=== PATIENT | male | born 1945 | race Caucasian/White ===

== ENCOUNTER → 2016-12-11 | Outpatient (CLI) | payer OTHER ==
[2016-12-11 13:29] LABS: BLOOD UREA NITROGEN 31 mg/dl (7-18); BUN/CREATININE RATIO 21.9 (10-20); CALCIUM 9.9 mg/dl (8.5-10.1); CARBON DIOXIDE 23 mmol/L (21-32); CHLORIDE 107 mmol/L (98-107); CHOLESTEROL 129 mg/dl (0-200); GLUCOSE 103 mg/dl (70-99); POTASSIUM 4.3 mmol/L (3.5-5.1); SODIUM 138 mmol/L (136-145)
[2016-12-11 13:36] LABS: ALB/GLOB RATIO 1.4 (0.9-2); ALKALINE PHOSPHATASE 57 U/L (45-117); ALT/SGPT 33 U/L (12-78); AST/SGOT 24 U/L (15-37); CHOLESTEROL/HDL RATIO 2.5; HDL CHOLESTEROL 52 mg/dl; LDL CHOLESTEROL CALCULATED 56 mg/dl; TRIGLYCERIDES 103 mg/dl (0-150); VERY LOW DENSITY LIPOPROT CALC 21 mg/dl
== END | disposition home or self-care (01) ==
LOC: C.LABPVFM 10:20
PROVIDERS: ATTEND Family Medicine
DX: E78.5 Hyperlipidemia, unspecified (principal); R03.0 Elevated blood-pressure reading, without diagnosis of hypertension; R73.01 Impaired fasting glucose; E66.9 Obesity, unspecified

== ENCOUNTER → 2017-06-03 | Outpatient (CLI) | payer OTHER ==
[2017-06-03 13:09] LABS: BASO % 0.1 %; BASO ABS # 0.02 K/uL (0-0.2); COMPLETE YES; EOS % 0.5 %; HEMATOCRIT 50.5 % (42-52); IG% 0.4 %; LYMPH % 19.7 %; LYMPH ABS # 2.71 K/uL (1.2-3.4); MEAN CELL VOLUME 89.5 fL (80-100); MEAN CORPUSCULAR HEMOGLOBIN 30.7 pg (25-34); MEAN CORPUSCULAR HGB CONC 34.3 g/dl (32-36); MEAN PLATELET VOLUME 11.5 fL (7.4-10.4); NEUT % 71.3 %; PLATELET COUNT 180 K/uL (130-400); RED BLOOD COUNT 5.64 M/uL (4.7-6.1); WHITE BLOOD COUNT 13.76 K/uL (4.8-10.8)
[2017-06-03 13:20] LABS: ESTIMATED AVERAGE GLUCOSE 131 mg/dl; HA1C FLAG Normal (Normal)
[2017-06-03 13:36] LABS: ALT/SGPT 52 U/L (12-78); BLOOD UREA NITROGEN 29 mg/dl (7-18); BUN/CREATININE RATIO 23.1 (10-20); CALCIUM 9.8 mg/dl (8.5-10.1); CARBON DIOXIDE 29 mmol/L (21-32); CHLORIDE 101 mmol/L (98-107); CHOLESTEROL 140 mg/dl (0-200); CREATININE 1.26 mg/dl (0.60-1.40); GLUCOSE 112 mg/dl (70-99); POTASSIUM 4.3 mmol/L (3.5-5.1); SODIUM 134 mmol/L (136-145)
[2017-06-03 13:39] LABS: ALB/GLOB RATIO 1.3 (0.9-2); ALKALINE PHOSPHATASE 46 U/L (45-117); AST/SGOT 28 U/L (15-37); CHOLESTEROL/HDL RATIO 2.3; HDL CHOLESTEROL 61 mg/dl; LDL CHOLESTEROL CALCULATED 53 mg/dl; TRIGLYCERIDES 128 mg/dl (0-150); VERY LOW DENSITY LIPOPROT CALC 26 mg/dl
== END | disposition home or self-care (01) ==
LOC: C.LABPVFM 10:42
PROVIDERS: ATTEND Family Medicine
DX: Z11.59 Encounter for screening for other viral diseases (principal); E78.5 Hyperlipidemia, unspecified; R73.01 Impaired fasting glucose; R25.2 Cramp and spasm; R17 Unspecified jaundice

== ENCOUNTER 2018-01-07 06:05 | Inpatient (IN) | payer OTHER ==
[2017-12-28 10:01] VITALS: BMI 34.0
--- NOTE | 2017-12-29 14:06 | PAT Medication Instructions ---
Service Date Dec 29, 2017. Current Home Medication List Aspirin (Aspirin Ec), 81 MG PO QAM Atorvastatin (Lipitor), 40 MG PO QAM Cholecalciferol (Vitamin D3), 1 TAB PO QAM Ibuprofen (Advil), 200 MG PO UD PRN for PRN Multiple Vitamin (Multi Vitamin), 1 TAB PO QAM [Calcium, Magnesium], Unknown Dose PO QAM Medication Instructions For Your Scheduled Surgery - Hold the following medications the morning of surgery: Cholecalciferol (Vitamin D3), 1 TAB PO QAM Ibuprofen (Advil), 200 MG PO UD PRN for PRN Multiple Vitamin (Multi Vitamin), 1 TAB PO QAM [Calcium, Magnesium], Unknown Dose PO QAM - Take the following medications the morning of surgery with a sip of water: Aspirin (Aspirin Ec), 81 MG PO QAM (OK to continue per surgeon) Atorvastatin (Lipitor), 40 MG PO QAM If you have any questions please call us at [phone] or [phone] or [phone]
--- NOTE | 2017-12-29 15:22 | DIAGNOSTIC IMAGING REPORT ---
CHEST 2 VIEWS ROUTINE HISTORY: 72 years-old Male PAT preoperative exam. No acute chest complaints COMPARISON: None available. TECHNIQUE: PA and lateral views of the chest FINDINGS: The cardiac silhouette is mildly enlarged. Calcification of the aorta. No pneumothorax, pleural effusion or overt pulmonary edema. Eventration of the right hemidiaphragm. Lungs are mildly hyperinflated. Subsegmental bibasilar opacities suggest atelectasis/scarring. Degenerative changes of the shoulders and spine. IMPRESSION: Cardiomegaly without acute process. The above report was generated using voice recognition software. It may contain grammatical, syntax or spelling errors. Electronically signed by: Artis Morris M.D. 12/29/2017 3:20 PM Dictated Date/Time: 12/29/2017 3:19 PM
[2017-12-29 15:27] LABS: BASO % 0.9 %; BASO ABS # 0.07 K/uL (0-0.2); EOS % 3.3 %; EOS ABS # 0.26 K/uL (0-0.5); HEMATOCRIT 43.3 % (42-52); HEMOGLOBIN 14.8 g/dL (14.0-18.0); IG# 0.01 K/uL (0.00-0.02); LYMPH % 38.2 %; LYMPH ABS # 2.97 K/uL (1.2-3.4); MEAN CELL VOLUME 88.2 fL (80-100); MEAN CORPUSCULAR HEMOGLOBIN 30.1 pg (25-34); MEAN CORPUSCULAR HGB CONC 34.2 g/dl (32-36); MONO % 8.7 %; MONO ABS # 0.68 K/uL (0.11-0.59); NEUT % 48.8 %; NEUT ABS # 3.79 K/uL (1.4-6.5); PLATELET COUNT 173 K/uL (130-400); RED CELL DISTRIBUTION WIDTH CV 13.5 % (11.5-14.5); RED CELL DISTRIBUTION WIDTH SD 43.9 fL (36.4-46.3); WHITE BLOOD COUNT 7.78 K/uL (4.8-10.8)
[2017-12-29 15:39] LABS: CREATININE 1.15 mg/dl (0.60-1.40); INR 1.1 (0.9-1.1); POTASSIUM 3.6 mmol/L (3.5-5.1)
[2018-01-07] VITALS (34 sets, daily range): BP systolic 121–213; BP diastolic 52–124; PULSE 52–74; TEMP 36.6–37.2; O2SAT 91–100; Ht 177.8 cm; Wt 108.1 kg
[~2018-01-07] VITALS: Ht 177.8 cm; Wt 108.1 kg
[~2018-01-07 06:05] MED LIST: ASPI81TA28 PO; ATOR-24 PO; CALCIUM, MAGNESIUM PO; CEFAZOLIN 2000MG IV PUSH 15 ML IV SCH; CHOL1000 PO; IBUP-1050 PO; LACTATED RINGER'S 1000ML 1,000 ML IV SCH; MULT-1027 PO
--- NOTE | 2018-01-07 06:09 | History and Physical ---
History & Physical Date of Service Jan 07, 2018. History & Physical Chief Complaint: AAA found on routine screening. History of Present Illness I the pleasure of seeing Renato womack today for evaluation of abdominal aortic aneurysm. As you know he is a 72-year-old gentleman who on a screeningultrasound showed a 7.4 cm abdominal aortic aneurysm. He had no history of this in the past. He has no family history of aneurysmal disease. He is in good health. He did claim that did not 2015 he was seen by arabic translator for an abnormal EKG. He was told that he may have had a small inferior HI which was not symptomatic. He has no complaints of claudication and he has no complaints of cerebrovascular insufficiency. Review of Systems 10 systems reviewed there are no positive findings other than occasional back and hip pain and right knee pain. Physical Exam Physical exam he was awake oriented 3 is mildly obese is in no apparent distress. His blood pressure is 144/86 in the left 140/86 in the right. His lungs are clear his heart a regular rate and rhythm exam is benign I cannot appreciate a pulsatile mass to the body habitus. His radius carotids and vertebrals are +2 bilaterally. Femorals and pedal pulses are all +2 bilaterally. Neurologic exam is grossly intact. Assessment/Plan Plan and recommendations this point being that he has a large size abdominal aortic aneurysm repair is recommended. We will obtain a CT angiogram to see if he is a candidate for an endovascular repair. If endovascular repair is feasible this will be scheduled for the next 2 weeks. We will keep you informed as the results of the CT scan. Thank you very much for letting us to dissipate in the care of this patient. Sincerely, ANJELICA Jimenez MD Problem List/Past Medical History Ongoing Family history of malignant melanoma Family history of skin cancer Skin cyst Tobacco user Historical No qualifying data Procedure/Surgical History Repair of umbilical hernia (2014) , Excision (12/06/2013), Excision (12/06/2013), None. Medications Inpatient No active inpatient medications Home aspirin 81 mg oral delayed release tablet, 81 mg= 1 tab, PO, Daily atorvastatin 40 mg oral tablet, 40 mg= 1 tab, PO, Daily Calcium, Magnesium and Zinc oral tablet, 1 tab, PO, Daily multivitamin, 1 tab, PO, Daily Tylenol, See Instructions Allergies No Known Medication Allergies Social History Tobacco Former smoker, Cigarettes, Stopped age 69 Years. Family History Breast cancer: MGM and Maternal Aunt. Diabetes 02-OCT-2015 18:38:14<$>: Mother. Glioblastoma: Mother.
[2018-01-07] MEDS ORDERED: ALBUMIN HUMAN 5% 12.5 GM/250 ML VIAL IV ONE (06:53)
[2018-01-07] MEDS ORDERED: NITROGLYCERIN/D5W 100MCG/ML 20ML SYR ONE (06:54)
[2018-01-07] MEDS ORDERED: GELATIN SPONGE SZ 100 ONE (06:59)
[2018-01-07] MEDS ORDERED: CEFAZOLIN SOD 1 GM VIAL ONE (07:00)
[2018-01-07] MEDS ORDERED: HEPARIN SOD (PORCINE) 1000 UNIT/ML 10 ML VIAL ONE ×3 (07:00→09:54)
[2018-01-07] MEDS ORDERED: THROMBIN 5000 UNITS KIT ONE (07:00)
--- NOTE | 2018-01-07 07:17 | History & Physical Bridge Note ---
H&P Re-Evaluation Bridge Note: I have examined the patient, reviewed the History & Physical and in the interval since the performance of the History & Physical I have noted the following changes of clinical significance: No changes noted Patient here for endorepair of his AAA. I have discussed the risks options and benefits of the procedure with the patient. The patient understands the risks options and benefits and agrees to the procedure.
[2018-01-07] MEDS ORDERED: LIDOCAINE HCL 2% JELLY 30 ML TUBE ONE (07:32)
[2018-01-07] MEDS ORDERED: BUPIVACAINE/EPINEPHRINE 0.5% MPF 1:200,000 30 ML VIAL ONE (07:32)
[2018-01-07] MEDS ORDERED: FENTANYL CITRATE INJ 50 MCG/1 ML 2 ML VIAL ONE ×2 (07:37→11:42)
[2018-01-07] MEDS ORDERED: MIDAZOLAM HCL 1 MG/ML 2ML VIAL ONE (07:37)
[2018-01-07] MEDS ORDERED: KETAMINE HCL INJ 50 MG/ML 10 ML VIAL ONE (08:29)
[2018-01-07] MEDS ORDERED: LIDOCAINE HCL 2% 2 ML VIAL (20MG/ML) ONE (09:04)
[2018-01-07] MEDS ORDERED: PROPOFOL IV EMULSION 10 MG/ML 20 ML VIAL ONE ×2 (09:04→09:42)
[2018-01-07] MEDS ORDERED: ONDANSETRON INJ 2 MG/ML 2 ML VIAL ONE (09:04)
[2018-01-07] MEDS ORDERED: SUCCINYLCHOLINE CHLORIDE 20 MG/ML 10 ML VIAL IV ONE (09:54)
[2018-01-07] MEDS ORDERED: ROCURONIUM BROMIDE 10 MG/ML 5 ML VIAL ONE (10:08)
[2018-01-07] MEDS ORDERED: GLYCOPYRROLATE INJ 0.2 MG/ML VIAL ONE (10:52)
[2018-01-07] MEDS ORDERED: NEOSTIGMINE METHYLSULFATE 5 MG/5 ML SYR ONE (10:52)
--- NOTE | 2018-01-07 10:58 | [facility] Post Operative Brief Note ---
Immediate Operative Summary Operative Date Jan 07, 2018. 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 Surgeon Dr. Jimenez Laborer Sawmill Surgeon(s) Leonie Noble MD Estimated Blood Loss 30 Findings Consistent with Post-Op Diagnosis Specimens None Anesthesia Type General Complication(s) none Disposition Accompanied Pt To Recover: no Disposition: Recovery Room / PACU
[2018-01-07] MEDS ORDERED: CEFAZOLIN IV 2,000 MG in DEXTROSE 5% 50ML 50 ML IV SCH (11:00)
[2018-01-07] MEDS ORDERED: ONDANSETRON INJ 2 MG/ML 2 ML VIAL IV PRN ×2 (11:00→11:45)
[2018-01-07] MEDS ORDERED: IODIXANOL (VISIPAQUE) 270 MG/ML 150ML IV ONE (11:03)
[2018-01-07] MEDS ORDERED: BUPIVACAINE/EPINEPHRINE 0.5% MPF 1:200,000 30 ML VIAL INJ ONE (11:03)
[2018-01-07] MEDS ORDERED: LIDOCAINE HCL 2% JELLY 30 ML TUBE EXT ONE (11:07)
[2018-01-07] MEDS ORDERED: ARISTA ABSORBABLE HEMOSTAT 3GM TOP ONE (11:08)
[2018-01-07] MEDS ORDERED: LABETALOL HCL IV 5 MG/ML 20ML ONE (11:17)
[2018-01-07] MEDS ORDERED: FLUMAZENIL 0.1 MG/1 ML 10 ML VIAL IV PRN (11:45)
[2018-01-07] MEDS ORDERED: EpHEDrine SULFATE INJ 50 MG/ML AMP IV PRN (11:45)
[2018-01-07] MEDS ORDERED: NALOXONE HCL 0.4 MG/1 ML VIAL/CARP IV PRN (11:45)
[2018-01-07] MEDS ORDERED: PROMETHAZINE HCL INJ 12.5 MG in SODIUM CHLORIDE 0.9% 50ML 50 ML IV PRN (11:45)
[2018-01-07] MEDS ORDERED: FENTANYL CITRATE INJ 50 MCG/1 ML 2 ML VIAL IV PRN (11:45)
[2018-01-07] MEDS ORDERED: ATROPINE SULFATE 0.1 MG/ML 5ML SYR IV PRN (11:45)
--- NOTE | 2018-01-07 12:01 | Anesthesiology Progress Note ---
Anesthesia Post Op Note Date & Time Jan 07, 2018 at 12:01 Vital Signs Pain Intensity: 4 Vital Signs Past 12 Hours Date Time Temp Pulse Resp B/P (MAP) Pulse Ox O2 Delivery O2 Flow Rate FiO2 01/07/18 11:40 50 16 118/72 98 Oxymask 2 01/07/18 11:31 52 16 114/59 98 Oxymask 10 01/07/18 11:21 36.0 57 19 139/81 98 Oxymask 10 01/07/18 06:20 36.9 58 18 147/90 97 Room Air Notes Mental Status: alert / awake / arousable, participated in evaluation Pt Amnestic to Procedure: Yes Nausea / Vomiting: adequately controlled Pain: adequately controlled Airway Patency, RR, SpO2: stable & adequate BP & HR: stable & adequate Hydration State: stable & adequate Anesthetic Complications: no major complications apparent
[2018-01-07 12:15] LABS: HEMATOCRIT 41.2 % (42-52); HEMOGLOBIN 14.2 g/dL (14.0-18.0)
[2018-01-07] MEDS: MoRPHine SULFATE 4 MG/ML 1 ML CARP\\VIAL IV PRN ×2 (14:22→22:02)
[2018-01-07] MEDS: PANTOprazole INJ 40 MG in SYRINGE 0 ML IV SCH (14:23)
[2018-01-07] MEDS: D5W AND 1/2NSS 1,000 ML IV SCH ×2 (14:24→22:01)
--- NOTE | 2018-01-07 15:47 | Critical Care Consultation ---
Critical Care Consultation Date of Consultation: Jan 07, 2018. Attending Physician: Cristi Jimenez M.D. Reason for Consultation: Observation following vascular surgery: Endovascular Repair of Left Iliac Artery Aneurysm, Percutaneous Endovascular Aneurysm Repair, Right Iliac Extension, Bilateral Cannulation of the Aorta, Mechanical Closure of Bilateral Femoral Arteries History of Present Illness 72 yo male with a PMH of HLD, 25 pack year former smoker presents to the ICU for monitoring following a successful vascular surgical procedure. Past Medical/Surgical History HLD, asymptomatic bradycardia, Obesity, AAA Family History Atrial fibrillation, glioblastoma, melanoma Social History Smoking Status: Former Smoker Allergies Coded Allergies: No Known Allergies (Unverified , 01/07/18) Home Medications Scheduled Aspirin (Aspirin Ec), 81 MG PO QAM Atorvastatin (Lipitor), 40 MG PO QAM Cholecalciferol (Vitamin D3), 1 TAB PO QAM Multiple Vitamin (Multi Vitamin), 1 TAB PO QAM [Calcium, Magnesium], Unknown Dose PO QAM Scheduled PRN Ibuprofen (Advil), 200 MG PO UD PRN for PRN Current Inpatient Medications Current Inpatient Medications Medications (Trade) Dose Ordered Sig/Mp Route Start Time Stop Time Status Last Admin Dose Admin Cefazolin Sodium 15 ml @ 3.75 mls/ min PREOP IV 01/07/18 06:00 01/07/18 18:00 01/07/18 08:00 3.75 MLS/MIN Lactated Ringer's 1,000 ml @ 80 mls/hr [id number] IV 01/07/18 06:00 01/07/18 18:29 Morphine Sulfate (MoRPHine SULFATE INJ) If PO analgesic is orde... Q2H PRN IV 01/07/18 11:00 01/21/18 10:59 01/07/18 14:22 2 MG Oxycodone/ Acetaminophen (Percocet 5-325mg Tab) `1-2 TABS FOR MODER... Q4H PRN PO 01/07/18 11:00 01/21/18 10:59 Ondansetron HCl (Zofran Inj) 4 mg Q6H PRN IV 01/07/18 11:00 02/06/18 10:59 Pantoprazole Sodium 40 mg/ Syringe 10 ml @ 5 mls/min DAILY@11 IV 01/07/18 13:00 01/10/18 11:01 01/07/18 14:23 5 MLS/MIN Dextrose/Sodium Chloride 1,000 ml @ 125 mls/hr Q8H IV 01/07/18 13:00 02/06/18 12:59 01/07/18 14:24 125 MLS/HR Aspirin (Ecotrin Tab) 81 mg QAM PO 01/08/18 09:00 02/07/18 08:59 Atorvastatin Calcium (Lipitor Tab) 40 mg QAM PO 01/08/18 09:00 02/07/18 08:59 Cholecalciferol (Vitamin D Tab) 1,000 inter.unit QAM PO 01/08/18 09:00 02/07/18 08:59 Multivitamins (Multivitamin Tab) 1 tab QAM PO 01/08/18 09:00 02/07/18 08:59 Fentanyl Citrate (Fentanyl Inj) 25 mcg Q5M PRN IV 01/07/18 11:45 01/07/18 18:00 Naloxone HCl (Narcan Inj) 0.2 mg Q2M PRN IV 01/07/18 11:45 01/07/18 18:00 Flumazenil (Romazicon Inj) 0.2 mg Q2M PRN IV 01/07/18 11:45 01/07/18 18:00 Ondansetron HCl (Zofran Inj) 4 mg ONE PRN IV 01/07/18 11:45 01/07/18 18:00 Promethazine HCl 12.5 mg/Sodium Chloride 50.5 ml @ 202 mls/hr ONE PRN IV 01/07/18 11:45 01/07/18 18:00 Ephedrine Sulfate (EpHEDrine SULFATE INJ) 5 mg Q5M PRN IV 01/07/18 11:45 01/07/18 18:00 Atropine Sulfate (Atropine Sulfate 0.1mg/ml Inj) 0.5 mg Q1M PRN IV 01/07/18 11:45 01/07/18 18:00 Cefazolin Sodium 2000 mg/Syringe 15 ml @ 3.75 mls/ min Q8H IV 01/07/18 16:00 01/08/18 15:59 Review of Systems Constitutional: No fever, No chills, No sweats Eyes: No worsening of vision, No eye pain, No redness ENT: No hearing loss, No tinnitus, No trouble swallowing Respiratory: No cough, No sputum, No wheezing, No shortness of breath Cardiovascular: No chest pain, No orthopnea, No edema, No palpitations Abdomen: No pain, No nausea, No vomiting, No diarrhea Musculoskeletal: No joint pain, No muscle pain, No swelling, No calf pain Genitourinary - Male: No hematuria, No dysuria Endocrine: No fatigue, No excessive thirst, No excessive urination Integumentary: No rash, No itch, No color change Physical Exam Date Time Temp Pulse Resp B/P (MAP) Pulse Ox O2 Delivery O2 Flow Rate FiO2 01/07/18 14:30 53 18 148/74 (98) 100 Nasal Cannula 2.0 01/07/18 13:30 53 18 139/68 (91) 99 Nasal Cannula 2.0 01/07/18 13:02 52 16 142/71 (94) 100 Nasal Cannula 2.0 01/07/18 13:00 Nasal Cannula 2.0 01/07/18 12:37 36.9 54 16 122/71 (88) 92 Nasal Cannula 2.0 01/07/18 12:18 36.4 01/07/18 12:00 47 14 111/60 95 Oxymask 2 01/07/18 11:50 45 11 107/53 96 Oxymask 2 01/07/18 11:40 50 16 118/72 98 Oxymask 2 01/07/18 11:31 52 16 114/59 98 Oxymask 10 01/07/18 11:21 36.0 57 19 139/81 98 Oxymask 10 01/07/18 06:20 36.9 58 18 147/90 97 Room Air General Appearance: well-appearing, WD/WN, no apparent distress Head: normocephalic, atraumatic Eyes: PERRLA, no discharge, EOMI Neck: normal range of motion, no tenderness, trachea midline, no stridor, supple Respiratory: breath sounds normal, clear to auscultation, clear to percussion, no respiratory distress, no tenderness Cardiovasular: regular rate/rhythm, normal S1S2, no M/G/R, no murmur Abdomen: non tender, normal bowel sounds, no rebound, no masses, no guarding Upper Extremities: no edema, no deformity, normal ROM Lower Extremities: no edema, no deformity, normal ROM Neuro: alert, oriented x 3, normal motor exam, normal sensation Psychiatric: normal affect Laboratory Results Last 24 Hours Test 01/07/18 11:31 Hemoglobin 14.2 g/dL Hematocrit 41.2 % Assessment & Plan 72 yo male presents to ICU for monitoring following 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 Neuro - Post operative pain; Morphine Sulfate Q2 for severe pain, Percocet Q4 PRN for moderate pain Cardio - History of iliac aneurysm, repair today, no complications - Additional history includes; HLD, possible inferior infarct, asymptomatic bradycardia - Continue patients home regimen; ASA 81mg, Atorvastatin 40 mg - HR 45-55, BP approximately 140/70 in the post-op period - Triglycerides from 06/03/2017 demonstrated the following: TG 128, TCH 140, HDL 61, LDL 53 - Was recently worked up for EKG findings suspicious for an old [place]--follow up ECHO showed preserved systolic function, EF 60%, with basal wall motion abnormalities consistent with RCA infarct. Patient was seen by cardiology and was cleared for surgery. Respiratory - On 2 L NC, continue to wean - Former smoker, 25 pack years GI - Ulcer ppx; IV pantoprazole - Zofran for nausea - No signs or sx of infection - Linder intact ID - Post surgical abx ppx Cefazolin IV Q8 Renal/lytes - Continue to follow output, no signs or sx of dehydration - Cr 1.15, follow am BMP - K 3.6, will replete Endocrine - Continue home Vit D, multivitamins - Recent A1C, 6.2 (06/03/2017) - No diabetic medications. Will order sliding scale, if patient has elevated glucose DVT ppx - SCD's, ambulate Lines - Peripheral IV, linder Code - Full FEN - NS 125 mls/hr q 8 Resident Physician Supervision Note: Dr. Angel was resident physician during care of patient. I separately evaluated patient and did history and exam. I discussed the case with the resident and generally agree with the findings and plan. Patient required emergent CT scan after hypertensive episode to evaluate for possible leak or rupture, I discussed the radiology findings with radiology, no obvious indication of vascular leak, there is a small retroperitoneal hematoma which is likely postprocedural and could very well explain a lot of the patient' s pain and discomfort. At this point we will continue with serial H&H and close observation for possible expansion. I discussed these findings and treatment plan with Dr. Jimenez. I have personally spent 35 minutes of critical care time in the direct management of this patient. This is a life/limb threatening event. This includes time spent evaluating patient, direct bedside care, chart review, placing orders, interpretation of diagnostic studies, discussion with consultants, patient, and/or family members regarding treatment decisions, as well as other required patient management activities. This time is exclusive of all separately billable procedures, and teaching time and separate from and in addition to any other critical care service time. Documented By: Kushal Silver DO
[2018-01-07] MEDS: CEFAZOLIN IV 2,000 MG in SYRINGE 0 ML IV SCH (16:02)
[2018-01-07] MEDS ORDERED: NURSING VERBAL MED ORDER ONE ×3 (16:30→18:45)
[2018-01-07] MEDS ORDERED: PROMETHAZINE HCL INJ 50 MG in SODIUM CHLORIDE 0.9% 50ML 50 ML IV PRN (16:45)
[2018-01-07] MEDS ORDERED: HydrALAZINE HCL 20 MG/ML VIAL ONE (17:41)
[2018-01-07 18:05] LABS: HEMATOCRIT 42.8 % (42-52); HEMOGLOBIN 15.1 g/dL (14.0-18.0)
--- NOTE | 2018-01-07 18:27 | DIAGNOSTIC IMAGING REPORT ---
ABDOMEN AND PELVIS CT WITHOUT CONTRAST CT DOSE: 1280.31 mGy.cm HISTORY: Acute mid abdominal pain. PEVAR with abd pain. TECHNIQUE: Multiaxial CT images of the abdomen and pelvis were performed without contrast. A dose lowering technique was utilized adhering to the principles of ALARA. COMPARISON STUDY: Spot fluoroscopic images from aortobiiliac aneurysm repair 01/07/2018, CTA 12/24/2017 FINDINGS: Study is motion degraded. Dependent subsegmental groundglass opacities suggest atelectasis. Limited evaluation of the lung bases secondary to respiratory motion. There is no pneumatosis or pneumoperitoneum identified. The imaged inferior cardiac chambers are mildly enlarged with coronary arterial calcifications noted. Contrast is noted within the gallbladder lumen and lateral with vicarious excretion. Liver, spleen, pancreas and adrenal glands demonstrate no change. Striated nephrogram seen bilaterally with mild bilateral perinephric stranding. Hypodense 3.0 cm lesion about the inferior pole right kidney suggests renal cyst. Contrast is noted within the bilateral renal collecting systems. Retained contrast within the urinary bladder lumen with Mcintyre catheter in place. The prostate is enlarged. Fusiform aneurysmal dilation of the infrarenal abdominal aorta redemonstrated measuring up to 7.6 x 8.2 cm, unchanged. Mild retained contrast is noted within the vessel lumen. Mild air is also noted within the lumen of the aorta which is likely postprocedural. Fusiform aneurysmal dilation of the left common iliac artery is unchanged, 5.0 cm. Status post placement of aortobiiliac stent graft with the left iliac stent graft demonstrating 2 limbs extending into the external and internal iliac branches respectively. Retroperitoneal hemorrhage is noted about the left pelvic sidewall tracking along the inferior iliac vessels superiorly urinary bladder measuring up to 7.8 x 1.7 cm on image 413 series 3. Additional trace hemorrhage is seen within the left inguinal tissues. Subcutaneous emphysema about the bilateral inguinal regions is likely postprocedural. Gaseous distention of the stomach. Mild nonspecific stranding about the mid mesentery. No bowel obstruction. Bones appear intact. Multilevel spondylitic spurring and intervertebral disc space narrowing with facet arthropathy. IMPRESSION: 1. Status post repair of the fusiform infrarenal abdominal aortic aneurysm and left common iliac artery aneurysm with placement of an aortobiiliac stent graft. No definite evidence of aneurysm rupture. There is however moderate amount of retroperitoneal hemorrhage about the left lower hemipelvis tracking along the iliac vessels and left inguinal distribution, possibly postprocedural. Close follow-up is needed. 2. Striated nephrogram with retained contrast within the bilateral renal collecting systems. Contrast induced nephropathy is a differential consideration. 3. Additional findings as above. These findings were discussed with Dr. Silver on 01/07/2018 at 6:16 PM Electronically signed by: Artis Morris M.D. 01/07/2018 6:25 PM Dictated Date/Time: 01/07/2018 6:10 PM
[2018-01-07] MEDS: SODIUM NITROPRUSSIDE SOLN INJ 50 MG in DEXTROSE 5% 500ML 500 ML IV PRN (19:02)
[2018-01-08] VITALS (64 sets, daily range): BP systolic 93–266; BP diastolic 49–264; PULSE 53–91; TEMP 36.8–37; O2SAT 90–99
[2018-01-08] MEDS: CEFAZOLIN IV 2,000 MG in SYRINGE 0 ML IV SCH ×2 (00:16→08:23)
[2018-01-08 00:37] LABS: HEMATOCRIT 39.3 % (42-52); HEMOGLOBIN 13.8 g/dL (14.0-18.0)
[2018-01-08 01:05] LABS: INR 1.1 (0.9-1.1); PTT PATIENT 23.5 SECONDS (21.0-31.0)
[2018-01-08] MEDS: MoRPHine SULFATE 4 MG/ML 1 ML CARP\\VIAL IV PRN ×2 (01:28→07:05)
[2018-01-08 05:30] LABS: HEMATOCRIT 39.2 % (42-52); HEMOGLOBIN 13.8 g/dL (14.0-18.0)
[2018-01-08 06:08] LABS: CALCIUM 8.5 mg/dl (8.5-10.1); CREATININE 1.11 mg/dl (0.60-1.40); POTASSIUM 3.6 mmol/L (3.5-5.1)
[2018-01-08] MEDS: D5W AND 1/2NSS 1,000 ML IV SCH ×3 (06:33→21:48)
--- NOTE | 2018-01-08 07:48 | Progress Note ---
Progress Note Date of Service: Jan 08, 2018. Subjective Complaining of back pain. Relieved with pain shots Objective Vital Signs Vital Signs Past 12 Hours Date Time Temp Pulse Resp B/P (MAP) Pulse Ox O2 Delivery O2 Flow Rate FiO2 01/08/18 07:16 62 148/59 (88) 97 01/08/18 07:02 61 164/62 (96) 98 01/08/18 07:01 80 137/57 (83) 98 01/08/18 06:46 63 168/61 (96) 98 01/08/18 06:31 67 160/62 (94) 97 01/08/18 06:16 66 150/60 (90) 97 01/08/18 06:02 70 103/70 (81) 98 01/08/18 06:01 86 133/62 (85) 01/08/18 05:46 66 162/62 (95) 97 01/08/18 05:32 66 152/59 (90) 97 01/08/18 05:17 84 121/56 (77) 96 01/08/18 05:01 70 120/56 (77) 97 01/08/18 04:31 68 20 153/61 (91) 99 Nasal Cannula 2.0 01/08/18 04:16 69 18 151/60 (90) 99 Nasal Cannula 2.0 01/08/18 04:01 37.0 70 16 150/60 (90) 99 Nasal Cannula 2.0 01/08/18 03:46 70 18 157/61 (93) 99 Nasal Cannula 2.0 01/08/18 03:31 75 18 111/53 (72) 99 Nasal Cannula 2.0 01/08/18 03:16 68 20 171/65 (100) 98 Nasal Cannula 2.0 01/08/18 03:01 67 20 163/61 (95) 97 Nasal Cannula 2.0 01/08/18 02:46 68 18 165/62 (96) 97 Nasal Cannula 2.0 01/08/18 02:31 68 14 160/60 (93) 96 Nasal Cannula 2.0 01/08/18 02:16 69 16 162/62 (95) 95 Nasal Cannula 2.0 01/08/18 02:01 68 18 150/56 (87) 95 Nasal Cannula 2.0 01/08/18 01:46 80 18 121/56 (77) 96 Nasal Cannula 2.0 01/08/18 01:32 91 18 182/125 (144) 95 Nasal Cannula 2.0 01/08/18 01:16 58 16 266/264 (265) 96 Nasal Cannula 2.0 01/08/18 01:01 77 18 115/68 (84) 95 Nasal Cannula 2.0 01/08/18 00:46 81 20 139/54 (82) 90 Room Air 01/08/18 00:31 73 18 163/67 (99) 94 Room Air 01/08/18 00:16 77 16 156/56 (89) 94 Room Air 01/08/18 00:01 36.9 62 14 162/55 (90) 93 Room Air 01/07/18 23:16 73 16 160/52 (88) 91 Room Air 01/07/18 23:01 64 20 160/52 (88) 91 Room Air 01/07/18 22:50 69 20 170/57 (94) 93 Room Air 01/07/18 22:46 66 18 168/65 (99) 93 Room Air 01/07/18 22:31 73 16 146/61 (89) 93 Room Air 01/07/18 22:16 63 18 156/55 (88) 92 Room Air 01/07/18 22:01 73 16 146/53 (84) 92 Room Air 01/07/18 21:46 59 20 165/53 (90) 95 Room Air 01/07/18 21:31 69 14 162/56 (91) 95 Room Air 01/07/18 21:16 61 16 163/53 (89) 94 Room Air 01/07/18 21:01 60 20 165/55 (91) 94 Room Air 01/07/18 20:46 64 16 153/54 (87) 93 Room Air 01/07/18 20:31 58 18 121/56 (77) 93 Room Air 01/07/18 20:16 66 18 126/55 (78) 93 Room Air 01/07/18 20:01 37.2 62 20 168/68 (101) 92 Room Air 01/07/18 20:00 Room Air 01/07/18 19:46 74 18 160/65 (96) 96 Room Air Exam Awake alert VSS BP controlled with nipride Abd rotund. Soft. No peritoneal signs good distal flow Groins ok Laboratory and Microbiology Results Past 24 Hours Test 01/07/18 11:31 01/07/18 16:39 01/07/18 17:54 01/08/18 00:20 Range/Units Hemoglobin 14.2 15.1 13.8 14.0-18.0 g/dL Hematocrit 41.2 42.8 39.3 42-52 % Bedside Glucose 126 70-99 mg/dl Prothrombin Time 11.4 9.0-12.0 SECONDS Prothromb Time International Ratio 1.1 0.9-1.1 Activated Partial Thromboplast Time 23.5 21.0-31.0 SECONDS Partial Thromboplastin Ratio 0.9 Fibrinogen 277 184-400 mg/dl Test 01/08/18 05:10 Range/Units Hemoglobin 13.8 14.0-18.0 g/dL Hematocrit 39.2 42-52 % Sodium Level 136 136-145 mmol/L Potassium Level 3.6 3.5-5.1 mmol/L Chloride Level 105 98-107 mmol/L Carbon Dioxide Level 23 21-32 mmol/L Anion Gap 8.0 3-11 mmol/L Blood Urea Nitrogen 20 7-18 mg/dl Creatinine 1.11 0.60-1.40 mg/dl Est Creatinine Clear Calc Drug Dose 73.0 ml/min Estimated GFR () 75.9 Estimated GFR (Non- 65.5 BUN/Creatinine Ratio 17.7 10-20 Random Glucose 138 70-99 mg/dl Calcium Level 8.5 8.5-10.1 mg/dl Imp: Post PEVAR Retroperitoneal hematoma Plan: Patient had back pain last pm. CT scan showed a retroperitoneal hematoma. Hgb has been stable Had an area of extravasation of contrast of left iliac during positioning of the 16 armenian sheath. This area is covered by the endograft. Left limb of graft not very far into the left external iliac artery. May need an extension at a later date. Continue to try to wean off nipride. Clear liquid diet. Repeat h/h in am.
[2018-01-08] MEDS: ATORVASTATIN 20 MG TAB PO SCH (08:23)
[2018-01-08] MEDS: MULTIVITAMIN TAB PO SCH (08:23)
[2018-01-08] MEDS: ASPIRIN 81 MG ECTAB PO SCH (08:23)
[2018-01-08] MEDS: CHOLECALCIFEROL 1000 INTER.UNIT TAB PO SCH (08:23)
--- NOTE | 2018-01-08 08:52 | Critical Care Progress Note ---
Critical Care Progress Note Date of Service Jan 08, 2018. ICU Day ICU Day Number: [address] Silver Subjective Patient describes having significant abdominal pain overnight. He states that his nausea and vomiting has since subsided. Objective Constitutional: No fever, No chills, No sweats Eyes: No worsening of vision, No eye pain, No redness ENT: No hearing loss, No tinnitus, No trouble swallowing Respiratory: No cough, No sputum, No wheezing, No shortness of breath Cardiovascular: No chest pain, No orthopnea, No edema, No palpitations Abdomen: No pain, No nausea, No vomiting, No diarrhea Musculoskeletal: No joint pain, No muscle pain, No swelling, No calf pain Genitourinary - Male: No hematuria, No dysuria Endocrine: No fatigue, No excessive thirst, No excessive urination Integumentary: No rash, No itch, No color change Assessment & Plan 72 yo male presents to ICU for monitoring following 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 Neuro - Post operative pain; Morphine Sulfate Q2 for severe pain, Percocet Q4 PRN for moderate pain Cardio - History of iliac aneurysm, repaired, complication of retroperitoneal hematoma , stable, will continue to follow - Additional history includes; HLD, possible inferior infarct, asymptomatic bradycardia - Continue patients home regimen; ASA 81mg, Atorvastatin 40 mg - HR 45-55, BP approximately 140/70 in the post-op period - Triglycerides from 06/03/2017 demonstrated the following: TG 128, TCH 140, HDL 61, LDL 53 - Was recently worked up for EKG findings suspicious for an old [place]--follow up ECHO showed preserved systolic function, EF 60%, with basal wall motion abnormalities consistent with RCA infarct. Patient was seen by cardiology and was cleared for surgery. Respiratory - On 2 L NC, continue to wean - Former smoker, 25 pack years GI - Patient's abdominal pain is likely 2/2 to peritoneal irritation from minor post operative intraabdominal bleed - Retroperitoneal bleed visualized on CT. H/H has been stable, maintaining pressures - Diet; clear liquids for now - Will continue to monitor patient in the ICU - Patient pain is controlled with pain regimen above - Ulcer ppx; IV pantoprazole - Zofran for nausea - No signs or sx of infection - Linder intact - Adequate output-- approx 100 cc/hr overnight ID - Received post surgical abx ppx Cefazolin IV Renal/lytes - Continue to follow output, no signs or sx of dehydration - Stable Cr, follow am BMP - K 3.6, will replete Endocrine - Continue home Vit D, multivitamins - Recent A1C, 6.2 (06/03/2017) - No diabetic medications. Will order sliding scale, if patient has elevated glucose DVT ppx - SCD's, ambulate Lines - Peripheral IV, linder Code - Full FEN - NS 125 mls/hr q 8 Resident Physician Supervision Note: Dr. Angel was resident physician during care of patient. I separately evaluated patient and did history and exam. I discussed the case with the resident and generally agree with the findings and plan. Continued blood pressure control, taking ambulatory meds, will wean and discontinue IV vasoactive medications Documented By: Kushal Silver DO Data Medications: Current Inpatient Medications Medications (Trade) Dose Ordered Sig/Mp Route Start Time Stop Time Status Last Admin Dose Admin Morphine Sulfate (MoRPHine SULFATE INJ) If PO analgesic is orde... Q2H PRN IV 01/07/18 11:00 01/21/18 10:59 01/08/18 07:05 2 MG Oxycodone/ Acetaminophen (Percocet 5-325mg Tab) `1-2 TABS FOR MODER... Q4H PRN PO 01/07/18 11:00 01/21/18 10:59 Ondansetron HCl (Zofran Inj) 4 mg Q6H PRN IV 01/07/18 11:00 02/06/18 10:59 01/07/18 16:03 4 MG Pantoprazole Sodium 40 mg/ Syringe 10 ml @ 5 mls/min DAILY@11 IV 01/07/18 13:00 01/10/18 11:01 01/07/18 14:23 5 MLS/MIN Dextrose/Sodium Chloride 1,000 ml @ 125 mls/hr Q8H IV 01/07/18 13:00 02/06/18 12:59 01/08/18 06:33 125 MLS/HR Aspirin (Ecotrin Tab) 81 mg QAM PO 01/08/18 09:00 02/07/18 08:59 01/08/18 08:23 81 MG Atorvastatin Calcium (Lipitor Tab) 40 mg QAM PO 01/08/18 09:00 02/07/18 08:59 01/08/18 08:23 40 MG Cholecalciferol (Vitamin D Tab) 1,000 inter.unit QAM PO 01/08/18 09:00 02/07/18 08:59 01/08/18 08:23 1,000 INTER.UNIT Multivitamins (Multivitamin Tab) 1 tab QAM PO 01/08/18 09:00 02/07/18 08:59 01/08/18 08:23 1 TAB Cefazolin Sodium 2000 mg/Syringe 15 ml @ 3.75 mls/ min Q8H IV 01/07/18 16:00 01/08/18 15:59 01/08/18 08:23 3.75 MLS/MIN Promethazine HCl 50 mg/Sodium Chloride 52 ml @ 204 mls/hr Q6H PRN IV 01/07/18 16:45 02/06/18 16:44 01/07/18 16:50 204 MLS/HR Sodium Nitroprusside 50 mg/Dextrose 502 ml @ 0 mls/hr Q0M PRN IV 01/07/18 18:45 02/06/18 18:44 01/07/18 19:02 30 MLS/HR Vital Signs: Date Time Temp Pulse Resp B/P (MAP) Pulse Ox O2 Delivery O2 Flow Rate FiO2 01/08/18 08:30 79 119/61 (80) 95 Room Air 01/08/18 08:15 62 132/76 (94) 95 Room Air 01/08/18 08:00 Room Air 01/08/18 08:00 36.9 68 18 162/60 (94) 96 Room Air 01/08/18 07:45 62 18 130/63 (85) 93 Room Air 01/08/18 07:16 62 148/59 (88) 97 01/08/18 07:02 61 164/62 (96) 98 01/08/18 07:01 80 137/57 (83) 98 01/08/18 06:46 63 168/61 (96) 98 01/08/18 06:31 67 160/62 (94) 97 01/08/18 06:16 66 150/60 (90) 97 01/08/18 06:02 70 103/70 (81) 98 01/08/18 06:01 86 133/62 (85) 01/08/18 05:46 66 162/62 (95) 97 7/21/18 05:32 66 152/59 (90) 97 01/08/18 05:17 84 121/56 (77) 96 01/08/18 05:01 70 120/56 (77) 97 01/08/18 04:31 68 20 153/61 (91) 99 Nasal Cannula 2.0 01/08/18 04:16 69 18 151/60 (90) 99 Nasal Cannula 2.0 01/08/18 04:01 37.0 70 16 150/60 (90) 99 Nasal Cannula 2.0 01/08/18 03:46 70 18 157/61 (93) 99 Nasal Cannula 2.0 01/08/18 03:31 75 18 111/53 (72) 99 Nasal Cannula 2.0 01/08/18 03:16 68 20 171/65 (100) 98 Nasal Cannula 2.0 01/08/18 03:01 67 20 163/61 (95) 97 Nasal Cannula 2.0 01/08/18 02:46 68 18 165/62 (96) 97 Nasal Cannula 2.0 01/08/18 02:31 68 14 160/60 (93) 96 Nasal Cannula 2.0 01/08/18 02:16 69 16 162/62 (95) 95 Nasal Cannula 2.0 01/08/18 02:01 68 18 150/56 (87) 95 Nasal Cannula 2.0 01/08/18 01:46 80 18 121/56 (77) 96 Nasal Cannula 2.0 01/08/18 01:32 91 18 182/125 (144) 95 Nasal Cannula 2.0 01/08/18 01:16 58 16 266/264 (265) 96 Nasal Cannula 2.0 01/08/18 01:01 77 18 115/68 (84) 95 Nasal Cannula 2.0 01/08/18 00:46 81 20 139/54 (82) 90 Room Air 01/08/18 00:31 73 18 163/67 (99) 94 Room Air 01/08/18 00:16 77 16 156/56 (89) 94 Room Air 01/08/18 00:01 36.9 62 14 162/55 (90) 93 Room Air 01/07/18 23:16 73 16 160/52 (88) 91 Room Air 01/07/18 23:01 64 20 160/52 (88) 91 Room Air 7/20/18 22:50 69 20 170/57 (94) 93 Room Air 7/20/18 22:46 66 18 168/65 (99) 93 Room Air 7/20/18 22:31 73 16 146/61 (89) 93 Room Air 7/20/18 22:16 63 18 156/55 (88) 92 Room Air 7/20/18 22:01 73 16 146/53 (84) 92 Room Air 7/20/18 21:46 59 20 165/53 (90) 95 Room Air 7/20/18 21:31 69 14 162/56 (91) 95 Room Air 7/20/18 21:16 61 16 163/53 (89) 94 Room Air 7/20/18 21:01 60 20 165/55 (91) 94 Room Air 7/20/18 20:46 64 16 153/54 (87) 93 Room Air 7/20/18 20:31 58 18 121/56 (77) 93 Room Air 7/20/18 20:16 66 18 126/55 (78) 93 Room Air 7/20/18 20:01 37.2 62 20 168/68 (101) 92 Room Air 7/20/18 20:00 Room Air 7/20/18 19:46 74 18 160/65 (96) 96 Room Air 7/20/18 19:31 73 20 152/62 (92) 92 Room Air 7/20/18 19:17 70 16 139/59 (85) 92 Room Air 7/20/18 19:01 68 18 185/75 (111) 95 Room Air 7/20/18 18:15 69 16 213/88 (129) 96 Room Air 7/20/18 17:30 57 16 199/83 (121) 94 Room Air 7/20/18 17:19 70 16 199/89 (125) 98 Room Air 7/20/18 17:15 71 16 194/89 (124) 94 Room Air 7/20/18 17:01 61 16 176/78 (110) 92 Room Air 7/20/18 17:00 61 16 175/78 (110) 92 Room Air 7/20/18 16:30 36.6 58 16 177/80 (112) 94 Room Air 7/20/18 16:01 57 16 164/80 (108) 96 Room Air 7/20/18 16:00 54 18 165/124 (138) 96 Nasal Cannula 01/07/18 15:30 58 18 159/85 (109) 98 Nasal Cannula 2.0 01/07/18 14:30 53 18 148/74 (98) 100 Nasal Cannula 2.0 01/07/18 13:30 53 18 139/68 (91) 99 Nasal Cannula 2.0 01/07/18 13:02 52 16 142/71 (94) 100 Nasal Cannula 2.0 01/07/18 13:00 Nasal Cannula 2.0 01/07/18 12:37 36.9 54 16 122/71 (88) 92 Nasal Cannula 2.0 01/07/18 12:18 36.4 01/07/18 12:00 47 14 111/60 95 Oxymask 2 01/07/18 11:50 45 11 107/53 96 Oxymask 2 01/07/18 11:40 50 16 118/72 98 Oxymask 2 01/07/18 11:31 52 16 114/59 98 Oxymask 10 01/07/18 11:21 36.0 57 19 139/81 98 Oxymask 10 Laboratory Results: Last 24 Hours Test 01/07/18 11:31 01/07/18 16:39 01/07/18 17:54 01/08/18 00:20 Hemoglobin 14.2 g/dL 15.1 g/dL 13.8 g/dL Hematocrit 41.2 % 42.8 % 39.3 % Bedside Glucose 126 mg/dl Prothrombin Time 11.4 SECONDS Prothromb Time International Ratio 1.1 Activated Partial Thromboplast Time 23.5 SECONDS Partial Thromboplastin Ratio 0.9 Fibrinogen 277 mg/dl Test 01/08/18 05:10 Hemoglobin 13.8 g/dL Hematocrit 39.2 % Sodium Level 136 mmol/L Potassium Level 3.6 mmol/L Chloride Level 105 mmol/L Carbon Dioxide Level 23 mmol/L Anion Gap 8.0 mmol/L Blood Urea Nitrogen 20 mg/dl Creatinine 1.11 mg/dl Est Creatinine Clear Calc Drug Dose 73.0 ml/min Estimated GFR () 75.9 Estimated GFR (Non- 65.5 BUN/Creatinine Ratio 17.7 Random Glucose 138 mg/dl Calcium Level 8.5 mg/dl
[2018-01-08] MEDS: PANTOprazole INJ 40 MG in SYRINGE 0 ML IV SCH (10:16)
[2018-01-08] MEDS: OXYCODONE/ACETAMINOPHEN 5-325 TAB PO PRN ×3 (10:16→21:00)
[2018-01-08] MEDS: SODIUM NITROPRUSSIDE SOLN INJ 50 MG in DEXTROSE 5% 500ML 500 ML IV PRN (10:28)
[2018-01-08] MEDS ORDERED: LISINOPRIL 10 MG TAB PO ONE (17:29)
[2018-01-08] MEDS ORDERED: HydrALAZINE HCL 20 MG/ML VIAL IV. PRN (17:30)
[2018-01-09] VITALS (12 sets, daily range): BP systolic 94–163; BP diastolic 54–69; PULSE 63–85; TEMP 36.6–37.5; O2SAT 91–97
[2018-01-09] MEDS: OXYCODONE/ACETAMINOPHEN 5-325 TAB PO PRN ×3 (03:12→19:07)
[2018-01-09 04:30] LABS: HEMATOCRIT 38.5 % (42-52); HEMOGLOBIN 13.1 g/dL (14.0-18.0)
[2018-01-09 04:49] LABS: CALCIUM 8.7 mg/dl (8.5-10.1); CREATININE 0.91 mg/dl (0.60-1.40); POTASSIUM 3.9 mmol/L (3.5-5.1)
[2018-01-09] MEDS: D5W AND 1/2NSS 1,000 ML IV SCH (05:46)
[2018-01-09] MEDS: CHOLECALCIFEROL 1000 INTER.UNIT TAB PO SCH (08:16)
[2018-01-09] MEDS: MULTIVITAMIN TAB PO SCH (08:16)
[2018-01-09] MEDS: LISINOPRIL 10 MG TAB PO SCH (08:16)
[2018-01-09] MEDS: ASPIRIN 81 MG ECTAB PO SCH (08:16)
[2018-01-09] MEDS: ATORVASTATIN 20 MG TAB PO SCH (08:16)
--- NOTE | 2018-01-09 08:17 | Progress Note ---
Progress Note Date of Service: Jan 09, 2018. Subjective Feels much better today. Tolerated clear liq diet Objective Vital Signs Vital Signs Past 12 Hours Date Time Temp Pulse Resp B/P (MAP) Pulse Ox O2 Delivery O2 Flow Rate FiO2 01/09/18 06:00 67 18 127/54 (78) 95 Nasal Cannula 2.0 01/09/18 05:00 36.6 64 18 122/58 (79) 94 Nasal Cannula 2.0 01/09/18 04:00 63 16 108/65 (79) 94 Nasal Cannula 2.0 01/09/18 03:00 67 16 163/66 (98) 97 Nasal Cannula 2.0 01/09/18 02:00 66 18 147/67 (93) 97 Nasal Cannula 2.0 01/09/18 01:00 65 16 140/68 (92) 96 Nasal Cannula 2.0 01/09/18 00:00 37.0 65 16 122/61 (81) 95 Nasal Cannula 2.0 01/08/18 23:00 82 16 93/51 (65) 96 Nasal Cannula 2.0 01/08/18 22:00 55 18 176/66 (102) 96 Nasal Cannula 2.0 01/08/18 21:00 64 16 149/57 (87) 96 Nasal Cannula 2.0 01/08/18 20:53 80 16 161/86 (111) 96 Nasal Cannula 2.0 Exam Awake and alert VSS Abd benign Good distal flow Laboratory and Microbiology Results Past 24 Hours Test 01/08/18 16:10 01/08/18 20:52 01/09/18 04:03 Range/Units Bedside Glucose 101 113 70-99 mg/dl Hemoglobin 13.1 14.0-18.0 g/dL Hematocrit 38.5 42-52 % Sodium Level 136 136-145 mmol/L Potassium Level 3.9 3.5-5.1 mmol/L Chloride Level 105 98-107 mmol/L Carbon Dioxide Level 24 21-32 mmol/L Anion Gap 7.0 3-11 mmol/L Blood Urea Nitrogen 13 7-18 mg/dl Creatinine 0.91 0.60-1.40 mg/dl Est Creatinine Clear Calc Drug Dose 89.0 ml/min Estimated GFR () 96.6 Estimated GFR (Non- 83.3 BUN/Creatinine Ratio 14.3 10-20 Random Glucose 119 70-99 mg/dl Calcium Level 8.7 8.5-10.1 mg/dl Imp: Post PEVAR Plan: Doing well. Will transfer to floor
[2018-01-09] MEDS ORDERED: NURSING VERBAL MED ORDER ONE ×2 (09:30→11:00)
[2018-01-09] MEDS ORDERED: PANTOprazole SOD 40 MG TAB PO ONE (11:00)
--- NOTE | 2018-01-09 14:37 | Critical Care Progress Note ---
Critical Care Progress Note Date of Service Jan 09, 2018. ICU Day ICU Day Number: [address] Silver Subjective Doing well this am--abdominal pain is well controlled. No nausea, vomiting, fever, chills, chest pain or shortness of breath. Objective General Appearance: well-appearing, WD/WN, no apparent distress Head: normocephalic, atraumatic Eyes: PERRLA, no discharge, EOMI Neck: normal range of motion, no tenderness, trachea midline, no stridor, supple Respiratory: breath sounds normal, clear to auscultation, clear to percussion, no respiratory distress, no tenderness Cardiovasular: regular rate/rhythm, normal S1S2, no M/G/R, no murmur Abdomen: non tender, normal bowel sounds, no rebound, no masses, no guarding Upper Extremities: no edema, no deformity, normal ROM Lower Extremities: no edema, no deformity, normal ROM Neuro: alert, oriented x 3, normal motor exam, normal sensation Psychiatric: normal affect Assessment & Plan 72 yo male presents to ICU for monitoring following 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 Hydralazine onboard for pressures >180. - History of iliac aneurysm, repaired, complication of retroperitoneal hematoma , stable, will continue to follow - Additional history includes; HLD, possible inferior infarct, asymptomatic bradycardia - Continue patients home regimen; ASA 81mg, Atorvastatin 40 mg - HR 45-55, BP approximately 140/70 in the post-op period - Triglycerides from 06/03/2017 demonstrated the following: TG 128, TCH 140, HDL 61, LDL 53 - Was recently worked up for EKG findings suspicious for an old [place]--follow up ECHO showed preserved systolic function, EF 60%, with basal wall motion abnormalities consistent with RCA infarct. Patient was seen by cardiology and was cleared for surgery. Respiratory - On 2 L NC, continue to wean - Former smoker, 25 pack years GI - Patient's abdominal pain is likely 2/2 to peritoneal irritation from minor post operative intraabdominal bleed - Retroperitoneal bleed visualized on CT. H/H has been stable, maintaining pressures - Diet; advance to heart health diet - Will continue to monitor patient in the ICU - Patient pain is controlled with pain regimen above - Ulcer ppx; IV pantoprazole - Zofran for nausea - No signs or sx of infection - Linder intact - Adequate output-- approx 100 cc/hr overnight ID - Received post surgical abx ppx Cefazolin IV Renal/lytes - Continue to follow output, no signs or sx of dehydration - Stable Cr, follow am BMP - Replete electrolytes as needed Endocrine - Continue home Vit D, multivitamins - Recent A1C, 6.2 (06/03/2017) - No diabetic medications. Order sliding scale, if patient has elevated glucose DVT ppx - SCD's, ambulate Lines - Peripheral IV, linder Code - Full FEN - NS 125 mls/hr q 8 Dr. Angel was resident physician during care of patient. I separately evaluated patient for cruz portions of the history and the exam. I was present during the critical portion of medical desicsion making, and I discussed the case with the resident. I generally agree with the findings and plan. Patient improved compared to yesterday, better blood pressure control, discussed briefly with conner Portillo for downgrade out of ICU today. Data Medications: Current Inpatient Medications Medications (Trade) Dose Ordered Sig/Mp Route Start Time Stop Time Status Last Admin Dose Admin Morphine Sulfate (MoRPHine SULFATE INJ) If PO analgesic is orde... Q2H PRN IV 01/07/18 11:00 01/21/18 10:59 01/08/18 07:05 2 MG Oxycodone/ Acetaminophen (Percocet 5-325mg Tab) `1-2 TABS FOR MODER... Q4H PRN PO 01/07/18 11:00 01/21/18 10:59 01/09/18 07:07 2 TAB Ondansetron HCl (Zofran Inj) 4 mg Q6H PRN IV 01/07/18 11:00 02/06/18 10:59 01/07/18 16:03 4 MG Aspirin (Ecotrin Tab) 81 mg QAM PO 01/08/18 09:00 02/07/18 08:59 01/09/18 08:16 81 MG Atorvastatin Calcium (Lipitor Tab) 40 mg QAM PO 01/08/18 09:00 02/07/18 08:59 01/09/18 08:16 40 MG Cholecalciferol (Vitamin D Tab) 1,000 inter.unit QAM PO 01/08/18 09:00 02/07/18 08:59 01/09/18 08:16 1,000 INTER.UNIT Multivitamins (Multivitamin Tab) 1 tab QAM PO 01/08/18 09:00 02/07/18 08:59 01/09/18 08:16 1 TAB Promethazine HCl 50 mg/Sodium Chloride 52 ml @ 204 mls/hr Q6H PRN IV 01/07/18 16:45 02/06/18 16:44 01/07/18 16:50 204 MLS/HR Sodium Nitroprusside 50 mg/Dextrose 502 ml @ 0 mls/hr Q0M PRN IV 01/07/18 18:45 02/06/18 18:44 01/08/18 10:28 13 MLS/HR Hydralazine HCl (HydrALAZINE INJ) 15 mg Q6 PRN IV. 01/08/18 17:30 02/07/18 17:29 Lisinopril (Zestril Tab) 10 mg QAM PO 01/09/18 09:00 02/08/18 08:59 01/09/18 08:16 10 MG Pantoprazole Sodium (Protonix Tab) 40 mg QAM PO 01/10/18 09:00 02/09/18 08:59 Polyethylene (Miralax Powder Packet) 17 gm DAILY PRN PO 01/09/18 13:45 02/08/18 13:44 I & O: 24-Hour Column 01/10/18 08:00 Intake Total 653 ml Output Total 585 ml Balance 68 ml Vital Signs: Date Time Temp Pulse Resp B/P (MAP) Pulse Ox O2 Delivery O2 Flow Rate FiO2 01/09/18 09:45 Room Air 01/09/18 09:45 37.4 67 16 94/55 (68) 94 Room Air 01/09/18 08:00 36.8 67 18 126/65 (85) 94 Room Air 01/09/18 08:00 Room Air 01/09/18 06:00 67 18 127/54 (78) 95 Nasal Cannula 2.0 01/09/18 05:00 36.6 64 18 122/58 (79) 94 Nasal Cannula 2.0 01/09/18 04:00 63 16 108/65 (79) 94 Nasal Cannula 2.0 01/09/18 03:00 67 16 163/66 (98) 97 Nasal Cannula 2.0 01/09/18 02:00 66 18 147/67 (93) 97 Nasal Cannula 2.0 01/09/18 01:00 65 16 140/68 (92) 96 Nasal Cannula 2.0 01/09/18 00:00 37.0 65 16 122/61 (81) 95 Nasal Cannula 2.0 01/08/18 23:00 82 16 93/51 (65) 96 Nasal Cannula 2.0 01/08/18 22:00 55 18 176/66 (102) 96 Nasal Cannula 2.0 01/08/18 21:00 64 16 149/57 (87) 96 Nasal Cannula 2.0 01/08/18 20:53 80 16 161/86 (111) 96 Nasal Cannula 2.0 01/08/18 20:00 36.8 53 16 171/60 (97) 97 Nasal Cannula 2.0 01/08/18 20:00 Nasal Cannula 2.0 01/08/18 18:13 69 16 162/81 (108) 91 Room Air 01/08/18 18:00 64 16 171/65 (100) 94 Room Air 01/08/18 17:45 66 16 149/60 (89) 93 Room Air 01/08/18 17:00 56 16 154/62 (92) 94 Room Air 01/08/18 16:00 37.0 65 16 163/67 (99) 95 Room Air 01/08/18 15:00 61 16 147/78 (101) 94 Room Air Laboratory Results: Last 24 Hours Test 01/08/18 16:10 01/08/18 20:52 01/09/18 04:03 Bedside Glucose 101 mg/dl 113 mg/dl Hemoglobin 13.1 g/dL Hematocrit 38.5 % Sodium Level 136 mmol/L Potassium Level 3.9 mmol/L Chloride Level 105 mmol/L Carbon Dioxide Level 24 mmol/L Anion Gap 7.0 mmol/L Blood Urea Nitrogen 13 mg/dl Creatinine 0.91 mg/dl Est Creatinine Clear Calc Drug Dose 89.0 ml/min Estimated GFR () 96.6 Estimated GFR (Non- 83.3 BUN/Creatinine Ratio 14.3 Random Glucose 119 mg/dl Calcium Level 8.7 mg/dl
[2018-01-09] MEDS: POLYETHYLENE (MIRALAX) 17 GM PACK PO PRN (15:27)
[2018-01-10 05:15] VITALS: BP 131/79; PULSE 80; O2SAT 91
[2018-01-10] MEDS: OXYCODONE/ACETAMINOPHEN 5-325 TAB PO PRN ×2 (05:47→18:09)
--- NOTE | 2018-01-10 07:24 | Clinical Documentation Query ---
Dr. MCNAIR NEIL : CLINICAL DOCUMENTATION QUERY Documentation includes "Endovascular Repair of Left Iliac Artery Aneurysm". Please specify the appropriate branch of the left iliac artery aneurysm that was repaired as this is required to specify the appropriate ICD-10 code. Thank you. In your clinical opinion is this patient being managed for: ( ) Repair Left Common Iliac Artery, Percutaneous Approach ( ) Repair Left Internal Iliac Artery, Percutaneous Approach ( ) Repair Left External Iliac Artery, Percutaneous Approach ( x ) Not Agree ( ) Other explanation of clinical findings (No explanation is considered a No Response) ( ) Unable to determine ( ) Need to Discuss (Phone CDS or qliq) (No discussion is considered a No Response) There was no repair of the iliac artery. It was an endovascular repair of a left common iliac artery aneurysm. Please clarify and document your clinical opinion in the progress notes and discharge summary. Terms such as "probable", "suspected", "likely", "questionable", "possible", or "still to be ruled out" are acceptable. IF IN AGREEMENT, YOU MUST DOCUMENT ABOVE DIAGNOSTIC STATEMENT IN DAILY PROGRESS NOTES AND DISCHARGE SUMMARY. This document is not part of the patient's record. Thank You, Kushal Limon, JAY JAY [phone]
[2018-01-10 07:40] VITALS: BP 159/88; PULSE 59; TEMP 37.5; O2SAT 96
[2018-01-10] MEDS: POLYETHYLENE (MIRALAX) 17 GM PACK PO PRN (07:41)
--- NOTE | 2018-01-10 08:07 | Anesthesiology Progress Note ---
Anesthesia Post Op Note Date & Time Jan 10, 2018 at 08:06 Vital Signs Vital Signs Past 12 Hours Date Time Temp Pulse Resp B/P (MAP) Pulse Ox O2 Delivery O2 Flow Rate FiO2 01/10/18 07:40 37.5 59 16 159/88 (111) 96 2.0 01/10/18 07:20 Nasal Cannula 2.0 01/10/18 05:15 80 131/79 (96) 91 Room Air 01/09/18 23:50 Room Air 01/09/18 22:52 37.2 71 16 127/69 (88) 92 Room Air Notes Mental Status: alert / awake / arousable, participated in evaluation Pt Amnestic to Procedure: Yes Nausea / Vomiting: adequately controlled Pain: adequately controlled Airway Patency, RR, SpO2: stable & adequate BP & HR: stable & adequate Hydration State: stable & adequate Anesthetic Complications: no major complications apparent
[2018-01-10 09:00] VITALS: O2SAT 91
[2018-01-10] MEDS: CHOLECALCIFEROL 1000 INTER.UNIT TAB PO SCH (09:18)
[2018-01-10] MEDS: LISINOPRIL 10 MG TAB PO SCH (09:18)
[2018-01-10] MEDS: ATORVASTATIN 20 MG TAB PO SCH (09:18)
[2018-01-10] MEDS: MULTIVITAMIN TAB PO SCH (09:18)
[2018-01-10] MEDS: PANTOprazole SOD 40 MG TAB PO SCH (09:18)
[2018-01-10] MEDS: ASPIRIN 81 MG ECTAB PO SCH (09:18)
[2018-01-10] MEDS ORDERED: MAGNESIUM HYDROXIDE SUSP 30 ML UDC PO PRN (10:30)
[2018-01-10] MEDS ORDERED: NURSING VERBAL MED ORDER ONE (10:30)
[2018-01-10] MEDS ORDERED: BISACODYL 10 MG SUPP PR ONE (10:30)
[2018-01-10] MEDS ORDERED: SOD PHOSPHATE/SOD BIPHOSPHATE ENEMA 132 ML BTL PR PRN (10:45)
--- NOTE | 2018-01-10 10:47 | Progress Note ---
Progress Note Date of Service: Jan 10, 2018. Subjective 72 yo m POD #3 after PEVAR, seen in f/u today. Pt states fatigue and constipation. Denies problems taking PO or voiding. Admits moderate LLQ pain. No new complaints. Objective Vital Signs Vital Signs Past 12 Hours Date Time Temp Pulse Resp B/P (MAP) Pulse Ox O2 Delivery O2 Flow Rate FiO2 01/10/18 09:00 91 Room Air 01/10/18 07:40 37.5 59 16 159/88 (111) 96 2.0 01/10/18 07:20 Nasal Cannula 2.0 01/10/18 05:15 80 131/79 (96) 91 Room Air 01/09/18 23:50 Room Air 01/09/18 22:52 37.2 71 16 127/69 (88) 92 Room Air Exam CONST: A&O x3, NAD, obese, mildly chronically ill appeairng male CHEST: RRR lungs decreased, but ctab ABD: soft, mildly tender LLQ with mild ecchymosis noted. + bs x 4 quad EXT: BL groin sites with + tenderness, ecchymosis. Dry ASSESSMENT and PLAN: s/p PEVAR AAA, iliac art aneruysm Pt doing well post op. Will try MOM and suppository today, with enema PRN. Possible d/c tomorrow.
[2018-01-10 15:22] VITALS: BP 137/67; PULSE 66; TEMP 36.6; O2SAT 97
[2018-01-10 22:50] VITALS: BP 102/72; PULSE 77; TEMP 37.1; O2SAT 96
[2018-01-11] MEDS: OXYCODONE/ACETAMINOPHEN 5-325 TAB PO PRN (00:42)
[2018-01-11 07:46] VITALS: BP 152/82; PULSE 66; TEMP 36.8; O2SAT 93
[2018-01-11 08:21] VITALS: O2SAT 93
[2018-01-11] MEDS: ATORVASTATIN 20 MG TAB PO SCH (09:05)
[2018-01-11] MEDS: PANTOprazole SOD 40 MG TAB PO SCH (09:06)
[2018-01-11] MEDS: ASPIRIN 81 MG ECTAB PO SCH (09:06)
[2018-01-11] MEDS: CHOLECALCIFEROL 1000 INTER.UNIT TAB PO SCH (09:06)
[2018-01-11] MEDS: MULTIVITAMIN TAB PO SCH (09:06)
[2018-01-11] MEDS: LISINOPRIL 10 MG TAB PO SCH (09:07)
--- NOTE | 2018-01-11 09:17 | Progress Note ---
Progress Note Date of Service: Jan 11, 2018. Subjective Feeling well and anticipating discharge. States ambulated up and down halls 5 times yesterday evening. Has no concerns regarding discharge home Problem List PEVAR for AAA and L internal iliac artery aneurysm, post op constipation Objective Vital Signs Vital Signs Past 12 Hours Date Time Temp Pulse Resp B/P (MAP) Pulse Ox O2 Delivery O2 Flow Rate FiO2 01/11/18 08:21 93 Room Air 01/11/18 07:46 36.8 66 14 152/82 (105) 93 Room Air 01/11/18 00:40 Room Air 01/10/18 22:50 37.1 77 18 102/72 (82) 96 Room Air Exam NAD, well RRR CTAB, 1500mL on ISB Soft, tender to deep palpation LLQ. No rebound or guarding Groin access sites CDI with small ecchymosis. No hematoma or underlying masses. Intake & Output 2 bowel movements. voiding independently 72 yo m s/p PEVAR & NATALIYA for AAA with L iliac artery aneurysm. Remained inpatient for constipation, now resolved. Plan to DC home today and have follow up in office with follow up CT in 2-4 weeks.
[2018-01-11] MEDS ORDERED: OXYC-57 PO (09:18)
[2018-01-11] MEDS ORDERED: DOCU-94 PO (09:18)
--- NOTE | 2018-01-11 09:23 | Discharge Instructions ---
Discharge Instructions Date of Service Jan 11, 2018. Admission Reason for Admission: Abdominal Aortic Aneurysm Discharge Discharge Diagnosis / Problem: post Endovascular Abdominal Aortic Aneurysm Repair Discharge Goals Goal(s): Therapeutic intervention, Prevent Disease Progression Activity Recommendations Activity Limitations: per Instructions/Follow-up section . Instructions / Follow-Up Instructions / Follow-Up SPECIAL CARE INSTRUCTIONS: Medications: * Continue to take your medications as directed. Incision/Puncture Site Care: * You will have an incision or puncture in each of your groins. Liquid glue will be used to seal your incisions/puncture site. This will lift off as the incisions/ puncture sites heal. * If Liquid glue is not used, there will be small dressings covering your incisions. After you get home, you may remove the dressings and shower - allowing the warm soapy water to run over it. * Be sure to dry the sites well and keep them dry. * DO NOT SOAK IN A TUB/POOL/etc. UNTIL ALL SURGICAL SITES ARE HEALED. DO NOT REMOVE THE GLUE UNTIL THE INCISIONS HEAL. Restrictions: * Limit yourself to deputy attorney general activity for the first week. * You may walk and go up and down steps. * Avoid excessive bending or movement at the level of the incisions or punctures. Risks and Possible Complications: * Infection/Drainage/Bleeding - Drainage or bleeding from the incisions/ puncture site should be minimal. If you have excessive bleeding or drainage, call our office ([phone]) right away. * Pain/Numbness - You may experience some mild pain or soreness at your incision sites. You may also have some numbness around the incisions or into the insides of your thighs. Bruising is normal and should resolve within 2 weeks. * Changes in Appetite or Bowel Habits - Mostly related to anesthesia and pain medication, some patients have reported decreased appetite and/or problems with constipation. These symptoms usually improve over a few weeks. Remembering to take an [id number] stool softener, as directed, will help you to avoid constipation. Call our office and seek emergent treatment if you develop: * Fever or chills * Have a temperature greater than 101 degrees F * Any redness or purulent drainage from your incisions or punctures * Severe abdominal, chest or back pain SKIN IRRITATION: * You may experience some redness and/or swelling in the area where radiation was administered. If any skin irritation occurs, please contact your family physician. You will be receiving a call from the Vascular Surgery Nurse after you are discharged. FOLLOW UP VISIT: Follow up with Dr Jimenze or Torie Bernard PA-C, in 2 weeks. Call [phone] for appt. It is important for you to keep your follow up appointments with your medical provider. Keep any scheduled doctor appointments. Current Hospital Diet Patient's current hospital diet: AHA Diet (Heart Healthy) Discharge Diet Recommended Diet: AHA Diet (Heart Healthy) Procedures Procedures Performed: Endovascular Repair of Left Iliac Artery Aneurysm, Percutaneous Endovascular Aneurysm Repair, Right Iliac Extension, Bilateral Cannulation of the Aorta, Mechanical Closure of Bilateral Femoral Arteries. Pending Studies Studies pending at discharge: no Laboratory Results Hemoglobin A1c Test 12/02/17 11:15 Range/Units Estimated Average Glucose 120 mg/dl Hemoglobin A1c 5.8 H 4.5-5.6 % Lipid Panel Test 12/02/17 10:15 Range/Units Triglycerides Level 132 0-150 mg/dl Cholesterol Level 110 0-200 mg/dl HDL Cholesterol 40 mg/dl Cholesterol/HDL Ratio 2.8 LDL Cholesterol, Calculated 44 mg/dl Medical Emergencies . Who to Call and When: Medical Emergencies: If at any time you feel your situation is an emergency, please call 911 immediately. . Non-Emergent Contact Non-Emergency issues call your: Primary Care Provider, Surgeon . "Provider Documentation" section prepared by Torie Bernard. . [place] Drug Monitoring Program Search Results: patient reviewed within database, no issues identified
[2018-01-11] MEDS ORDERED: LSN10 PO (09:25)
[2018-01-11 10:01] VITALS: BP 152/82; PULSE 66; TEMP 36.8; O2SAT 93
--- NOTE | 2018-01-14 12:44 | DISCHARGE SUMMARY ---
ADMISSION DIAGNOSIS: Abdominal aortic aneurysm. DISCHARGE DIAGNOSES: 1. Status post percutaneous endovascular aneurysm repair and left iliac artery aneurysm repair. 2. Abdominal aortic aneurysm. DISCHARGE CONDITION: Stable. CONSULTATION IN THE HOSPITAL: Included critical care during his ICU stay. PROCEDURES IN THE HOSPITAL: Included his percutaneous endovascular aneurysm repair and iliac artery aneurysm repair, which was performed on 01/07/2018 without any significant complications. He had an EBL of approximately 30 mL. HISTORY OF PRESENT ILLNESS: Mr. Mace is a 72-year-old male who underwent a screening ultrasound ordered by his family physician which demonstrated a 7.4 cm abdominal aortic aneurysm. Secondary imaging with CTA confirmed this. Due to the size of the aneurysm, the patient was recommended to undergo endovascular repair and the procedure, risks, benefits, alternatives were discussed with the patient by Dr. Jimenez and the patient expressed understanding and agreement to proceed. HOSPITAL COURSE: The patient was admitted after undergoing his percutaneous endovascular aneurysm repair. This was performed without significant complications. His labs and vital signs remained essentially stable. He did not require a blood transfusion. He did have a small retroperitoneal hematoma due to a small tear in his iliac artery during the procedure; however, his hemoglobin remained stable and he did not require any blood resuscitation. He was observed for a few days and felt to be stable enough for discharge on postop day #4. PHYSICAL EXAMINATION: VITAL SIGNS: On day of discharge, his vital signs were as follows: Blood pressure 152/82 with a heart rate of 66, temperature of 36.8, respiratory rate of 14, and oxygenation of 93% on room air. CONSTITUTIONAL: The patient is an obese, mildly chronically ill appearing elderly male in no acute distress. He ambulated without assistance and is active, alert, and oriented x4. HEAD: Normocephalic and atraumatic. EYES: EOMI. ENMT: Demonstrates no hearing loss, rhinorrhea or pharyngeal erythema. NECK: Supple, nontender with midline trachea without masses or crepitus. LUNGS: Demonstrated no dyspnea. They are decreased somewhat throughout but clear bilaterally. CARDIOVASCULAR: Demonstrated nondisplaced apical impulse with a regular rate and rhythm. His peripheral pulses are full and equal in all extremities unless otherwise noted; specifically they were normal in his carotid, brachial, radial, and femoral pulses. Lower extremity distal pulses are +1. He had brisk capillary refill and no sign of distal ischemia. ABDOMEN: Soft, protuberant due to body habitus. There was some tenderness particularly in the left lower quadrant. He did have some mild ecchymosis noted in his groins and hips area. This is soft. NEUROLOGIC: He has grossly intact cranial nerves and grossly intact sensation and he moves all extremities equally. DIET UPON DISCHARGE: Should be a low-cholesterol AHA diet. MEDICATIONS UPON DISCHARGE: Reconciled on the chart and are as per his discharge instructions. FOLLOWUP: Should be with Dr. Jimenez or his PA Torie Bernard within 2 weeks for evaluation. He was advised to call the office with any other questions.
--- NOTE | 2018-02-09 11:28 | [facility] Operative Report ---
Operative Report Operative Date Feb 09, 2018. 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 Surgeon Dr. Jimenez Infantry Operations Specialist Surgeon(s) Leonie Noble MD Estimated Blood Loss 30 Specimens None Drains None Anesthesia Type General Complication(s) none Disposition no Recovery Room / PACU Indications Patient is a 72yo white male with an enlarging AAA and iliac artery aneurysm. Endovascular repair was recommended. I have discussed the risks options and benefits of the procedure with the patient. The patient understands the risks options and benefits and agrees to the procedure. Description of Procedure The patient was taken to the operating room placed in the supine position. After general anesthesia was accomplished the abdomen and groins were prepped and draped in a sterile manner. Using ultrasound the right common femoral artery was identified. It was patent. It was punctured under ultrasound guidance 035 wire was inserted as well as a 5 Lao sheath. Hand-injection was then performed. This showed the puncture to be in the common femoral artery anteriorly. 2 Perclose devices were then used. The artery was pre- closed with the Perclose device. An 8 Lao sheath was then inserted. Same procedure was done on the left side. The femoral artery was patent. After the Perclose devices were placed an 8 Lao sheath was inserted. Two 035 Glidewire was then inserted and passed into the suprarenal abdominal aorta. A Kumpe catheter was then inserted and these wires were exchanged to 2 Lunderquist wires. On the left side the puncture site was dilated until a 16 Lao sheath was inserted. This was passed up to the external iliac. On the right side this puncture was dilated. A 16 Lao sheath was then inserted. This was advanced up to the common femoral artery on the right side. Glidewire was inserted through the sheath. This was a bear wire with the Lunderquist. The wire was snared from the left side and brought out through the left sheath. Next a 23 x 12 x 10 iliac graft was inserted with a 12 x 7 internal iliac extension. This was done after a 12 Lao sheath was inserted through the 16 Lao sheath and passed into the left distal common iliac artery. The graft was advanced to the distal end of the sheath. Sheath was pulled back the wire was then advanced through the sheath into the left internal iliac artery. The graft was then further advanced so that the limb extending close to the internal iliac artery on the left side. The graft was then deployed. This was done on difficulty. We then inserted a 12 x 7 internal iliac endoprostheses over the wire into the left internal iliac artery. This went without difficulty. We then used a 12 mm balloons to expand the grafts of the external and internal iliac arteries.. The proximal graft was expanded with the aortic balloon. Once this was done the dilators were placed back into the sheath and both she is advanced into the abdominal aorta. We then placed a 28 x 14.5 x 18 cm main body excluder up to the renal arteries. Positioning was confirmed. Once this was done graft was deployed. Another injection was done at this point confirming the location just below the renal arteries. The hooks were then deployed from the graft. The contralateral limb was cannulated. We then used a 14 x 14 extension. This was deployed without difficulty. Then inserted a 27 x 10 bridge to cross from the extension into the iliac branch graft. Once this was completed the ipsilateral limb was deployed. We then extended the right side with a 27 x 12 extension. All overlaps and fixation points were ballooned with aortic balloon. Once this was done completion arteriogram was completed. This showed no evidence of type I endoleak's. There is good flow through the graft. After this was completed both sheaths were pulled and the Perclose devices were tied on both sides. Adequate hemostasis was seen. Sterile dressings were applied to the wounds.The patient left the operation room in satisfactory condition and tolerated the procedure well. All needle and sponge counts were correct at the end of the procedure. I attest to the content of the Intraoperative Record and any orders documented therein. Any exceptions are noted below.
== END 2018-01-11 11:15 | disposition home or self-care (01) | DRG 300 ==
LOC: C.ACU 06:05 → C.MSICU 11:03 → EDBEDREQSVC 12:09 → ENRESERV 12:12 → C.MSW 01-09 09:42
PROVIDERS: ADMIT Surgery Vascular Surgery; ATTEND Surgery Vascular Surgery
DX: I71.4 Abdominal aortic aneurysm, without rupture (principal); I97.638 Postprocedural hematoma of a circulatory system organ or structure following other circulatory system procedure; I97.51 Accidental puncture and laceration of a circulatory system organ or structure during a circulatory system procedure; I72.3 Aneurysm of iliac artery; Y83.8 Other surgical procedures as the cause of abnormal reaction of the patient, or of later complication, without mention of misadventure at the time of the procedure; Y92.234 Operating room of hospital as the place of occurrence of the external cause; K59.09 Other constipation; E78.5 Hyperlipidemia, unspecified; I25.2 Old myocardial infarction; E66.9 Obesity, unspecified; Z68.34 Body mass index [BMI] 34.0-34.9, adult; Z87.891 Personal history of nicotine dependence; Z79.82 Long term (current) use of aspirin; Z79.899 Other long term (current) drug therapy

== ENCOUNTER → 2018-01-20 | Outpatient (CLI) | payer OTHER ==
[~2018-01-20] MED LIST changes: -CEFAZOLIN 2000MG IV PUSH 15 ML IV SCH; +DOCU-94 PO; -LACTATED RINGER'S 1000ML 1,000 ML IV SCH; +LSN10 PO; +OPTIRAY 320 IV PRN; +OXYC-57 PO
--- NOTE | 2018-01-20 10:09 | DIAGNOSTIC IMAGING REPORT ---
ANGIO ABD/PELVIS COMBO CLINICAL HISTORY: 72 years-old Male with S/P AAA REPAIR follow-up study in a patient with history of abdominal aortic aneurysm repair COMPARISON STUDY: CT abdomen and pelvis 01/07/2018, CTA 12/24/2017. TECHNIQUE: Following the IV administration of 119 cc of Optiray 320, CT angiogram of the abdomen and pelvis was performed from the lung bases the proximal femora. Images are reviewed in the axial, sagittal, and coronal planes. 3-D MIPS images are created and assessed. IV contrast was administered without complication. All measurements were obtained according to NASCET criteria. Additional 3-D rendered images were generated from a separate workstation. A dose lowering technique was utilized adhering to the principles of ALARA. CT DOSE: 4436.17 mGy.cm FINDINGS: CTA: Imaged inferior cardiac chambers are enlarged. Coronary arterial calcifications are noted. The opacified imaged pulmonary arterial tree is unremarkable. [place] fusiform aneurysmal dilation of the infrarenal abdominal aorta redemonstrated with prior aortobiiliac stent graft placement. The aneurysm now measures 7.2 x 8.3 cm in AP and transverse dimension, previously measuring approximately 7.6 x 8.2 cm on study dated 01/07/2018. No definite evidence of intramural hematoma or endoleak. Stent graft is patent. Left iliac stent graft is again seen containing 2 limbs extending into the external and internal iliac branches. Dilation of the left common iliac artery measures 4.4 cm. There is a short segment dissection of the left external iliac artery extending for a length of 1.7 cm on image 410 series 5. There is decreased retroperitoneal hemorrhage about the left lower hemipelvis which tracks along the iliac vessels and left inguinal distribution. There is moderate mixed plaquing about the abdominal aorta and branch vessels. The celiac trunk, superior mesenteric and inferior mesenteric arteries appear patent. There are 2 right-sided renal arteries noted. Renal arteries are patent bilaterally. CT ABDOMEN AND PELVIS: Motion degraded exam. Dependent subsegmental groundglass opacities suggest atelectasis. Moderate bibasilar bronchial wall thickening. No pneumatosis or pneumoperitoneum identified. New area of triangular decreased density involves the superior and posterior aspect of the spleen measuring up to 5.9 x 7.7 x 4.4 cm with additional area of irregular decreased density about the anterior spleen measuring up to 4.4 cm in greatest dimension. These findings suggest areas of acute splenic infarction. Spleen is mildly enlarged at 13.57 m. No perisplenic fluid collections. Splenic artery appears patent. There is mild peripancreatic edema about the anterior aspect of the pancreatic tail, image 144 of series 7. Mild thickening of the left adrenal gland. The right adrenal gland and gallbladder appear unremarkable. There are a few subcentimeter lesions about the liver, largest of which measures 9 mm within the right hepatic lobe, image 132 series 7 which are indeterminate. 8 mm lesion noted within the left hepatic lobe on image 104 series 7. Nonobstructing 5 mm calculus of the interpolar left kidney. Hypodense lesions of the bilateral kidneys suggest renal cysts. Mild cortical thinning of the kidneys bilaterally with nonspecific bilateral perinephric edema. No ureteral calculi or obstructive uropathy. Prostate is enlarged. Bladder is mildly decompressed. There are no pathologically enlarged lymph nodes identified. No bowel obstruction or focal bowel wall thickening. Terminal ileum and appendix appear normal. Diastases recti. Soft tissues are otherwise unremarkable. Bones appear to be intact. Degenerative changes about the lumbar spine. IMPRESSION: 1. Status post repair of the fusiform infrarenal abdominal aortic aneurysm and left common iliac artery aneurysm with patent aortobiiliac stent graft. Previously described retroperitoneal hemorrhage about the left hemipelvis tracking along the iliac vessels and left inguinal distribution has decreased in size from comparison. 2. There are two new areas of acute appearing splenic infarction, largest of which measures up to 7.7 cm in greatest dimension. The main splenic artery and vein appear patent. 3. Mild peripancreatic edema adjacent to the pancreatic tail may reflect developing early acute pancreatitis. Correlate with lipase level. 4. Nonobstructing left nephrolithiasis. 5. Additional findings as above. The above report was generated using voice recognition software. It may contain grammatical, syntax or spelling errors. Electronically signed by: Artis Morris M.D. 01/20/2018 10:08 AM Dictated Date/Time: 01/20/2018 9:42 AM
== END | disposition home or self-care (01) ==
LOC: C.CTS 09:12
PROVIDERS: ATTEND Physician Assistant
DX: I71.4 Abdominal aortic aneurysm, without rupture (principal); N20.0 Calculus of kidney

== ENCOUNTER 2022-05-12 10:17 | Inpatient (IN) ==
--- NOTE | 2022-05-06 11:17 | Anesthesiology Consultation ---
Date of Service May 06, 2022 Assessment & Plan (1) Encounter for pre-operative examination: Chart Review Chart Review: Acceptable Risk for Surgery and Patient NOT seen in Pre Admission Testing -COVID screening: Per PAT nursing assessment on 05/06/22. No known COVID-19 positive contacts or current COVID-19 related symptoms. Travel screen negative. Patient vaccinated for Covid. At surgeon discretion if preop Covid testing being done. Last seen by vascular 06/26/21= Seen for annual follow up. Seen for follow up on AAA s/p PEVAR in 2018. Pt doing well. Surveillance u/s showed residual sac measuring 6.4 x 6.3cm (previously measured 6.1cm). Surveillance u/s technically limited due to bowel gas and body habitus- appears to demonstrate increase in size to aneurysm sac. Recommend next surveillance imaging in six months. (Mar 2022 CT showed residual aneurysm sac measures 6.3 x 5.0 cm) History Surgery Operation Date: 05/12/22 12:20 Proposed Procedures p Laparoscopic Hand Assisted Nephrectomy - Left - Perezer Linh Recinos MD Height/Weight Height: 5 ft 10 in Weight: 104.326 kg Allergies Allergy/AdvReac Type Severity Reaction Status Date / Time No Known Allergies Allergy Verified 05/06/22 10:29 Medications Home Medications Medication Instructions Recorded Confirmed Last Taken acetaminophen 325 mg capsule 325 mg PO UD PRN Pain 12/01/21 05/06/22 Unknown (Tylenol) atorvastatin 40 mg tablet 40 mg PO QAM #90 tabs 01/27/22 05/06/22 Unknown lisinopril 10 mg tablet 10 mg PO QAM #90 tabs 01/27/22 05/06/22 Unknown Past Medical History Medical History (Updated 05/06/22 @ 11:32 by Christina Ya PA-C) AAA (abdominal aortic aneurysm) S/p AAA repair 2018. 03/2022 abdomen/pelvis CT shows s/p aortobiliac stent graft repair- stent graft is patent. Residual aneurysm sac measures 6.3 x 5.0 cm CAD (coronary artery disease) Per 12/2021 PCP note- followed with cardio/last cardio work up 6-8 years ago- currently asymptomatic COPD (chronic obstructive pulmonary disease) Degenerative disc disease Emphysema lung History of COVID-19 2019- fever, body aches, BOX, fatigue, lethargy-, no hospitalization, resolved History of duodenal ulcer HTN (hypertension) Hyperlipidemia Hyperparathyroidism Hx; s/p parathyroid surgery. Stable per 12/2021 PCP visit Impaired fasting glucose Hgb A1C 12/2021 = 6.0 Renal Mass Following w/ Dr Phelan at [facility] Stage 3 chronic kidney disease Past Family History Family History Mother Family history of diabetes mellitus Atrial fibrillation Glioblastoma Father Atrial fibrillation Aunt Breast cancer Son Cancer melanoma Other No family history of adverse response to anesthesia Denies family history of Ovarian cancer Prostate cancer Myocardial infarction Colorectal cancer Past Surgical History Surgical History History of abdominal aortic aneurysm (AAA) repair [address] Jimenez History of colonoscopy History of parathyroid surgery 01-08-21 Surgical removal of the right upper and left lower parathyroid glands History of umbilical hernia repair 2013? [place], [place] History of wisdom tooth extraction Social History Smoking Status: Former smoker tobacco type: cigarettes Do You Dip or Chew Tobacco: No Smoking End Date: quit approx 10 yrs ago Hx Alcohol Use: No Hx Substance Use: No substance use type: does not use Lab Results Anesthesia Preop Results Results Anesthesia Widget: WBC 6.96 K/ul (4.8-10.8) 05/05/22 Hgb 16.0 g/dl (14.0-18.0) 05/05/22 Hct 46.3 % (40.1-51.0) 05/05/22 Plt 205 K/uL (130-400) 05/05/22 Na 139 mmol/L (136-145) 05/05/22 K 4.3 mmol/L (3.5-5.1) 05/05/22 Cl 105 mmol/L (98-107) 05/05/22 CO2 29 mmol/L (21-32) 05/05/22 BUN 34 mg/dl (6-23) H 05/05/22 Creat 1.81 mg/dl (0.6-1.4) H 05/05/22 Glucose Level 108 mg/dl (70-99(Fasting)) H 05/05/22 Urine Color Yellow 04/13/22 Urine Appearance Clear (Clear) 04/13/22 Urine pH 6.5 (4.5-7.5) 04/13/22 Urine Specific [place] 1.025 (1.000-1.030) 04/13/22 Urine Protein Negative (Negative) 04/13/22 Urine Glucose (UA) Negative (Negative) 04/13/22 Urine Ketones Negative (Negative) 04/13/22 Urine Blood Negative (Negative) 04/13/22 Urine Nitrite Negative (Negative) 04/13/22 Urine Bilirubin Negative (Negative) 04/13/22 Urine Urobilinogen Negative (Negative) 04/13/22 Urine Leukocyte Esterase Trace (Negative) H 04/13/22 Urine WBC (Auto) 1-5 /hpf (0-5) 04/13/22 Urine RBC (Auto) 0-4 /hpf (0-4) 04/13/22 Urine Hyaline Casts (Auto) 0 /lpf (0-5) 04/13/22 Urine Epithelial Cells (Auto) 0-5 /lpf (0-5) 04/13/22 Urine Bacteria (Auto) Negative (Negative) 04/13/22 Testing Electrocardiogram Date: 05/05/22 Findings: + NSR @ (60bpm ) Normal EKG per cardio. Chest X-Ray Date: 05/05/22 Cardiomegaly and emphysema with no active disease in the chest. Other Testing Chest CT 04/29/22= There is no definite evidence of intrathoracic metastatic disease. Mild cardiomegaly and emphysema. Scattered pulmonary nodules measuring up to 8 mm are pathologically indeterminant. A 3-4 month follow-up chest CT is recommended for reevaluation. There is no airspace consolidation or pleural effusion. Advanced coronary artery calcification.
[~2022-05-12 10:17] MED LIST changes: -ASPI81TA28 PO; -ATOR-24 PO; -CALCIUM, MAGNESIUM PO; -CHOL1000 PO; -DOCU-94 PO; -IBUP-1050 PO; +LR 15ML/HR IV SCH; -LSN10 PO; +MIDAZOLAM HCL 1 MG/ML 2ML VIAL ONE; -MULT-1027 PO; -OPTIRAY 320 IV PRN; -OXYC-57 PO; +fentaNYL citrate 100 MCG/2 ML VIAL ONE
[2022-05-12] MEDS ORDERED: ePHEDrine sulfate 50 MG/ML AMP IV PRN (11:38)
[2022-05-12] MEDS ORDERED: ONDANSETRON INJ 2 MG/ML 2 ML VIAL IV PRN (11:38)
[2022-05-12] MEDS ORDERED: ATROPINE SULFATE 0.1 MG/ML 10ML SYR IV PRN (11:38)
--- NOTE | 2022-05-12 11:59 | History & Physical Bridge Note ---
Date of Service May 12, 2022 History & Physical Bridge Note I have examined the patient, reviewed the History & Physical and in the interval since the performance of the History & Physical I have noted the following changes of clinical significance: no changes noted
[2022-05-12] MEDS ORDERED: BUPIVACAINE 0.5 % 5 MG/1 ML MPF 30ML VIAL ONE (12:20)
[2022-05-12] MEDS ORDERED: fentaNYL citrate 100 MCG/2 ML VIAL ONE (13:20)
[2022-05-12] MEDS ORDERED: LARYING-O-JET KIT (LTA) ONE (13:31)
[2022-05-12] MEDS ORDERED: DEXAMETHASONE SOD INJ 4 MG/ML VIAL ONE (13:31)
[2022-05-12] MEDS ORDERED: NEOSTIGMINE METHYLSULFATE 1 MG/ML 10ML VIAL ONE (13:31)
[2022-05-12] MEDS ORDERED: PHENYLEPHRINE 100MCG/ML 5ML SYR ONE (13:31)
[2022-05-12] MEDS ORDERED: ROCURONIUM BROMIDE 10 MG/ML 5 ML VIAL IV ONE ×3 (13:31→15:09)
[2022-05-12] MEDS ORDERED: PROPOFOL IV EMULSION 10 MG/ML 20 ML VIAL IV ONE (13:31)
[2022-05-12] MEDS ORDERED: LIDOCAINE 2% MPF LOCAL 5 ML VIAL INFIL ONE (13:31)
[2022-05-12] MEDS ORDERED: GLYCOPYRROLATE 0.2 MG/ML VIAL ONE (13:31)
[2022-05-12] MEDS ORDERED: ePHEDrine sulfate 50 MG/ML SYR ONE (13:31)
[2022-05-12] MEDS ORDERED: ONDANSETRON INJ 2 MG/ML 2 ML VIAL ONE (13:31)
[2022-05-12] MEDS ORDERED: LABETALOL HCL IV 5 MG/ML 20ML IV ONE (14:12)
[2022-05-12] MEDS ORDERED: FLOSEAL HEMOSTATIC MATRIX 10ML TOP ONE (15:14)
[2022-05-12] MEDS ORDERED: BUPIVACAINE 0.5 % 5 MG/1 ML MPF 30ML VIAL INFIL ONE (15:16)
[2022-05-12] MEDS: fentaNYL citrate 100 MCG/2 ML VIAL IV PRN ×6 (16:04→16:35)
[2022-05-12] MEDS ORDERED: SUGAMMADEX SODIUM 200 MG/2 ML VIAL IV ONE (16:17)
--- NOTE | 2022-05-12 16:32 | Operative Report ---
PG Post Operative Report Pre & Post Diagnosis Operation Date: 05/12/22 11:50 Pre-Op Diagnosis: Left Renal Mass Post-Op Diagnosis: Left Renal Mass I identified the patient and participated in the time-out.: Yes Procedure Operation Date: 05/12/22 11:50 Actual Procedures p Laparoscopic Hand Assisted Nephrectomy - Left - Chris Recinos MD Surgeon Chris Recinos MD Chart Reader Malka Lamb Estimated Blood Loss 500 Findings Consistent with Post-Op Diagnosis Specimens Left kidney and hilar lymph nodes Description of Procedure Patient was identified in the preoperative holding area appropriate informed consents reviewed and completed and he was transported to the operating suite. Upon arrival he received appropriate preoperative antibiotics in the form of Ancef. He is placed in a [id number] left side up lateral decubitus position with the bed flexed. His mass was palpable prior to incision. A left lower quadrant incision of approximately 8 cm was made and carried through to the external oblique fascia. The external bleak fascia was opened followed by the internal oblique fascia and the transversalis. The peritoneum was pierced sharply and a finger sweep performed. There were no adhesions. I opened the peritoneum for the length of the rest of the incision. Inspection showed the lower pole of the mass with the colon tented above it. I was able to incise the white line of Toldt through this incision and begin mobilizing the colon medially. After maximally mobilizing this through that incision, a GelPort was placed and the abdomen insufflated. I then placed 2- 12 mm transport assistant ports along the midclavicular line, 1 approximately 4 fingerbreadths below the costal margin and the other approximately 8 cm inferior to that. Then begin the laparoscopic portion of the case and begin to continue the mobilization of the colon. I incised some adhesions between the spleen and the kidney which allowed the spleen to move cephalad and expose the anterior and uppermost pole of the kidney. There was some omentum draped over the medial portion of the kidney and I was able to mobilize this as well. Unfortunately, his mass is extremely large and quite immobile. I did return to the lower portion of the kidney to attempt to create a window lateral to the aorta and onto the psoas muscle. He has had a prior AAA repair and his residual aneurysm sac is easily palpable. I was able to dissect laterally to this and create a window onto the psoas muscle and elevate the inferior pole of the kidney. Given the lack of mobility, I proceeded to control the ureter and lower cone of Gerota's with a staple load at that time. I was able to then use my hand to dissect posteriorly to the kidney to try to improve mobilization. I additionally incised lateral to the kidney to try to further improve mobilization. I was able to mobilize all but the upper pole and the medial aspect of the kidney. I then returned to the lower pole. I carefully started to work my way up the lateral border of the aorta. Unfortunately has several very firm nodules in this area consistent with a lymph node seen on preoperative imaging. I placed 1 additional 12 mm port along the ventral midline to assist with retraction because visualization was somewhat limited in this area. We carefully worked our way around these trying to keep these with the specimen is much as possible. I did have to sacrifice the gonadal vein in the midst of this dissection. Ultimately I dissected up towards the hilar structures and identified the vein. The artery was palpated immediately behind it and I created a window inferior and superior to the vessels. A staple load was passed across these and controlled. There were few lymph nodes just inferior to the vascular structures and we attempted to keep these with the specimen as well. I then was forced to use a staple load to control area between the adrenal and the kidney. The adrenal was visualized and was partially taken with the specimen. I used a series of additional staple loads because there was a significant amount of fat around the kidney with numerous veins within. This helped to control the vasculature and allow easier mobilization of the superior pole of the kidney. Ultimately I required harmonic scalpel to complete this dissection and totally free the kidney. After the specimen was entirely freed I could not extract it through my previously made HandPort. This incision had to be extended by few centimeters on either side before allowing the specimen to be removed. Once the specimen was out, was passed off the table for pathology. I replaced the hand port and insufflated the abdomen and inspected for hemostasis. Hemostasis appeared to be quite good, there was some blood in the renal fossa but I suspect most of this was backbleeding from the kidney. Did not appear to be any active bleeding. I did place some Floseal against the vascular structures and guided a GOLDIE drain in through one of the lap ports. I elected to place this because I was not able to perfectly visualize the tail of the pancreas throughout this case and was a very challenging dissection. Guided the colon as well as omentum back over the surgical field and extracted the laparoscopic ports. The 12 mm transport assistant port and its fascia closed with 0 Vicryl [id number]. The HandPort was closed in multiple layers. First reapproximated the peritoneum followed by closure of the internal oblique with a 0 Vicryl and the external oblique with a 0 PDS. Jeanette's fascia was reapproximated with the same 0 Vicryl and then each of the skin incisions was closed with tyler. Half percent Marcaine was utilized infiltrate the incisions as well as the muscular layers. Malka Lamb assisted from incision to closure and all parts in between. I attest to the content of the Intraoperative Record and any orders documented therein. Any exceptions are noted below.
--- NOTE | 2022-05-12 16:46 | Anesthesiology Progress Note ---
Date of Service May 12, 2022 Anesthesia Post Procedure Vital Signs Vital Signs: Temp Pulse Pulse Resp BP BP Pulse Ox 05/12/22 16:30 69 20 135/79 97 05/12/22 16:20 75 12 114/73 98 05/12/22 16:40 97.3 F L 66 13 107/65 115/65 95 05/12/22 16:10 82 12 122/74 95 05/12/22 16:00 97.3 F L 80 16 122/74 114/70 96 05/12/22 10:43 98.2 F 60 20 157/72 H 97 O2 Del Method O2 Flow Rate 05/12/22 16:30 Oxymask 4 05/12/22 16:20 Oxymask 3 05/12/22 16:40 Room Air 05/12/22 16:10 Oxymask 4 05/12/22 16:00 Oxymask 5 05/12/22 10:43 Room Air Pain Intensity Medial Back: Pain Intensity: 1 Medial Abdomen: Pain Intensity: 3 Transfer of Care Handoff Completed per policy Notes Mental Status: alert / awake / arousable and participated in evaluation Patient Amnestic to Procedure: Yes Nausea / Vomiting: adequately controlled Pain: adequately controlled Airway Patency, RR, SpO2: stable & adequate BP & HR: stable & adequate Hydration State: stable & adequate Anesthetic Complications: no major complications apparent and Pt Satisfied with anesthetic care
[2022-05-12 16:55] LABS: Basophils # (auto) 0.11 K/uL (0-0.2); Basophils % (auto) 0.6 %; Eosinophils # (auto) 0.02 K/uL (0-0.50); Eosinophils % (auto) 0.1 %; Hematocrit (blood only) 37.2 % (40.1-51.0); Hemoglobin 12.9 g/dl (14.0-18.0); Immature Granulocytes # (auto) 0.27 K/uL (0.00-0.02); Immature Granulocytes % (auto) 1.5 %; Lymphocytes # (auto) 1.09 K/uL (1.2-3.4); Mean Corpuscular Hgb Conc 34.7 g/dL (32.0-36.0); Mean Corpuscular Volume 89.4 fL (80.0-100.0); Monocytes # (auto) 0.55 K/uL (0.24-0.82); Neutrophils # (auto) 16.05 K/uL (1.4-6.5); Neutrophils % (auto) 88.8 %; Platelet Count 197 K/uL (130-400); RDW Coefficient of Variation 12.7 % (11.5-14.5); RDW Standard Deviation 41.6 fL (36.4-46.3); Red Blood Count 4.16 M/uL (4.63-6.08); White Blood Count 18.09 K/ul (4.8-10.8)
[2022-05-12 17:17] LABS: BUN Creatinine Ratio 11.7 (10-20); Calcium 7.8 mg/dl (8.5-10.1); Creatinine Clr Calc Pharmacy 37.6 ml/min; Est GFR (African American) 35.2 ml/min; Est GFR (Non-African American) 30.3 ml/min; Potassium 3.9 mmol/L (3.5-5.1)
[2022-05-12] MEDS ORDERED: ACETAMINOPHEN 325 MG TAB PO PRN (17:20)
[2022-05-12] MEDS ORDERED: MoRPHine SULFATE 2 MG/ML CARP IV PRN (17:20)
[2022-05-12] MEDS: LACTATED RINGER'S 1,000 ML IV SCH (18:05)
[2022-05-12] MEDS: oxyCODONE HCL IR 5 MG TAB (IMMEDIATE RELEASE) PO PRN (18:05)
[2022-05-12] MEDS: ceFAZolin 2000MG 2,000 MG/15 ML SYR IV SCH (18:46)
[2022-05-12] MEDS: HEPARIN SOD 5,000 UNIT/0.5 ML VIAL SQ SCH (20:06)
[2022-05-12] MEDS: DOCUSATE SODIUM 100 MG CAP PO SCH (20:06)
[2022-05-12] MEDS: MoRPHine SULFATE 2 MG/ML CARP IV PRN (20:08)
[2022-05-12] MEDS: ONDANSETRON INJ 2 MG/ML 2 ML VIAL IV PRN (22:52)
[2022-05-13] MEDS: ceFAZolin 2000MG 2,000 MG/15 ML SYR IV SCH (00:57)
[2022-05-13] MEDS: MoRPHine SULFATE 2 MG/ML CARP IV PRN ×5 (01:22→15:44)
[2022-05-13] MEDS: LACTATED RINGER'S 1,000 ML IV SCH ×3 (03:18→22:25)
[2022-05-13] MEDS: ONDANSETRON INJ 2 MG/ML 2 ML VIAL IV PRN (07:22)
--- NOTE | 2022-05-13 08:18 | Urology Progress Note ---
Date of Service May 13, 2022 Assessment & Plan (1) Renal Mass: Plan: Postop day #1 status post left radical nephrectomy Recovery on pace so far Waiting to evaluate labs this morning Encourage ambulation Try to wean nasal cannula O2 Mcintyre out this morning, GOLDIE later today presuming labs are stable and he feels well Likely discharge home tomorrow Admission and Anticipated Discharge Date Admission Date: May 12, 2022 Subjective Did well overnight Has expected levels of pain from the surgery Relatively modest drain output given his surgery Clear urine Labs pending this morning Still on nasal cannula O2, has ambulated within the room but not in the hallway Physical Exam Physical Exam: Incision still dressed, urine clear, GOLDIE serosanguineous, more sanguinous Results & Data ([facility]) Vital Signs (Past 12 Hours) Vital Signs Temp Pulse Resp BP Pulse Ox O2 Del Method O2 Flow Rate 05/13/22 07:10 36.6 C 74 18 129/73 95 Nasal Cannula 2 05/13/22 03:17 36.5 C 78 18 158/76 H 94 Nasal Cannula 2 05/12/22 21:57 36.6 C 75 18 164/92 H 96 Nasal Cannula PG Care Time/CCT Total # of Minutes Spent Total Time Spent with Patient: Total time spent is greater than 50% in coordination of care (as documented) at patient's floor/unit and/or counseling patient: Coding Level of Care Code None Diagnoses Renal Mass N28.89
[2022-05-13 08:45] LABS: Basophils # (auto) 0.02 K/uL (0-0.2); Basophils % (auto) 0.2 %; Hematocrit (blood only) 34.5 % (40.1-51.0); Hemoglobin 11.7 g/dl (14.0-18.0); Immature Granulocytes # (auto) 0.03 K/uL (0.00-0.02); Immature Granulocytes % (auto) 0.3 %; Lymphocytes # (auto) 1.28 K/uL (1.2-3.4); Lymphocytes % (auto) 12.5 %; Mean Corpuscular Hemoglobin 30.5 pg (25.0-34.0); Mean Corpuscular Hgb Conc 33.9 g/dL (32.0-36.0); Mean Corpuscular Volume 90.1 fL (80.0-100.0); Mean Platelet Volume 10.7 fL (9.4-12.4); Monocytes # (auto) 1.57 K/uL (0.24-0.82); Monocytes % (auto) 15.3 %; Neutrophils # (auto) 7.38 K/uL (1.4-6.5); Neutrophils % (auto) 71.7 %; Platelet Count 173 K/uL (130-400); RDW Coefficient of Variation 12.8 % (11.5-14.5); Red Blood Count 3.83 M/uL (4.63-6.08); White Blood Count 10.28 K/ul (4.8-10.8)
[2022-05-13 09:21] LABS: BUN Creatinine Ratio 13.8 (10-20); Calcium 8.1 mg/dl (8.5-10.1); Creatinine Clr Calc Pharmacy 39.6 ml/min; Est GFR (African American) 37.4 ml/min; Est GFR (Non-African American) 32.2 ml/min; Potassium 4.6 mmol/L (3.5-5.1)
[2022-05-13] MEDS: DOCUSATE SODIUM 100 MG CAP PO SCH ×2 (09:42→20:16)
[2022-05-13] MEDS: ATORVASTATIN 40 MG TAB PO SCH (09:43)
[2022-05-13] MEDS: HEPARIN SOD 5,000 UNIT/0.5 ML VIAL SQ SCH ×2 (09:43→20:17)
[2022-05-13] MEDS: oxyCODONE HCL IR 5 MG TAB (IMMEDIATE RELEASE) PO PRN (20:16)
[2022-05-14] MEDS: oxyCODONE HCL IR 5 MG TAB (IMMEDIATE RELEASE) PO PRN ×5 (01:00→19:27)
[2022-05-14 06:46] LABS: Basophils # (auto) 0.06 K/uL (0-0.2); Basophils % (auto) 0.7 %; Eosinophils % (auto) 1.2 %; Hematocrit (blood only) 28.9 % (40.1-51.0); Hemoglobin 9.9 g/dl (14.0-18.0); Immature Granulocytes # (auto) 0.02 K/uL (0.00-0.02); Immature Granulocytes % (auto) 0.2 %; Lymphocytes # (auto) 1.56 K/uL (1.2-3.4); Lymphocytes % (auto) 18.3 %; Mean Corpuscular Hemoglobin 30.5 pg (25.0-34.0); Mean Corpuscular Hgb Conc 34.3 g/dL (32.0-36.0); Mean Corpuscular Volume 88.9 fL (80.0-100.0); Mean Platelet Volume 10.7 fL (9.4-12.4); Monocytes # (auto) 1.25 K/uL (0.24-0.82); Monocytes % (auto) 14.6 %; Neutrophils # (auto) 5.55 K/uL (1.4-6.5); Platelet Count 142 K/uL (130-400); RDW Coefficient of Variation 13.1 % (11.5-14.5); RDW Standard Deviation 42.6 fL (36.4-46.3); Red Blood Count 3.25 M/uL (4.63-6.08); White Blood Count 8.54 K/ul (4.8-10.8)
[2022-05-14 07:04] LABS: BUN Creatinine Ratio 12.5 (10-20); Calcium 7.8 mg/dl (8.5-10.1); Creatinine Clr Calc Pharmacy 41.9 ml/min; Est GFR (African American) 40.1 ml/min; Est GFR (Non-African American) 34.6 ml/min; Potassium 4.1 mmol/L (3.5-5.1)
--- NOTE | 2022-05-14 07:38 | Urology Progress Note ---
Date of Service May 14, 2022 Assessment & Plan (1) Renal Mass: Plan 76 yo M s/p laparoscopic left radical nephrectomy on 05/12/22 Continue pain regimen Will advance to regular diet Encouraged ambulation We will leave GOLDIE drain until just prior to discharge Will reevaluate in afternoon to see if patient feels well enough to go home or if he wants to stay another night. Medically stable for discharge but patient is concerned about pain control We will decrease IV fluids to 50/h Admission and Anticipated Discharge Date Admission Date: May 12, 2022 Subjective Afebrile with overall stable vitals. Hgb lower than yesterday but likely dilutional. Creatinine slightly improved. Recorded urine output is low but he has had several undocumented voids. Reports pain is a 5 out of 10 today. He is ambulating and tolerating liquids. Passing a small amount of flatus. Patient is unsure if he feels well enough to go home today. Review of Systems Review of Systems: 14 point review of systems negative outside of what is listed above in HPI Physical Exam Physical Exam: General: Alert and oriented, no acute distress HEENT: Normocephalic, mucous membranes moist Cardiovascular: Regular rate Pulmonary: Nonlabored respirations Abdomen: Soft, appropriately tender, mildly distended : GOLDIE drain with minimal serosanguineous output Extremities: Moves all 4 spontaneously Neuro: No gross deficits Skin: Warm, dry, no rashes noted Results & Data ([facility]) Vital Signs (Past 12 Hours) Vital Signs Temp Pulse Resp BP Pulse Ox O2 Del Method O2 Flow Rate 05/13/22 19:55 Room Air 2 05/13/22 22:18 36.4 C L 75 16 144/73 H 97 Nasal Cannula 2 PG Care Time/CCT Total # of Minutes Spent Total Time Spent with Patient: Total time spent is greater than 50% in coordination of care (as documented) at patient's floor/unit and/or counseling patient: Coding Level of Care Code 33126 Subseq Hosp Care Lvl 2 Diagnoses Renal Mass N28.89
[2022-05-14] MEDS: LACTATED RINGER'S 1,000 ML IV SCH (08:06)
[2022-05-14] MEDS: DOCUSATE SODIUM 100 MG CAP PO SCH ×2 (08:11→21:09)
[2022-05-14] MEDS: HEPARIN SOD 5,000 UNIT/0.5 ML VIAL SQ SCH ×2 (08:11→21:09)
[2022-05-14] MEDS: ATORVASTATIN 40 MG TAB PO SCH (08:11)
[2022-05-15] MEDS: oxyCODONE HCL IR 5 MG TAB (IMMEDIATE RELEASE) PO PRN ×3 (00:01→08:27)
[2022-05-15] MEDS: LACTATED RINGER'S 1,000 ML IV SCH (02:33)
[2022-05-15 06:03] LABS: Basophils # (auto) 0.07 K/uL (0-0.2); Eosinophils # (auto) 0.18 K/uL (0-0.50); Eosinophils % (auto) 2.6 %; Hematocrit (blood only) 27.5 % (40.1-51.0); Hemoglobin 9.5 g/dl (14.0-18.0); Immature Granulocytes # (auto) 0.02 K/uL (0.00-0.02); Immature Granulocytes % (auto) 0.3 %; Lymphocytes # (auto) 1.59 K/uL (1.2-3.4); Lymphocytes % (auto) 22.6 %; Mean Corpuscular Hemoglobin 30.6 pg (25.0-34.0); Mean Corpuscular Hgb Conc 34.5 g/dL (32.0-36.0); Mean Corpuscular Volume 88.7 fL (80.0-100.0); Mean Platelet Volume 10.1 fL (9.4-12.4); Monocytes # (auto) 1.06 K/uL (0.24-0.82); Monocytes % (auto) 15.1 %; Neutrophils # (auto) 4.11 K/uL (1.4-6.5); Neutrophils % (auto) 58.4 %; Platelet Count 148 K/uL (130-400); RDW Coefficient of Variation 13.2 % (11.5-14.5); RDW Standard Deviation 42.5 fL (36.4-46.3); White Blood Count 7.03 K/ul (4.8-10.8)
[2022-05-15 06:40] LABS: BUN Creatinine Ratio 10.7 (10-20); Calcium 8.1 mg/dl (8.5-10.1); Creatinine Clr Calc Pharmacy 41.3 ml/min; Est GFR (African American) 39.3 ml/min; Est GFR (Non-African American) 33.9 ml/min; Potassium 4.2 mmol/L (3.5-5.1)
[2022-05-15] MEDS: ATORVASTATIN 40 MG TAB PO SCH (07:35)
[2022-05-15] MEDS: DOCUSATE SODIUM 100 MG CAP PO SCH (07:35)
[2022-05-15] MEDS: HEPARIN SOD 5,000 UNIT/0.5 ML VIAL SQ SCH (07:35)
--- NOTE | 2022-05-15 09:12 | Urology Progress Note ---
Date of Service May 15, 2022 Assessment & Plan (1) Renal Mass: Plan 76 yo M s/p laparoscopic left radical nephrectomy on 05/12/22 Continue pain regimen Continue regular diet Encouraged ambulation GOLDIE drain removed at the bedside this morning Discontinue IV fluids Stable for discharge home today Admission and Anticipated Discharge Date Admission Date: May 12, 2022 Subjective No acute issues overnight. Afebrile with stable vitals. Labs stable today. Urine output recorded is low but he has had several unmeasured voids. Patient still reports pain but otherwise is doing well. Tolerating liquids. Ambulating without issue. Review of Systems Review of Systems: 14 point review of systems negative outside of what is listed above in HPI Physical Exam Physical Exam: General: Alert and oriented, no acute distress HEENT: Normocephalic, mucous membranes moist Cardiovascular: Regular rate Pulmonary: Nonlabored respirations Abdomen: Mildly distended, soft, appropriately tender. Incisions clean dry and intact. GOLDIE drain with minimal serosanguineous output Extremities: Moves all 4 spontaneously Neuro: No gross deficits Skin: Warm, dry, no rashes noted Results & Data ([facility]) Vital Signs (Past 12 Hours) Vital Signs Temp Pulse Resp BP Pulse Ox O2 Del Method O2 Flow Rate 05/15/22 07:12 37 C 73 16 155/76 H 97 Nasal Cannula 2 PG Care Time/CCT Total # of Minutes Spent Total Time Spent with Patient: Total time spent is greater than 50% in coordination of care (as documented) at patient's floor/unit and/or counseling patient: Coding Level of Care Code 44096 Subseq Hosp Care Lvl 2 Diagnoses Renal Mass N28.89
--- NOTE | 2022-05-15 09:34 | Discharge Summary ---
Date of Service May 15, 2022 Admission HPI Per Admitting Provider 1. Large (15 cm) left renal mass with suspected metastatic adenopathy Discussed his imaging findings We discussed renal cancersspecifically discussing RCC as well as the possibility that this could be a TCC or other malignancy I have discussed the need for further metastatic evaluation with imaging of the chest and possibly brain We will begin with a CT of the chest nowI will attempt to perform this Noncon g iven his creatinine I have discussed the proximity of his renal mass to his previously repaired AAA I have discussed the specific surgical risks of attempting to remove a renal mass of this nature and perform a lymphadenectomy around his aorta He has a large man and I discussed some of the risks associated with obesity and surgery I have discussed that I do not anticipate a drastic worsening of his renal function after a left radical nephrectomy as I suspect that his left kidney is currently contributing very little to his overall renal function If his metastatic evaluation fails to show distant metastatic disease, I think it would be reasonable to approach his local disease surgically with the hope that we could resect all visible disease. I have explained that I cannot guarantee successful removal of all of the lymph nodes and I have also discussed the specific risks of the surgery including damage to the aorta as we attempt to dissect between the aorta and the mass. We have discussed the role of renal biopsy. We also discussed that in the event of metastatic disease it is now generally preferred to approach disease of this nature via medical oncology before surgical oncology. I have also discussed that if he has local disease, high risk disease is increasingly approached with adjuvant therapy to prevent further metastatic spread or recurrence. He and his are certainly hopeful that his disease is limited to the kidney and the immediate area around it. They are eager to move forward with a left radical nephrectomy. Although he certainly has significant surgical risks, I do think it is feasible to offer this surgically locally. Admission Exam Per Admitting Provider Constitutional well developed and well nourished Neck neck nontender Respiratory normal respiratory effort; no respiratory distress and does not use accessory muscles Cardiovascular Rate/Rhythm: regular rate Vessels: radial pulses present Extremities: no edema Gastrointestinal (Abdomen) Inspection/Auscultation: abdomen normal to inspection Percussion/Palpation: abdomen soft; abdomen nontender and no guarding Musculoskeletal Head/Neck/Chest: normocephalic and head atraumatic Extremities: extremities normal to inspection Skin no rashes and no lesions Trauma: no evidence of skin trauma Neurologic awake; not obtunded Speech / Cognition: normal speech Motor/Sensory: no tremor Psychiatric Orientation: alert and oriented x 3 Genitourinary no CVA tenderness Lymphatic no lymphadenopathy Principal Diagnosis Left renal mass Discharge Exam General: Alert and oriented, no acute distress HEENT: Normocephalic, mucous membranes moist Cardiovascular: Regular rate Pulmonary: Nonlabored respirations Abdomen: Mildly distended, soft, appropriately tender. Incisions clean dry and intact. GOLDIE drain with minimal serosanguineous output Extremities: Moves all 4 spontaneously Neuro: No gross deficits Skin: Warm, dry, no rashes noted Discharge Data Allergies Allergy/AdvReac Type Severity Reaction Status Date / Time No Known Allergies Allergy Verified 05/12/22 10:37 Procedures Performed Operation Date: 05/12/22 11:50 Actual Procedures p Laparoscopic Hand Assisted Nephrectomy - Left - Chirs Recinos MD Ordered Studies 05/12/22 09:13 US - OR guided needle placemen Urgent Hospital Course (1) Renal Mass: Plan Patient underwent above-noted procedure on 05/12/2022. He was transferred postoperatively to the floor in stable condition. Postoperative labs remained stable. Mcintyre catheter was removed and he voided spontaneously. Pain was well controlled. He tolerated a liquid diet. He ambulated without issue. GOLDIE drain was removed prior to discharge. Deemed stable for discharge on 05/15/2022. Total Time Total Time Spent Total Time Spent (In Minutes): 10 Discharge Plan Discharge Items Patient Disposition: Home - Self-Care Reason For Visit: POSTOP Discharge Diagnosis: Renal Mass Activity: Per Instructions section Lifting: No more than 10 pounds Bathing Comment: Okay to shower, no tub bath or soaking Sexual Activity: Wait until after follow-up appointment Exercise/Sports: Wait until after follow-up appointment Driving/Machine Use: No driving while taking prescription pain medication Non-emergency contact: Surgeon and Urologist Call non-emergency contact if: your pain is not controlled, your pain is worsening, you have a fever, your temperature is above 101, your wound has increased redness, your wound has increased drainage and your wound pain has increased Follow-up/Referrals: Chris Recinos MD [Physician] - 05/25/22 11:00 am Rickey Murray DO [Primary Care Provider] - Diet: Regular Addtl Attending Provider Instructions: Please take all medications as prescribed and keep all follow-ups as scheduled. Please call our office at [phone] with any questions, concerns or need to reschedule appointments for any reason. We are happy to assist you. Percocet (oxycodone-acetaminophen) was sent to your pharmacy to take as needed for acute pain. This contains Tylenol. Do not exceed 3000 mg of Tylenol in 24 hours. Recovering at home: We recommend having someone with you for the first few days after surgery to help care for you. It is okay to shower tomorrow. Please avoid swimming, bathing or using hot tub until incisions are well healed. Avoid driving until you are not requiring pain medication any further. Walk at least a few times a day. Increase your distance, as you feel able. Stairs in your home are okay. Please avoid strenuous or sexual activity until your follow-up. We recommend using stool softener (i.e. Colace) to prevent constipation and straining, especially the first two weeks post operatively. Call [facility] at [phone] if you experience: Chest pain or trouble breathing (call [phone] or go to the hospital). Fever of 101F or higher Symptoms of infection at incision site, including redness or swelling, warmth, or bad-smelling drainage If you have catheter, and you notice: o Bloody urine or drainage that is dark red or has large clots (Please remember a small amount of blood is normal) o No drainage from the catheter for more than 6 hours o The catheter comes out of your bladder Pain that is not controlled with medicines Pending Studies at Discharge: Yes Studies:: pathology Stand-Alone Forms: My [facility] [employer], Smoking Cessation Medications and DC Order Prescriptions: New oxycodone-acetaminophen [Percocet] 5-325 mg tablet 1 tab PO TID PRN (Reason: pain) Qty: 14 0RF Rx Instructions: post operative pain docusate sodium [Colace] 100 mg capsule 100 mg PO BID Qty: 60 0RF Rx Instructions: Take twice daily for 2 weeks, then as needed for constipation. Continued atorvastatin [Lipitor] 40 mg tablet 40 mg PO QAM Stool Softener 50 mg Capsule 50 mg PO DAILY PRN (Reason: Constipation) acetaminophen [Tylenol] 325 mg Capsule 325 mg PO UD PRN (Reason: Pain) Discharge Orders: Discharge Order (Routine); Ordered 05/15/22 Ordered By: Howard Wakefield Admission Data Admit Date/Time: 05/12/22 16:07 Attending Provider: Chris Recinos Admit Provider: Chris Recinos Primary Care Provider: Rickey Murray Coding Level of Care Code D/C DAY MANAGEMENT <30 MINS Diagnoses Renal Mass N28.89
--- NOTE | 2022-05-22 14:41 | Coding Query ---
PATHOLOGY To promote full compliance with coding requirements relating to patient care, physician participation is requested in all cases of rn cvicu uncertainty. 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
== END 2022-05-15 11:56 | disposition home or self-care (01) | DRG 825 ==
LOC: ASU 10:17 → 3E 16:07

== ENCOUNTER 2022-11-30 06:32 | Inpatient (IN) ==
[2022-11-30] MEDS ORDERED: SODIUM CHLORIDE 0.9% 1000ML 1,000 ML IV SCH (06:45)
[2022-11-30] MEDS ORDERED: ACETAMINOPHEN 500 MG TAB PO STA (06:51)
--- NOTE | 2022-11-30 06:53 | Emergency Department Note ---
Impression & Plan Fever Admission ED Provider Note HPI: The patient is a 77-year-old gentleman with history of large B-cell lymphoma, no longer on any active chemotherapy which previously ended in September 2022, presents emergency department with a chief complaint of generalized weakness. Patient states he got up this morning to go to the bathroom and he felt too weak to ambulate, states he lowered himself to the ground and asked his for assistance. She brought him to the emergency department to be assessed. On arrival here to the ED the patient is hemodynamically stable, he is noted to have a fever at 38.0. Patient states he has felt warm at home over the past 1 to 2 days. States he developed a slight cough overnight. Patient denies any diarrhea, denies any dysuria. Patient states he has some mild abdominal pain on arrival which is new, denies any vomiting. Patient does not have any focal deficits on arrival, he is alert and oriented, he is able to give me a coherent history. ROS: - Per HPI *Outpatient medications and allergy history reviewed. *Pertinent external medical records reviewed. PE: General: Alert HEENT: Normocephalic, trachea midline Eyes: Extraocular eye movement is intact, no scleral erythema Pulmonary: Clear to auscultation bilaterally, no wheezing Cardio: Regular rate and rhythm GI: Abdomen is soft to palpation : No suprapubic tenderness MSK: No evidence of trauma or malformation of the extremities, no edema Skin: No evidence of rash Neuro: Alert, no focal deficits Psychiatric: Cooperative cardiac monitor: (As interpreted by myself): - An order was placed for continuous cardiac monitoring - Patient was noted to be in sinus rhythm with a rate of 70 EKG: (As interpreted by myself): Rate: 86 Rhythm: Sinus rhythm Intervals: Within normal limits ST changes: No ST elevation Time: 0658 Interventions provided in ED: -IV fluid bolus, IV Tylenol, IV vancomycin, IV cefepime Differential Diagnosis: Sepsis, bacterial pneumonia, urinary tract infection, viral infection to include influenza A, COVID-19, meningitis, colitis, amongst other potential pathologies. Medical Decision Making: The patient presented to the emergency department with noted fever at 38.0, otherwise hemodynamically stable. Shortly after the patient arrived IV was established lab work obtained, patient was maintained on computer support specialist. Lab work shows mild leukopenia with a white blood cell count of 4.18, hemoglobin slightly reduced to 12.6 but stable in comparison to previous, platelet count slightly reduced at 106, VBG shows normal pH of 7.39, CMP shows mild hyponatremia at 132, creatinine slightly elevated at 1.66 which is just slightly above the patient's baseline. Lactic acid is normal. Bilirubin is normal, no transaminitis, high-sensitivity troponin level is elevated in the 700s, patient denies any chest pain, review of EKG shows normal sinus rhythm without any acute ischemic changes. Procalcitonin is also mildly elevated at 0.79. Given the patient's lab abnormalities and history, I did feel broad-spectrum antibiotics were indicated for treatment of possible early sepsis, patient was treated with IV vancomycin and IV Zosyn. He was not given a full 30 cc/kg of IV fluids secondary to his hemodynamic stability and low concern for active septic shock. Viral panel testing was obtained and is negative. Chest x-ray shows no acute findings. CT imaging of the abdomen pelvis was obtained as the patient later complained of some mid abdominal pain, this does not show any evidence of any acute inflammatory or surgical abnormalities. I discussed all the above findings with the patient and his at the bedside, they are in agreement for admission, case was discussed with the [facility] hospitalist service and the patient was accepted by Dr. Barrios for further management. Consultants: Hospitalist, Dr. Barrios Disposition discussion held by myself with: Patient and at bedside Diagnosis: 1. Fever of unknown origin 2. Elevated high-sensitivity troponin level 3. Chronic kidney disease 4. History of large B-cell lymphoma 5. Leukopenia, acute 6. Elevated procalcitonin level, acute Disposition: Admission Clemente Kim DO Emergency Medicine Past Med/Surg History Medical History AAA (abdominal aortic aneurysm) CAD (coronary artery disease) COPD (chronic obstructive pulmonary disease) Degenerative disc disease Emphysema lung History of COVID-19 History of duodenal ulcer HTN (hypertension) Hyperlipidemia Hyperparathyroidism Impaired fasting glucose Large B-cell lymphoma Renal Mass Stage 3 chronic kidney disease Surgical History History of abdominal aortic aneurysm (AAA) repair History of bone marrow biopsy History of colonoscopy History of left nephrectomy History of parathyroid surgery History of umbilical hernia repair History of wisdom tooth extraction Port-A-Cath in place (06/24/22) Family History Mother Family history of diabetes mellitus Atrial fibrillation Glioblastoma Father Atrial fibrillation Aunt Breast cancer Son Cancer melanoma Other No family history of adverse response to anesthesia Denies family history of Ovarian cancer Prostate cancer Myocardial infarction Colorectal cancer Social History Smoking Status: Former smoker Tobacco Type: Cigarettes Second Hand Exposure: No; Do You Dip or Chew Tobacco: No; Tobacco Cessation Education Requested by Patient: No Hx Alcohol Use: No Hx Substance Use: No Preferred Language: Macanese Communication Ability: Effective Communication Ability Comment: PHONE INTERVIEW DONE WITH NELSY (HIPPA CONTACT) Visual Impairment: No Limitations Hearing Ability: Normal Perishable Freight Inspector Required: No Beliefs That Will Affect Care: None marital status: Current Living Situation: Spouse current occupational status: retired How many Children do You have: 2 Other Information That Helps Us Care for You: No Feels Safe at Home: Yes Safety Concerns: Feels Safe At This Time Diet: regular caffeine: Yes during the past year weight has: decreased > 10 lbs Dental Care, Regularly: No Physical Activity Frequency: Daily Seatbelt Use: always Sunscreen Use: Yes Assistive Devices: Cane and Glasses Allergies Allergies Allergy/AdvReac Type Severity Reaction Status Date / Time No Known Allergies Allergy Verified 10/15/22 09:36 Home Meds Home Medications Medication Instructions Recorded Confirmed atorvastatin 40 mg tablet (Lipitor) 40 mg PO QAM 05/12/22 11/30/22 pantoprazole 20 mg tablet,delayed 20 mg PO BID 07/09/22 11/30/22 release (Protonix) docusate sodium 100 mg tablet 100 mg PO DAILY 07/22/22 08/11/22 (Stool Softener) loratadine 10 mg tablet (Claritin) 10 mg PO QAM 08/11/22 09/01/22 Results & Data (ED) Vital Signs Vital Signs - 24 hr 11/30/22 06:36 11/30/22 06:53 11/30/22 07:25 Temperature 38.0 C H Temperature Source Temporal Artery Scan Pulse Rate 94 H 88 Pulse Rate [Apical] 86 Pulse Rhythm Regular Pulse Strength Normal Respiratory Rate 98 H 18 Respiratory Effort / Characteristics Non-Labored Spontaneous Non-Labored Respiratory Depth Normal Normal Respiratory Pattern Regular Blood Pressure 103/66 Blood Pressure [Right Arm] 113/65 Blood Pressure Mean 78 Blood Pressure Mean [Right Arm] 81 Blood Pressure Position Sitting Pulse Oximetry 97 98 Oxygen Delivery Method Room Air Room Air Sepsis Recent Fever Within 48 Hours No Sepsis New/Unexplained Change in Mental Status No Sepsis Action Taken by Nursing No Action Required 11/30/22 07:25 11/30/22 07:32 11/30/22 09:08 Temperature Temperature Source Pulse Rate Pulse Rate [Apical] 68 78 Pulse Rhythm Pulse Strength Respiratory Rate Respiratory Effort / Characteristics Respiratory Depth Respiratory Pattern Blood Pressure Blood Pressure [Right Arm] 113/65 Blood Pressure Mean Blood Pressure Mean [Right Arm] 81 Blood Pressure Position Pulse Oximetry 98 98 93 Oxygen Delivery Method Room Air Room Air Room Air Sepsis Recent Fever Within 48 Hours Sepsis New/Unexplained Change in Mental Status Sepsis Action Taken by Nursing 11/30/22 09:39 11/30/22 09:56 11/30/22 10:01 Temperature Temperature Source Pulse Rate Pulse Rate [Apical] 75 68 Pulse Rhythm Pulse Strength Respiratory Rate 16 Respiratory Effort / Characteristics Non-Labored Non-Labored Respiratory Depth Normal Normal Respiratory Pattern Blood Pressure Blood Pressure [Right Arm] 126/76 Blood Pressure Mean Blood Pressure Mean [Right Arm] 92 Blood Pressure Position Pulse Oximetry 98 93 93 Oxygen Delivery Method Room Air Room Air Room Air Sepsis Recent Fever Within 48 Hours Sepsis New/Unexplained Change in Mental Status Sepsis Action Taken by Nursing 11/30/22 10:19 Temperature Temperature Source Pulse Rate Pulse Rate [Apical] 71 Pulse Rhythm Pulse Strength Respiratory Rate Respiratory Effort / Characteristics Respiratory Depth Respiratory Pattern Blood Pressure Blood Pressure [Right Arm] 113/78 Blood Pressure Mean Blood Pressure Mean [Right Arm] 89 Blood Pressure Position Pulse Oximetry Oxygen Delivery Method Sepsis Recent Fever Within 48 Hours Sepsis New/Unexplained Change in Mental Status Sepsis Action Taken by Nursing Laboratory Data 11/30/22 07:50 11/30/22 07:50 Lab Results 11/30/22 11/30/22 11/30/22 Range/Units 07:12 07:50 07:50 WBC 4.18 L (4.8-10.8) K/ul RBC 3.99 L (4.70-6.10) M/uL Hgb 12.6 L (14.0-18.0) g/dl Hct 36.8 L (42.0-52.0) % MCV 92.2 (80.0-100.0) fL MCH 31.6 (25.0-34.0) pg MCHC 34.2 (32.0-36.0) g/dL RDW Std Deviation 43.0 (36.4-46.3) fL RDW Coeff of Sasha 12.7 (11.5-14.5) % Plt Count 106 L (130-400) K/uL MPV 10.6 (9.4-12.4) fL Immature Gran % (Auto) 0.2 % Neut % (Auto) 59.8 % Lymph % (Auto) 25.4 % Randolph % (Auto) 13.6 % Eos % (Auto) 0.0 % Baso % (Auto) 1.0 % Neut # (Auto) 2.50 (1.40-6.50) K/uL Lymph # (Auto) 1.06 L (1.2-3.4) K/uL Randolph # (Auto) 0.57 (0.11-0.59) K/uL Eos # (Auto) 0.00 (0-0.50) K/uL Baso # (Auto) 0.04 (0-0.2) K/uL Immature Gran # (Auto) 0.01 (0.01-0.20) K/uL PT (9.0-12.0) Seconds INR (0.9-1.1) VBG pH (7.36-7.41) VBG pCO2 (38-50) mmHg VBG pO2 mmHg VBG HCO3 mmol/L VBG O2 Saturation % VBG Base Excess mEq/L Sodium 132 L (136-145) mmol/L Potassium 3.6 (3.5-5.1) mmol/L Chloride 101 (98-107) mmol/L Carbon Dioxide 23 (21-32) mmol/L Anion Gap 8 (3-11) BUN 26 H (6-23) mg/dl Creatinine 1.66 H (0.6-1.4) mg/dl Est Cr Clr Drug Dosing 44.4 ml/min Est GFR ( Amer) 45.1 ml/min Est GFR (Non-Af Amer) 38.9 ml/min BUN/Creatinine Ratio 15.7 (10-20) Glucose 106 H (70-99(Fasting)) mg/dl Lactate (0.4-2.0) mmol/L Calcium 8.8 (8.6-10.3) mg/dl Magnesium 1.7 (1.7-2.4) mg/dl Total Bilirubin 1.0 (0.2-1.0) mg/dl Direct Bilirubin 0.2 (0-0.2) mg/dl AST 29 (13-39) U/L ALT 14 (7-52) U/L Alkaline Phosphatase 49 (34-104) U/L Troponin I High Sens 778.1 H* (0-20) pg/ml Total Protein 6.3 (6.0-8.3) gm/dl Albumin 3.9 (3.4-5.0) gm/dl Procalcitonin (0-0.5) ng/ml Urine Color Urine Appearance (Clear) Urine pH (4.5-7.5) Ur Specific [place] (1.000-1.030) Urine Protein (Negative) Urine Glucose (UA) (Negative) Urine Ketones (Negative) Urine Blood (Negative) Urine Nitrite (Negative) Urine Bilirubin (Negative) Urine Urobilinogen (Negative) Ur Leukocyte Esterase (Negative) Urine WBC (Auto) (0-5) /hpf Urine RBC (Auto) (0-4) /hpf U Hyaline Cast (Auto) (0-5) /lpf U Epithel Cells (Auto) (0-5) /lpf Urine Bacteria (Auto) (Negative) Ur Random Creatinine mg/dl U Random Total Protein (0-11.9) mg/dl Protein/Creatinin Ratio (0-0.2) Adenovirus (PCR) Not Detected (NotDetected) B. pertussis DNA (PCR) Not Detected (NotDetected) B.parapertussis DNA PCR Not Detected (NotDetected) C. pneumoniae DNA (PCR) Not Detected (NotDetected) Coronavirus OC43 (PCR) Not Detected (NotDetected) Coronavirus HKU1 (PCR) Not Detected (NotDetected) Coronavirus 229E (PCR) Not Detected (NotDetected) SARS-CoV-2 (PCR) Not Detected (NotDetected) Coronavirus NL63 (PCR) Not Detected (NotDetected) Human Metapneumovir PCR Not Detected (NotDetected) Influenza Type A (PCR) Not Detected (NotDetected) Influenza Type B (PCR) Not Detected (NotDetected) M. pneumoniae (PCR) Not Detected (NotDetected) Parainfluenza 1 (PCR) Not Detected (NotDetected) Parainfluenza 2 (PCR) Not Detected (NotDetected) Parainfluenza 3 (PCR) Not Detected (NotDetected) Parainfluenza 4 (PCR) Not Detected (NotDetected) RSV (PCR) Not Detected (NotDetected) Entero/Rhino (PCR) Not Detected (NotDetected) 11/30/22 11/30/22 11/30/22 Range/Units 07:50 07:50 07:50 WBC (4.8-10.8) K/ul RBC (4.70-6.10) M/uL Hgb (14.0-18.0) g/dl Hct (42.0-52.0) % MCV (80.0-100.0) fL MCH (25.0-34.0) pg MCHC (32.0-36.0) g/dL RDW Std Deviation (36.4-46.3) fL RDW Coeff of Sasha (11.5-14.5) % Plt Count (130-400) K/uL MPV (9.4-12.4) fL Immature Gran % (Auto) % Neut % (Auto) % Lymph % (Auto) % Randolph % (Auto) % Eos % (Auto) % Baso % (Auto) % Neut # (Auto) (1.40-6.50) K/uL Lymph # (Auto) (1.2-3.4) K/uL Randolph # (Auto) (0.11-0.59) K/uL Eos # (Auto) (0-0.50) K/uL Baso # (Auto) (0-0.2) K/uL Immature Gran # (Auto) (0.01-0.20) K/uL PT 12.4 H (9.0-12.0) Seconds INR 1.1 (0.9-1.1) VBG pH (7.36-7.41) VBG pCO2 (38-50) mmHg VBG pO2 mmHg VBG HCO3 mmol/L VBG O2 Saturation % VBG Base Excess mEq/L Sodium (136-145) mmol/L Potassium (3.5-5.1) mmol/L Chloride (98-107) mmol/L Carbon Dioxide (21-32) mmol/L Anion Gap (3-11) BUN (6-23) mg/dl Creatinine (0.6-1.4) mg/dl Est Cr Clr Drug Dosing ml/min Est GFR ( Amer) ml/min Est GFR (Non-Af Amer) ml/min BUN/Creatinine Ratio (10-20) Glucose (70-99(Fasting)) mg/dl Lactate 0.8 (0.4-2.0) mmol/L Calcium (8.6-10.3) mg/dl Magnesium (1.7-2.4) mg/dl Total Bilirubin (0.2-1.0) mg/dl Direct Bilirubin (0-0.2) mg/dl AST (13-39) U/L ALT (7-52) U/L Alkaline Phosphatase (34-104) U/L Troponin I High Sens (0-20) pg/ml Total Protein (6.0-8.3) gm/dl Albumin (3.4-5.0) gm/dl Procalcitonin 0.79 H (0-0.5) ng/ml Urine Color Urine Appearance (Clear) Urine pH (4.5-7.5) Ur Specific [place] (1.000-1.030) Urine Protein (Negative) Urine Glucose (UA) (Negative) Urine Ketones (Negative) Urine Blood (Negative) Urine Nitrite (Negative) Urine Bilirubin (Negative) Urine Urobilinogen (Negative) Ur Leukocyte Esterase (Negative) Urine WBC (Auto) (0-5) /hpf Urine RBC (Auto) (0-4) /hpf U Hyaline Cast (Auto) (0-5) /lpf U Epithel Cells (Auto) (0-5) /lpf Urine Bacteria (Auto) (Negative) Ur Random Creatinine mg/dl U Random Total Protein (0-11.9) mg/dl Protein/Creatinin Ratio (0-0.2) Adenovirus (PCR) (NotDetected) B. pertussis DNA (PCR) (NotDetected) B.parapertussis DNA PCR (NotDetected) C. pneumoniae DNA (PCR) (NotDetected) Coronavirus OC43 (PCR) (NotDetected) Coronavirus HKU1 (PCR) (NotDetected) Coronavirus 229E (PCR) (NotDetected) SARS-CoV-2 (PCR) (NotDetected) Coronavirus NL63 (PCR) (NotDetected) Human Metapneumovir PCR (NotDetected) Influenza Type A (PCR) (NotDetected) Influenza Type B (PCR) (NotDetected) M. pneumoniae (PCR) (NotDetected) Parainfluenza 1 (PCR) (NotDetected) Parainfluenza 2 (PCR) (NotDetected) Parainfluenza 3 (PCR) (NotDetected) Parainfluenza 4 (PCR) (NotDetected) RSV (PCR) (NotDetected) Entero/Rhino (PCR) (NotDetected) 11/30/22 11/30/22 11/30/22 Range/Units 07:55 09:30 09:30 WBC (4.8-10.8) K/ul RBC (4.70-6.10) M/uL Hgb (14.0-18.0) g/dl Hct (42.0-52.0) % MCV (80.0-100.0) fL MCH (25.0-34.0) pg MCHC (32.0-36.0) g/dL RDW Std Deviation (36.4-46.3) fL RDW Coeff of Sasha (11.5-14.5) % Plt Count (130-400) K/uL MPV (9.4-12.4) fL Immature Gran % (Auto) % Neut % (Auto) % Lymph % (Auto) % Randolph % (Auto) % Eos % (Auto) % Baso % (Auto) % Neut # (Auto) (1.40-6.50) K/uL Lymph # (Auto) (1.2-3.4) K/uL Randolph # (Auto) (0.11-0.59) K/uL Eos # (Auto) (0-0.50) K/uL Baso # (Auto) (0-0.2) K/uL Immature Gran # (Auto) (0.01-0.20) K/uL PT (9.0-12.0) Seconds INR (0.9-1.1) VBG pH 7.39 (7.36-7.41) VBG pCO2 35 L (38-50) mmHg VBG pO2 52 mmHg VBG HCO3 21 mmol/L VBG O2 Saturation 85.9 % VBG Base Excess -3.1 mEq/L Sodium (136-145) mmol/L Potassium (3.5-5.1) mmol/L Chloride (98-107) mmol/L Carbon Dioxide (21-32) mmol/L Anion Gap (3-11) BUN (6-23) mg/dl Creatinine (0.6-1.4) mg/dl Est Cr Clr Drug Dosing ml/min Est GFR ( Amer) ml/min Est GFR (Non-Af Amer) ml/min BUN/Creatinine Ratio (10-20) Glucose (70-99(Fasting)) mg/dl Lactate (0.4-2.0) mmol/L Calcium (8.6-10.3) mg/dl Magnesium (1.7-2.4) mg/dl Total Bilirubin (0.2-1.0) mg/dl Direct Bilirubin (0-0.2) mg/dl AST (13-39) U/L ALT (7-52) U/L Alkaline Phosphatase (34-104) U/L Troponin I High Sens (0-20) pg/ml Total Protein (6.0-8.3) gm/dl Albumin (3.4-5.0) gm/dl Procalcitonin (0-0.5) ng/ml Urine Color Yellow Urine Appearance Clear (Clear) Urine pH 5.5 (4.5-7.5) Ur Specific [place] 1.018 (1.000-1.030) Urine Protein 1+ H (Negative) Urine Glucose (UA) Negative (Negative) Urine Ketones Negative (Negative) Urine Blood Trace H (Negative) Urine Nitrite Negative (Negative) Urine Bilirubin Negative (Negative) Urine Urobilinogen Negative (Negative) Ur Leukocyte Esterase Negative (Negative) Urine WBC (Auto) 1-5 (0-5) /hpf Urine RBC (Auto) 0-4 (0-4) /hpf U Hyaline Cast (Auto) 1-5 (0-5) /lpf U Epithel Cells (Auto) 0-5 (0-5) /lpf Urine Bacteria (Auto) Negative (Negative) Ur Random Creatinine 130.5 mg/dl U Random Total Protein 61.6 H (0-11.9) mg/dl Protein/Creatinin Ratio 0.5 H (0-0.2) Adenovirus (PCR) (NotDetected) B. pertussis DNA (PCR) (NotDetected) B.parapertussis DNA PCR (NotDetected) C. pneumoniae DNA (PCR) (NotDetected) Coronavirus OC43 (PCR) (NotDetected) Coronavirus HKU1 (PCR) (NotDetected) Coronavirus 229E (PCR) (NotDetected) SARS-CoV-2 (PCR) (NotDetected) Coronavirus NL63 (PCR) (NotDetected) Human Metapneumovir PCR (NotDetected) Influenza Type A (PCR) (NotDetected) Influenza Type B (PCR) (NotDetected) M. pneumoniae (PCR) (NotDetected) Parainfluenza 1 (PCR) (NotDetected) Parainfluenza 2 (PCR) (NotDetected) Parainfluenza 3 (PCR) (NotDetected) Parainfluenza 4 (PCR) (NotDetected) RSV (PCR) (NotDetected) Entero/Rhino (PCR) (NotDetected) Administered Medications Discontinued Medications Acetaminophen (Acetaminophen 500 Mg Tab) 1,000 mg PO NOW STA Stop: 11/30/22 06:52 Last Admin: 11/30/22 07:27 Dose: 1,000 mg Documented By: AUDREY Sodium Chloride (Nss 1000ml) 1,000 mls @ 999 mls/hr IV .Q1H1M DEO Stop: 11/30/22 07:45 Last Infusion: 11/30/22 09:04 Dose: 0 mls/hr Documented By: Admin: 11/30/22 08:01 Dose: 999 mls/hr Documented By: AUDREY Cefepime HCl (Maxipime) 2,000 mg in 20 mls @ 5 mls/min IV NOW STA; Protocol Stop: 11/30/22 10:07 Last Admin: 11/30/22 10:13 Dose: 5 mls/min Documented By: AUDREY Vancomycin HCl 2,000 mg/ (Sodium Chloride) 540 mls @ 200 mls/hr IV NOW ONE Stop: 11/30/22 12:45 Last Admin: 11/30/22 10:56 Dose: 200 mls/hr Documented By: AUDREY Lactated Ringer's (Lr) 1,000 mls @ 999 mls/hr IV .Q1H1M ONE Stop: 11/30/22 11:28 Last Infusion: 11/30/22 12:03 Dose: 0 mls/hr Documented By: Admin: 11/30/22 10:56 Dose: 999 mls/hr Documented By: AUDREY Ioversol (Optiray 320 100ml) 80 ml IV ONCE ONE Stop: 11/30/22 09:21 Last Admin: 11/30/22 09:20 Dose: 80 ml Documented By: JUSTEN Imaging Data Radiologist's Impression: Chest X-Ray 11/30/22 06:41 XR chest 1V portable CLINICAL HISTORY: Sepsis. COMPARISON STUDY: Chest radiograph June 24, 2022. PET/CT November 26, 2022. FINDINGS: Right internal jugular [id number] is in place. There is no pneumothorax or pleural effusion. Cardiomediastinal silhouette is stable. Mild interstitial thickening is similar to prior exams. There is no evidence for pneumonia or pulmonary edema. IMPRESSION: No acute cardiopulmonary findings. ACT 112: Negative or not required by law. Electronically signed by: Martinez Manuel M.D. 11/30/2022 6:59 AM Abdomen/Pelvis CT 11/30/22 06:53 CT OF THE ABDOMEN AND PELVIS WITH CONTRAST CLINICAL HISTORY: Abdominal pain and fever. Non-Hodgkin's lymphoma. COMPARISON STUDY: CT of the abdomen and pelvis April 13, 2022 and PET/CT November 26, 2022. TECHNIQUE: Following IV administration of 80 mL of Optiray, axial images of the abdomen and pelvis were obtained from the lung bases to the proximal femurs. I mages were reviewed in the axial, sagittal, and coronal planes. IV contrast was administered without complication. Automated exposure control was utilized for the study. A dose lowering technique was utilized adhering to the principles of ALARA. CT DOSE: 1482.54 mGy.cm FINDINGS: Lung bases are unremarkable. No pneumatosis, free air or portal venous gas is present. Fat-containing right hepatic dome lesion is benign. A few additional hypodense lesions within the liver are similar to prior exams. These are likely benign. Trace perisplenic fluid is noted. This was shown on PET/CT. Subtle stranding within the left nephrectomy bed remains unchanged since PET/CT of November 26, 2022. No fluid collection is present. There is no abdominal or pelvic lymphadenopathy. Aortoiliac endovascular stent graft is in place. Aneurysm sac size is unchanged, measuring 6.6 cm. Dilatation of the bilateral common and arteries is also unchanged. There is no evidence for a bowel obstruction. The caliber and wall thickness of small and large bowel are normal. The appendix is normal. There is no biliary or pancreatic ductal dilatation. Suspected adenomyomatosis of the gallbladder fundus. There could be small stones within the gallbladder. There is no evidence for acute cholecystitis. No acute fracture or suspicious lesion within the visualized skeletal structures is present. Prostate is enlarged, measuring 4.9 cm in transverse dimension. No right hydronephrosis. Several water attenuation right renal lesions reflect cysts. IMPRESSION: 1. No acute process within the abdomen or pelvis. 2. Stable stranding within the left nephrectomy bed since PET/CT of November 26, 2021. This is likely postsurgical but can be assessed on follow-up exams. 3. No bowel obstruction. No bowel wall thickening. Normal appendix. 4. Stable postoperative findings following aortoiliac stent graft placement. Stable aneurysm sac size. No rupture. ACT 112: Negative or not required by law. Electronically signed by: Martinez Manuel M.D. 11/30/2022 9:46 AM Discharge Plan Visit Data Chief Complaint: Weakness Stated Complaint: WEAKNESS,CANCER PATIENT,QUEZIENESS,BACK,NECK PAIN ED Provider: Clemente Kim Discharge Problem: Fever Patient Disposition: Admitted As Inpatient Discharge Instructions Interventions: ED Discharge Assessment Last Done: 11/30/22 11:34 Fever Qualifiers: Fever type: unspecified Qualified Code(s): R50.9 - Fever, unspecified
--- NOTE | 2022-11-30 07:00 | XRay Report ---
XR chest 1V portable CLINICAL HISTORY: Sepsis. COMPARISON STUDY: Chest radiograph June 24, 2022. PET/CT November 26, 2022. FINDINGS: Right internal jugular [id number] is in place. There is no pneumothorax or pleural effus ion. Cardiomediastinal silhouette is stable. Mild interstitial thickening is similar to prior exams. There is no evidence for pneumonia or pulmonary edema. IMPRESSION: No acute cardiopulmonary findings. ACT 112: Negative or not required by law. Electronically signed by: Martinez Manuel M.D. 11/30/2022 6:59 AM
[2022-11-30 08:16] LABS: Base Excess VBG -3.1 mEq/L; HCO3 VBG 21 mmol/L; Oxygen Saturation VBG 85.9 %; PCO2 VBG 35 mmHg (38-50); PO2 VBG 52 mmHg; pH VBG 7.39 (7.36-7.41)
[2022-11-30 08:30] LABS: Basophils # (auto) 0.04 K/uL (0-0.2); Hematocrit (blood only) 36.8 % (42.0-52.0); Hemoglobin 12.6 g/dl (14.0-18.0); Immature Granulocytes # (auto) 0.01 K/uL (0.01-0.20); Immature Granulocytes % (auto) 0.2 %; Lymphocytes # (auto) 1.06 K/uL (1.2-3.4); Lymphocytes % (auto) 25.4 %; Mean Corpuscular Hemoglobin 31.6 pg (25.0-34.0); Mean Corpuscular Hgb Conc 34.2 g/dL (32.0-36.0); Mean Corpuscular Volume 92.2 fL (80.0-100.0); Mean Platelet Volume 10.6 fL (9.4-12.4); Monocytes # (auto) 0.57 K/uL (0.11-0.59); Monocytes % (auto) 13.6 %; Neutrophils % (auto) 59.8 %; Platelet Count 106 K/uL (130-400); RDW Coefficient of Variation 12.7 % (11.5-14.5); Red Blood Count 3.99 M/uL (4.70-6.10); White Blood Count 4.18 K/ul (4.8-10.8)
[2022-11-30 08:31] LABS: Adenovirus PCR Not Detected (NotDetected); Bordetella parapertussis PCR Not Detected (NotDetected); Bordetella pertussis PCR Not Detected (NotDetected); Chlamydia pneumoniae PCR Not Detected (NotDetected); Coronavirus 229E PCR Not Detected (NotDetected); Coronavirus CoV-2 (COVID19)PCR Not Detected (NotDetected); Coronavirus HKU1 PCR Not Detected (NotDetected); Coronavirus NL63 PCR Not Detected (NotDetected); Coronavirus OC43PCR Not Detected (NotDetected); Human Metapneumovirus PCR Not Detected (NotDetected); Influenza A PCR Not Detected (NotDetected); Influenza B PCR Not Detected (NotDetected); Mycoplasma pneumoniae PCR Not Detected (NotDetected); Parainfluenza Virus 1 PCR Not Detected (NotDetected); Parainfluenza Virus 2 PCR Not Detected (NotDetected); Parainfluenza Virus 3 PCR Not Detected (NotDetected); Parainfluenza Virus 4 PCR Not Detected (NotDetected); Respiratory Syncytial VirusPCR Not Detected (NotDetected); Rhinovirus/Enterovirus PCR Not Detected (NotDetected)
[2022-11-30 08:45] LABS: Albumin Level 3.9 gm/dl (3.4-5.0); BUN Creatinine Ratio 15.7 (10-20); Bilirubin Direct 0.2 mg/dl (0-0.2); Calcium 8.8 mg/dl (8.6-10.3); Creatinine Clr Calc Pharmacy 44.4 ml/min; Est GFR (African American) 45.1 ml/min; Est GFR (Non-African American) 38.9 ml/min; Magnesium 1.7 mg/dl (1.7-2.4); Potassium 3.6 mmol/L (3.5-5.1); Total Protein 6.3 gm/dl (6.0-8.3)
[2022-11-30 08:49] LABS: INR 1.1 (0.9-1.1); Prothrombin Time 12.4 Seconds (9.0-12.0)
[2022-11-30 08:55] LABS: Troponin I High Sensitivity 778.1 pg/ml (0-20)
[2022-11-30] MEDS ORDERED: OPTIRAY 320 100ml IV ONE (09:20)
--- NOTE | 2022-11-30 09:48 | CT Scan Report ---
CT OF THE ABDOMEN AND PELVIS WITH CONTRAST CLINICAL HISTORY: Abdominal pain and fever. Non-Hodgkin's lymphoma. COMPARISON STUDY: CT of the abdomen and pelvis April 13, 2022 and PET/CT November 26, 2022. TECHNIQUE: Following IV administration of 80 mL of Optiray, axial images of the abdomen and pelvis we re obtained from the lung bases to the proximal femurs. Images were reviewed in the axial, sagittal, and coronal planes. IV contrast was administered without complication. Automated exposure control wa s utilized for the study. A dose lowering technique was utilized adhering to the principles of ALARA . CT DOSE: 1482.54 mGy.cm FINDINGS: Lung bases are unremarkable. No pneumatosis, free air or portal venous gas is present. Fat- containing right hepatic dome lesion is benign. A few additional hypodense lesions within the liver a re similar to prior exams. These are likely benign. Trace perisplenic fluid is noted. This was shown on PET/CT. Subtle stranding within the left nephrectomy bed remains unchanged since PET/CT of November 26, 2022. No fluid collection is present. There is no abdominal or pelvic lymphadenopathy. Aortoiliac en dovascular stent graft is in place. Aneurysm sac size is unchanged, measuring 6.6 cm. Dilatation of t he bilateral common and arteries is also unchanged. There is no evidence for a bowel obstruction. The caliber and wall thickness of small and large bowel are normal. The appendix is normal. There is no biliary or pancreatic ductal dilatation. Suspected adenomyomatosis of the gallbladder fundus. There c ould be small stones within the gallbladder. There is no evidence for acute cholecystitis. No acute f racture or suspicious lesion within the visualized skeletal structures is present. Prostate is enlarg ed, measuring 4.9 cm in transverse dimension. No right hydronephrosis. Several water attenuation righ t renal lesions reflect cysts. IMPRESSION: 1. No acute process within the abdomen or pelvis. 2. Stable stranding within the left nephrectomy bed since PET/CT of November 26, 2021. This is likely post surgical but can be assessed on follow-up exams. 3. No bowel obstruction. No bowel wall thickening. Normal appendix. 4. Stable postoperative findings following aortoiliac stent graft placement. Stable aneurysm sac size . No rupture. ACT 112: Negative or not required by law. Electronically signed by: Martinez Manuel M.D. 11/30/2022 9:46 AM
[2022-11-30 09:57] LABS: Appearance Urine Clear (Clear); Bacteria Urine Automated Negative (Negative); Bilirubin Urine Negative (Negative); Blood Urine Trace (Negative); Color Urine Yellow; Epithelial Cell Urine Auto 0-5 /lpf (0-5); Glucose Urine UA Negative (Negative); Ketones Urine Negative (Negative); Leukocyte Esterase Urine Negative (Negative); Nitrite Urine Negative (Negative); Protein Urine 1+ (Negative); RBC Urine Automated 0-4 /hpf (0-4); Specific Gravity Urine 1.018 (1.000-1.030); Urobilinogen Urine Negative (Negative); pH Urine 5.5 (4.5-7.5)
[2022-11-30] MEDS ORDERED: VANCOMYCIN CONSULT ACTIVE PRN (10:04)
[2022-11-30] MEDS ORDERED: VANCOMYCIN HCL 2,000 MG in SODIUM CHLORIDE 0.9% 500 ML IV ONE (10:04)
[2022-11-30] MEDS ORDERED: CEFEPIME 2,000 MG/20 ML VIAL IV STA (10:04)
--- NOTE | 2022-11-30 10:27 | History & Physical Report ---
Date of Service November 30, 2022 Assessment & Plan (1) Generalized weakness: Plan: -Admit to the PCU on tele and pulse oximetry -Currently stable -At this time his differential is broad including pancytopenia, fever while immunocompromised (not truly neutropenic at this time), possible ACS, and currently lymphoma -Patient noted to have a temp of 38.0 C while in the ED, procal of 0.79, high suspicion for infection at this time but no obvious source so far >Chest xray, CT abd/pelvis w/con, UA, and full respiratory biofire are negative >Mediport does not appear infected, but will need to monitor closely if no other source is identified >No signs/symptoms of meningitis >Blood cultures obtained, continue to follow -S/P one dose of Vancomycin and cefepime in the ED, will continue with both for now and treat as Neutropenic fever (ordered as 48 hour empiric dosing) -Neutropenic precautions ordered -S/P 1L NSS in the ED, will give another 1L LR STAT -Sepsis bolus is technically 3120L, will hold additional IV fluids at this time until his Echo is complete until acute CHF is ruled out due to his elevated trop and symptoms this am -Will obtain CT of the head wo con to rule out brain mets as he has not had a recent head CT -Will consult Oncology as he follows with Dr. Phelan -BL SCD's for DVT PPX for now, hold chemical PPX with his pancytopenia -AM CBC, CMP, Mag, PT/INR (2) Elevated troponin: Plan: -Initial high sen trop elevated at 778 -ECG shows new inferior infarct not seen on his last ECG in 2021 -The patient has been asymptomatic while in the ED, noted that the patient was significantly SOB and diaphoretic this am while trying to get up off the ground -Unclear etiology at this time but cannot rule out ACS/demand ischemia with his recent symptoms -Will obtain STAT TTE for further evaluation with STAT 2 hour repeat high sen trop -Cardiology consult placed -Will hold aspirin at this time as he is asymptomatic and thrombocytopenic, will wait to see what Cardiology thinks -Hold beat rachael for now as his BP is stable but low-normal and possible sepsis, can start on DC if indicated -Continue to monitor on tele, trend trop q6h moving forward -Will obtain CK level with his recent episodes of being on the ground -Has a hx of CAD with possible undiagnosed DC in the past, no hx of PCI or IRA placement -Patient was recently seen by Dr. Saldana in clinic on 10/15. Per his note, he recommended starting low-dose aspirin for the patient's hx of repaired AAA when his platelets are stable (3) Pancytopenia: Plan: -Has been an ongoing issue with his Chemotherapy -Hgb, platelets, and absolute neutrophils are currently low-normal -Will continue to treat as febrile neutropenia for now while workup is in process -Oncology consult placed -Neutropenic precautions ordered (4) Hyponatremia: Plan: -Noted to be 132 today -Glucose WNL, renal function stable, but noted to have 1+ protein today -Likely due to poor oral intake -S/P 1L NSS and will receive another 1L LR on admission -Will follow repeat sodium ordered later this afternoon, if still low will continue workup. (5) Large B-cell lymphoma: Plan: -Follows with Dr. Phelan -Had his 11/24 M-CHOP therapy on 10/14 with his mediport still in place today -Oncology consult placed (6) CAD (coronary artery disease): Plan: -Continue atorvastatin if CK is WNL -Follow cardiac workup and consult (7) Benign hypertension: Plan: -Stable off Hypertensives -Continue to monitor (8) Port-A-Cath in place: Plan: -Does not appear infected at this time, continue to monitor Plan The patient was discussed with Dr. Barrios at the time of the admission History of Present Illness Chief Complaint: Fever, generalized weakness, fatigue Primary Care Provider: DO Renato Peraza is a 77 year old male with a PMH significant for current Large B-Cell Lymphoma undergoing R-CHOP and follows with Dr. Phelan, Status post left nephrectomy for large left renal mass, pericardial effusion, HTN, CKD, hyperparathyroidism, CAD, AAA S/P repair in 2018 who presented to the [facility] ED on 11/30/22 with complaints of fatigue, generalized weakness, nausea, and back pain. In the ED the patient was noted to have a temp of 38.0 C, otherwise vitals were stable. Labs were significant for pancytopenia with stable hgb of 12.6, platelets of 106, and lymphocyte count of 1.06, sodium of 132, initial high sen trop of 778, procal of 0.79. Chest xray was read as No acute cardiopulmonary findings.. CT of the abd/pelvis w/con was read as 1. No acute process within the abdomen or pelvis. 2. Stable stranding within the left nephrectomy bed since PET/CT of November 26, 2021. This is likely postsurgical but can be assessed on follow-up exams. 3. No bowel obstruction. No bowel wall thickening. Normal appendix. 4. Stable postoperative findings following aortoiliac stent graft placement. Stable aneurysm sac size. No rupture.. ECG shows sinus rhythm with PVCs and new inferior infarct. Prior to admission the patient was given a dose of Vancomycin, cefepime, 1L NSS, and 1gm IV acetaminophen. At the time of the exam the patient was lying in bed in no acute distress with his sitting bedside, history was obtained from both. The patient had been in his normal state of health until 11/28. He recently completed his 11/24 round of Chemotherapy on 10/14 and had intrathecal chemotherapy performed by Dr. Phelan on 09/22. On 11/28 he started to develop significant fatigue/generalized weakness. He also noticed mild-moderate lower abd pain which stated in the RLQ and moved laterally to the LLQ, otherwise it has been stable. He denies an fevers, chest pain, headache, neck stiffness, changes in vision, hearing, or smell, cough, vomiting, dysuria hematuria, melena, diarrhea, bloody BM's, LE swelling, wounds, and recent trauma. He did note some nausea but denies any vomiting over this time. Yesterday the patient was in bed and wanted to walk to the bathroom. He thought it would be easier to get himself up off the floor than get out of bed so he slowly lowered himself to the bedroom floor. He was too weak to get himself up and his family had to help him. This am he again tried to get out of bed himself but had to lower himself to the ground due to weakness. He denies any trauma, pain, hitting his head or losing consciousness. His states that the patient was significantly diaphoretic and SOB this am while trying to get up off the ground, she called EMS due to his ongoing symptoms. The patient confirms that he has been without chest discomfort/SOB since arriving to the hospital. He has not experienced significant SOB/VILLEGAS or chest discomfort with recent activity such as going up steps or doing yard work on the morning of 11/28. The patient does not have a previous history of CAD requiring PCI or IRA placement, he was told that he may have had a previous heart attack when he was evaluated for previous inguinal hernia repair approximately 8 years ago. The patient recently had a TTE on 10/23 to evaluate for pericardial effusion noted on outside echo. His TTE noted LVH but was otherwise WNL. The patient is a full code and his son is his POA if he were unable to make medical decisions himself. Please refer to Dr. Barrios's attestation for any changes to the treatement plan Allergies Allergy/AdvReac Type Severity Reaction Status Date / Time No Known Allergies Allergy Verified 10/15/22 09:36 Home Medications Medication Instructions Recorded Confirmed Type atorvastatin 40 mg tablet (Lipitor) 40 mg PO QAM 05/12/22 11/30/22 History pantoprazole 20 mg tablet,delayed 20 mg PO BID 07/09/22 11/30/22 History release (Protonix) docusate sodium 100 mg tablet 100 mg PO DAILY 07/22/22 08/11/22 History (Stool Softener) loratadine 10 mg tablet (Claritin) 10 mg PO QAM 08/11/22 09/01/22 History Past Med/Surg History Medical History AAA (abdominal aortic aneurysm) CAD (coronary artery disease) COPD (chronic obstructive pulmonary disease) Degenerative disc disease Emphysema lung History of COVID-19 History of duodenal ulcer HTN (hypertension) Hyperlipidemia Hyperparathyroidism Impaired fasting glucose Large B-cell lymphoma Renal Mass Stage 3 chronic kidney disease Surgical History History of abdominal aortic aneurysm (AAA) repair History of bone marrow biopsy History of colonoscopy History of left nephrectomy History of parathyroid surgery History of umbilical hernia repair History of wisdom tooth extraction Port-A-Cath in place (06/24/22) Family History Mother Family history of diabetes mellitus Atrial fibrillation Glioblastoma Father Atrial fibrillation Aunt Breast cancer Son Cancer melanoma Other No family history of adverse response to anesthesia Denies family history of Ovarian cancer Prostate cancer Myocardial infarction Colorectal cancer Social History Smoking Status: Former smoker Tobacco Type: Cigarettes Second Hand Exposure: No; Do You Dip or Chew Tobacco: No; Hx Alcohol Use: No Hx Substance Use: No Preferred Language: Italian Communication Ability: Effective Communication Ability Comment: PHONE INTERVIEW DONE WITH NELSY ([employer] CONTACT) Visual Impairment: No Limitations Hearing Ability: Normal Controller Instructor Required: No Beliefs That Will Affect Care: None marital status: Current Living Situation: Spouse current occupational status: retired How many Children do You have: 2 Feels Safe at Home: Yes Diet: regular caffeine: Yes during the past year weight has: decreased > 10 lbs Dental Care, Regularly: No Physical Activity Frequency: Daily Seatbelt Use: always Sunscreen Use: Yes Assistive Devices: None Physical Exam Physical Exam: Physical Exam: General: In no acute distress, stated age, non-toxic appearing HEENT: Normocephalic, atraumatic, no scleral icterus, pupils around round, symmetrical, and reactive to light, moist mucus membranes, trachea midline, no thyromegaly Chest/Pulm: Mediport located in the right upper chest is without erythema, swelling, drainage or other signs or infection,No respiratory distress, symmetrical chest expansion, clear breath sounds throughout Cardiac: RRR, no murmurs noted Abdomen: Negative for ascites and bruising, normoactive bowel sounds, soft, mildly tender to deep palpation in the lower abdomen without rebound tenderness or guarding Musculoskeletal: Symmetrical and without signs of acute trauma, upper and lower extremities with full ROM, no atrophy, spasticity, or flaccidity Extremities: Radial, dorsalis pedis, and posterior tibial pulses are intact and symmetrical, no edema noted in the BL LE's Skin: Warm, dry, no rashes , lesions, or scars noted Neuro: Alert and oriented to person, place, month, year, and president, no focal defects, CN II-XII tested and intact, finger to nose test negative, no tremors noted Psych: No acute distress, calm and cooperative during the exam Results & Data Results & Data Vital Signs (Past 12 Hours) Vital Signs Temp Pulse Pulse Resp BP BP Pulse Ox 11/30/22 10:19 71 113/78 11/30/22 10:01 93 11/30/22 09:56 68 126/76 93 11/30/22 09:39 75 16 98 11/30/22 09:08 78 93 11/30/22 07:32 68 113/65 98 11/30/22 07:25 98 11/30/22 07:25 86 18 113/65 98 11/30/22 06:53 88 11/30/22 06:36 38.0 C H 94 H 98 H 103/66 97 O2 Del Method 11/30/22 10:19 11/30/22 10:01 Room Air 11/30/22 09:56 Room Air 11/30/22 09:39 Room Air 11/30/22 09:08 Room Air 11/30/22 07:32 Room Air 11/30/22 07:25 Room Air 11/30/22 07:25 Room Air 11/30/22 06:53 11/30/22 06:36 Room Air Laboratory Results Abnormal lab results 11/30/22 11/30/22 11/30/22 Range/Units 07:50 07:50 07:50 WBC 4.18 L (4.8-10.8) K/ul RBC 3.99 L (4.70-6.10) M/uL Hgb 12.6 L (14.0-18.0) g/dl Hct 36.8 L (42.0-52.0) % Plt Count 106 L (130-400) K/uL Lymph # (Auto) 1.06 L (1.2-3.4) K/uL PT (9.0-12.0) Seconds VBG pCO2 (38-50) mmHg Sodium 132 L (136-145) mmol/L BUN 26 H (6-23) mg/dl Creatinine 1.66 H (0.6-1.4) mg/dl Glucose 106 H (70-99(Fasting)) mg/dl Troponin I High Sens 778.1 H* (0-20) pg/ml Procalcitonin 0.79 H (0-0.5) ng/ml Urine Protein (Negative) Urine Blood (Negative) 11/30/22 11/30/22 11/30/22 Range/Units 07:50 07:55 09:30 WBC (4.8-10.8) K/ul RBC (4.70-6.10) M/uL Hgb (14.0-18.0) g/dl Hct (42.0-52.0) % Plt Count (130-400) K/uL Lymph # (Auto) (1.2-3.4) K/uL PT 12.4 H (9.0-12.0) Seconds VBG pCO2 35 L (38-50) mmHg Sodium (136-145) mmol/L BUN (6-23) mg/dl Creatinine (0.6-1.4) mg/dl Glucose (70-99(Fasting)) mg/dl Troponin I High Sens (0-20) pg/ml Procalcitonin (0-0.5) ng/ml Urine Protein 1+ H (Negative) Urine Blood Trace H (Negative) Diagnostic Findings Chest X-Ray 11/30/22 06:41 XR chest 1V portable CLINICAL HISTORY: Sepsis. COMPARISON STUDY: Chest radiograph June 24, 2022. PET/CT November 26, 2022. FINDINGS: Right internal jugular [id number]-[id number] is in place. There is no pneumothorax or pleural effusion. Cardiomediastinal silhouette is stable. Mild interstitial thickening is similar to prior exams. There is no evidence for pneumonia or pulmonary edema. IMPRESSION: No acute cardiopulmonary findings. ACT 112: Negative or not required by law. Electronically signed by: Martinez Manuel M.D. 11/30/2022 6:59 AM Abdomen/Pelvis CT 11/30/22 06:53 CT OF THE ABDOMEN AND PELVIS WITH CONTRAST CLINICAL HISTORY: Abdominal pain and fever. Non-Hodgkin's lymphoma. COMPARISON STUDY: CT of the abdomen and pelvis April 13, 2022 and PET/CT November 26, 2022. TECHNIQUE: Following IV administration of 80 mL of Optiray, axial images of the abdomen and pelvis were obtained from the lung bases to the proximal femurs. Images were reviewed in the axial, sagittal, and coronal planes. IV contrast was administered without complication. Automated exposure control was utilized for the study. A dose lowering technique was utilized adhering to the principles of ALARA. CT DOSE: 1482.54 mGy.cm FINDINGS: Lung bases are unremarkable. No pneumatosis, free air or portal venous gas is present. Fat-containing right hepatic dome lesion is benign. A few additional hypodense lesions within the liver are similar to prior exams. These are likely benign. Trace perisplenic fluid is noted. This was shown on PET/CT. Subtle stranding within the left nephrectomy bed remains unchanged since PET/CT of November 26, 2022. No fluid collection is present. There is no abdominal or pelvic lymphadenopathy. Aortoiliac endovascular stent graft is in place. Aneurysm sac size is unchanged, measuring 6.6 cm. Dilatation of the bilateral common and arteries is also unchanged. There is no evidence for a bowel obstruction. The caliber and wall thickness of small and large bowel are normal. The appendix is normal. There is no biliary or pancreatic ductal dilatation. Suspected adenomyomatosis of the gallbladder fundus. There could be small stones within the gallbladder. There is no evidence for acute cholecystitis. No acute fracture or suspicious lesion within the visualized skeletal structures is present. Prostate is enlarged, measuring 4.9 cm in transverse dimension. No right hydronephrosis. Several water attenuation right renal lesions reflect cysts. IMPRESSION: 1. No acute process within the abdomen or pelvis. 2. Stable stranding within the left nephrectomy bed since PET/CT of November 26, 2021. This is likely postsurgical but can be assessed on follow-up exams. 3. No bowel obstruction. No bowel wall thickening. Normal appendix. 4. Stable postoperative findings following aortoiliac stent graft placement. Stable aneurysm sac size. No rupture. ACT 112: Negative or not required by law. Electronically signed by: Martinez Manuel M.D. 11/30/2022 9:46 AM ECG Additional Comments: Sinus rhythm with frequent Premature ventricular complexes Inferior infarct , age undetermined Abnormal ECG When compared with ECG of 05-MAY-2022 13:06, Premature ventricular complexes are now Present Inferior infarct is now Present Code Status & VTE Plan Code Status Full code VTE Prophylaxis Plan VTE Prophylaxis will be ordered: Yes Supervising Physician Co-Signing Physician Notes Patient seen and examined, chart reviewed, case discussed with Bill Clark PA-C and I agree with the assessment and plan as above except as otherwise noted Labs and images reviewed 77-year-old male with past medical history of DLBCL on R-CHOP, left nephrectomy for renal mass, hypertension, CKD, CAD, AAA s/p repair 2018 who presents with fever of unknown origin. Has had polyuria for several months but no dysuria. Denies shortness of breath, cough, chest pain, nausea/vomiting/abdominal pain, rash and extremity pain. He has not had any chest pain or chest pressure since being in the hospital but does endorse global weakness and had to lower himself from the bed due to overall weakness. Has also had difficulty going up steps and performing his daily chores with induction of chest pressure which resolves with rest during these activities. At bedside his lungs are clear, heart rate is regular. He is seen on arrival to 102 given potential immune compromise agree with broad-spectrum antibiotics and treating as neutropenic fever on admission given fever and unwellness, continue infectious work-up above. Given polyurea and CT findings with some stranding did suspect urine is most likely source; however UA is not infected appearing. patient's symptoms are suspicious for stable angina without evidence of ACS on admission. TTE is pending and troponins have been trended, cardiology follow PG Care Time/CCT Total # of Minutes Spent Total Time Spent with Patient: Total time spent is greater than 50% in coordination of care (as documented) at patient's floor/unit and/or counseling patient: Coding [place] [address] INT INP/OBS CARE 3/75MIN Patient Type Established Medical Decision Making High Complexity Diagnoses Generalized weakness R53.1 Elevated troponin R77.8 Pancytopenia D61.818 Hyponatremia E87.1 Large B-cell lymphoma C85.10 CAD (coronary artery disease) I25.10 Benign hypertension I10 Port-A-Cath in place Z95.828
[2022-11-30] MEDS ORDERED: LACTATED RINGER'S 1,000 ML IV ONE (10:28)
[2022-11-30 12:01] LABS: Troponin I High Sensitivity 541.6 pg/ml (0-20)
--- NOTE | 2022-11-30 12:07 | CT Scan Report ---
CT head/brain wo con CLINICAL HISTORY: Current cancer, generalized weakness Technique: Contiguous axial CT images of the head were acquired from the base of the skull to the arnel josselin without intravenous contrast administration. Images were viewed in brain, subdural and bone [facility]. Automated dose lowering techniques and/or adjustment according to patient size were utilized for this exam. Comparison: None available at the time of this dictation. Findings: Mild diffuse volume loss is seen. Calcifications are seen in the falx. No edema or other abnormalitie s in the parenchyma. Imaged portions of the paranasal sinuses and mastoid air cells are clear. The orbits appear normal. There are no acute fractures of the calvaria or scalp swelling. Impression: No acute intracranial hemorrhage, no evidence of acute territorial infarction or other acute intracra nial disease process. ACT 112: Negative or not required by law. Electronically signed by: Hu Salvador M.D. 11/30/2022 12:06 PM
--- NOTE | 2022-11-30 12:27 | XCELERA ---
[id number]
[2022-11-30 13:45] LABS: Creatinine Urine Random 130.5 mg/dl; Protein Creatinine Ratio Urine 0.5 (0-0.2); Total Protein Urine Random 61.6 mg/dl (0-11.9)
--- NOTE | 2022-11-30 14:06 | Pharmacy Report ---
Pharmacy PK ABX Note - Date of Service November 30, 2022 - Assessment and Plan Assessment 77 year old M receiving vancomycin and cefepime empirically in the setting of immunocompromised status, pancytopenia, and fever. MRSA nasal swab pending. Blood cultures pending. Renal function at baseline. Day #1 of antimicrobial therapy. Plan Vancomycin * Loading dose: 2000 mg IV x 1 * Maintenance dose: 1250 mg IV every 24 hours * Regimen is predicted to achieve target AUC/KONSTANTIN of 400-600 mg/L.hr * Will obtain a level around steady state if vancomycin continued. Pharmacy will continue to follow and will adjust dose/frequency as necessary. Thank you. Pharmacy has transitioned to AUC monitoring for vancomycin. AUC/KONSTANTIN is the preferred PK/PD target and is associated with decreased risk of nephrotoxicity compared to traditional trough targets.
[2022-11-30] MEDS ORDERED: LACTATED RINGER'S 1,000 ML IV SCH (15:00)
[2022-11-30] MEDS: ACETAMINOPHEN 325 MG TAB PO PRN (15:13)
[2022-11-30] MEDS ORDERED: ONDANSETRON INJ 2 MG/ML 2 ML VIAL IV PRN (15:39)
[2022-11-30 16:10] LABS: Lyme Ab IgG w/WB Rflx Negative (Negative); Lyme Ab IgM w/WB Rflx Negative (Negative)
--- NOTE | 2022-11-30 17:39 | Cardiology Consultation ---
Date of Consultation November 30, 2022 Assessment & Plan (1) Generalized weakness: Unclear etiology. He has mild hyponatremia, hypomagnesemia, pancytopenia, and elevation in his creatinine kinase and troponin. Normal echo with preserved EF and no wall motion abnormalities. Elevated calcitonin suggestive of infection. Agree with sepsis work-up and treatment. (2) Pericardial effusion: This has resolved by today's echo. Was not large to begin with and this has no implications with regard to his current admission. (3) Elevated troponin: This is likely a type II non-ST elevation [place]. He has no wall motion abnormalities, change in EF, ischemic EKG changes, or symptoms suggestive of ACS. Also, diagnosis of coronary disease is questionable as he has never undergone definitive evaluation by coronary angiography. Continue conservative medical management. Plan I will follow-up tomorrow. History of Present Illness Reason for Consultation: Elevated troponin Attending Physician: Juan Barrios MD History of Present Illness 77-year-old gentleman who I have seen in the office wants to establish cardiology care. He previously had an echocardiogram demonstrating small pericardial effusion. Reported history of coronary disease but never underwent catheterization. He had a AAA which was repaired with endovascular stent graft. He had a nephrectomy for renal mass. He presents at this time for profound weakness. He has been undergoing chemotherapy for non-Hodgkin's lymphoma with last dose in September. He reports that he was at home and became very tired. He went to bed early and then the next day he got up to go to the bathroom and "slid to the ground". He was unable to lift himself up and his was also unable to lift him. She got some help and they were then able to get him in the bed. He refused to go to the hospital at that time. However, he again needed to use the restroom and thought that he could make it. He again fell to the ground and this time was able to be convinced that he needed to go to the hospital. In the emergency department work-up was initiated. His troponin was found to be elevated as was his creatinine kinase and BNP. An echocardiogram was requested. This demonstrated resolution of his pericardial effusion, normal EF without regional wall motion abnormalities, and moderate LVH. Patient denied any anginal chest pain, shortness of breath, syncope, near syncope, orthopnea, P ND, racing heartbeat, palpitations, or edema. He has been admitted for presumed sepsis. His initial troponin was over 700 with a follow-up troponin 500ish. I see that he underwent PET scan which showed significant improvement in FDG activity. He still has residual metabolic activity in his lung lesion. He has been somewhat sodium restricted at home. He denies any chills. Had a recorded fever. No cough or sputum production. No overt bleeding episodes. Allergies Allergy/AdvReac Type Severity Reaction Status Date / Time No Known Allergies Allergy Verified 10/15/22 09:36 Home Medications Medication Instructions Recorded Confirmed Type atorvastatin 40 mg tablet (Lipitor) 40 mg PO QAM 05/12/22 11/30/22 History pantoprazole 20 mg tablet,delayed 20 mg PO BID 07/09/22 11/30/22 History release (Protonix) docusate sodium 100 mg tablet 100 mg PO DAILY 07/22/22 08/11/22 History (Stool Softener) loratadine 10 mg tablet (Claritin) 10 mg PO QAM 08/11/22 09/01/22 History Patient History Medical History AAA (abdominal aortic aneurysm) S/p AAA repair 2018. 03/2022 abdomen/pelvis CT shows s/p aortobiliac stent graft repair- stent graft is patent. Residual aneurysm sac measures 6.3 x 5.0 cm CAD (coronary artery disease) Per 12/2021 PCP note- followed with cardio/last cardio work up 6-8 years ago- currently asymptomatic COPD (chronic obstructive pulmonary disease) Degenerative disc disease Emphysema lung History of COVID-2019- fever, body aches, BOX, fatigue, lethargy-, no hospitalization, resolved History of duodenal ulcer HTN (hypertension) Hyperlipidemia Hyperparathyroidism Hx; s/p parathyroid surgery. Stable per 12/2021 PCP visit Impaired fasting glucose Hgb A1C 12/2021 = 6.0 Large B-cell lymphoma Renal Mass Following w/ Dr Phelan at [facility] Stage 3 chronic kidney disease Surgical History History of abdominal aortic aneurysm (AAA) repair [address] Jimenez History of bone marrow biopsy 05/2022 [facility] History of colonoscopy 11/2021 History of left nephrectomy 05/12/22 [facility] History of parathyroid surgery 01-08-21 Surgical removal of the right upper and left lower parathyroid glands History of umbilical hernia repair 2014 [place], [place] History of wisdom tooth extraction Port-A-Cath in place (06/24/22) Insertion Access Port with Fluoroscopy(right internal jugular vein) - Trever Lomeli DO, FACS Family History Mother Family history of diabetes mellitus Atrial fibrillation Glioblastoma Father Atrial fibrillation Aunt Breast cancer Son Cancer melanoma Other No family history of adverse response to anesthesia Denies family history of Ovarian cancer Prostate cancer Myocardial infarction Colorectal cancer Social History Smoking Status: Former smoker Tobacco Type: Cigarettes Second Hand Exposure: No; Do You Dip or Chew Tobacco: No; Tobacco Cessation Education Requested by Patient: No Hx Alcohol Use: No Hx Substance Use: No Preferred Language: Armenian Communication Ability: Effective Communication Ability Comment: PHONE INTERVIEW DONE WITH NELSY ([employer]PA CONTACT) Visual Impairment: No Limitations Hearing Ability: Normal Music Writer Required: No Beliefs That Will Affect Care: None marital status: Current Living Situation: Spouse current occupational status: retired How many Children do You have: 2 Other Information That Helps Us Care for You: No Feels Safe at Home: Yes Safety Concerns: Feels Safe At This Time Diet: regular caffeine: Yes during the past year weight has: decreased > 10 lbs Dental Care, Regularly: No Physical Activity Frequency: Daily Seatbelt Use: always Sunscreen Use: Yes Assistive Devices: Cane and Glasses Review of Systems Review of Systems: Negative except as per HPI Physical Exam Constitutional: WD/WN, vitals as above (Obese) Eyes: Extraocular muscles intact. Sclera are anicteric. ENMT: Oral mucosa is pink moist and intact Neck: Thick, no JVD Respiratory: Clear to auscultation bilaterally. No wheezing, rhonchi, or rales. Fair air movement. Cardiovascular: Regular rate and rhythm. S4 gallop. No rubs or murmurs appreciated. Neurologic: Cognition is intact. Speech is fluent. No focal motor deficits. No tremor. Psychiatric: A+Ox3, euthymic affect Results & Data Vital Signs (Past 12 Hours) Vital Signs Temp Pulse Pulse Resp BP BP Pulse Ox 06/12/23 14:34 38.1 C H 11/30/22 13:15 36.7 C 11/30/22 12:18 71 15 122/73 96 11/30/22 12:29 36.6 C 71 22 122/73 97 11/30/22 11:20 68 95 11/30/22 10:42 66 94 11/30/22 10:19 71 113/78 11/30/22 10:01 93 11/30/22 09:56 68 126/76 93 11/30/22 09:39 75 16 98 11/30/22 09:08 78 93 11/30/22 07:32 68 113/65 98 11/30/22 07:25 98 11/30/22 07:25 86 18 113/65 98 11/30/22 06:53 88 11/30/22 06:36 38.0 C H 94 H 98 H 103/66 97 O2 Del Method 11/30/22 14:34 11/30/22 13:15 11/30/22 12:18 Room Air 11/30/22 12:29 Room Air 11/30/22 11:20 Room Air 11/30/22 10:42 Room Air 11/30/22 10:19 11/30/22 10:01 Room Air 11/30/22 09:56 Room Air 11/30/22 09:39 Room Air 11/30/22 09:08 Room Air 11/30/22 07:32 Room Air 11/30/22 07:25 Room Air 11/30/22 07:25 Room Air 11/30/22 06:53 11/30/22 06:36 Room Air PG Care Time/CCT Total # of Minutes Spent Total Time Spent with Patient: Total time spent is greater than 50% in coordination of care (as documented) at patient's floor/unit and/or counseling patient: Coding Level of Care Code 14151 INT INP/OBS CARE 2/55MIN Diagnoses Generalized weakness R53.1 Pericardial effusion I31.39 Elevated troponin R77.8
--- NOTE | 2022-11-30 18:00 | Electrocardiogram Report ---
Test Reason : Blood Pressure : / mmHG Vent. Rate : 086 BPM Atrial Rate : 086 BPM P-R Int : 156 ms QRS Dur : 082 ms QT Int : 382 ms P-R-T Axes : 055 -18 036 degrees QTc Int : 457 ms Sinus rhythm with frequent Premature ventricular complexes possible Inferior infarct , age undetermined Abnormal ECG When compared with ECG of 05-MAY-2022 13:06, Premature ventricular complexes are now Present Inferior infarct is now Present Confirmed by Chris Mccarthy ([id number]) on 11/30/2022 6:00:03 PM Referred By: Confirmed By:Perez Mccarthy
[2022-11-30 18:51] LABS: Troponin I High Sensitivity 533.8 pg/ml (0-20)
[2022-11-30] MEDS: CEFEPIME 2,000 MG in SYRINGE 0 ML IV SCH (20:33)
[2022-11-30] MEDS: VANCOMYCIN HCL 1,250 MG in SODIUM CHLORIDE 0.9% 250 ML IV SCH (20:33)
[2022-12-01] MEDS: ACETAMINOPHEN 325 MG TAB PO PRN ×2 (04:11→12:53)
[2022-12-01 07:18] LABS: Albumin Globulin Ratio 1.7 (0.9-2); Albumin Level 3.5 gm/dl (3.4-5.0); BUN Creatinine Ratio 14.2 (10-20); Bilirubin,Total 0.9 mg/dl (0.2-1.0); Calcium 8.3 mg/dl (8.6-10.3); Creatinine Clr Calc Pharmacy 46.6 ml/min; Est GFR (Non-African American) 42.3 ml/min; Globulin 2.1 gm/dl (2.5-4.0); Magnesium 1.8 mg/dl (1.7-2.4); Potassium 3.6 mmol/L (3.5-5.1); Total Protein 5.6 gm/dl (6.0-8.3)
[2022-12-01 07:27] LABS: INR 1.1 (0.9-1.1); Prothrombin Time 12.1 Seconds (9.0-12.0)
[2022-12-01] MEDS: CEFEPIME 2,000 MG in SYRINGE 0 ML IV SCH ×2 (08:56→20:54)
[2022-12-01] MEDS: ATORVASTATIN 40 MG TAB PO SCH (08:56)
[2022-12-01] MEDS: DOCUSATE SODIUM 100 MG CAP PO SCH (08:57)
--- NOTE | 2022-12-01 11:00 | Hospitalist Progress Note ---
Date of Service December 01, 2022 Assessment & Plan (1) Generalized weakness: Plan: Etiology is uncertain Patient has a history of lymphoma presents with generalized weakness He states his last chemotherapy was in September Upon admission, was febrile, and pancytopenic. Blood cultures were obtained, was empirically started on broad-spectrum IV antibiotics Patient and examined today, feels overall better although spiked a fever 38 last night Cultures negative so far, will continue IV antibiotics (2) Elevated troponin: Plan: Most likely due to demand ischemia type II NSTEMI Has been evaluated by cardiology, no plans for any procedures. Continue to monitor Trend troponins. (3) Pancytopenia: Plan: -Has been an ongoing issue with his Chemotherapy -Hgb, platelets, and absolute neutrophils are currently low-normal -Will continue to treat as febrile neutropenia for now while workup is in process -Oncology consult placed -Neutropenic precautions ordered (4) Hyponatremia: Plan: -Likely due to poor oral intake -S/P 1L NSS and will receive another 1L LR on admission -Improving (5) Large B-cell lymphoma: Plan: -Follows with Dr. Phelan -Had his 11/24 M-CHOP therapy on 10/14 with his mediport still in place today -Oncology consult placed (6) CAD (coronary artery disease): Plan: -Continue atorvastatin if CK is WNL -Follow cardiac workup and consult (7) Benign hypertension: Plan: -Stable off Hypertensives -Continue to monitor (8) Port-A-Cath in place: Plan Continue hospitalization hopefully discharge in next 24 to 48 hours Admission and Anticipated Discharge Date Admission Date: November 30, 2022 Subjective Patient seen and examined today, feels overall better, however according to the nurse spiked a fever last night Review of Systems Review of Systems: All systems reviewed are negative, apart from the ones contained in the history. Physical Exam Physical Exam: The patient is awake, alert and oriented 3, well developed and well nourished, normocephalic and atraumatic, lying in bed and in no acute distress. HEENT--PERRL, EOMI, mucous membranes and oropharynx mildly dry Neck--supple. No JVD. No bruits. Thyroid normal, trachea midline, no adenopathy. Heart--normal S1 and S2. No murmurs, rubs or gallops. Lungs--clear bilaterally, no respiratory distress, no accessory muscle use. Abdomen--normal bowel sounds and soft. Mild epigastric and left sided abdominal pain Extremities--no cyanosis or clubbing. No edema. Dermatologic--normal skin turgor, normal color, no abnormal lymph nodes, no rash. Neurologic--cranial nerves II through XII grossly intact. Rheumatologic--normal range of motion. Psychiatric--normal affect. Results & Data Results & Data Vital Signs (Past 12 Hours) Vital Signs Temp Pulse Pulse Resp BP BP Pulse Ox 12/01/22 08:00 79 17 104/62 96 12/01/22 07:00 62 19 12/01/22 07:00 12/01/22 08:33 98.2 F 12/01/22 04:13 100.9 F H 74 19 143/60 H 95 11/30/22 23:00 75 11/30/22 23:00 100.4 F H 73 17 123/66 97 Pulse Ox O2 Del Method O2 Del Method 12/01/22 08:00 Room Air 12/01/22 07:00 12/01/22 07:00 96 Room Air 12/01/22 08:33 12/01/22 04:13 Room Air 11/30/22 23:00 11/30/22 23:00 Room Air PG Care Time/CCT Total # of Minutes Spent Total Time Spent with Patient: Total time spent is greater than 50% in coordination of care (as documented) at patient's floor/unit and/or counseling patient: Coding Level of Care Code 42201 SUB INP/OBS CARE 2/35MIN Diagnoses Generalized weakness R53.1 Elevated troponin R77.8 Pancytopenia D61.818 Hyponatremia E87.1 Large B-cell lymphoma C85.10 CAD (coronary artery disease) I25.10 Benign hypertension I10 Port-A-Cath in place Z95.828 Time Spent (min) 35
[2022-12-01 12:58] LABS: Troponin I High Sensitivity 316.3 pg/ml (0-20)
[2022-12-01] MEDS: HEPARIN 100 UNIT/ML 5ML FLUSH FLUSH PRN (14:37)
--- NOTE | 2022-12-01 14:56 | Consultation ---
Date of Consultation December 01, 2022 Assessment & Plan (1) Pancytopenia: Interim CBC following completion of chemotherapy had shown an essentially normal set of values, his current mild lymphopenia does not seem immediately threatening as neutrophil and red cells are in good range. Platelet counts are mildly decreased but remained quite "safe" numerically at greater than 100. From a cell count perspective, this does not seems to be a threatening process but certainly will monitor. Lymphopenia and mild thrombocytopenia could be a marker for viral infection. 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 PET scan suggest a complete response with the lung nodule probably a separate issuesee separate discussion. It does not seem that the lymphoma has relapsed in the fashion that would at all explain his current presentation other than the small possibility of marrow infiltration leading to the very subtle change in CBC but that seems unlikely in the absence of PET scan positivity with a marrow pattern. Indirectly, however, he may have some immune compromise in the wake of rituximab and chemotherapy particular with respect to immunoglobulin levels. I have sent those off as an urgent assessment and if low we might want to consider whether immunoglobulin infusion is worthwhile He does have high risk for LEARNING OPERATIONS SPECIALIST involvement with his lymphoma, assessments to date have been unremarkable but if his symptoms do not rapidly resolve may want to consider MRI scan with and without contrast and/or repeat lumbar plain especially if there is ongoing fever associated with any LEARNING OPERATIONS SPECIALIST symptoms (3) Fever: Presents with fever and malaise/weakness without clear signs of his lymphoma relapsing. As above, he may be more vulnerable to other infections. Approach to acute symptomatology should probably be focused on cardiovascular and ID issues. (4) Lung nodule, solitary: Patient is a smoker and has agent orange exposure and on that basis would have increased risk for primary lung malignancy. The left upper lung nodule seems more likely a metachronous event than a consequence of his lymphoma. Review at tumor board had suggested ongoing monitoring but ultimate consideration of SBRT versus wedge resection. The latter would have more morbidity but would offer the advantage of a histologic definition which could be important prognostically especially if it were to show persistent lymph Plan 1. With PET scan done less than 1 week ago showing no major issues except for persistence of the 1 cm left upper lung nodule, he does not seem to have active signs of malignancy that should immediately explain his current symptoms. The PET scan itself is probably a sufficient screen for any major changes in the chest. 2. He could have some immune compromise based on the treatment for lymphoma and immunoglobulin levels are pending to assess for that 3. While the lung nodule may need specific treatment, it is not likely to be contributing to the current situation nor is that an emergent requirement 4. Other than potentially supplementing immunoglobulin if his IgG levels are low, from a hematology/oncology perspective there does not seem to be any immediate additional intervention indicated. Primary focus would be from cardiovascular and ID perspectives but if his symptoms persist, especially if there are neurological changes and ongoing fever, would suggest MRI scan with and without contrast and consideration as to whether or not spinal fluid analysis would be worthwhile for culture and for cytology 5. Consider empiric folic acid 1 mg day History of Present Illness Reason for Consultation: Patient status post treatment for diffuse large B-cell lymphoma completed 6 cycles 2 months ago now admitted with weakness and low-grade fever Attending Physician: Jasen Harry MD History of Present Illness Please note that this is a consultation constructed purely from review of the electronic database. I am working remotely and unable to speak directly with the patient or examine him. I reviewed both the records from the [facility] and the current admission records which seem to be an accurate source of relevant information but I am completely reliant on that for my conclusions and perspectives. If there are urgent concerns regarding the need for more direct [id number] review, please contact me and we can discuss whether or not a transfer to another institution or a visit from one of my colleagues is needed. Given his relative stability, however, I believe that I can offer sufficient oncology perspective for now and we will plan to see the patient in person when I return to the office on . The evaluation is consultative in nature and all patient care and treatment decisions can either be accepted or rejected by the patient's primary hospital- based treating physician using their own independent medical judgment for the patient. In the context of previous agent orange exposure, patient had presented in March incidentally discovered mass replacing the interpolar/lower polar region of the left kidney. With no signs of other immediately threatening issues, he proceeded to laparoscopic nephrectomy 05/12/2022 with pathology showing a diffuse large B-cell lymphoma. This was not a double hit lymphoma. He received 6 cycles of RCHOP chemotherapy 06/30/2022 - 10/14/2022 along with that did complete 4 doses of prophylactic intrathecal methotrexate. While he had had bulky disease, multidisciplinary tumor board review/04/2023 concluded that there was probably not a role for I-S RT given his a priori surgical debulking He had actually been feeling quite well overall through the course of chemotherapy and when last seen by me. We also note that there is an ongoing question of the PET avid left upper lung nodule that is less than 1 cm in size but otherwise is PET scan just 11/26/2022 does not suggest any persistence/recurrence of his lymphoma. He is now admitted with weakness and low-grade fever without specific localizing signs. There was some significant cardiac enzyme elevations but echocardiogram continues to show a stable ejection fraction and cardiology consultation does not believe that there is immediately threatening changes in his cardiovascular status Allergies Allergy/AdvReac Type Severity Reaction Status Date / Time No Known Allergies Allergy Verified 10/15/22 09:36 Home Medications Medication Instructions Recorded Confirmed Type atorvastatin 40 mg tablet (Lipitor) 40 mg PO QAM 05/12/22 11/30/22 History pantoprazole 20 mg tablet,delayed 20 mg PO BID 07/09/22 11/30/22 History release (Protonix) docusate sodium 100 mg tablet 100 mg PO DAILY 07/22/22 08/11/22 History (Stool Softener) loratadine 10 mg tablet (Claritin) 10 mg PO QAM 08/11/22 09/01/22 History Patient History Medical History AAA (abdominal aortic aneurysm) S/p AAA repair 2017. 03/2022 abdomen/pelvis CT shows s/p aortobiliac stent graft repair- stent graft is patent. Residual aneurysm sac measures 6.3 x 5.0 cm CAD (coronary artery disease) Per 12/2021 PCP note- followed with cardio/last cardio work up 6-8 years ago- currently asymptomatic COPD (chronic obstructive pulmonary disease) Degenerative disc disease Emphysema lung History of COVID-2019- fever, body aches, BOX, fatigue, lethargy-, no hospitalization, resolved History of duodenal ulcer HTN (hypertension) Hyperlipidemia Hyperparathyroidism Hx; s/p parathyroid surgery. Stable per 12/2021 PCP visit Impaired fasting glucose Hgb A1C 12/2021 = 6.0 Large B-cell lymphoma Renal Mass Following w/ Dr Phelan at [facility] Stage 3 chronic kidney disease Surgical History History of abdominal aortic aneurysm (AAA) repair [address] Jimenez History of bone marrow biopsy 05/2022 [facility] History of colonoscopy 11/2021 History of left nephrectomy 05/12/22 [facility] History of parathyroid surgery 01-08-21 Surgical removal of the right upper and left lower parathyroid glands History of umbilical hernia repair 2014 [place], [place] History of wisdom tooth extraction Port-A-Cath in place (06/24/22) Insertion Access Port with Fluoroscopy(right internal jugular vein) - Trever Lomeli DO, FACS Family History Mother Family history of diabetes mellitus Atrial fibrillation Glioblastoma Father Atrial fibrillation Aunt Breast cancer Son Cancer melanoma Other No family history of adverse response to anesthesia Denies family history of Ovarian cancer Prostate cancer Myocardial infarction Colorectal cancer Social History Smoking Status: Former smoker Tobacco Type: Cigarettes Second Hand Exposure: No; Do You Dip or Chew Tobacco: No; Tobacco Cessation Education Requested by Patient: No Hx Alcohol Use: No Hx Substance Use: No Preferred Language: Greenlandic Communication Ability: Effective Communication Ability Comment: PHONE INTERVIEW DONE WITH NELSY (HIPPA CONTACT) Visual Impairment: No Limitations Hearing Ability: Normal Unit Operator Required: No Beliefs That Will Affect Care: None marital status: Current Living Situation: Spouse current occupational status: retired How many Children do You have: 2 Other Information That Helps Us Care for You: No Feels Safe at Home: Yes Safety Concerns: Feels Safe At This Time Diet: regular caffeine: Yes during the past year weight has: decreased > 10 lbs Dental Care, Regularly: No Physical Activity Frequency: Daily Seatbelt Use: always Sunscreen Use: Yes Assistive Devices: Cane Physical Exam Physical Exam: From review of the record his vital signs are stable and his exam is relatively unremarkable Results & Data Vital Signs (Past 12 Hours) Vital Signs Temp Pulse Pulse Resp BP BP Pulse Ox 12/01/22 12:52 37.9 C H 12/01/22 11:46 37.7 C H 80 23 131/66 97 12/01/22 08:00 79 17 104/62 96 12/01/22 07:00 62 19 12/01/22 07:00 12/01/22 08:33 36.8 C 12/01/22 04:13 38.3 C H 74 19 143/60 H 95 Pulse Ox O2 Del Method O2 Del Method 12/01/22 12:52 12/01/22 11:46 Room Air 12/01/22 08:00 Room Air 12/01/22 07:00 12/01/22 07:00 96 Room Air 12/01/22 08:33 12/01/22 04:13 Room Air Laboratory Results Laboratory Results - last 24 hr 11/30/22 11/30/22 11/30/22 14:51 14:51 14:51 PT INR Sodium Potassium Chloride Carbon Dioxide Anion Gap BUN Creatinine Est Cr Clr Drug Dosing Est GFR ( Amer) Est GFR (Non-Af Amer) BUN/Creatinine Ratio Glucose Calcium Magnesium Total Bilirubin AST ALT Alkaline Phosphatase Total Creatine Kinase Troponin I High Sens Total Protein Albumin Globulin Albumin/Globulin Ratio IgG IgA IgM Anaplasma Smear See Comment A. phagocytophilum DNA Pending Lyme Disease IgG Ab Negative Lyme Disease IgM Ab Negative SARS-CoV-2, RNA, NAAT 11/30/22 12/01/22 12/01/22 17:59 00:37 06:45 PT 12.1 H INR 1.1 Sodium 133 L Potassium Chloride Carbon Dioxide Anion Gap BUN Creatinine Est Cr Clr Drug Dosing Est GFR ( Amer) Est GFR (Non-Af Amer) BUN/Creatinine Ratio Glucose Calcium Magnesium Total Bilirubin AST ALT Alkaline Phosphatase Total Creatine Kinase 795 H Troponin I High Sens 533.8 H* 447.1 H* Total Protein Albumin Globulin Albumin/Globulin Ratio IgG IgA IgM Anaplasma Smear A. phagocytophilum DNA Lyme Disease IgG Ab Lyme Disease IgM Ab SARS-CoV-2, RNA, NAAT 12/01/22 12/01/22 12/01/22 06:45 12:10 13:55 PT INR Sodium 134 L Potassium 3.6 Chloride 104 Carbon Dioxide 22 Anion Gap 8 BUN 22 Creatinine 1.55 H Est Cr Clr Drug Dosing 46.6 Est GFR ( Amer) 49.0 Est GFR (Non-Af Amer) 42.3 BUN/Creatinine Ratio 14.2 Glucose 94 Calcium 8.3 L Magnesium 1.8 Total Bilirubin 0.9 AST 34 ALT 16 Alkaline Phosphatase 41 Total Creatine Kinase Troponin I High Sens 388.0 H* 316.3 H* Total Protein 5.6 L Albumin 3.5 Globulin 2.1 L Albumin/Globulin Ratio 1.7 IgG Pending IgA Pending IgM Pending Anaplasma Smear A. phagocytophilum DNA Lyme Disease IgG Ab Lyme Disease IgM Ab SARS-CoV-2, RNA, NAAT NEGATIVE Diagnostic Findings 11/26/2022 PET scan: 1. No hypermetabolic lymphadenopathy. 2. Left nephrectomy with surgical suture material, mild inflammatory stranding and low-level FDG activity within the nephrectomy bed. No evidence of new or progressive disease. 3. 1.1 cm mildly hypermetabolic solid nodule of the apical posterior segment left upper lobe is again noted, again suspicious for a small primary bronchogenic malignancy. 4. Increased tracer activity within the right infraspinatus may represent a muscle strain versus distal insertional tendon tearing. Correlate with physical exam findings and patient history. 5. Additional findings as above. Chest X-Ray 11/30/22 06:41 XR chest 1V portable CLINICAL HISTORY: Sepsis. COMPARISON STUDY: Chest radiograph June 24, 2022. PET/CT November 26, 2022. FINDINGS: Right internal jugular [id number] is in place. There is no pneumothorax or pleural effusion. Cardiomediastinal silhouette is stable. Mild interstitial thickening is similar to prior exams. There is no evidence for pneumonia or pulmonary edema. IMPRESSION: No acute cardiopulmonary findings. ACT 112: Negative or not required by law. Electronically signed by: Martinez Manuel M.D. 11/30/2022 6:59 AM Abdomen/Pelvis CT 11/30/22 06:53 CT OF THE ABDOMEN AND PELVIS WITH CONTRAST CLINICAL HISTORY: Abdominal pain and fever. Non-Hodgkin's lymphoma. COMPARISON STUDY: CT of the abdomen and pelvis April 13, 2022 and PET/CT November 26, 2022. TECHNIQUE: Following IV administration of 80 mL of Optiray, axial images of the abdomen and pelvis were obtained from the lung bases to the proximal femurs. I mages were reviewed in the axial, sagittal, and coronal planes. IV contrast was administered without complication. Automated exposure control was utilized for the study. A dose lowering technique was utilized adhering to the principles of ALARA. CT DOSE: 1482.54 mGy.cm FINDINGS: Lung bases are unremarkable. No pneumatosis, free air or portal venous gas is present. Fat-containing right hepatic dome lesion is benign. A few additional hypodense lesions within the liver are similar to prior exams. These are likely benign. Trace perisplenic fluid is noted. This was shown on PET/CT. Subtle stranding within the left nephrectomy bed remains unchanged since PET/CT of November 26, 2022. No fluid collection is present. There is no abdominal or pelvic lymphadenopathy. Aortoiliac endovascular stent graft is in place. Aneurysm sac size is unchanged, measuring 6.6 cm. Dilatation of the bilateral common and arteries is also unchanged. There is no evidence for a bowel obstruction. The caliber and wall thickness of small and large bowel are normal. The appendix is normal. There is no biliary or pancreatic ductal dilatation. Suspected adenomyomatosis of the gallbladder fundus. There could be small stones within the gallbladder. There is no evidence for acute cholecystitis. No acute fracture or suspicious lesion within the visualized skeletal structures is present. Prostate is enlarged, measuring 4.9 cm in transverse dimension. No right hydronephrosis. Several water attenuation right renal lesions reflect cysts. IMPRESSION: 1. No acute process within the abdomen or pelvis. 2. Stable stranding within the left nephrectomy bed since PET/CT of November 26, 2021. This is likely postsurgical but can be assessed on follow-up exams. 3. No bowel obstruction. No bowel wall thickening. Normal appendix. 4. Stable postoperative findings following aortoiliac stent graft placement. Stable aneurysm sac size. No rupture. ACT 112: Negative or not required by law. Electronically signed by: Martinez Manuel M.D. 11/30/2022 9:[address] 11/30/22 11:17 CT head/brain wo con CLINICAL HISTORY: Current cancer, generalized weakness Technique: Contiguous axial CT images of the head were acquired from the base of the skull to the vertex without intravenous contrast administration. Images were viewed in brain, subdural and bone windows. Automated dose lowering techniques and/or adjustment according to patient size were utilized for this exam. Comparison: None available at the time of this dictation. Findings: Mild diffuse volume loss is seen. Calcifications are seen in the falx. No edema or other abnormalities in the parenchyma. Imaged portions of the paranasal sinuses and mastoid air cells are clear. The orbits appear normal. There are no acute fractures of the calvaria or scalp swelling. Impression: No acute intracranial hemorrhage, no evidence of acute territorial infarction or other acute intracranial disease process. ACT 112: Negative or not required by law. Electronically signed by: Hu Salvador M.D. 11/30/2022 12:06 PM 11/30/2022 TTE LVH but normal ejection fraction, no major valvular abnormalities, no significant pericardial PG Care Time/CCT Total # of Minutes Spent Total Time Spent with Patient: Total time spent is greater than 50% in coordination of care (as documented) at patient's floor/unit and/or counseling patient: Coding Level of Care Code 34326 OFFICE CONSULT LVL Diagnoses Pancytopenia D61.818 Large B-cell lymphoma C85.10 Fever R50.9 Fever type: unspecified Lung nodule, solitary R91.1 (3) Fever Fever type: unspecified Qualified Code(s): R50.9 - Fever, unspecified
[2022-12-01 15:21] LABS: Immunoglobulin A 93.2 mg/dl (70-400); Immunoglobulin G 547.4 mg/dl (635-1741); Immunoglobulin M < 20.0 mg/dl (45-281)
--- NOTE | 2022-12-01 16:24 | Cardiology Progress Note ---
Date of Service December 01, 2022 Assessment & Plan (1) Elevated troponin: Plan: Type II (non-ACS) non-ST elevation MN. Continue current medical regimen. This is likely secondary to infection given his fevers and neutropenic status. Most likely viral etiology. Possible fungal/yeast. Oncology is following, further work-up per their recommendations. I will sign off at this time. Plan Signing off at this time. Please contact me should there be change in his clinical status and need for my cardiovascular services. Admission and Anticipated Discharge Date Admission Date: November 30, 2022 Subjective Patient continues without any anginal chest pain or shortness of breath. No edema. He continues to have spikes in his fever. He remains fatigued with low energy. His tells me that their grandson has COVID and that she was exposed to him. The patient was not directly exposed. However, they just returned from a trip to [place]. She states that they could have been exposed to "anyone who was sick while down there". Review of Systems Review of Systems: Negative except as per HPI Physical Exam Constitutional: WD/WN, vitals as above Eyes: Extraocular muscles intact. Sclera are anicteric. ENMT: Oral mucosa is pink and moist. Neck: No JVD appreciated Respiratory: normal respiratory effort, lungs clear to auscultation Cardiovascular: Regular rate and rhythm. S4 gallop. No edema. Neurologic: Somnolent but easily aroused. No focal deficits. No tremor. Psychiatric: A+Ox3, euthymic affect Results & Data Vital Signs (Past 12 Hours) Vital Signs Temp Pulse Pulse Resp BP BP Pulse Ox 12/01/22 15:48 36.7 C 69 22 115/70 97 12/01/22 12:52 37.9 C H 12/01/22 11:46 37.7 C H 80 23 131/66 97 12/01/22 08:00 79 17 104/62 96 12/01/22 07:00 62 19 12/01/22 07:00 12/01/22 08:33 36.8 C Pulse Ox O2 Del Method O2 Del Method 12/01/22 15:48 Room Air 12/01/22 12:52 12/01/22 11:46 Room Air 12/01/22 08:00 Room Air 12/01/22 07:00 12/01/22 07:00 96 Room Air 12/01/22 08:33 PG Care Time/CCT Total # of Minutes Spent Total Time Spent with Patient: Total time spent is greater than 50% in coordination of care (as documented) at patient's floor/unit and/or counseling patient: Coding Level of Care Code 24465 SUB INP/OBS CARE 1/25MIN Diagnoses Elevated troponin R77.8
[2022-12-01] MEDS: VANCOMYCIN HCL 1,250 MG in SODIUM CHLORIDE 0.9% 250 ML IV SCH (20:54)
[2022-12-01] MEDS: MELATONIN 3 MG TAB PO PRN (23:30)
[2022-12-02] MEDS: ACETAMINOPHEN 325 MG TAB PO PRN (03:10)
[2022-12-02 06:55] LABS: Albumin Globulin Ratio 1.6 (0.9-2); Albumin Level 3.8 gm/dl (3.4-5.0); BUN Creatinine Ratio 15.4 (10-20); Bilirubin,Total 0.9 mg/dl (0.2-1.0); Calcium 8.7 mg/dl (8.6-10.3); Creatinine Clr Calc Pharmacy 48.3 ml/min; Est GFR (African American) 51.4 ml/min; Est GFR (Non-African American) 44.3 ml/min; Globulin 2.4 gm/dl (2.5-4.0); Magnesium 1.9 mg/dl (1.7-2.4); Potassium 3.3 mmol/L (3.5-5.1); Total Protein 6.2 gm/dl (6.0-8.3)
[2022-12-02 06:56] LABS: INR 1.1 (0.9-1.1); Prothrombin Time 11.9 Seconds (9.0-12.0)
[2022-12-02] MEDS: CEFEPIME 2,000 MG in SYRINGE 0 ML IV SCH ×2 (09:12→20:30)
[2022-12-02] MEDS: DOCUSATE SODIUM 100 MG CAP PO SCH (09:13)
[2022-12-02] MEDS: ATORVASTATIN 40 MG TAB PO SCH (09:13)
[2022-12-02 11:11] LABS: Hematocrit (blood only) 35.8 % (42.0-52.0); Hemoglobin 12.5 g/dl (14.0-18.0); Mean Corpuscular Hemoglobin 31.3 pg (25.0-34.0); Mean Corpuscular Hgb Conc 34.9 g/dL (32.0-36.0); Mean Corpuscular Volume 89.5 fL (80.0-100.0); Platelet Count 55 K/uL (130-400); RDW Coefficient of Variation 12.7 % (11.5-14.5); RDW Standard Deviation 42.1 fL (36.4-46.3); White Blood Count 2.74 K/ul (4.8-10.8)
--- NOTE | 2022-12-02 11:48 | Infectious Disease Consult ---
Date of Consultation December 02, 2022 Assessment & Plan (1) Pancytopenia: (2) Fever: Plan Micro: 12/01 COVID-19: negative 11/30 MRSA nares: negative 11/30 Lyme screen: negative 11/30 Anaplasma PCR: pending 11/30 Anaplasma smear: negative 11/30 BCx x2: NGTD 11/30 RVP: negative Abx: Vanc 11/30 - present Cefepime 11/30 - present Problems: #Fevers #Leukopenia #Thrombocytopenia 77 yo M with history of AAA s/p aortoiliac stent graft repair (2017), CAD, COPD, HLD, hyperparathyroidism s/p parathyroid surgery (2020), CKD, L kidney mass s/p nephrectomy (04/2022) found to be diffuse large B-cell lymphoma s/p 6 cycles of R-CHOP (06/30/22 - 10/14/22) who presented on 11/30 with generalized weakness, lack of energy. He denied headache, shortness of breath, abdominal pain, diarrhea, dysuria, rash. He reports a slight chronic cough which is unchanged over the last few years. Also reports some nausea and dry heaving--unsure when it began. He states that prior to this on 11/28, he was feeling well and went to a yard sale, did some grocery shopping. On presentation, he was febrile to 38, other VSS stable. Labs showed WBC 4.18, Hb 12.6, plt 106, Cr 1.66 (around baseline), normal LFTs, normal lactate, CK 833, procalcitonin 0.79. UA showed only 1-5 WBCs. RVP negative. CXR showed no acute findings. CT A/P with contrast showed no acute process, stable stranding in L nephrectomy bed, stable postop findings following aortoiliac stent graft placement. CT head showed no acute findings. Pt was started on vanc, cefepime. A TTE did not demonstrate vegetations. BCx are NGTD. As for his cancer, a recent PET scan did not indicate any persistence/recurrence of his lymphoma. He has a PET avid L upper lung nodule < 1 cm in size, which heme/onc thinks may be a separate issue from his lymphoma. Additional testing includes negative MRSA nares, negative Lyme screen, negative Anaplasma smear. Anaplasma PCR is pending. No sick contacts, no recent travel, no animal exposures, no recent blood transfusions. Port looks ok. No known recent tick/insect bites, but pt was working in the yard last week helping to clear some brush, and does some gardening. He denies being in wooded areas recently. Pt has continued to have fever despite vanc, cefepime. Differential includes a tick-borne illness given his lymphopenia and thrombocytopenia (although interestingly, his LFTs are relatively unremarkable). Also consider a viral illness. His CT A/P showed subtle stranding in the L nephrectomy bed (unchanged from PET/CT on 11/26/22) without fluid collection--but his UA is not suggestive of a UTI and he has no urinary symptoms. Recommendations: -Ordered another blood smear for Anaplasma/Babesia, Babesia PCR, Ehrlichia PCR, and Rickettsia panel -Started empiric doxycycline 100 mg PO BID to cover in case of tickborne illness. Will assess whether he responds to this, which may be diagnostic. Note that this does not cover Babesia -Continue cefepime for now -Discontinued vancomycin given MRSA nares negative and BCx NGTD x 48 hours -Ordered EBV, CMV testing Discussed with primary team and the patient's . Will continue to follow. Please page [facility] with further questions. Consultation Information Consultation was provided via telemedicine using two-way real-time interactive telecommunication between the patient and the telemedicine provider. For the duration of the visit, the provider was performing the assessment from a different facility than the patient. This includesuse of bluetooth stethoscope forauscultationperformed by the telepresenter that the telemedicine provider can hear if described in the physical exam. Electronic Intelligence Officer contact information: Please call [facility] [phone]. (Phone Number For Physician Use Only) After establishing a telemedicine visit, patient was: Patient was verified with two unique identifiers, Patient/authorized rep acknowledged consent and understanding and Gave permission to continue telehealth session Time Spent with Patient: Initial => 40 min History of Present Illness Reason for Consultation: Fever Requesting Physician: Dr. Harry Attending Physician: Jasen Harry MD History of Present Illness 77 yo M with history of AAA s/p aortoiliac stent graft repair (2018), CAD, COPD, HLD, hyperparathyroidism s/p parathyroid surgery (2020), CKD, L kidney mass s/p nephrectomy (04/2022) found to be diffuse large B-cell lymphoma s/p 6 cycles of R-CHOP (06/30/22 - 10/14/22) who presented on 11/30 with generalized weakness, lack of energy. He denied headache, shortness of breath, abdominal pain, diarrhea, dysuria, rash. He reports a slight chronic cough which is unchanged over the last few years. Also reports some nausea and dry heaving--unsure when it began. He states that prior to this on 11/28, he was feeling well and went to a yard sale, did some grocery shopping. On presentation, he was febrile to 38, other VSS stable. Labs showed WBC 4.18, Hb 12.6, plt 106, Cr 1.66 (around baseline), normal LFTs, normal lactate, CK 833, procalcitonin 0.79. UA showed only 1-5 WBCs. RVP negative. CXR showed no acute findings. CT A/P with contrast showed no acute process, stable stranding in L nephrectomy bed, stable postop findings following aortoiliac stent graft placement. CT head showed no acute findings. Pt was started on vanc, cefepime. A TTE did not demonstrate vegetations. BCx are NGTD. Pt has continued to have fevers. Additional testing includes negative MRSA nares, negative Lyme screen, negative Anaplasma smear. Anaplasma PCR is pending. As for his cancer, a recent PET scan did not indicate any persistence/recurrence of his lymphoma. He has a PET avid L upper lung nodule < 1 cm in size, which heme/onc thinks may be a separate issue from his lymphoma. Pt denies any recent new medications prior to admission. He was [place] and has traveled outside of the country to [place], [place], [place] in the past. Denies recent travel. Lives with his , no pets. No other animal exposures. He is retired. His hobbies include antiques. He was working in the yard helping to clear some brush on 11/26. Denies hiking or being in wooded areas recently. Does some gardening. No known recent insect bites. No recent blood transfusions. Denies problems with his port recently, no erythema or tenderness. Allergies Allergy/AdvReac Type Severity Reaction Status Date / Time No Known Allergies Allergy Verified 10/15/22 09:36 Home Medications Medication Instructions Recorded Confirmed Type atorvastatin 40 mg tablet (Lipitor) 40 mg PO QAM 05/12/22 11/30/22 History pantoprazole 20 mg tablet,delayed 20 mg PO BID 07/09/22 11/30/22 History release (Protonix) docusate sodium 100 mg tablet 100 mg PO DAILY 07/22/22 08/11/22 History (Stool Softener) loratadine 10 mg tablet (Claritin) 10 mg PO QAM 08/11/22 09/01/22 History Patient History Medical History AAA (abdominal aortic aneurysm) S/p AAA repair 2018. 03/2022 abdomen/pelvis CT shows s/p aortobiliac stent graft repair- stent graft is patent. Residual aneurysm sac measures 6.3 x 5.0 cm CAD (coronary artery disease) Per 12/2021 PCP note- followed with cardio/last cardio work up 6-8 years ago- currently asymptomatic COPD (chronic obstructive pulmonary disease) Degenerative disc disease Emphysema lung History of COVID-2019- fever, body aches, BOX, fatigue, lethargy-, no hospitalization, resolved History of duodenal ulcer HTN (hypertension) Hyperlipidemia Hyperparathyroidism Hx; s/p parathyroid surgery. Stable per 12/2021 PCP visit Impaired fasting glucose Hgb A1C 12/2021 = 6.0 Large B-cell lymphoma Renal Mass Following w/ Dr Phelan at [facility] Stage 3 chronic kidney disease Surgical History History of abdominal aortic aneurysm (AAA) repair [address] Jimenez History of bone marrow biopsy 05/2022 [facility] History of colonoscopy 11/2021 History of left nephrectomy 05/12/22 [facility] History of parathyroid surgery 01-08-21 Surgical removal of the right upper and left lower parathyroid glands History of umbilical hernia repair 2014 [place], [place] History of wisdom tooth extraction Port-A-Cath in place (06/24/22) Insertion Access Port with Fluoroscopy(right internal jugular vein) - Trever Lomeli DO, FACS Family History Mother Family history of diabetes mellitus Atrial fibrillation Glioblastoma Father Atrial fibrillation Aunt Breast cancer Son Cancer melanoma Other No family history of adverse response to anesthesia Denies family history of Ovarian cancer Prostate cancer Myocardial infarction Colorectal cancer Social History Smoking Status: Former smoker Tobacco Type: Cigarettes Second Hand Exposure: No; Do You Dip or Chew Tobacco: No; Tobacco Cessation Education Requested by Patient: No Hx Alcohol Use: No Hx Substance Use: No Preferred Language: Mohawk Communication Ability: Effective Communication Ability Comment: PHONE INTERVIEW DONE WITH NELSY ([facility] CONTACT) Visual Impairment: No Limitations Hearing Ability: Normal Watch Mechanic Required: No Beliefs That Will Affect Care: None marital status: Current Living Situation: Spouse current occupational status: retired How many Children do You have: 2 Other Information That Helps Us Care for You: No Feels Safe at Home: Yes Safety Concerns: Feels Safe At This Time Diet: regular caffeine: Yes during the past year weight has: decreased > 10 lbs Dental Care, Regularly: No Physical Activity Frequency: Daily Seatbelt Use: always Sunscreen Use: Yes Assistive Devices: Cane Review of System A complete ROS was performed and is negative except as mentioned in the HPI. Physical Exam Physical Exam: GEN: laying in bed in NAD. HEENT: anicteric RESP: No increased work of breathing ABD: Soft, non-distended. Non-tender to palpation. EXT: Warm, well-perfused. SKIN: No lesions or rashes on exposed skin. NEURO: Alert and oriented. Answers all questions appropriately. Speech not slurred. PSYCH: Normal mood, affect appropriate. Results & Data Vital Signs (Past 12 Hours) Vital Signs Temp Pulse Pulse Resp BP Pulse Ox O2 Del Method 12/02/22 11:15 37.5 C 92 H 18 140/82 92 Room Air 12/02/22 08:00 65 12/02/22 07:41 36.7 C 65 18 117/71 97 Room Air 12/02/22 06:15 68 12/02/22 03:03 38.5 C H 89 16 150/74 H 97 Room Air Laboratory Results Short CBC 12/02/22 Range/Units 10:48 WBC 2.74 L (4.8-10.8) K/ul Hgb 12.5 L (14.0-18.0) g/dl Hct 35.8 L (42.0-52.0) % Plt Count 55 L (130-400) K/uL BMP 12/02/22 06:05 Sodium 132 L Potassium 3.3 L Chloride 100 Carbon Dioxide 23 BUN 23 Creatinine 1.49 H Glucose 99 Calcium 8.7 Liver Function 12/02/22 Range/Units 06:05 Total Bilirubin 0.9 (0.2-1.0) mg/dl AST 44 H (13-39) U/L ALT 22 (7-52) U/L Alkaline Phosphatase 47 (34-104) U/L Albumin 3.8 (3.4-5.0) gm/dl Diagnostic Findings Chest X-Ray 11/30/22 06:41 XR chest 1V portable CLINICAL HISTORY: Sepsis. COMPARISON STUDY: Chest radiograph June 24, 2022. PET/CT November 26, 2022. FINDINGS: Right internal jugular [id number] is in place. There is no pneumothorax or pleural effusion. Cardiomediastinal silhouette is stable. Mild interstitial thickening is similar to prior exams. There is no evidence for pneumonia or pulmonary edema. IMPRESSION: No acute cardiopulmonary findings. ACT 112: Negative or not required by law. Electronically signed by: Martinez Manuel M.D. 11/30/2022 6:59 AM Abdomen/Pelvis CT 11/30/22 06:53 CT OF THE ABDOMEN AND PELVIS WITH CONTRAST CLINICAL HISTORY: Abdominal pain and fever. Non-Hodgkin's lymphoma. COMPARISON STUDY: CT of the abdomen and pelvis April 13, 2022 and PET/CT November 26, 2022. TECHNIQUE: Following IV administration of 80 mL of Optiray, axial images of the abdomen and pelvis were obtained from the lung bases to the proximal femurs. Images were reviewed in the axial, sagittal, and coronal planes. IV contrast was administered without complication. Automated exposure control was utilized for the study. A dose lowering technique was utilized adhering to the principles of ALARA. CT DOSE: 1482.54 mGy.cm FINDINGS: Lung bases are unremarkable. No pneumatosis, free air or portal venous gas is present. Fat-containing right hepatic dome lesion is benign. A few additional hypodense lesions within the liver are similar to prior exams. These are likely benign. Trace perisplenic fluid is noted. This was shown on PET/CT. Subtle stranding within the left nephrectomy bed remains unchanged since PET/CT of November 26, 2022. No fluid collection is present. There is no abdominal or pelvic lymphadenopathy. Aortoiliac endovascular stent graft is in place. Aneurysm sac size is unchanged, measuring 6.6 cm. Dilatation of the bilateral common and arteries is also unchanged. There is no evidence for a bowel obstruction. The caliber and wall thickness of small and large bowel are normal. The appendix is normal. There is no biliary or pancreatic ductal dilatation. Suspected adenomyomatosis of the gallbladder fundus. There could be small stones within the gallbladder. There is no evidence for acute cholecystitis. No acute fracture or suspicious lesion within the visualized skeletal structures is present. Prostate is enlarged, measuring 4.9 cm in transverse dimension. No right hydronephrosis. Several water attenuation right renal lesions reflect cysts. IMPRESSION: 1. No acute process within the abdomen or pelvis. 2. Stable stranding within the left nephrectomy bed since PET/CT of November 26, 2021. This is likely postsurgical but can be assessed on follow-up exams. 3. No bowel obstruction. No bowel wall thickening. Normal appendix. 4. Stable postoperative findings following aortoiliac stent graft placement. Stable aneurysm sac size. No rupture. ACT 112: Negative or not required by law. Electronically signed by: Martinez Manuel M.D. 11/30/2022 9:[address] 11/30/22 11:17 CT head/brain wo con CLINICAL HISTORY: Current cancer, generalized weakness Technique: Contiguous axial CT images of the head were acquired from the base of the skull to the vertex without intravenous contrast administration. Images were viewed in brain, subdural and bone windows. Automated dose lowering techniques and/or adjustment according to patient size were utilized for this exam. Comparison: None available at the time of this dictation. Findings: Mild diffuse volume loss is seen. Calcifications are seen in the falx. No edema or other abnormalities in the parenchyma. Imaged portions of the paranasal sinuses and mastoid air cells are clear. The orbits appear normal. There are no acute fractures of the calvaria or scalp swelling. Impression: No acute intracranial hemorrhage, no evidence of acute territorial infarction or other acute intracranial disease process. ACT 112: Negative or not required by law. Electronically signed by: Hu Salvador M.D. 11/30/2022 12:06 PM Medications Administered Current Inpatient Medications Acetaminophen (Acetaminophen 325 Mg Tab) 650 mg PO Q4H PRN PRN Reason: pain/fever Stop: 12/30/22 14:37 Last Admin: 12/02/22 03:10 Dose: 650 mg Atorvastatin Calcium (Atorvastatin 40 Mg Tab) 40 mg PO QAM DEO Stop: 12/31/22 08:59 Last Admin: 12/02/22 09:13 Dose: 40 mg Docusate Sodium (Docusate Sodium 100 Mg Cap) 100 mg PO DAILY DEO Stop: 12/31/22 08:59 Last Admin: 12/02/22 09:13 Dose: 100 mg Heparin Sodium (Porcine) (Heparin 100 Unit/Ml 5ml Flush) 5 ml FLUSH PRN PRN PRN Reason: Flush Stop: 12/31/22 01:12 Last Admin: 12/01/22 14:37 Dose: 5 ml Cefepime HCl 2,000 mg/ Syringe 20 mls @ 5 mls/min IV Q12H DEO; Protocol Stop: 12/03/22 19:59 Last Admin: 12/02/22 09:12 Dose: 5 mls/min Vancomycin HCl 1,250 mg/ (Sodium Chloride) 275 mls @ 200 mls/hr IV Q24H DEO; Protocol Stop: 12/03/22 20:59 Last Infusion: 12/01/22 22:15 Dose: Infused Melatonin (Melatonin 3 Mg Tab) 3 mg PO HS PRN PRN Reason: Sleep Stop: 12/31/22 23:17 Last Admin: 12/01/22 23:30 Dose: 3 mg Miscellaneous Information (Vancomycin Consult Active) 1 each N/A UD PRN PRN Reason: Consult Stop: 12/30/22 10:03 Ondansetron HCl (Ondansetron Inj 2 Mg/Ml 2 Ml Vial) 4 mg IV Q6H PRN PRN Reason: Nausea And Vomiting Stop: 12/30/22 15:38 Last Admin: 11/30/22 16:09 Dose: 4 mg (2) Fever Fever type: unspecified Qualified Code(s): R50.9 - Fever, unspecified
[2022-12-02 13:20] LABS: Basophils # (auto) 0.03 K/uL (0-0.2); Basophils % (auto) 1.1 %; Immature Granulocytes # (auto) 0.01 K/uL (0.01-0.20); Immature Granulocytes % (auto) 0.4 %; Lymphocytes # (auto) 0.75 K/uL (1.2-3.4); Lymphocytes % (auto) 27.4 %; Monocytes # (auto) 0.13 K/uL (0.11-0.59); Monocytes % (auto) 4.7 %; Neutrophils # (auto) 1.82 K/uL (1.40-6.50); Neutrophils % (auto) 66.4 %
[2022-12-02] MEDS ORDERED: POTASSIUM CHLORIDE CRTAB 20 MEQ TABCR PO STA (13:52)
--- NOTE | 2022-12-02 14:06 | Hospitalist Progress Note ---
Date of Service December 02, 2022 Assessment & Plan (1) Generalized weakness: Plan: Etiology is uncertain, could be infectious Patient has a history of lymphoma presents with generalized weakness He states his last chemotherapy was in September Upon admission, was febrile, and pancytopenic. Blood cultures were obtained, was empirically started on broad-spectrum IV antibiotics Patient and examined today, feels overall better although still spiking fevers Patient provided a history of recent trip to [facility] and [place] Cultures negative so far, will continue IV antibiotics. Stop IV vancomycin, continue cefepime, add Doxycycline in case of tick borne illness Appreciate ID recs (2) Elevated troponin: Plan: Most likely due to demand ischemia type II NSTEMI Has been evaluated by cardiology, no plans for any procedures. Continue to monitor Trend troponins. (3) Pancytopenia: Plan: -Has been an ongoing issue with his Chemotherapy -Hgb, platelets, and absolute neutrophils are currently low-normal -Will continue to treat as febrile neutropenia for now while workup is in process -Oncology consult placed -Neutropenic precautions ordered (4) Hyponatremia: Plan: -Likely due to poor oral intake -S/P 1L NSS and will receive another 1L LR on admission -Improving (5) Large B-cell lymphoma: Plan: -Follows with Dr. Phelan -Had his 11/24 M-CHOP therapy on 10/14 with his mediport still in place today -Oncology consult placed (6) CAD (coronary artery disease): Plan: -Continue atorvastatin if CK is WNL -Follow cardiac workup and consult (7) Benign hypertension: Plan: -Stable off Hypertensives -Continue to monitor (8) Port-A-Cath in place: Plan Continue hospitalization Admission and Anticipated Discharge Date Admission Date: November 30, 2022 Subjective patient seen and examined, still spiking fevers and feeling tired Review of Systems Review of Systems: All systems reviewed are negative, apart from the ones contained in the history. Physical Exam Physical Exam: The patient is awake, alert and oriented 3, well developed and well nourished, normocephalic and atraumatic, lying in bed and in no acute distress. HEENT--PERRL, EOMI, mucous membranes and oropharynx mildly dry Neck--supple. No JVD. No bruits. Thyroid normal, trachea midline, no adenopathy. Heart--normal S1 and S2. No murmurs, rubs or gallops. Lungs--clear bilaterally, no respiratory distress, no accessory muscle use. Abdomen--normal bowel sounds and soft. Mild epigastric and left sided abdominal pain Extremities--no cyanosis or clubbing. No edema. Dermatologic--normal skin turgor, normal color, no abnormal lymph nodes, no rash. Neurologic--cranial nerves II through XII grossly intact. Rheumatologic--normal range of motion. Psychiatric--normal affect. Results & Data Results & Data Vital Signs (Past 12 Hours) Vital Signs Temp Pulse Pulse Resp BP Pulse Ox O2 Del Method 12/02/22 11:15 99.5 F 92 H 18 140/82 92 Room Air 12/02/22 08:00 65 12/02/22 07:41 98.1 F 65 18 117/71 97 Room Air 12/02/22 06:15 68 12/02/22 03:03 101.3 F H 89 16 150/74 H 97 Room Air PG Care Time/CCT Total # of Minutes Spent Total Time Spent with Patient: Total time spent is greater than 50% in coordination of care (as documented) at patient's floor/unit and/or counseling patient: Coding Level of Care Code 45801 SUB INP/OBS CARE 2/35MIN Diagnoses Generalized weakness R53.1 Elevated troponin R77.8 Pancytopenia D61.818 Hyponatremia E87.1 Large B-cell lymphoma C85.10 CAD (coronary artery disease) I25.10 Benign hypertension I10 Port-A-Cath in place Z95.828 Time Spent (min) 35
--- NOTE | 2022-12-02 15:05 | Electrocardiogram Report ---
Test Reason : Blood Pressure : / mmHG Vent. Rate : 099 BPM Atrial Rate : 092 BPM P-R Int : 000 ms QRS Dur : 086 ms QT Int : 344 ms P-R-T Axes : 000 -24 028 degrees QTc Int : 441 ms Accelerated Junctional rhythm with retrograde conduction Inferior infarct (cited on or before 30-NOV-2022) Abnormal ECG When compared with ECG of 30-NOV-2022 06:58, Junctional rhythm has replaced Sinus rhythm Confirmed by Chris Mccarthy ([id number]) on 12/02/2022 3:04:21 PM Referred By: REFERRED SELF Confirmed By:Perez Mccarthy
[2022-12-02] MEDS: DOXYCYCLINE HYCLATE 100 MG CAP PO SCH ×2 (15:10→20:24)
[2022-12-02] MEDS: MELATONIN 3 MG TAB PO PRN (20:30)
[2022-12-03 07:24] LABS: Albumin Globulin Ratio 1.6 (0.9-2); Albumin Level 3.6 gm/dl (3.4-5.0); BUN Creatinine Ratio 17.4 (10-20); Bilirubin,Total 0.9 mg/dl (0.2-1.0); Calcium 8.8 mg/dl (8.6-10.3); Creatinine Clr Calc Pharmacy 51.3 ml/min; Est GFR (African American) 56.4 ml/min; Est GFR (Non-African American) 48.6 ml/min; Globulin 2.3 gm/dl (2.5-4.0); Potassium 3.8 mmol/L (3.5-5.1); Total Protein 5.9 gm/dl (6.0-8.3)
[2022-12-03 07:30] LABS: INR 1.1 (0.9-1.1)
[2022-12-03] MEDS: DOCUSATE SODIUM 100 MG CAP PO SCH (08:54)
[2022-12-03] MEDS: DOXYCYCLINE HYCLATE 100 MG CAP PO SCH ×2 (08:54→21:58)
[2022-12-03] MEDS: HEPARIN 100 UNIT/ML 5ML FLUSH FLUSH PRN ×2 (08:54→19:55)
[2022-12-03] MEDS: CEFEPIME 2,000 MG in SYRINGE 0 ML IV SCH ×2 (08:54→19:50)
[2022-12-03] MEDS: ATORVASTATIN 40 MG TAB PO SCH (08:55)
[2022-12-03] MEDS: FOLIC ACID 1 MG TAB PO SCH (10:33)
--- NOTE | 2022-12-03 13:41 | Hospitalist Progress Note ---
Date of Service December 03, 2022 Assessment & Plan (1) Generalized weakness: Plan: Etiology is uncertain, could be infectious Patient has a history of lymphoma presents with generalized weakness He states his last chemotherapy was in September Upon admission, was febrile, and pancytopenic. Blood cultures were obtained, was empirically started on broad-spectrum IV antibiotics Patient and examined today, feels overall better, no fevers in the last 24 hrs Patient provided a history of recent trip to [employer] and [employer] Cultures negative so far, will continue IV antibiotics. Stop IV vancomycin, continue cefepime, add Doxycycline in case of tick borne illness ID also requested blood smear for for Anaplasma/Babesia, Babesia PCR, Ehrlichia PCR, and Rickettsia panel ID also Started empiric doxycycline 100 mg PO BID to cover in case of tickborne illness. Will assess whether he responds to this, which may be diagnostic. Note that this does not cover Babesia Continue cefepime for now Discontinued vancomycin given MRSA nares negative and BCx NGTD x 48 hours Ordered EBV, CMV testing Appreciate ID recs (2) Elevated troponin: Plan: Most likely due to demand ischemia type II NSTEMI Has been evaluated by cardiology, no plans for any procedures. Continue to monitor Trend troponins. (3) Pancytopenia: Plan: -Has been an ongoing issue with his Chemotherapy -Hgb, platelets, and absolute neutrophils are currently low-normal -Will continue to treat as febrile neutropenia for now while workup is in process -Oncology consult placed -Neutropenic precautions ordered (4) Hyponatremia: Plan: -Likely due to poor oral intake -S/P 1L NSS and will receive another 1L LR on admission -Improving (5) Large B-cell lymphoma: Plan: -Follows with Dr. Phelan -Had his 6/6 M-CHOP therapy on 10/14 with his mediport still in place today -Oncology consult placed (6) CAD (coronary artery disease): Plan: -Continue atorvastatin if CK is WNL -Follow cardiac workup and consult (7) Benign hypertension: Plan: -Stable off Hypertensives -Continue to monitor (8) Port-A-Cath in place: Plan Continue hospitalization , hopefully d/c in the next 24 hrs Admission and Anticipated Discharge Date Admission Date: November 30, 2022 Subjective patient seen and examined, no fevers overnight Review of Systems Review of Systems: All systems reviewed are negative, apart from the ones contained in the history. Physical Exam Physical Exam: The patient is awake, alert and oriented 3, well developed and well nourished, normocephalic and atraumatic, lying in bed and in no acute distress. HEENT--PERRL, EOMI, mucous membranes and oropharynx mildly dry Neck--supple. No JVD. No bruits. Thyroid normal, trachea midline, no adenopath y. Heart--normal S1 and S2. No murmurs, rubs or gallops. Lungs--clear bilaterally, no respiratory distress, no accessory muscle use. Abdomen--normal bowel sounds and soft. Mild epigastric and left sided abdominal pain Extremities--no cyanosis or clubbing. No edema. Dermatologic--normal skin turgor, normal color, no abnormal lymph nodes, no rash. Neurologic--cranial nerves II through XII grossly intact. Rheumatologic--normal range of motion. Psychiatric--normal affect. Results & Data Results & Data Vital Signs (Past 12 Hours) Vital Signs Temp Pulse Resp BP BP Pulse Ox O2 Del Method 12/03/22 13:03 93/66 L 12/03/22 11:00 97.3 F L 98 H 20 86/57 L 100 Room Air 12/03/22 07:12 97.5 F L 65 16 109/69 95 Room Air 12/03/22 03:38 98.1 F 64 20 122/79 100 Room Air PG Care Time/CCT Total # of Minutes Spent Total Time Spent with Patient: Total time spent is greater than 50% in coordination of care (as documented) at patient's floor/unit and/or counseling patient: Coding Level of Care Code 08599 SUB INP/OBS CARE 2/35MIN Diagnoses Generalized weakness R53.1 Elevated troponin R77.8 Pancytopenia D61.818 Hyponatremia E87.1 Large B-cell lymphoma C85.10 CAD (coronary artery disease) I25.10 Benign hypertension I10 Port-A-Cath in place Z95.828 Time Spent (min) 35
[2022-12-03] MEDS: MELATONIN 3 MG TAB PO PRN (22:03)
--- NOTE | 2022-12-04 06:07 | Hospitalist Progress Note ---
Date of Service December 03, 2022 Assessment & Plan (1) Fever: Plan: Illness itself seems symptomatically better and he is afebrile. Appreciate ID consultation and given the 's report of multiple community members suddenly struck with a similar illness are concerned about tickborne illness even with negative initial screens. Encouraging that the improvement is in the context of doxycycline Cannot rule it out but it would be quite unusual for his lymphoma to recur so rapidly and in such fashion and there is certainly no indications of that otherwise at this time. 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 It may be worthwhile to replace him with intravenous immunoglobulin at 200 mg/kg (2) Large B-cell lymphoma: Plan: All indications are that he remains in remission with specific respect to lymphoma that we cannot rule out an atypical recurrence such as marrow involvement though that seems unlikely (3) Pancytopenia: Plan: Somewhat concerning fall and platelets and has a persistent lymphopenia though hemoglobin remains in double digits and ANC remains in good range. While aggressive recurrence of his lymphoma primarily as marrow disease is in the differential that seems highly unlikely. This could be a picture seen with infectious processes and a particular one that I have seen with anaplasmosis (though he did screen negatively for that initially). The clinical response to doxycycline is certainly suggestive of a possible tickborne illness. We will ask for peripheral smear review to make sure that there is no signs of shanique micro angiopathic process though his creatinine is maintained (slightly elevated status post nephrectomy but still in very good range) and he does not have ongoing fever or mental status changes to suggest TTP. Plan 1. Would focus on ID issues and indeed seems to be improving on doxycycline 2. Await repeat platelet count and I have also asked for LDH, retake, and peripheral smear review to make sure that we are not dealing with a microangiopathic process 3. We will be worthwhile to give 1 dose of intravenous immunoglobulin at 200 mg/kg 4. I would consider giving empiric folic acid to facilitate his count recovery Admission and Anticipated Discharge Date Admission Date: November 30, 2022 Subjective Actually seems to feel much better 24 hours after starting doxycycline. Still weak but without the malaise that he characterizes illness today. also reports several community members have been suddenly struck with similarly severe illnesses Physical Exam Physical Exam: Currently afebrile with stable vital signs. Alert and appropriate Lungs seem clear cardiac rhythm seems regular The abdomen seems benign He has no pathologic peripheral adenopathy Results & Data Results & Data Vital Signs (Past 12 Hours) Vital Signs Temp Pulse Pulse Resp BP BP Pulse Ox 12/04/22 03:35 36.4 C L 70 16 115/69 96 12/03/22 23:26 65 12/03/22 22:57 36.4 C L 68 18 121/73 97 12/03/22 19:10 36.6 C 70 18 95/55 L 99 O2 Del Method 12/04/22 03:35 Room Air 12/03/22 23:26 12/03/22 22:57 Room Air 12/03/22 19:10 Room Air PG Care Time/CCT Total # of Minutes Spent Total Time Spent with Patient: Total time spent is greater than 50% in coordination of care (as documented) at patient's floor/unit and/or counseling patient: Coding Level of Care Code 18078 SUB INP/OBS CARE 1/25MIN Diagnoses Fever R50.9 Fever type: unspecified Large B-cell lymphoma C85.10 Pancytopenia D61.818 Comment This note reflects a visit and assessment performed late evening 12/03/2022 (1) Fever Fever type: unspecified Qualified Code(s): R50.9 - Fever, unspecified
[2022-12-04] MEDS: HEPARIN 100 UNIT/ML 5ML FLUSH FLUSH PRN (06:28)
[2022-12-04 06:53] LABS: Hematocrit (blood only) 35.5 % (42.0-52.0); Hemoglobin 12.8 g/dl (14.0-18.0); Mean Corpuscular Hemoglobin 31.2 pg (25.0-34.0); Mean Corpuscular Hgb Conc 36.1 g/dL (32.0-36.0); Mean Corpuscular Volume 86.6 fL (80.0-100.0); Mean Platelet Volume 11.8 fL (9.4-12.4); Platelet Count 77 K/uL (130-400); RDW Standard Deviation 41.1 fL (36.4-46.3); Reticulocyte % 0.9 % (0.5-2.0); Reticulocytes # 0.04 10^6/uL (0.02-0.10)
--- NOTE | 2022-12-04 07:54 | Infectious Disease Progress Nt ---
Date of Service December 04, 2022 Assessment & Plan (1) Pancytopenia: (2) Fever: Plan Micro: 12/02 Typus fever IgM, IgG: pending 12/02 Rickettsia IgM, IgG: pending 12/02 Q fever panel pending 12/02 Monospot negative. EBV panel pending 12/02 CMV IgM, IgG: pending 12/02 Ehrlichia PCR: pending 12/02 Babesia microti PCR: pending 12/02 Anaplasma/Babesia smear: negative 12/01 COVID-19: negative 11/30 MRSA nares: negative 11/30 Lyme screen: negative 11/30 Anaplasma PCR: pending 11/30 Anaplasma smear: negative 11/30 BCx x2: NGTD 11/30 RVP: negative Abx: Doxycycline 12/02 - present Cefepime 11/30 - present Vanc 11/30 - 12/01 Problems: #Fevers #Leukopenia #Thrombocytopenia 77 yo M with history of AAA s/p aortoiliac stent graft repair (2017), CAD, COPD, HLD, hyperparathyroidism s/p parathyroid surgery (2020), CKD, L kidney mass s/p nephrectomy (04/2022) found to be diffuse large B-cell lymphoma s/p 6 cycles of R-CHOP (06/30/22 - 10/14/22) who presented on 11/30 with generalized weakness, lack of energy, found to have fevers, lymphopenia, thrombocytopenia. He denied headache, shortness of breath, abdominal pain, diarrhea, dysuria, rash. He reports a slight chronic cough which is unchanged over the last few years. Also reports some nausea and dry heaving--unsure when it began. He states that prior to this on 11/28, he was feeling well and went to a yard sale, did some grocery shopping. On presentation, he was febrile to 38, other VSS stable. Labs showed WBC 4.18, Hb 12.6, plt 106, Cr 1.66 (around baseline), normal LFTs, normal lactate, CK 833, procalcitonin 0.79. UA showed only 1-5 WBCs. RVP negative. CXR showed no acute findings. CT A/P with contrast showed no acute process, stable stranding in L nephrectomy bed, stable postop findings following aortoiliac stent graft placement. CT head showed no acute findings. Pt was started on vanc, cefepime. A TTE did not demonstrate vegetations. BCx are NGTD. As for his cancer, a recent PET scan did not indicate any persistence/recurrence of his lymphoma. He has a PET avid L upper lung nodule < 1 cm in size, which heme/onc thinks may be a separate issue from his lymphoma. Additional testing includes negative MRSA nares, negative Lyme screen, negative Anaplasma smear. Anaplasma PCR is pending. No sick contacts, no recent travel, no animal exposures, no recent blood transfusions. Port looks ok. No known recent tick/insect bites, but pt was working in the yard last week helping to clear some brush, and does some gardening. He denies being in wooded areas recently. Pt continued to have fever despite vanc, cefepime. Differential includes a tick- borne illness given his lymphopenia and thrombocytopenia (although interestingly, his LFTs are relatively unremarkable). Also consider a viral illness. His CT A/P showed subtle stranding in the L nephrectomy bed (unchanged from PET/CT on 11/26/22) without fluid collection--but his UA is not suggestive of a UTI and he has no urinary symptoms. He was started on empiric doxycycline on 12/02 in case of tickborne illness, and he has since been afebrile. He continues to be lymphopenic/thrombocytopenic. Recommendations: -Follow-up Anaplasma PCR, Babesia PCR, Ehrlichia PCR, Rickettsia panel, CMV and EBV serologies -Continue empiric doxycycline 100 mg PO BID in case of tickborne illness. Given the resolution of fevers after initiating doxycycline, would complete a 10 day course (12/02 - 12/11) -Discontinue cefepime, as his BCx NGTD and UA unremarkable, with no other clear source of a bacterial infection Will continue to follow. Please page [facility] with further questions. Admission and Anticipated Discharge Date Admission Date: November 30, 2022 Subjective This patient recommendation is based on a telemedicine consult request which was completed asynchronously through chart review and information provided by the primary physician. The patient was not seen or examined today. The evaluation is consultative in nature and all patient care and treatment decisions can either be accepted or rejected by the patient's primary hospital-based treating physician using their own independent medical judgment for their patient. Time Spent Reviewing Chart: 21 - 30 minutes Afebrile since 12/02 Continues on doxycycline, cefepime Review of System Pt was not seen Physical Exam Physical Exam: Pt was not seen Results & Data Vital Signs (Past 12 Hours) Vital Signs Temp Pulse Pulse Resp BP BP Pulse Ox 12/04/22 07:00 57 L 12/04/22 03:35 36.4 C L 70 16 115/69 96 12/03/22 23:26 65 12/03/22 22:57 36.4 C L 68 18 121/73 97 O2 Del Method 12/04/22 07:00 12/04/22 03:35 Room Air 12/03/22 23:26 12/03/22 22:57 Room Air Laboratory Results Short CBC 12/04/22 Range/Units 06:20 WBC 4.30 L (4.8-10.8) K/ul Hgb 12.8 L (14.0-18.0) g/dl Hct 35.5 L (42.0-52.0) % Plt Count 77 L (130-400) K/uL Medications Administered Current Inpatient Medications Acetaminophen (Acetaminophen 325 Mg Tab) 650 mg PO Q4H PRN PRN Reason: pain/fever Stop: 12/30/22 14:37 Last Admin: 12/02/22 03:10 Dose: 650 mg Atorvastatin Calcium (Atorvastatin 40 Mg Tab) 40 mg PO QAM DEO Stop: 12/31/22 08:59 Last Admin: 12/03/22 08:55 Dose: 40 mg Docusate Sodium (Docusate Sodium 100 Mg Cap) 100 mg PO DAILY DEO Stop: 12/31/22 08:59 Last Admin: 12/03/22 08:54 Dose: 100 mg Doxycycline Hyclate (Doxycycline Hyclate 100 Mg Cap) 100 mg PO BID DEO Stop: 12/16/22 14:04 Last Admin: 12/03/22 21:58 Dose: 100 mg Folic Acid (Folic Acid 1 Mg Tab) 1 mg PO QAM DEO Stop: 01/02/23 08:59 Last Admin: 12/03/22 10:33 Dose: 1 mg Heparin Sodium (Porcine) (Heparin 100 Unit/Ml 5ml Flush) 5 ml FLUSH PRN PRN PRN Reason: Flush Stop: 12/31/22 01:12 Last Admin: 12/04/22 06:28 Dose: 5 ml Cefepime HCl 2,000 mg/ Syringe 20 mls @ 5 mls/min IV Q12H [facility]; Protocol Stop: 12/05/22 19:59 Last Admin: 12/03/22 19:50 Dose: 5 mls/min Melatonin (Melatonin 3 Mg Tab) 3 mg PO HS PRN PRN Reason: Sleep Stop: 12/31/22 23:17 Last Admin: 12/03/22 22:03 Dose: 3 mg Ondansetron HCl (Ondansetron Inj 2 Mg/Ml 2 Ml Vial) 4 mg IV Q6H PRN PRN Reason: Nausea And Vomiting Stop: 12/30/22 15:38 Last Admin: 11/30/22 16:09 Dose: 4 mg (2) Fever Fever type: unspecified Qualified Code(s): R50.9 - Fever, unspecified
[2022-12-04 08:07] LABS: Acanthocytes 1+; Basophils # (auto) 0.06 K/uL (0-0.2); Basophils % (auto) 1.4 %; Eosinophils # (auto) 0.13 K/uL (0-0.50); Lymphocytes % (auto) 69.8 %; Monocytes # (auto) 0.41 K/uL (0.11-0.59); Monocytes % (auto) 9.5 %; Neutrophils % (auto) 16.3 %
[2022-12-04] MEDS: DOXYCYCLINE HYCLATE 100 MG CAP PO SCH ×2 (08:50→20:31)
[2022-12-04] MEDS: ATORVASTATIN 40 MG TAB PO SCH (08:51)
[2022-12-04] MEDS: FOLIC ACID 1 MG TAB PO SCH (08:51)
[2022-12-04] MEDS: DOCUSATE SODIUM 100 MG CAP PO SCH (08:53)
[2022-12-04] MEDS ORDERED: IMMUNE GLOBULIN (HUMAN) SOLN IV ONE (10:06)
[2022-12-04] MEDS ORDERED: Octagam 10% IVIG 20 gram bottle IV SCH (11:00)
--- NOTE | 2022-12-04 11:14 | Hospitalist Progress Note ---
Date of Service December 04, 2022 Assessment & Plan (1) Generalized weakness: Plan: Etiology is uncertain, could be infectious, hope viral Patient has a history of lymphoma presents with generalized weakness He states his last chemotherapy was in September Upon admission, was febrile, and pancytopenic. Blood cultures were obtained, was empirically started on broad-spectrum IV antibiotics Patient and examined today, feels overall better, no fevers in the last 48 hrs Patient provided a history of recent trip to [employer] Cultures negative so far, will continue only Doxycycline in case of tick borne illness, end date 12/11 ID also requested blood smear for for Anaplasma/Babesia, Babesia PCR, Ehrlichia PCR, and Rickettsia panel Ordered EBV, CMV testing Appreciate ID recs (2) Elevated troponin: Plan: Most likely due to demand ischemia type II NSTEMI Has been evaluated by cardiology, no plans for any procedures. Continue to monitor Trend troponins. (3) Pancytopenia: Plan: -Has been an ongoing issue with his Chemotherapy -Hgb, platelets, and absolute neutrophils are currently low-normal -appreciate oncology -Neutropenic precautions ordered (4) Hyponatremia: Plan: resolved (5) Large B-cell lymphoma: Plan: -Follows with Dr. Phelan -Had his 11/24 M-CHOP therapy on 10/14 with his mediport still in place today -Oncology consult placed (6) CAD (coronary artery disease): Plan: -Continue atorvastatin if CK is WNL -Follow cardiac workup and consult (7) Benign hypertension: Plan: -Stable off Hypertensives -Continue to monitor (8) Port-A-Cath in place: Plan: Received an infusion of immune globulin 200mg/kg as recommended by hematology Plan Continue hospitalization , hopefully d/c to snf when accepted Admission and Anticipated Discharge Date Admission Date: November 30, 2022 Subjective patient seen and examined, feels over all better, has not spiked a fever in more than 48 hrs Review of Systems Review of Systems: All systems reviewed are negative, apart from the ones contained in the history. Physical Exam Physical Exam: The patient is awake, alert and oriented 3, well developed and well nourished, normocephalic and atraumatic, lying in bed and in no acute distress. HEENT--PERRL, EOMI, mucous membranes and oropharynx mildly dry Neck--supple. No JVD. No bruits. Thyroid normal, trachea midline, no adenopathy. Heart--normal S1 and S2. No murmurs, rubs or gallops. Lungs--clear bilaterally, no respiratory distress, no accessory muscle use. Abdomen--normal bowel sounds and soft. Mild epigastric and left sided abdominal pain Extremities--no cyanosis or clubbing. No edema. Dermatologic--normal skin turgor, normal color, no abnormal lymph nodes, no rash. Neurologic--cranial nerves II through XII grossly intact. Rheumatologic--normal range of motion. Psychiatric--normal affect. Results & Data Results & Data Vital Signs (Past 12 Hours) Vital Signs Temp Pulse Pulse Resp BP Pulse Ox O2 Del Method 12/04/22 10:53 97.5 F L 75 18 115/74 97 Room Air 12/04/22 08:27 97.7 F 75 18 135/68 97 Room Air 12/04/22 07:00 57 L 12/04/22 03:35 97.5 F L 70 16 115/69 96 Room Air 12/03/22 23:26 65 PG Care Time/CCT Total # of Minutes Spent Total Time Spent with Patient: Total time spent is greater than 50% in coordination of care (as documented) at patient's floor/unit and/or counseling patient: Coding Level of Care Code 64478 SUB INP/OBS CARE 2/35MIN Diagnoses Generalized weakness R53.1 Elevated troponin R77.8 Pancytopenia D61.818 Hyponatremia E87.1 Large B-cell lymphoma C85.10 CAD (coronary artery disease) I25.10 Benign hypertension I10 Port-A-Cath in place Z95.828 Time Spent (min) 35
[2022-12-04 15:42] LABS: EBV Nuclear Ag Antibody >600.00 U/mL; Epstein Barr Virus Early Ag Ab <9.00 U/mL
[2022-12-04] MEDS: MELATONIN 3 MG TAB PO PRN (20:31)
[2022-12-05] MEDS: HEPARIN 100 UNIT/ML 5ML FLUSH FLUSH PRN (05:53)
[2022-12-05 06:49] LABS: Albumin Globulin Ratio 1.4 (0.9-2); Albumin Level 3.4 gm/dl (3.4-5.0); BUN Creatinine Ratio 24.2 (10-20); Bilirubin,Total 0.5 mg/dl (0.2-1.0); Calcium 9.2 mg/dl (8.6-10.3); Creatinine Clr Calc Pharmacy 55.6 ml/min; Est GFR (African American) 61.7 ml/min; Est GFR (Non-African American) 53.3 ml/min; Globulin 2.5 gm/dl (2.5-4.0); Potassium 4.2 mmol/L (3.5-5.1); Total Protein 5.9 gm/dl (6.0-8.3)
[2022-12-05 07:23] LABS: Basophils # (auto) 0.05 K/uL (0-0.2); Basophils % (auto) 1.3 %; Eosinophils # (auto) 0.14 K/uL (0-0.50); Eosinophils % (auto) 3.6 %; Hematocrit (blood only) 33.1 % (42.0-52.0); Hemoglobin 11.8 g/dl (14.0-18.0); Immature Granulocytes # (auto) 0.01 K/uL (0.01-0.20); Immature Granulocytes % (auto) 0.3 %; Lymphocytes # (auto) 2.66 K/uL (1.2-3.4); Lymphocytes % (auto) 67.5 %; Mean Corpuscular Hgb Conc 35.6 g/dL (32.0-36.0); Mean Corpuscular Volume 86.9 fL (80.0-100.0); Mean Platelet Volume 11.5 fL (9.4-12.4); Monocytes # (auto) 0.39 K/uL (0.11-0.59); Monocytes % (auto) 9.9 %; Neutrophils # (auto) 0.69 K/uL (1.40-6.50); Neutrophils % (auto) 17.4 %; Platelet Count 92 K/uL (130-400); RDW Coefficient of Variation 12.9 % (11.5-14.5); RDW Standard Deviation 40.9 fL (36.4-46.3); Red Blood Count 3.81 M/uL (4.70-6.10); White Blood Count 3.94 K/ul (4.8-10.8)
[2022-12-05] MEDS: FOLIC ACID 1 MG TAB PO SCH (07:57)
[2022-12-05] MEDS: ATORVASTATIN 40 MG TAB PO SCH (07:57)
[2022-12-05] MEDS: DOXYCYCLINE HYCLATE 100 MG CAP PO SCH (07:57)
[2022-12-05] MEDS: DOCUSATE SODIUM 100 MG CAP PO SCH (08:01)
--- NOTE | 2022-12-05 14:29 | Discharge Summary ---
Date of Service December 05, 2022 Admission HPI Per Admitting Provider Renato is a 77 year old male with a PMH significant for current Large B-Cell Lymphoma undergoing R-CHOP and follows with Dr. Phelan, Status post left nephrectomy for large left renal mass, pericardial effusion, HTN, CKD, h yperparathyroidism, CAD, AAA S/P repair in 2018 who presented to the [facility] ED on 11/30/22 with complaints of fatigue, generalized weakness, nausea, and back pain. In the ED the patient was noted to have a temp of 38.0 C, otherwise vitals were stable. Labs were significant for pancytopenia with stable hgb of 12.6, platelets of 106, and lymphocyte count of 1.06, sodium of 132, initial high sen trop of 778, procal of 0.79. Chest xray was read as No acute cardiopulmonary findings.. CT of the abd/pelvis w/con was read as 1. No acute process within the abdomen or pelvis. 2. Stable stranding within the left nephrectomy bed since PET/CT of November 26, 2021. This is likely postsurgical but can be assessed on follow-up exams. 3. No bowel obstruction. No bowel wall thickening. Normal appendix. 4. Stable postoperative findings following aortoiliac stent graft placement. Stable aneurysm sac size. No rupture.. ECG shows sinus rhythm with PVCs and new inferior infarct. Prior to admission the patient was given a dose of Vancomycin, cefepime, 1L NSS, and 1gm IV acetaminophen. At the time of the exam the patient was lying in bed in no acute distress with his sitting bedside, history was obtained from both. The patient had been in his normal state of health until 11/28. He recently completed his 11/24 round of Chemotherapy on 10/14 and had intrathecal chemotherapy performed by Dr. Phelan on 09/22. On 11/28 he started to develop significant fatigue/generalized weakness. He also noticed mild-moderate lower abd pain which stated in the RLQ and moved laterally to the LLQ, otherwise it has been stable. He denies an fevers, chest pain, headache, neck stiffness, changes in vision, hearing, or smell, cough, vomiting, dysuria hematuria, melena, diarrhea, bloody BM's, LE swelling, wounds, and recent trauma. He did note some nausea but denies any vomiting over this time. Yesterday the patient was in bed and wanted to walk to the bathroom. He thought it would be easier to get himself up off the floor than get out of bed so he slowly lowered himself to the bedroom floor. He was too weak to get himself up and his family had to help him. This am he again tried to get out of bed himself but had to lower himself to the ground due to weakness. He denies any trauma, pain, hitting his head or losing consciousness. His states that the patient was significantly diaphoretic and SOB this am while trying to get up off the ground, she called EMS due to his ongoing symptoms. The patient confirms that he has been without chest discomfort/SOB since arriving to the hospital. He has not experienced significant SOB/VILLEGAS or chest discomfort with recent activity such as going up steps or doing yard work on the morning of 11/28. The patient does not have a previous history of CAD requiring PCI or IRA placement, he was told that he may have had a previous heart attack when he was evaluated for previous inguinal hernia repair approximately 8 years ago. The patient recently had a TTE on 10/23 to evaluate for pericardial effusion noted on outside echo. His TTE noted LVH but was otherwise WNL. The patient is a full code and his son is his POA if he were unable to make medical decisions himself. Principal Diagnosis possible viral illness Discharge Exam The patient is awake, alert and oriented 3, well developed and well nourished, normocephalic and atraumatic, lying in bed and in no acute distress. HEENT--PERRL, EOMI, mucous membranes and oropharynx mildly dry Neck--supple. No JVD. No bruits. Thyroid normal, trachea midline, no adenopathy. Heart--normal S1 and S2. No murmurs, rubs or gallops. Lungs--clear bilaterally, no respiratory distress, no accessory muscle use. Abdomen--normal bowel sounds and soft. Mild epigastric and left sided abdominal pain Extremities--no cyanosis or clubbing. No edema. Dermatologic--normal skin turgor, normal color, no abnormal lymph nodes, no rash. Neurologic--cranial nerves II through XII grossly intact. Rheumatologic--normal range of motion. Psychiatric--normal affect. Discharge Data Allergies Allergy/AdvReac Type Severity Reaction Status Date / Time No Known Allergies Allergy Verified 10/15/22 09:36 Consultations 11/30/22 10:51 ED Decision to Admit Stat 11/30/22 11:02 Consult Cardiology Routine 11/30/22 11:06 Consult Oncology Routine 12/02/22 08:15 Consult Infectious Diseases Routine Ordered Studies 11/30/22 06:53 CT Abd and Pelvis [CT abd pelvis IV con only] Stat 11/30/22 11:17 CT head/brain wo con Urgent Hospital Course (1) Generalized weakness: Etiology is uncertain, could be infectious, hope viral Patient has a history of lymphoma presents with generalized weakness He states his last chemotherapy was in September Upon admission, was febrile, and pancytopenic. Blood cultures were obtained, was empirically started on broad-spectrum IV antibiotics Patient and examined today, feels overall better, no fevers in the last 48 hrs Patient provided a history of recent trip to [place] and [place] Cultures negative so far, will continue only Doxycycline in case of tick borne illness, end date 12/11 ID also requested blood smear for for Anaplasma/Babesia, Babesia PCR, Ehrlichia PCR, and Rickettsia panel Ordered EBV, CMV testing Appreciate ID recs (2) Elevated troponin: Most likely due to demand ischemia type II NSTEMI Has been evaluated by cardiology, no plans for any procedures. Continue to monitor Trend troponins. (3) Pancytopenia: -Has been an ongoing issue with his Chemotherapy -Hgb, platelets, and absolute neutrophils are currently low-normal -appreciate oncology -Neutropenic precautions ordered (4) Hyponatremia: resolved (5) Large B-cell lymphoma: -Follows with Dr. Phelan -Had his 11/24 M-CHOP therapy on 10/14 with his mediport still in place today -Oncology consult placed (6) CAD (coronary artery disease): -Continue atorvastatin if CK is WNL -Follow cardiac workup and consult (7) Benign hypertension: -Stable off Hypertensives -Continue to monitor (8) Port-A-Cath in place: Received an infusion of immune globulin 200mg/kg as recommended by hematology Plan Continue hospitalization , hopefully d/c to snf when accepted Total Time Total Time Spent Total Time Spent (In Minutes): 35 Discharge Plan Discharge Items Patient Disposition: Home - Home Health Services Reason For Visit: GENERALIZED WEAKNESS, FEVER Discharge Diagnosis: possible viral infection Activity: Resume your previous activity Non-emergency contact: Primary Care Provider and Oncologist Call non-emergency contact if: you have any medication questions Follow-up/Referrals: Rickey Murray DO [Primary Care Provider] - 12/10/22 12:00 pm Diet: Regular Addtl Attending Provider Instructions: please make appointment to follow up with your regular oncologist Pending Studies at Discharge: Yes Studies:: erlichosis, CMV Stand-Alone Forms: [facility], Smoking Cessation Medications and DC Order Prescriptions: New doxycycline hyclate 100 mg Capsule 100 mg PO BID 7 Days Qty: 14 0RF folic acid 1 mg Tablet 1 mg PO QAM 30 Days Qty: 30 0RF Continued pantoprazole [Protonix] 20 mg tablet,delayed release (DR/EC) 20 mg PO BID Rx Instructions: Pharmacist at [facility] verified as BID atorvastatin [Lipitor] 40 mg tablet 40 mg PO QAM Rx Instructions: verified with [facility] home delivery docusate sodium [Stool Softener] 100 mg Tablet 100 mg PO DAILY Rx Instructions: Pharmacist unable to verify loratadine [Claritin] 10 mg Tablet 10 mg PO QAM Rx Instructions: Pharmacist unable to verify Discharge Orders: Discharge Order (Routine); Ordered 12/05/22 Ordered By: Jasen Harry Admission Data Admit Date/Time: 11/30/22 10:27 Attending Provider: Jasen Harry Admit Provider: Juan Barrios Primary Care Provider: Rickey Murray Other Providers: Juan Barrios ; Chris Mccarthy ; Roberta Heller ; [facility] ; Sonam Rogers ; Yordan Randolph ; Sarah Holloway ; Girma Fu ; Janell Martin ; Cony Love ; Debbie Lagnston Antonie J. ; Desirae Krishna Other Interventions: Discharge Summary Assessment (RN) Last Done: 12/05/22 13:25 Coding Level of Care Code 70691 INP/OBS DISCH >30 MIN Diagnoses Generalized weakness R53.1 Elevated troponin R77.8 Pancytopenia D61.818 Hyponatremia E87.1 Large B-cell lymphoma C85.10 CAD (coronary artery disease) I25.10 Benign hypertension I10 Port-A-Cath in place Z95.828 Time Spent (min) 35
[2022-12-09 01:06] LABS: Ehrlichia chaff DNA Bld Negative (Negative)
[2022-12-09 22:07] LABS: Babesia microti DNA Not Detected (Not Detected); CMV IgM Antibody <30.00 AU/mL; Q Fever IgG, Phase I NEGATIVE; Q Fever Phase I IgM Antibody NEGATIVE; Q Fever Phase II IgG Antibody NEGATIVE; Q Fever Phase II IgM Antibody NEGATIVE; R. typhi IgG Ab NOT DETECTED; R. typhi IgM Ab NOT DETECTED; RMSF IgG Ab NOT DETECTED; RMSF IgM Ab NOT DETECTED
== END 2022-12-05 13:57 | disposition home or self-care (01) | DRG 865 ==
LOC: ED 06:32 → SUATTDRO 10:27 → 1E 10:27 → 2E 12-01 20:18

== ENCOUNTER 2023-12-15 04:45 | Inpatient (IN) ==
--- NOTE | 2023-12-15 05:03 | Emergency Department Note ---
Impression & Plan Acute cholecystitis, Acute upper abdominal pain, Nausea & vomiting ED Provider Note NAME: REMY LARA AGE: 78 SEX: M : 1945 ARRIVES VIA: Ambulance INFORMANT: Patient, , daughter ED PROVIDER(S): Mick Hobson MD CHIEF COMPLAINT: Abdominal pain, nausea vomiting MEDICAL DECISION MAKING: Patient presented due to concern for abdominal pain nausea vomiting preceded by diarrhea. IV was established and blood work was obtained. Empiric Zosyn IV fluids and IV morphine were ordered along with IV Zofran. Blood work shows a white count of 18 anemia hemoglobin of 13.2. Mild thrombocytopenia of 84. The patient does have potassium 3.2 creatinine 1.79. Decision was made to do CT without contrast given the patient's elevated creatinine and associated single kidney. Initial lactate is 2.6. Magnesium low 1.2 and was ordered a gram for replete meant. Troponin of 46.5 no reported chest pains or shortness of breath. EKG did show some possible slight ST depressions but morphology looks similar to comparison EKG from last year patient does have transaminitis but bilirubin is normal. AST and ALT of 95 166 respectively. Given this with the patient stating that he has had symptoms of prior Anaplasma smear as well as Anaplasma labs ordered. Procalcitonin 1. Urinalysis does not show evidence of obvious infection. CT concerning for acute cholecystitis. I did speak with the on-call general surgery service Alexis Humphreys PA-C who did evaluate the patient recommended medical admission. I subsequently did speak with Dr. Munoz and the patient was admitted to the medicine service. Patient was ordered additional IV pain medication and IV fluids. Discussion w/ other healthcare providers: Alexis Humphreys PA-C with Dr. Magdaleno general surgery Dr. Munoz inpatient medicine service Prior /Outside records reviewed: None Differential diagnosis: Appendicitis, testicular torsion, UTI, diverticulitis, obstruction, renal colic, mesenteric adenitis, enteririts, PUD, pancreatitis, biliary pathology, hernia, volvulus, constipation, as well as other pathologies were considered. Diagnostics, as interpreted by me: ECG: Sinus tachycardia, rate of 120, PVCs noted, normal TX and QRS, prolonged QTc, normal axis. No ST elevations, ST depressions noted in the anterior lateral leads. Morphology does look similar from comparison EKG from December 02, 2022 though sinus rhythm has replaced junctional rhythm. Cardiac monitoring: An order was placed for continuous cardiac monitoring. The monitor shows a rate of 102 with tachycardic and regular rhythm. Patient was placed on pulse oximetry Medical decision rules: None Imaging studies: I informally interpreted the patient's chest x-ray does not show obvious pneumonia or pneumothorax with formal report to follow. HPI: Patient presents due to concern for abdominal pain nausea vomiting. The patient states that he began having symptoms around 2 AM this morning. The patient does have a prior history of non-Hodgkin's lymphoma currently in remission. Also recent history of lobectomy completed due to concern for lung malignancy at [facility] about 5 weeks ago. Patient denies any cough. No fevers but has felt chilled. Patient states that his symptoms began 5 days ago with associated diarrhea felt fairly well yesterday and then had worsening symptoms today. Patient does follow with Dr. Herrera and has been receiving this several rounds of chemotherapy. Patient denies any blood in the stool. No blood in the vomit. He denies any alcohol or tobacco use. Patient states that his pain is in the upper abdomen and does still have his gallbladder. PAST MEDICAL HISTORY: See Below PAST SURGICAL HISTORY: See Below SOCIAL HISTORY: See Below HOME MEDICATIONS: See Below ALLERGIES: See Below VITALS: See Below PHYSICAL EXAMINATION: GENERAL: NAD, non-toxic. EYE EXAM: Normal conjunctiva. PERRL, no anisocoria and EOM's grossly intact w/o pain. OROPHARYNX: Dry mucus membranes, grossly normal dentition. NECK: Trachea midline, no stridor. Chest: Port noted in right chest. LUNGS: Clear to auscultation. Normal chest wall mechanics. HEART: Tachycardic and regular, no MRG. ABDOMEN: Abdomen soft, upper abdominal pain without lower abdominal pain, no masses, no rebound or guarding. BACK: No CVA TTP. SKIN: No rashes and no bruising. UPPER EXTREMITIES: Upper extremities are grossly normal. LOWER EXTREMITIES: Grossly normal, no edema. NEURO EXAM: A&O x3, cranial nerves II-XII grossly intact, normal speech, moves all 4 extremities. Past Med/Surg History Problem List (Updated 12/15/23 @ 08:14 by Mick Hobson MD) Nausea & vomiting (Acute) Acute upper abdominal pain (Acute) Acute cholecystitis (Acute) Acute cholecystitis Lung nodule, solitary Fever (Acute) Hyponatremia Pancytopenia Elevated troponin Generalized weakness Pericardial effusion Port-A-Cath in place (06/24/22) Insertion Access Port with Fluoroscopy(right internal jugular vein) - Trever Lomeli DO, MICHELLE Benign hypertension Hx of transient ischemic attack (TIA) patient states that doctors felt he may have had a mini stroke in his 60s. pts denies this Former smoker Arthritis Hyperparathyroidism Osteopenia History of colon polyps Large B-cell lymphoma Encounter for insertion of venous access port CAD (coronary artery disease) Per 12/2021 PCP note- followed with cardio/last cardio work up 6-8 years ago- currently asymptomatic AAA (abdominal aortic aneurysm) S/p AAA repair 2018. 03/2022 abdomen/pelvis CT shows s/p aortobiliac stent graft repair- stent graft is patent. Residual aneurysm sac measures 6.3 x 5.0 cm Impaired fasting glucose Hgb A1C 12/2021 = 6.0 Hyperlipidemia Renal Mass Following w/ Dr Phelan at [facility] Stage 3 chronic kidney disease Medical History Large B-cell lymphoma History of COVID-2019- fever, body aches, BOX, fatigue, lethargy-, no hospitalization, resolved Emphysema lung Hyperparathyroidism Hx; s/p parathyroid surgery. Stable per 12/2021 PCP visit COPD (chronic obstructive pulmonary disease) HTN (hypertension) Degenerative disc disease History of duodenal ulcer Surgical History History of bone marrow biopsy 05/2022 [facility] History of left nephrectomy 05/12/22 [facility] History of colonoscopy 11/2021 History of parathyroid surgery 01-08-21 Surgical removal of the right upper and left lower parathyroid glands History of umbilical hernia repair 2014 [place], [place] History of wisdom tooth extraction History of abdominal aortic aneurysm (AAA) repair [address] Jimenez Family History Mother Family history of diabetes mellitus Atrial fibrillation Glioblastoma Father Atrial fibrillation Aunt Breast cancer Son Cancer melanoma Other No family history of adverse response to anesthesia Denies family history of Ovarian cancer Prostate cancer Myocardial infarction Colorectal cancer Social History Smoking Status: Former smoker Tobacco Type: Cigarettes Second Hand Exposure: No; Do You Dip or Chew Tobacco: No; Hx Alcohol Use: No Hx Substance Use: No Preferred Language: Gambian Communication Ability: Effective Communication Ability Comment: PHONE INTERVIEW DONE WITH NELSY ([facility] CONTACT) Visual Impairment: No Limitations Hearing Ability: Normal Monologist Required: No Beliefs That Will Affect Care: None marital status: Current Living Situation: Spouse current occupational status: retired How many Children do You have: 2 Feels Safe at Home: Yes Diet: regular caffeine: Yes during the past year weight has: decreased > 10 lbs Dental Care, Regularly: No Physical Activity Frequency: Daily Seatbelt Use: always Sunscreen Use: Yes Assistive Devices: Cane Allergies Allergies Allergy/AdvReac Type Severity Reaction Status Date / Time No Known Allergies Allergy Verified 04/26/23 11:21 Home Meds Home Medications Medication Instructions Recorded Confirmed pantoprazole 20 mg tablet,delayed 20 mg PO BID 07/09/22 04/26/23 release (Protonix) docusate sodium 100 mg tablet 100 mg PO DAILY 07/22/22 04/26/23 (Stool Softener) loratadine 10 mg tablet (Claritin) 10 mg PO QAM 08/11/22 04/26/23 Previous Rx's Medication Instructions Recorded atorvastatin 40 mg tablet (Lipitor) 40 mg PO QAM #30 tabs 03/11/23 losartan 25 mg tablet 25 mg PO DAILY #90 tabs 04/26/23 Results & Data (ED) Vital Signs Vital Signs - 24 hr 12/15/23 04:54 12/15/23 04:59 12/15/23 05:18 Temperature 37.6 C H Temperature Source Oral Pulse Rate 114 H 117 H Pulse Rhythm Regular Pulse Strength Normal Respiratory Rate 16 Respiratory Effort / Characteristics Non-Labored Respiratory Depth Normal Respiratory Pattern Regular Blood Pressure 120/73 Blood Pressure Mean 88 Pulse Oximetry 98 98 Oxygen Delivery Method Room Air Nasal Cannula Oxygen Flow Rate 2 Sepsis Recent Fever Within 48 Hours Yes Sepsis New/Unexplained Change in Mental Status N/A Sepsis Action Taken by Nursing No Action Required Home Medications Current Medication List: was personally reviewed by me Laboratory Data Attestation: I reviewed the patient's lab results. 12/15/23 05:00 12/15/23 05:00 Lab Results 12/15/23 12/15/23 Range/Units 05:00 Unknown WBC 18.53 H (4.8-10.8) K/ul RBC 4.37 L (4.70-6.10) M/uL Hgb 13.2 L (14.0-18.0) g/dl Hct 36.9 L (42.0-52.0) % MCV 84.4 (80.0-100.0) fL MCH 30.2 (25.0-34.0) pg MCHC 35.8 (32.0-36.0) g/dL RDW Std Deviation 40.7 (36.4-46.3) fL RDW Coeff of Sasha 13.3 (11.5-14.5) % Plt Count 84 L (130-400) K/uL MPV 10.3 (9.4-12.4) fL Immature Gran % (Auto) 3.0 % Neut % (Auto) 83.7 % Lymph % (Auto) 5.9 % [place] % (Auto) 6.7 % Eos % (Auto) 0.3 % Baso % (Auto) 0.4 % Neut # (Auto) 15.51 H (1.40-6.50) K/uL Lymph # (Auto) 1.09 L (1.20-3.40) K/uL [place] # (Auto) 1.25 H (0.11-0.59) K/uL Eos # (Auto) 0.06 (0.00-0.50) K/uL Baso # (Auto) 0.07 (0.00-0.20) K/uL Immature Gran # (Auto) 0.55 H (0.01-0.20) K/uL Toxic Granulation 1+ Dohle Bodies 1+ Platelet Estimate Decreased L (Normal) Polychromasia 1+ Sodium 134 L (136-145) mmol/L Potassium 3.2 L (3.5-5.1) mmol/L Chloride 101 (98-107) mmol/L Carbon Dioxide 23 (21-32) mmol/L Anion Gap 10 (3-11) BUN 22 (6-23) mg/dl Creatinine 1.79 H (0.6-1.4) mg/dl Est Cr Clr Drug Dosing 40.1 ml/min Est GFR ( Amer) 40.9 ml/min Est GFR (Non-Af Amer) 35.3 ml/min BUN/Creatinine Ratio 12.3 (10-20) Glucose 147 H (70-99(Fasting)) mg/dl Lactate 2.6 H* (0.4-2.0) mmol/L Calcium 8.6 (8.6-10.3) mg/dl Magnesium 1.2 L (1.7-2.4) mg/dl Total Bilirubin 0.7 (0.2-1.0) mg/dl Direct Bilirubin 0.3 H (0-0.2) mg/dl AST 95 H (13-39) U/L ALT 166 H (7-52) U/L Alkaline Phosphatase 206 H (34-104) U/L Troponin I High Sens 46.5 H (0-20) pg/ml Total Protein 6.3 (6.0-8.3) gm/dl Albumin 3.8 (3.4-5.0) gm/dl Procalcitonin 1.06 H (0-0.5) ng/ml Urine Color Yellow Urine Appearance Clear (Clear) Urine pH 5.0 (4.5-7.5) Ur Specific [place] 1.015 (1.000-1.030) Urine Protein 1+ H (Negative) Urine Glucose (UA) Negative (Negative) Urine Ketones Negative (Negative) Urine Blood Negative (Negative) Urine Nitrite Negative (Negative) Urine Bilirubin Negative (Negative) Urine Urobilinogen Negative (Negative) Ur Leukocyte Esterase Negative (Negative) Urine WBC (Auto) 0-5 (0-5) /hpf Urine RBC (Auto) 0-2 (0-2) /hpf U Hyaline Cast (Auto) 3-5 H (0-2) /lpf U Epithel Cells (Auto) 0-2 (0-2) /hpf Urine Bacteria (Auto) None Seen (None Seen) Administered Medications Morphine Sulfate (Morphine Sulfate 10 Mg/Ml Carp/Vial) 6 mg IV Q2H PRN PRN Reason: Pain Stop: 12/29/23 06:35 Last Admin: 12/15/23 07:42 Dose: 6 mg Documented By: FERN Discontinued Medications Sodium Chloride (Nss) 1,000 mls @ 999 mls/hr IV .Q1H1M DEO Stop: 12/15/23 07:15 Last Admin: 12/15/23 07:41 Dose: 999 mls/hr Documented By: Infusion: 12/15/23 06:40 Dose: Infused Documented By: [facility] Admin: 12/15/23 05:32 Dose: 999 mls/hr Documented By: CLAIRE Piperacillin Sod/Tazobactam Sod (Zosyn) 4.5 gm in 100 mls @ 200 mls/hr IV NOW STA Stop: 12/15/23 05:44 Last Infusion: 12/15/23 06:17 Dose: Infused Documented By: [facility] Admin: 12/15/23 05:47 Dose: 200 mls/hr Documented By: CLAIRE Acetaminophen (Ofirmev) 1,000 mg in 100 mls @ 400 mls/hr IV NOW STA Stop: 12/15/23 05:29 Last Infusion: 12/15/23 06:17 Dose: Infused Documented By: [facility] Admin: 12/15/23 05:32 Dose: 400 mls/hr Documented By: CLAIRE Famotidine (Pepcid 20mg Iv Push) 20 mg in 5 mls @ 2.5 mls/min IV NOW STA Stop: 12/15/23 05:18 Last Admin: 12/15/23 05:36 Dose: 2.5 mls/min Documented By: CLAIRE Doxycycline Hyclate 100 mg/ (Dextrose) 100 mls @ 50 mls/hr IV NOW STA Stop: 12/15/23 08:31 Last Admin: 12/15/23 07:28 Dose: Not Given Documented By: FERN Sodium Chloride (Nss) 1,000 mls @ 999 mls/hr IV .Q1H1M ONE Stop: 12/15/23 07:38 Last Admin: 12/15/23 07:41 Dose: 999 mls/hr Documented By: FERN Magnesium Sulfate/Dextrose (Magnesium Sulfate / D5w) 1 gm in 100 mls @ 100 mls/hr IV NOW STA Stop: 12/15/23 07:39 Last Admin: 12/15/23 07:41 Dose: 100 mls/hr Documented By: FERN Morphine Sulfate (Morphine Sulfate 4 Mg/Ml 1 Ml Carp\Vial) 4 mg IV NOW STA Stop: 12/15/23 05:18 Last Admin: 12/15/23 05:29 Dose: 4 mg Documented By: CLAIRE Imaging Data Radiologist's Impression: Chest X-Ray 12/15/23 05:15 XR chest 1V portable CLINICAL HISTORY: Sepsis TECHNIQUE: Single frontal radiograph of the chest was obtained. Comparison: Comparison is made to chest radiograph 11/30/2022 FINDINGS: A port catheter is seen. Cardiomegaly is noted. The aortic arch is calcified. Prominence and cephalization of the vasculature is seen. No evidence of pleural effusion or pneumothorax. IMPRESSION: Cardiomegaly and mild pulmonary edema, increased from prior exam. No definite airspace opacities to suggest pneumonia. ACT 112: Negative or not required by law. Electronically signed by: Hu Salvador M.D. 12/15/2023 7:49 AM Abdomen/Pelvis CT 12/15/23 05:42 CT OF THE ABDOMEN AND PELVIS WITHOUT CONTRAST CLINICAL HISTORY: Upper abdominal pain. COMPARISON STUDY: CT of the abdomen and pelvis May 21, 2023. Head CT September 16, 2023. TECHNIQUE: Axial images of the abdomen and pelvis were obtained without IV contrast. Images were reviewed in the axial, sagittal, and coronal planes. Automated exposure control was utilized for the study. A dose lowering technique was utilized adhering to the principles of ALARA. FINDINGS: Lung bases are unremarkable. No pneumatosis, free air or portal venous gas is present. The appearance of the left nephrectomy bed is unchanged. A water attenuation 3.9 cm right renal lesion is suboptimally assessed on unenhanced exam but favors a cyst. There are no urinary calculi and there is no hydronephrosis. Prostate is enlarged. Evaluation of the abdomen and pelvis is suboptimal on this unenhanced exam. The gallbladder is distended with moderate pericholecystic stranding. There is a 9 mm stone within the gallbladder neck. Additional gallstones are present. No biliary or pancreatic ductal dilatation is present. Unenhanced images of the spleen, adrenal glands and pancreas are unremarkable. Status post placement of a bifurcated aortoiliac stent graft. Aneurysm sac is unchanged, measuring 6.8 x 5.8 cm. No evidence for rupture. Aneurysmal dilatation of the bilateral common iliac arteries is also unchanged. No evidence for a bowel obstruction. No bowel wall thickening on unenhanced exam. Normal appendix. No abdominal or pelvic lymphadenopathy. No acute fractures within the visualized skeletal structures. IMPRESSION: 1. Findings consistent with acute cholecystitis. 2. No bowel obstruction. No bowel wall thickening on unenhanced exam. 3. Stable postprocedural findings following placement of a bifurcated aortoiliac stent graft. Stable aneurysm sac size. ACT 112: Negative or not required by law. Electronically signed by: Martinez Manuel M.D. 12/15/2023 6:31 AM Discharge Plan Visit Data Chief Complaint: Abdominal Pain Stated Complaint: ABDOMINAL PAIN, N/V/D, CHEMO PT ED Provider: Mick Hobson Discharge Problem: Acute cholecystitis, Acute upper abdominal pain, Nausea & vomiting Forms Stand Alone Forms: [id number] Prescriptions Prescriptions: No Action atorvastatin [Lipitor] 40 mg tablet 40 mg PO QAM Qty: 30 0RF Rx Instructions: verified with [facility] home delivery pantoprazole [Protonix] 20 mg tablet,delayed release (DR/EC) 20 mg PO BID Rx Instructions: Pharmacist at [facility] verified as BID losartan 25 mg tablet 25 mg PO DAILY Qty: 90 3RF docusate sodium [Stool Softener] 100 mg Tablet 100 mg PO DAILY Rx Instructions: Pharmacist unable to verify loratadine [Claritin] 10 mg Tablet 10 mg PO QAM Rx Instructions: Pharmacist unable to verify Referrals Referrals: Rickey Murray DO [Physician] - Discharge Problem: Nausea & vomiting Qualifiers: Vomiting type: unspecified Qualified Code(s): R11.2 - Nausea with vomiting, unspecified
[2023-12-15] MEDS: MoRPHine SULFATE 4 MG/ML 1 ML CARP\\VIAL IV STA (05:29)
[2023-12-15] MEDS: SODIUM CHLORIDE 0.9% 1,000 ML IV SCH (05:32)
[2023-12-15] MEDS: ACETAMINOPHEN 1,000 MG/100 ML VIAL IV STA (05:32)
[2023-12-15] MEDS: FAMOTIDINE 20MG IV PUSH 20 MG/5 ML SYR IV STA (05:36)
[2023-12-15] MEDS: PIPERACILLIN/TAZOBACTAM 4.5 GM/100 ML BAG IV STA (05:47)
[2023-12-15 05:48] LABS: Albumin Level 3.8 gm/dl (3.4-5.0); BUN Creatinine Ratio 12.3 (10-20); Bilirubin Direct 0.3 mg/dl (0-0.2); Bilirubin,Total 0.7 mg/dl (0.2-1.0); Calcium 8.6 mg/dl (8.6-10.3); Creatinine Clr Calc Pharmacy 40.1 ml/min; Est GFR (African American) 40.9 ml/min; Est GFR (Non-African American) 35.3 ml/min; Magnesium 1.2 mg/dl (1.7-2.4); Potassium 3.2 mmol/L (3.5-5.1); Total Protein 6.3 gm/dl (6.0-8.3)
[2023-12-15 05:54] LABS: Troponin I High Sensitivity 46.5 pg/ml (0-20)
[2023-12-15 06:06] LABS: Appearance Urine Clear (Clear); Bacteria Urine Automated None Seen (None Seen); Bilirubin Urine Negative (Negative); Blood Urine Negative (Negative); Color Urine Yellow; Epithelial Cell Urine Auto 0-2 /hpf (0-2); Glucose Urine UA Negative (Negative); Ketones Urine Negative (Negative); Leukocyte Esterase Urine Negative (Negative); Nitrite Urine Negative (Negative); Protein Urine 1+ (Negative); RBC Urine Automated 0-2 /hpf (0-2); Specific Gravity Urine 1.015 (1.000-1.030); Urobilinogen Urine Negative (Negative); WBC Urine Automated 0-5 /hpf (0-5)
[2023-12-15 06:10] LABS: Basophils # (auto) 0.07 K/uL (0.00-0.20); Basophils % (auto) 0.4 %; Dohle Bodies 1+; Eosinophils # (auto) 0.06 K/uL (0.00-0.50); Eosinophils % (auto) 0.3 %; Hematocrit (blood only) 36.9 % (42.0-52.0); Hemoglobin 13.2 g/dl (14.0-18.0); Immature Granulocytes # (auto) 0.55 K/uL (0.01-0.20); Lymphocytes # (auto) 1.09 K/uL (1.20-3.40); Lymphocytes % (auto) 5.9 %; Mean Corpuscular Hemoglobin 30.2 pg (25.0-34.0); Mean Corpuscular Hgb Conc 35.8 g/dL (32.0-36.0); Mean Corpuscular Volume 84.4 fL (80.0-100.0); Mean Platelet Volume 10.3 fL (9.4-12.4); Monocytes # (auto) 1.25 K/uL (0.11-0.59); Monocytes % (auto) 6.7 %; Neutrophils # (auto) 15.51 K/uL (1.40-6.50); Neutrophils % (auto) 83.7 %; Platelet Count 84 K/uL (130-400); Platelet Estimate Decreased (Normal); Polychromasia 1+; RDW Coefficient of Variation 13.3 % (11.5-14.5); RDW Standard Deviation 40.7 fL (36.4-46.3); Red Blood Count 4.37 M/uL (4.70-6.10); Toxic Granulation 1+; White Blood Count 18.53 K/ul (4.8-10.8)
--- NOTE | 2023-12-15 06:32 | CT Scan Report ---
CT OF THE ABDOMEN AND PELVIS WITHOUT CONTRAST CLINICAL HISTORY: Upper abdominal pain. COMPARISON STUDY: CT of the abdomen and pelvis May 21, 2023. Head CT September 16, 2023. TECHNIQUE: Axial images of the abdomen and pelvis were obtained without IV contrast. Images were revi ewed in the axial, sagittal, and coronal planes. Automated exposure control was utilized for the vitaliy dy. A dose lowering technique was utilized adhering to the principles of ALARA. FINDINGS: Lung bases are unremarkable. No pneumatosis, free air or portal venous gas is present. The appearance of the left nephrectomy bed is unchanged. A water attenuation 3.9 cm right renal lesion is suboptimally assessed on unenhanced exam but favors a cyst. There are no urinary calculi and there i s no hydronephrosis. Prostate is enlarged. Evaluation of the abdomen and pelvis is suboptimal on this unenhanced exam. The gallbladder is distended with moderate pericholecystic stranding. There is a 9 mm stone within the gallbladder neck. Additional gallstones are present. No biliary or pancreatic good tyler dilatation is present. Unenhanced images of the spleen, adrenal glands and pancreas are unremarka ble. Status post placement of a bifurcated aortoiliac stent graft. Aneurysm sac is unchanged, measuri ng 6.8 x 5.8 cm. No evidence for rupture. Aneurysmal dilatation of the bilateral common iliac arterie s is also unchanged. No evidence for a bowel obstruction. No bowel wall thickening on unenhanced exam . Normal appendix. No abdominal or pelvic lymphadenopathy. No acute fractures within the visualized s keletal structures. IMPRESSION: 1. Findings consistent with acute cholecystitis. 2. No bowel obstruction. No bowel wall thickening on unenhanced exam. 3. Stable postprocedural findings following placement of a bifurcated aortoiliac stent graft. Stable aneurysm sac size. ACT 112: Negative or not required by law. Electronically signed by: Martinez Manuel M.D. 12/15/2023 6:31 AM
--- NOTE | 2023-12-15 07:06 | Surgery Consultation ---
Date of Consultation December 15, 2023 Assessment & Plan (1) Acute cholecystitis: I discussed with the treating clinician in the emergency department the patient is being admitted to the medical service. From surgery perspective we recommend the following: Analgesics to be provided Antiemetics to be provided Would recommend implementing and maintaining n.p.o. status IV fluid should be provided for hydration, supplementing his electrolyte deficiencies Would recommend initiating antibioticsthe emergency department has already initiated Zosyn which should continue Serial labs to be followed I did had a lengthy discussion with the patient and his family who are present at bedside. I did note that due to cholecystitis cholecystectomy is usually the procedure of choice however due to the patient's diagnosis of lung cancer and the fact that he is receiving chemotherapy raises a concern patient may benefit from a less invasive procedure such as percutaneous percutaneous cholecystostomy. Discussed case with my attending physician Dr. Wayne Luna who will evaluate the patient in determine the best course of action. Additional recommendations be forthcoming based on his clinical course as unfolds Supervising Physician Co-Signing Physician Notes I personally saw and evaluated the patient with Anuel Humphreys PA-C and agree with the assessment and plan. 78 yo male on active chemotherapy for left lung AdenoCa here with acute cholecystitits His CT images and results were personally viewed and interpreted by myself He has a fair amount of inflammation around a distended gallbladder With his active chemotherapy and history of multiple abdominal surgeries, would recommend cholecystostomy tube placement No plans for cholecystectomy Plan would be to see him as an outpatient after this acute episode resolves and determine whether cholecystectomy would be prudent after he is finished with chemotherapy Will continue to follow History of Present Illness Reason for Consultation: Acute cholecystitis History of Present Illness This is a 78-year-old male who presented to the emergency department secondary to abdominal pain. Patient notes that the pain has been present for approximately 2 days and is worse after eating. The pain is located in the epigastric area and to a greater extent the right upper quadrant without radiation. He does not report any additional modifying factors to his pain. He has had associated nausea and vomiting and has been running low-grade fevers of approximately 100.6. The patient has multiple medical problems. 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 He does note that the lymphoma is in remission and he is not actively receiving treatment for this. He is also undergone a left upper lobe lung partial lobectomy secondary to cancer and the patient is currently receiving chemotherapy. His most recent chemotherapy session was 2.5 weeks ago and his next session is due on December 20 of this year. Patient also has had an abdominal aneurysm repaired via a stent graft. The patient does report that when he is feeling well he is quite active and he does not get chest pain or shortness of breath with his day-to-day activities. Since arrival to hospital the patient has had labs and imaging which I independent reviewed. The patient had a CT scan of the abdomen pelvis which showed the patient had a 9 mm stone in the gallbladder neck with additional gallstones present. The interpreting radiologist felt the appearance of the gallbladder was consistent with acute cholecystitis. Labs included CBC her white blood cell count was elevated 18.5. Hemoglobin and hematocrit were 13.2 and 36.9. Platelet count was 84,000. Chemistry profile showed sodium and potassium are 134 and 3.2. BUN and creatinine were 22 and 1.7. Lactic acid had a slight elevation at 2.6. Magnesium level was low at 1.2. His total bilirubin was within normal range. His AST and ALT were 95 and 166 respectively and his alkaline phosphatase was 206. At the time of my interview he was resting comfortably in bed he was in no distress. Allergies Allergy/AdvReac Type Severity Reaction Status Date / Time No Known Allergies Allergy Verified 12/15/23 08:30 Home Medications Medication Instructions Recorded Confirmed Type pantoprazole 20 mg tablet,delayed 20 mg PO QPM 07/09/22 12/15/23 History release (Protonix) docusate sodium 100 mg tablet 100 mg PO DAILY 07/22/22 12/15/23 History (Stool Softener) atorvastatin 40 mg tablet (Lipitor) 40 mg PO QAM #30 tabs 03/11/23 12/15/23 Rx folic acid 1 mg tablet 1 mg PO DAILY 12/15/23 12/15/23 History Patient History Medical History Large B-cell lymphoma History of COVID-2019- fever, body aches, BOX, fatigue, lethargy-, no hospitalization, resolved Emphysema lung Hyperparathyroidism Hx; s/p parathyroid surgery. Stable per 12/2021 PCP visit COPD (chronic obstructive pulmonary disease) HTN (hypertension) Degenerative disc disease History of duodenal ulcer Surgical History History of bone marrow biopsy 05/2022 [facility] History of left nephrectomy 05/12/22 [facility] History of colonoscopy 11/2021 History of parathyroid surgery 01-08-21 Surgical removal of the right upper and left lower parathyroid glands History of umbilical hernia repair 2014 [place], [place] History of wisdom tooth extraction History of abdominal aortic aneurysm (AAA) repair [address] Jimenez Family History Mother Family history of diabetes mellitus Atrial fibrillation Glioblastoma Father Atrial fibrillation Aunt Breast cancer Son Cancer melanoma Other No family history of adverse response to anesthesia Denies family history of Ovarian cancer Prostate cancer Myocardial infarction Colorectal cancer Social History Smoking Status: Former smoker Tobacco Type: Cigarettes Second Hand Exposure: No; Do You Dip or Chew Tobacco: No; Hx Alcohol Use: No Hx Substance Use: No Preferred Language: Malian Communication Ability: Effective Communication Ability Comment: PHONE INTERVIEW DONE WITH NELSY (HIPPA CONTACT) Visual Impairment: No Limitations Hearing Ability: Normal Food Service Worker Required: No Beliefs That Will Affect Care: None marital status: Current Living Situation: Spouse current occupational status: retired How many Children do You have: 2 Feels Safe at Home: Yes Diet: regular caffeine: Yes during the past year weight has: decreased > 10 lbs Dental Care, Regularly: No Physical Activity Frequency: Daily Seatbelt Use: always Sunscreen Use: Yes Assistive Devices: Cane Physical Exam Constitutional: WD/WN, vitals as above Eyes: + anicteric sclerae ENMT: Ears: no hearing impairment and no external ear abnormality Mouth: no oropharynx abnormality Neck: trachea midline Respiratory: normal respiratory effort; no respiratory distress and no labored breathing Cardiovascular: Rate/Rhythm: regular rate and regular rhythm Gastrointestinal (Abdomen): Patient's abdomen is rotund with minimal distention. There is no rebound tenderness or guarding. Patient did have pain with palpation greatest in the right upper quadrant Musculoskeletal: No calf tenderness Skin: no rashes Neurologic: moves all extremities Psychiatric: A+Ox3, euthymic affect Results & Data Vital Signs (Past 12 Hours) Vital Signs Temp Pulse Resp BP Pulse Ox O2 Del Method O2 Flow Rate 12/15/23 05:18 98 Nasal Cannula 2 12/15/23 04:59 117 H 12/15/23 04:54 37.6 C H 114 H 16 120/73 98 Room Air PG Care Time/CCT Total # of Minutes Spent Total Time Spent with Patient: Total time spent is greater than 50% in coordination of care (as documented) at patient's floor/unit and/or counseling patient: Coding Level of Care Code 73516 INT INP/OBS CARE 75MIN Diagnoses Acute cholecystitis K81.0
[2023-12-15] MEDS ORDERED: ONDANSETRON INJ 2 MG/ML 2 ML VIAL IV PRN (07:25)
[2023-12-15] MEDS: DOXYCYCLINE HYCLATE 100 MG in DEXTROSE 5% MINI-B 100 ML IV STA (07:28)
--- NOTE | 2023-12-15 07:32 | History & Physical Report ---
Date of Service December 15, 2023 Assessment & Plan (1) Acute cholecystitis: Plan: acute cholecystitis in a 78 yo male with tachycardia, elevated Lactic acidosis, severe sepsis Admit to PCU. Patient will be NPO. consult general surgery for either percutaneous cholecystectomy vs lap cholecystectomy. Placed on zosyn IV. will continue to monitor. (2) Fever: Plan: due to above. (3) Hyponatremia: Plan: mild hyponatremia at 134, will monitor. (4) Pancytopenia: Plan: Pancytopenia (except for neutrophils) from chemotherapy. History of Present Illness Chief Complaint: abdominal pain Primary Care Provider: [facility] 78 yo male with significant PMH of Non hodgkin b cell lymphoma treated with resection and chemotherapy about 2 years ago, adenocarcinoma of the lung resected in October, recent first of 3 sessions of chemotheray completed last Wednesday, presents to the hospital with worsening GI symptoms which began on . Patient has noticed worsening flatulence since chemotherapy had begun. However patient felt well on Wednesday and , but then developed diarrhea on Wednesday and Wednesday. His symptoms worsened on Wednesday where he had some abdominal pain, lack of appetite and nausea. Patient reports on Wednesday (yesterday), his appetite improved and he box dice cream cookies, along with other food. Patient states last night, his symptoms returned with severe abdominal pain in the RUQ. Patient reports this is similar to when he had anaplasmosis during his last admission here on 11/2022. Allergies Allergy/AdvReac Type Severity Reaction Status Date / Time No Known Allergies Allergy Verified 12/15/23 08:30 Home Medications Medication Instructions Recorded Confirmed Type pantoprazole 20 mg tablet,delayed 20 mg PO QPM 07/09/22 12/15/23 History release (Protonix) docusate sodium 100 mg tablet 100 mg PO DAILY 07/22/22 12/15/23 History (Stool Softener) atorvastatin 40 mg tablet (Lipitor) 40 mg PO QAM #30 tabs 03/11/23 12/15/23 Rx folic acid 1 mg tablet 1 mg PO DAILY 12/15/23 12/15/23 History Past Med/Surg History Problem List Nausea & vomiting (Acute) Acute upper abdominal pain (Acute) Acute cholecystitis (Acute) Acute cholecystitis Lung nodule, solitary Fever (Acute) Hyponatremia Pancytopenia Elevated troponin Generalized weakness Pericardial effusion Port-A-Cath in place (06/24/22) Insertion Access Port with Fluoroscopy(right internal jugular vein) - Trever Lomeli DO, MICHELLE Benign hypertension Hx of transient ischemic attack (TIA) patient states that doctors felt he may have had a mini stroke in his 60s. pts denies this Former smoker Arthritis Hyperparathyroidism Osteopenia History of colon polyps Large B-cell lymphoma Encounter for insertion of venous access port CAD (coronary artery disease) Per 12/2021 PCP note- followed with cardio/last cardio work up 6-8 years ago- currently asymptomatic AAA (abdominal aortic aneurysm) S/p AAA repair 2018. 03/2022 abdomen/pelvis CT shows s/p aortobiliac stent graft repair- stent graft is patent. Residual aneurysm sac measures 6.3 x 5.0 cm Impaired fasting glucose Hgb A1C 12/2021 = 6.0 Hyperlipidemia Renal Mass Following w/ Dr Phelan at [facility] Stage 3 chronic kidney disease Medical History Large B-cell lymphoma History of COVID-2019- fever, body aches, BOX, fatigue, lethargy-, no hospitalization, resolved Emphysema lung Hyperparathyroidism Hx; s/p parathyroid surgery. Stable per 12/2021 PCP visit COPD (chronic obstructive pulmonary disease) HTN (hypertension) Degenerative disc disease History of duodenal ulcer Surgical History History of bone marrow biopsy 05/2022 [facility] History of left nephrectomy 05/12/22 [facility] History of colonoscopy 11/2021 History of parathyroid surgery 01-08-21 Surgical removal of the right upper and left lower parathyroid glands History of umbilical hernia repair 2014 [place], [place] History of wisdom tooth extraction History of abdominal aortic aneurysm (AAA) repair [address] Jimenez Family History Mother Family history of diabetes mellitus Atrial fibrillation Glioblastoma Father Atrial fibrillation Aunt Breast cancer Son Cancer melanoma Other No family history of adverse response to anesthesia Denies family history of Ovarian cancer Prostate cancer Myocardial infarction Colorectal cancer Social History Smoking Status: Never smoker Tobacco Type: Cigarettes Second Hand Exposure: No; Do You Dip or Chew Tobacco: No; Hx Alcohol Use: No Hx Substance Use: No Preferred Language: Yoruba Communication Ability: Effective Communication Ability Comment: PHONE INTERVIEW DONE WITH NELSY (HIPPA CONTACT) Visual Impairment: No Limitations Hearing Ability: Normal Almond Blancher Required: No Beliefs That Will Affect Care: None marital status: Current Living Situation: Spouse current occupational status: retired How many Children do You have: 2 Other Information That Helps Us Care for You: No Feels Safe at Home: Yes Safety Concerns: Feels Safe At This Time Diet: regular caffeine: Yes during the past year weight has: decreased > 10 lbs Dental Care, Regularly: No Physical Activity Frequency: Daily Seatbelt Use: always Sunscreen Use: Yes Assistive Devices: Cane Review of Systems Constitutional: + fever and + chills; no weight gain and no increased appetite Eyes: no blind spots Ear, Nose, Mouth, Throat: no ear pain Respiratory: no cough Cardiovascular: no chest pain Gastrointestinal: + abdominal pain, + nausea and + vomitin g Genitourinary: no dysuria Musculoskeletal: no back pain Integumentary: no acne Neurologic: + unsteadiness Psychiatric: no behavioral changes Endocrine: + fatigue Hematologic / Lymphatic: no easy bleeding Allergy / Immunological: + GI upset with certain foods Physical Exam Constitutional: well developed, well nourished and + ill appearing Eyes: PERRL, conjunctivae normal, anicteric sclerae anicteric sclearae ENMT: external ear and nose normal, oropharynx normal Neck: trachea midline, no thyromegaly Respiratory: normal respiratory effort, lungs clear to auscultation Cardiovascular: Rate/Rhythm: regular rate and regular rhythm Gastrointestinal (Abdomen): Inspection/Auscultation: abdomen normal to inspection, + abdomen distended and normal bowel sounds Percussion/Palpation: + abdomen tender (right upper quadrant) postive murpy's sign Skin: no rashes, warm and dry Neurologic: PERRL, EOMI, accommodation nl, no face palsy, no dysarthria Psychiatric: A+Ox3, euthymic affect Results & Data Results & Data Vital Signs (Past 12 Hours) Vital Signs Temp Pulse Resp BP Pulse Ox O2 Del Method O2 Flow Rate 12/15/23 05:18 98 Nasal Cannula 2 12/15/23 04:59 117 H 12/15/23 04:54 37.6 C H 114 H 16 120/73 98 Room Air Code Status & VTE Plan VTE Prophylaxis Plan VTE Prophylaxis will be ordered: Yes PG Care Time/CCT Total # of Minutes Spent Total Time Spent with Patient: Total time spent is greater than 50% in coordination of care (as documented) at patient's floor/unit and/or counseling patient: Coding Level of Care Code 80085 INT INP/OBS CARE 75MIN Diagnoses Acute cholecystitis K81.0 Fever R50.9 Fever type: unspecified Hyponatremia E87.1 Pancytopenia D61.818 (2) Fever Fever type: unspecified Qualified Code(s): R50.9 - Fever, unspecified
[2023-12-15] MEDS: SODIUM CHLORIDE 0.9% 1,000 ML IV ONE (07:41)
[2023-12-15] MEDS: MAGNESIUM SULFATE / D5W 1 GM/100 ML BAG IV STA (07:41)
[2023-12-15] MEDS: MoRPHine SULFATE 10 MG/ML CARP/VIAL IV PRN (07:42)
--- NOTE | 2023-12-15 07:50 | XRay Report ---
XR chest 1V portable CLINICAL HISTORY: Sepsis TECHNIQUE: Single frontal radiograph of the chest was obtained. Comparison: Comparison is made to chest radiograph 11/30/2022 FINDINGS: A port catheter is seen. Cardiomegaly is noted. The aortic arch is calcified. Prominence and cephaliz ation of the vasculature is seen. No evidence of pleural effusion or pneumothorax. IMPRESSION: Cardiomegaly and mild pulmonary edema, increased from prior exam. No definite airspace opacities to s uggest pneumonia. ACT 112: Negative or not required by law. Electronically signed by: Hu Salvador M.D. 12/15/2023 7:49 AM
[2023-12-15] MEDS: SODIUM CHLORIDE 0.9% 500 ML IV ONE (09:50)
[2023-12-15] MEDS: NSS + 20MEQ KCL 20 MEQ/1,000 ML BAG IV SCH (09:50)
[2023-12-15] MEDS: PANTOprazole 40 MG in SYRINGE 0 ML IV SCH (10:02)
--- NOTE | 2023-12-15 10:14 | Electrocardiogram Report ---
Test Reason : Blood Pressure : / mmHG Vent. 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
[2023-12-15 10:46] LABS: INR 1.2 (0.9-1.1); Partial Thromboplastin Ratio 1.1; Partial Thromboplastin Time 29 Seconds (21-31); Prothrombin Time 12.4 Seconds (9.0-12.0)
[2023-12-15] MEDS: PIPERACILLIN/TAZOBACTAM 4.5 GM in DEXTROSE 5% MINI-B 100 ML IV SCH (10:51)
[2023-12-15 12:50] LABS: iSTAT Creatinine 1.9 mg/dl (0.6-1.3); iSTAT Hemoglobin 13.6 g/dl (14.0-18.0); iSTAT Ionized Calcium 1.1 mmol/l (1.12-1.32); iSTAT Potassium 3.7 mmol/L (3.3-5.0)
[2023-12-15 12:51] LABS: iSTAT Creatinine 1.9 mg/dl (0.6-1.3); iSTAT Hemoglobin 13.6 g/dl (14.0-18.0); iSTAT Ionized Calcium 1.1 mmol/l (1.12-1.32); iSTAT Potassium 3.7 mmol/L (3.3-5.0)
[2023-12-15] MEDS: MoRPHine SULFATE 4 MG/ML 1 ML CARP\\VIAL ONE (15:14)
[2023-12-15] MEDS: ACETAMINOPHEN 1,000 MG/100 ML VIAL IV PRN (15:14)
[2023-12-15] MEDS: fentaNYL citrate PF 100 MCG/2 ML VIAL ONE (15:14)
[2023-12-15] MEDS ORDERED: MoRPHine SULFATE 2 MG/ML CARP IV PRN (15:28)
--- NOTE | 2023-12-15 15:49 | Ultrasound Report ---
Ultrasound-guided cholecystostomy tube placement INDICATION: Acute cholecystitis; nonsurgical candidate at this time PROCEDURE: Procedure and risks were explained. Informed consent was obtained. A final timeout was com pleted. The right upper quadrant was prepped and draped in sterile fashion. 1% lidocaine was utilized for skin anesthesia. Utilizing ultrasound guidance, an 18-gauge Chiba needle was advanced through a small anterior wedge o f liver into the distended gallbladder. Ultrasound images were obtained. 0.035 Amplatz wire was intro duced through the entry needle and exchanged for an 8 Setswana locking pigtail catheter. Approximately 95 mL of purulent looking fluid was aspirated from the gallbladder with a portion sent to the lab for culture analysis. The cholecystostomy tube was sutured to the skin with 3-0 nylon and placed to grav ity bag drainage. The patient tolerated the procedure well. Vital signs will be monitored postprocedu re. IMPRESSION: Cholecystostomy tube placement as above. Performed, dictated, and signed by Van Gupta PA-C; to be co-signed by Dr. Hu Salvador. Electronically signed by: Hu Salvador M.D. 12/15/2023 5:42 PM
[2023-12-16] MEDS: LACTATED RINGER'S 1,000 ML IV ONE (02:00)
[2023-12-16 03:09] LABS: Albumin Globulin Ratio 1.6 (0.9-2); BUN Creatinine Ratio 10.4 (10-20); Bilirubin,Total 1.1 mg/dl (0.2-1.0); Calcium 7.5 mg/dl (8.6-10.3); Est GFR (African American) 45.8 ml/min; Est GFR (Non-African American) 39.5 ml/min; Globulin 1.9 gm/dl (2.5-4.0); Hemoglobin 11.2 g/dl (14.0-18.0); Mean Corpuscular Hemoglobin 30.1 pg (25.0-34.0); Mean Platelet Volume 9.4 fL (9.4-12.4); Platelet Count 103 K/uL (130-400); RDW Coefficient of Variation 13.7 % (11.5-14.5); RDW Standard Deviation 42.2 fL (36.4-46.3); Red Blood Count 3.72 M/uL (4.70-6.10); Total Protein 4.9 gm/dl (6.0-8.3); White Blood Count 22.39 K/ul (4.8-10.8)
[2023-12-16 03:53] LABS: Basophils # (auto) 0.08 K/uL (0.00-0.20); Basophils % (auto) 0.4 %; Dohle Bodies 1+; Eosinophils # (auto) 0.01 K/uL (0.00-0.50); Immature Granulocytes # (auto) 0.55 K/uL (0.01-0.20); Immature Granulocytes % (auto) 2.5 %; Lymphocytes # (auto) 1.05 K/uL (1.20-3.40); Lymphocytes % (auto) 4.7 %; Monocytes # (auto) 1.02 K/uL (0.11-0.59); Monocytes % (auto) 4.6 %; Neutrophils # (auto) 19.68 K/uL (1.40-6.50); Neutrophils % (auto) 87.8 %; Toxic Granulation 2+
--- NOTE | 2023-12-16 08:12 | Surgery Progress Note ---
Date of Service December 16, 2023 Assessment & Plan (1) Acute cholecystitis: Plan: Pt here w/ RUQ pain with imaging consistent with acute grace IR successfully place a perc grace tube yesterday, 95cc purulence sent for culture Today WBC 22 (18), Hbg 11.2, Tb 1.1, AST 40, ALT 91, Alkp 133 Continue IV abx, will f/u on culture data Pt wishes to continue on clears for now which is fine Plans to continue perc grace drain until after chemo tx's end, or at least 6-8 w ks. may f/u w/ us in the office in the future for possible cholecystectomy and f/u of perc grace Admission and Anticipated Discharge Date Admission Date: December 15, 2023 Supervising Physician Co-Signing Physician Notes I personally saw and evaluated the patient with Lynda Taylor PA-C and agree with the assessment and plan. 78 yo male on active chemotherapy for left lung AdenoCa here with acute cholecystitis s/p cholecystostomy tube placement He is improved clinically with much less pain Tolerating clears, will continue this for today Continue IV-ABX No plans for cholecystectomy this admission Subjective Patient reports some soreness but overall much improved after perc grace. No nausea/vomiting. Tolerating clears. Physical Exam Physical Exam: awake/alert, no distress Respiratory: normal respiratory effort Gastrointestinal (Abdomen): Percussion/Palpation: + abdomen tender (ttp in RUQ) and abdomen soft perc grace drain in place draining bilious fluid Results & Data Vital Signs (Past 12 Hours) Vital Signs Temp Pulse Pulse Resp BP Pulse Ox Pulse Ox 12/16/23 08:05 97.9 F 67 18 121/61 96 12/16/23 05:30 97.9 F 80 18 96/57 L 95 12/16/23 05:30 95 12/16/23 05:00 67 16 110/58 L 93 12/16/23 04:30 66 15 107/50 L 96 12/16/23 04:00 70 20 91/68 L 95 12/16/23 03:30 68 20 93/52 L 95 12/16/23 03:15 71 20 101/58 L 96 12/16/23 03:00 68 16 88/50 L 96 12/16/23 02:30 68 17 91/52 L 95 12/16/23 02:03 80 21 84/53 L 97 12/16/23 02:00 72 18 77/44 L 96 12/16/23 01:30 73 19 84/49 L 94 12/16/23 01:00 76 18 81/46 L 94 12/16/23 00:30 77 21 93 12/16/23 00:00 87 17 104/56 L 93 12/15/23 23:30 97 H 20 120/88 94 12/15/23 23:10 84 12/15/23 23:00 85 22 99/56 L 95 12/15/23 22:30 95 H 20 111/63 96 12/15/23 22:00 82 22 104/63 96 12/15/23 21:30 81 22 97/58 L 96 12/15/23 21:00 58 L 18 116/52 L 97 12/15/23 20:30 76 22 86/53 L 97 O2 Del Method O2 Del Method 12/16/23 08:05 Room Air 12/16/23 05:30 Room Air 12/16/23 05:30 Room Air 12/16/23 05:00 Room Air 12/16/23 04:30 Room Air 12/16/23 04:00 Room Air 12/16/23 03:30 Room Air 12/16/23 03:15 Room Air 12/16/23 03:00 Room Air 12/16/23 02:30 Room Air 12/16/23 02:03 Room Air 12/16/23 02:00 Room Air 12/16/23 01:30 Room Air 12/16/23 01:00 Room Air 12/16/23 00:30 Room Air 12/16/23 00:00 Room Air 12/15/23 23:30 Room Air 12/15/23 23:10 12/15/23 23:00 Room Air 12/15/23 22:30 Room Air 12/15/23 22:00 Room Air 12/15/23 21:30 Room Air 12/15/23 21:00 Room Air 12/15/23 20:30 Room Air PG Care Time/CCT Total # of Minutes Spent Total Time Spent with Patient: Total time spent is greater than 50% in coordination of care (as documented) at patient's floor/unit and/or counseling patient: Coding Level of Care Code 99344 SUB INP/OBS CARE 1/25MIN Diagnoses Acute cholecystitis K81.0
[2023-12-16 11:27] LABS: Magnesium 1.4 mg/dl (1.7-2.4)
[2023-12-16 19:26] LABS: Adenovirus F 40/41 PCR Not Detected (NotDetected); Astrovirus PCR Not Detected (NotDetected); Campylobacter PCR Not Detected (NotDetected); Cryptosporidium PCR Not Detected (NotDetected); Cyclospora cayetanensis PCR Not Detected (NotDetected); Entamoeba histolytica PCR Not Detected (NotDetected); Enteroaggregative E.coli(EAEC) Not Detected (NotDetected); Enteropathogenic E.coli (EPEC) Not Detected (NotDetected); Enterotoxigenic E.coli (ETEC) Not Detected (NotDetected); Giardia lamblia PCR Not Detected (NotDetected); Norovirus GI/GII PCR Not Detected (NotDetected); Plesiomonas shigelloides PCR Not Detected (NotDetected); Rotavirus A PCR Not Detected (NotDetected); Salmonella PCR Not Detected (NotDetected); Sapovirus PCR Not Detected (NotDetected); Shiga-like Toxin E.coli (STEC) Not Detected (NotDetected); Shigella/Enteroinvasive E.coli Not Detected (NotDetected); Vibrio cholerae PCR Not Detected (NotDetected); Vibrio species PCR Not Detected (NotDetected); Yersinia enterocolitica PCR Not Detected (NotDetected)
--- NOTE | 2023-12-16 21:23 | Hospitalist Progress Note ---
Date of Service December 16, 2023 Assessment & Plan (1) Acute cholecystitis: Plan: acute cholecystitis in a 78 yo male with tachycardia, elevated Lactic acidosis, severe sepsis Admit to PCU. Patient is status post percutaneous cholecust. Patient will remain on antibiotics at least for 2 weeks. Patient no longer having signs of SIRS. (2) Fever: Plan: due to above. (3) Hyponatremia: Plan: mild hyponatremia at 134, will monitor. (4) Pancytopenia: Plan: Pancytopenia (except for neutrophils) from chemotherapy. Admission and Anticipated Discharge Date Admission Date: December 15, 2023 Subjective Patient reports feeling better compared to the day prior. He no longer has generalized malaise. His is at bedside and is updated. Review of Systems Review of Systems: All systems reviewed & are unremarkable except as noted in HPI & below Physical Exam Constitutional: well developed, well nourished and + ill appearing Eyes: PERRL, conjunctivae normal, anicteric sclerae ENMT: external ear and nose normal, oropharynx normal Neck: trachea midline, no thyromegaly Respiratory: normal respiratory effort, lungs clear to auscultation Cardiovascular: Rate/Rhythm: regular rate and regular rhythm Gastrointestinal (Abdomen): Inspection/Auscultation: abdomen normal to inspection, + abdomen distended and normal bowel sounds Percussion/Palpation: + abdomen tender (right upper quadrant) Skin: no rashes, warm and dry Neurologic: PERRL, EOMI, accommodation nl, no face palsy, no dysarthria Psychiatric: A+Ox3, euthymic affect Results & Data Results & Data Vital Signs (Past 12 Hours) Vital Signs Temp Pulse Pulse Resp BP Pulse Ox O2 Del Method 12/16/23 19:51 36.8 C 79 18 126/64 95 Room Air 12/16/23 15:36 36.8 C 81 17 114/68 93 Room Air 12/16/23 13:51 71 12/16/23 11:48 36.9 C 69 18 122/64 100 Room Air 12/16/23 11:13 Room Air 12/16/23 11:12 75 PG Care Time/CCT Total # of Minutes Spent Total Time Spent with Patient: Total time spent is greater than 50% in coordination of care (as documented) at patient's floor/unit and/or counseling patient: Coding Level of Care Code 16677 SUB INP/OBS CARE MIN Diagnoses Acute cholecystitis K81.0 Fever R50.9 Fever type: unspecified Hyponatremia E87.1 Pancytopenia D61.818 (2) Fever Fever type: unspecified Qualified Code(s): R50.9 - Fever, unspecified
[2023-12-17 06:45] LABS: Hematocrit (blood only) 31.5 % (42.0-52.0); Hemoglobin 10.9 g/dl (14.0-18.0); Mean Corpuscular Hemoglobin 29.9 pg (25.0-34.0); Mean Corpuscular Hgb Conc 34.6 g/dL (32.0-36.0); Mean Corpuscular Volume 86.3 fL (80.0-100.0); Mean Platelet Volume 10.3 fL (9.4-12.4); Platelet Count 136 K/uL (130-400); RDW Coefficient of Variation 13.6 % (11.5-14.5); RDW Standard Deviation 41.6 fL (36.4-46.3); Red Blood Count 3.65 M/uL (4.70-6.10); White Blood Count 14.18 K/ul (4.8-10.8)
[2023-12-17 07:12] LABS: Albumin Globulin Ratio 1.3 (0.9-2); Albumin Level 3.1 gm/dl (3.4-5.0); Bilirubin,Total 0.8 mg/dl (0.2-1.0); C Reactive Protein 27.94 mg/dl (0-0.5); Calcium 8.1 mg/dl (8.6-10.3); Creatinine Clr Calc Pharmacy 40.5 ml/min; Est GFR (African American) 41.1 ml/min; Est GFR (Non-African American) 35.5 ml/min; Globulin 2.3 gm/dl (2.5-4.0); Potassium 3.3 mmol/L (3.5-5.1); Total Protein 5.4 gm/dl (6.0-8.3)
--- NOTE | 2023-12-17 07:45 | Surgery Progress Note ---
Date of Service December 17, 2023 Assessment & Plan (1) Acute cholecystitis: Plan: Pt here w/ RUQ pain with imaging consistent with acute grace in the setting of active chemo for lung ca IR successfully place a perc grace tube on 12/14, cultures with no growth to date thus far Today WBC 14 (22), Hbg 10.9, Tb 0.8, AST 28, ALT 66, Alkp 159 Continue IV abx, will f/u on culture data. But would plan on at least 2 week course of abx Will trial patient on full liquids and can continue to advance as tolerates Plans to continue perc grace drain until after chemo tx's end, or at least 6-8 wks. may f/u w/ us in the office in 2 wks time for f/u of drain and discussions about the possibility of lap grace in the future [facility] covering the wknd Admission and Anticipated Discharge Date Admission Date: December 15, 2023 Supervising Physician Co-Signing Physician Notes I personally saw and evaluated the patient with Lynda Taylor PA-C and agree with the assessment and plan. 78 yo male on active chemotherapy for left lung AdenoCa here with acute cholecystitis s/p cholecystostomy tube placement He is tolerating clears, advance as tolerated WBC trending down He can follow up with me 2 weeks after discharge No plans for cholecystectomy this admission Once he is tolerating a regular diet he can be discharged from a surgical standpoint Surgery will sign off at this time, please call with any questions or concerns Subjective Patient resting but states he is feeling okay. Abdominal pain improving, but remains with palpation. No fevers. Tolerating clears no nausea. Some loose stools noted. Physical Exam Physical Exam: resting with eyes closed, but easily arousable and communicative Respiratory: normal respiratory effort Gastrointestinal (Abdomen): Percussion/Palpation: + abdomen tender (ruq ttp) and abdomen soft IR drain with bilious output, 125cc noted Results & Data Vital Signs (Past 12 Hours) Vital Signs Temp Pulse Pulse Resp BP BP Pulse Ox 12/17/23 03:25 98.2 F 66 18 100/63 95 12/16/23 23:03 99.7 F H 80 18 124/74 90 12/16/23 22:00 89 12/16/23 20:40 12/16/23 19:51 98.2 F 79 18 126/64 95 O2 Del Method 12/17/23 03:25 Room Air 12/16/23 23:03 Room Air 12/16/23 22:00 12/16/23 20:40 Room Air 12/16/23 19:51 Room Air PG Care Time/CCT Total # of Minutes Spent Total Time Spent with Patient: Total time spent is greater than 50% in coordination of care (as documented) at patient's floor/unit and/or counseling patient: Coding Level of Care Code 16205 SUB INP/OBS CARE 07/15MIN Diagnoses Acute cholecystitis K81.0
[2023-12-17 08:09] LABS: Cdiff Toxin B Gene (2yr or >) Positive Cdiff Gene (Neg)
[2023-12-17 08:59] LABS: Cdiff Antigen Positive; Cdiff Toxin A+B Negative Cdiff Toxin (Negative)
[2023-12-17] MEDS: ADVANCED PROBIOTIC 625 MG CAPSULE PO SCH (12:08)
--- NOTE | 2023-12-17 21:05 | Hospitalist Progress Note ---
Date of Service December 17, 2023 Assessment & Plan (1) Acute cholecystitis: Plan: acute cholecystitis in a 78 yo male with tachycardia, elevated Lactic acidosis, severe sepsis Admit to PCU. Patient is status post percutaneous cholecyst. Patient will remain on antibiotics at least for 2 weeks. Patient no longer having signs of SIRS. WBC trending down. Procal and crp are elevated but likely are lagging. Cliniclaly stable, anticipate discharge in 24-48h (2) Fever: Plan: due to above. (3) Hyponatremia: Plan: mild hyponatremia at 134, will monitor. (4) Pancytopenia: Plan: Pancytopenia (except for neutrophils) from chemotherapy. Admission and Anticipated Discharge Date Admission Date: December 15, 2023 Subjective 78 yo male reports no new symptoms. He reports tolerating his diet so far but does not want to advance it tonight. Review of Systems Review of Systems: All systems reviewed & are unremarkable except as noted in HPI & below Physical Exam Constitutional: well developed, well nourished and + ill appearing Eyes: PERRL, conjunctivae normal, anicteric sclerae ENMT: external ear and nose normal, oropharynx normal Neck: trachea midline, no thyromegaly Respiratory: normal respiratory effort, lungs clear to auscultation Cardiovascular: Rate/Rhythm: regular rate and regular rhythm Gastrointestinal (Abdomen): Inspection/Auscultation: abdomen normal to in spection, + abdomen distended and normal bowel sounds Percussion/Palpation: + abdomen tender (right upper quadrant) Skin: no rashes, warm and dry Neurologic: PERRL, EOMI, accommodation nl, no face palsy, no dysarthria Psychiatric: A+Ox3, euthymic affect Results & Data Results & Data Vital Signs (Past 12 Hours) Vital Signs Temp Pulse Pulse Resp BP BP Pulse Ox 12/17/23 19:35 36.6 C 62 17 132/81 98 12/17/23 16:02 62 12/17/23 15:55 36.3 C L 56 L 18 119/71 98 12/17/23 11:29 36.7 C 70 18 130/84 96 12/17/23 09:22 12/17/23 09:21 61 O2 Del Method 12/17/23 19:35 Room Air 12/17/23 16:02 12/17/23 15:55 Room Air 12/17/23 11:29 Room Air 12/17/23 09:22 Room Air 12/17/23 09:21 PG Care Time/CCT Total # of Minutes Spent Total Time Spent with Patient: Total time spent is greater than 50% in coordination of care (as documented) at patient's floor/unit and/or counseling patient: Coding Level of Care Code 39977 SUB INP/OBS CARE 2/35MIN Diagnoses Acute cholecystitis K81.0 Fever R50.9 Fever type: unspecified Hyponatremia E87.1 Pancytopenia D61.818 (2) Fever Fever type: unspecified Qualified Code(s): R50.9 - Fever, unspecified
[2023-12-17] MEDS: POTASSIUM CHLORIDE PWD 20 MEQ PACK PO SCH (21:41)
[2023-12-18 03:32] LABS: Babesia microti DNA Not Detected (Not Detected)
[2023-12-18 06:45] LABS: Hematocrit (blood only) 31.9 % (42.0-52.0); Hemoglobin 11.2 g/dl (14.0-18.0); Mean Corpuscular Hemoglobin 30.2 pg (25.0-34.0); Mean Corpuscular Hgb Conc 35.1 g/dL (32.0-36.0); Mean Platelet Volume 10.3 fL (9.4-12.4); Platelet Count 161 K/uL (130-400); RDW Coefficient of Variation 13.7 % (11.5-14.5); RDW Standard Deviation 42.3 fL (36.4-46.3); Red Blood Count 3.71 M/uL (4.70-6.10); White Blood Count 8.33 K/ul (4.8-10.8)
[2023-12-18 07:24] LABS: Bilirubin Direct 0.2 mg/dl (0-0.2); Bilirubin,Total 0.7 mg/dl (0.2-1.0); Creatinine Clr Calc Pharmacy 48.1 ml/min; Est GFR (African American) 50.6 ml/min; Est GFR (Non-African American) 43.7 ml/min; Potassium 3.4 mmol/L (3.5-5.1); Total Protein 5.3 gm/dl (6.0-8.3)
[2023-12-18] MEDS ORDERED: AMOXICILLIN/CLAVULANATE 875 MG TAB PO SCH (17:00)
--- NOTE | 2023-12-18 21:04 | Discharge Summary ---
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 Patient has noticed worsening flatulence since chemotherapy had begun. However patient felt well on Wednesday and , but then developed diarrhea on Wednesday and Wednesday. His symptoms worsened on Wednesday where he had some abdominal pain, lack of appetite and nausea. Patient reports on Wednesday (yesterday), his appetite improved and he rodriguez dice cream cookies, along with other food. Patient states last night, his symptoms returned with severe abdominal pain in the RUQ. Patient reports this is similar to when he had anaplasmosis during his last admission here on 11/2022. Principal Diagnosis acute cholecystitis Discharge Exam Constitutional well developed, well nourished and + ill appearing Eyes PERRL, conjunctivae normal, anicteric sclerae ENMT external ear and nose normal, oropharynx normal Neck trachea midline, no thyromegaly Respiratory normal respiratory effort, lungs clear to auscultation Cardiovascular Rate/Rhythm: regular rate and regular rhythm Gastrointestinal (Abdomen) Inspection/Auscultation: abdomen normal to inspection, + abdomen distended and normal bowel sounds Skin no rashes, warm and dry Neurologic PERRL, EOMI, accommodation nl, no face palsy, no dysarthria Psychiatric A+Ox3, euthymic affect Discharge Data Allergies Allergy/AdvReac Type Severity Reaction Status Date / Time No Known Allergies Allergy Verified 12/15/23 08:30 Consultations 12/15/23 06:37 Consult General Surgery Stat ED Decision to Admit Stat Ordered Studies 12/15/23 05:42 CT abd pelvis wo con Stat 12/15/23 09:10 IR gallbladder cath placmnt US Urgent Hospital Course (1) Acute cholecystitis: acute cholecystitis in a 78 yo male with tachycardia, elevated Lactic acidosis, severe sepsis Admit to PCU. Patient is status post Ultrasound-guided cholecystostomy tube placement Patient will remain on antibiotics at least for 2 weeks: augmentin Patient immediately improved after procedure with vitals normalizing and WBC trending down and now normalized. Patient asymptomatic at discharge. Instructions given to patient. Plans to continue percutaneous cholecystostomy drain until after chemotherapy ends, or at least 6-8 wks. May f/u w/ us in the office with outpatient [facility] in 2 weeks time for follow up of drain and discussions about the possibility of lap grace in the future. (2) Fever: due to above. (3) Hyponatremia: mild hyponatremia at 134, will monitor. Hypokalemia: ordered a short course of potassium for 2 days. Likely diuresing from diuresing the fluid given during acute phase of sepsis (fluid resuscitation) (4) Pancytopenia: Pancytopenia (except for neutrophils) from chemotherapy. Total Time Total Time Spent Total Time Spent (In Minutes): 32 Discharge Plan Discharge Items Patient Disposition: Home - Self-Care Reason For Visit: possible acute cholecystittis/sepsis Discharge Diagnosis: acute cholecystitis Activity: Resume your previous activity Non-emergency contact: Primary Care Provider Call non-emergency contact if: you have any medication questions Follow-up/Referrals: Wayne Luna DO [Physician] - (Please call to schedule follow up in clinic within 2 weeks) [facility] [Primary Care Provider] - Diet: Low Fat Addtl Attending Provider Instructions: Care for your percutaneous cholecystostomy tube as instructed prior to discharge from the hospital. Keep to gravity drainage. Keep a log of the daily output and bring with you to the office. Empty bag contents once a daily and log output. Change outside dressing every 3 days and as needed with dry gauze and either tegaderm tape or medipore tape. Plan to continue percutaneous drain until after chemotherapy ends, or at least 6-8 wks. You may followup with [facility] in 2 wks time for followup of drain and discussions about the possibility of surgery in the future. Please keep your appointments with Oncology. You may also followup with your PCP in 1-2 weeks. Pending Studies at Discharge: No Stand-Alone Forms: [facility], Smoking Cessation Medications and DC Order Prescriptions: New amoxicillin-pot clavulanate 875-125 mg Tablet 1 tab PO BIDM Qty: 20 0RF potassium chloride 20 mEq tablet extended release 20 meq PO BID Qty: 4 0RF Continued atorvastatin [Lipitor] 40 mg tablet 40 mg PO QAM Qty: 30 0RF Rx Instructions: verified with [facility] home delivery pantoprazole [Protonix] 20 mg tablet,delayed release (DR/EC) 20 mg PO QPM docusate sodium [Stool Softener] 100 mg Tablet 100 mg PO DAILY Rx Instructions: Pharmacist unable to verify folic acid 1 mg Tablet 1 mg PO DAILY Discharge Orders: Discharge Order (Routine); Ordered 12/18/23 Ordered By: Stevie Munoz Admission Data Admit Date/Time: 12/15/23 07:25 Attending Provider: Stevie Munoz Admit Provider: Stevie Munoz Primary Care Provider: [facility] Other Providers: Wayne Luna; Stevie Munoz Other Interventions: Discharge Summary Assessment (RN) Last Done: 12/18/23 13:01 Coding Level of Care Code 75772 INP/OBS DISCH >30 MIN Diagnoses Acute cholecystitis K81.0 Fever R50.9 Fever type: unspecified Hyponatremia E87.1 Pancytopenia D61.818
== END 2023-12-18 15:34 | disposition home or self-care (01) | DRG 871 ==
LOC: SUATTDRO → ED 04:45 → EDINP 07:25 → 2S 12-16 05:00

== ENCOUNTER 2024-04-10 13:26 | Inpatient (IN) ==
--- NOTE | 2024-04-10 14:21 | CT Scan Report ---
CT head/brain wo con CLINICAL HISTORY: 78 years-old Male with AMS. Acutely altered mental status TECHNIQUE: Multiple axial CT images of the head were obtained without contrast. A dose lowering tech nique was utilized adhering to the principles of ALARA. CT DOSE: 703.85 mGy.cm COMPARISON: 11/30/2022 FINDINGS: No acute intracranial hemorrhage, midline shift, intracranial mass, hydrocephalus, territorial ischem ia or acute extra-axial collection. Involutional changes with chronic microvascular ischemic disease. Calcifications of the falx cerebri. Unchanged asymmetric prominence of the extra-axial space along the right cerebrum. The calvarium is intact. Right-sided lens repair. The paranasal sinuses, mastoid air cells, and middl e ear cavities are clear. IMPRESSION: No acute intracranial abnormality. ACT 112: Negative or not required by law. The above report was generated using voice recognition software. It may contain grammatical, syntax o r spelling errors. Electronically signed by: Colby Morris M.D. 04/10/2024 2:20 PM
--- NOTE | 2024-04-10 14:48 | Emergency Department Note ---
Impression & Plan Myxedema coma ED Provider Note NAME: REMY LARA AGE: 78 SEX: M : 1945 ARRIVES VIA: Walk-In INFORMANT: Patient, ED PROVIDER(S): Mick Hobson MD CHIEF COMPLAINT: Weakness, slurred speech MEDICAL DECISION MAKING: Patient presents due to concern for weakness fatigue as well as her speech. IV was established and blood work was obtained along with CT head and chest x-ray. Patient was ordered IV fluids. Patient with a normal white count hemoglobin and platelet count. Kidney function is unremarkable VBG negative. The patient's VBG is unremarkable. Kidney function with a creatinine 1.7 not far off from baseline. Patient CK of 821. The patient did receive IV fluids. Patient does have a very low free T4 with an elevated TSH which may be contributory. Urines show ketones but the patient did receive IV fluids. Anaplasma and Babesia smears are negative. Lyme's negative. I did speak the on-call hospital service after informing the patient and they were comfortable plan of care and the patient will be admitted to further evaluate his hypothyroidism and weakness. Discussion w/ other healthcare providers: None Prior /Outside records reviewed: I reviewed part of an operative report from Dr. Hutson from March 27. The patient did have right cataract procedure at that time. Differential diagnosis: Infection, dehydration, metabolic abnormality, hypo/hyperglycemia, electrolyte imbalance, anemia, UTI, pneumonia, thyroid dysfunction among others were considered. Diagnostics, as interpreted by me: ECG: Normal sinus rhythm, rate of 69, normal intervals, left axis deviation no ST elevations. Cardiac monitoring: An order was placed for continuous cardiac monitoring. The monitor shows a rate of 72 with sinus rhythm. Patient was placed on pulse oximetry Medical decision rules: None Imaging studies: I informally interpreted the patient's chest x-ray shows pulmonary vascular congestion with formal report to follow. HPI: Patient presents with at bedside. The patient has been weak and fatigued for the last 2 weeks. Also some associated confusion cognitive issues and memory problems. They also report the patient has had slurred speech almost as if he has had "a thick tongue." Patient did have prior symptoms like this before when he had Anaplasma back in 2022. Patient denies any falls or trauma. He does have mild frontal headache. No reported nausea or vomiting. Patient denies any chest pain. The patient does have a prior history of a septic gallbladder and status postcholecystectomy completed in January. The patient did have a recent cataracts procedure completed and is currently on latanoprost and prednisolone drops. Patient denies any chest pains or shortness of breath. The patient has had mild nonproductive cough but he states that this is chronic and may be related to his history of adenocarcinoma of the lung. Patient is not currently on chemotherapy last receiving chemotherapy in October. PAST MEDICAL HISTORY: See Below PAST SURGICAL HISTORY: See Below SOCIAL HISTORY: See Below HOME MEDICATIONS: See Below ALLERGIES: See Below VITALS: See Below PHYSICAL EXAMINATION: GENERAL: NAD, non-toxic. Wearing glasses. EYE EXAM: Normal conjunctiva. PERRL, no anisocoria and EOM's grossly intact w/o pain. OROPHARYNX: Moist mucus membranes, grossly normal dentition. NECK: Trachea midline, no stridor. Supple, no nuchal rigidity, no adenopathy, non-tender. No signs of meningismus. FROM of the neck with good chin to chest and neck extension. LUNGS: Clear to auscultation. Normal chest wall mechanics. HEART: NSR, no MRG. ABDOMEN: Abdomen soft, non-tender, no masses, no rebound or guarding. BACK: No CVA TTP. SKIN: No rashes and no bruising. UPPER EXTREMITIES: Upper extremities are grossly normal. LOWER EXTREMITIES: Grossly normal, no edema. NEURO EXAM: A&O x3, cranial nerves II-XII grossly intact, mild dysarthria, moves all 4 extremities. Good [id number], no drift and no sensory deficits. Past Med/Surg History Problem List (Updated 04/10/24 @ 22:16 by Mick Hobson MD) Myxedema coma (Acute) Nausea & vomiting (Acute) Acute upper abdominal pain (Acute) Acute cholecystitis (Acute) Acute cholecystitis Lung nodule, solitary Fever (Acute) Hyponatremia Pancytopenia Elevated troponin Generalized weakness Pericardial effusion Port-A-Cath in place (06/24/22) Insertion Access Port with Fluoroscopy(right internal jugular vein) - Trever Lomeli, DO, FACS Encounter for insertion of venous access port Large B-cell lymphoma Renal Mass Following w/ Dr Phelan at [facility] CAD (coronary artery disease) Per 12/2021 PCP note- followed with cardio/last cardio work up 6-8 years ago- currently asymptomatic Stage 3 chronic kidney disease History of colon polyps HTN (hypertension) Osteopenia Hyperparathyroidism Arthritis Former smoker Hx of transient ischemic attack (TIA) patient states that doctors felt he may have had a mini stroke in his 60s. pts denies this Impaired fasting glucose Hgb A1C 12/2021 = 6.0 Hyperlipidemia Benign hypertension AAA (abdominal aortic aneurysm) S/p AAA repair 2018. 03/2022 abdomen/pelvis CT shows s/p aortobiliac stent graft repair- stent graft is patent. Residual aneurysm sac measures 6.3 x 5.0 cm Medical History Osteopenia Stage 3 chronic kidney disease History of hypertension s/p AAA repair in 2018, was treated with medication for about 2 years. no recent issues Hyperlipidemia CAD (coronary artery disease) Hx of colonic polyps History of abdominal aortic aneurysm (AAA) S/p AAA repair 2018. 03/2022 abdomen/pelvis CT shows s/p aortobiliac stent graft repair- stent graft is patent. Residual aneurysm sac measures 6.3 x 5.0 cm Hx of hyperparathyroidism Hx; s/p parathyroid surgery. 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 03/2022 abdomen/pelvis CT shows s/p aortobiliac stent graft repair- stent graft is patent. 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 History of bone marrow biopsy 05/2022 [facility] History of left nephrectomy 05/12/22 [facility] r/t non-hodgkin's lymphoma History of colonoscopy 11/2021 History of parathyroid surgery 01-08-21 Surgical removal of the right upper and left lower parathyroid glands History of umbilical hernia repair 2014 [place], [place] History of wisdom tooth extraction History of abdominal aortic aneurysm (AAA) repair [address] Jimenez Family History Mother Family history of diabetes mellitus Atrial fibrillation Glioblastoma Father Atrial fibrillation Aunt Breast cancer Son Cancer melanoma Other No family history of adverse response to anesthesia Denies family history of Ovarian cancer Prostate cancer Myocardial infarction Colorectal cancer Social History Smoking Status: Former smoker Tobacco Type: Cigarettes Second Hand Exposure: No; Do You Dip or Chew Tobacco: No; Hx Alcohol Use: No Hx Substance Use: No Preferred Language: Thai Communication Ability: Effective Visual Impairment: No Limitations Hearing Ability: Normal Union Representative Required: No Beliefs That Will Affect Care: None marital status: Current Living Situation: Spouse current occupational status: retired How many Children do You have: 2 Feels Safe at Home: Yes Diet: regular caffeine: Yes during the past year weight has: decreased > 10 lbs Dental Care, Regularly: No Physical Activity Frequency: Daily Seatbelt Use: always Sunscreen Use: Yes Assistive Devices: Cane, Glasses and Hearing Aid - Bilateral Allergies Allergies Allergy/AdvReac Type Severity Reaction Status Date / Time No Known Allergies Allergy Verified 04/10/24 18:03 Home Meds Home Medications Medication Instructions Recorded Confirmed pantoprazole 20 mg tablet,delayed 20 mg PO QPM PRN Heartburn 07/09/22 04/10/24 release (Protonix) docusate sodium 100 mg tablet 100 mg PO QAM 07/22/22 04/10/24 (Stool Softener) latanoprost 0.005 % eye drops 1 drp ophthalmic (eye) DAILY 04/10/24 04/10/24 prednisolone acetate 1 % eye 1 drp ophthalmic (eye) BID 04/10/24 04/10/24 drops,suspension Previous Rx's Medication Instructions Recorded atorvastatin 40 mg tablet (Lipitor) 40 mg PO QAM #30 tabs 03/11/23 Results & Data (ED) Vital Signs Vital Signs - 24 hr 04/10/24 13:27 04/10/24 13:49 04/10/24 14:00 Temperature 36.6 C Temperature Source Temporal Artery Scan Pulse Rate 75 Pulse Rate [Apical] Pulse Rate from SpO2 Sensor Respiratory Rate 18 Respiratory Effort / Characteristics Respiratory Depth Respiratory Pattern Blood Pressure 106/76 Blood Pressure [Right Arm] Blood Pressure Mean 86 Blood Pressure Mean [Right Arm] Pulse Oximetry 96 Oxygen Delivery Method Room Air Room Air Room Air Sepsis Recent Fever Within 48 Hours No Sepsis New/Unexplained Change in Mental Status N/A Sepsis Action Taken by Nursing No Action Required 04/10/24 14:47 04/10/24 14:48 04/10/24 15:15 Temperature Temperature Source Pulse Rate 66 Pulse Rate [Apical] 65 Pulse Rate from SpO2 Sensor 66 Respiratory Rate 23 18 Respiratory Effort / Characteristics Non-Labored Spontaneous Respiratory Depth Normal Respiratory Pattern Regular Blood Pressure 131/88 Blood Pressure [Right Arm] 131/90 Blood Pressure Mean 93 Blood Pressure Mean [Right Arm] 103 Pulse Oximetry 96 94 Oxygen Delivery Method Room Air Sepsis Recent Fever Within 48 Hours Sepsis New/Unexplained Change in Mental Status Sepsis Action Taken by Nursing 04/10/24 17:00 Temperature Temperature Source Pulse Rate Pulse Rate [Apical] 65 Pulse Rate from SpO2 Sensor Respiratory Rate 18 Respiratory Effort / Characteristics Non-Labored Spontaneous Respiratory Depth Normal Respiratory Pattern Regular Blood Pressure Blood Pressure [Right Arm] 152/93 H Blood Pressure Mean Blood Pressure Mean [Right Arm] 112 Pulse Oximetry 98 Oxygen Delivery Method Room Air Sepsis Recent Fever Within 48 Hours Sepsis New/Unexplained Change in Mental Status Sepsis Action Taken by [facility] Medications Current Medication List: was personally reviewed by me Laboratory Data Attestation: I reviewed the patient's lab results. 04/10/24 14:25 04/10/24 14:40 Lab Results 04/10/24 04/10/24 04/10/24 Range/Units 14:25 14:40 15:20 WBC 7.28 (4.8-10.8) K/ul RBC 4.68 L (4.70-6.10) M/uL Hgb 14.2 (14.0-18.0) g/dl Hct 42.3 (42.0-52.0) % MCV 90.4 (80.0-100.0) fL MCH 30.3 (25.0-34.0) pg MCHC 33.6 (32.0-36.0) g/dL RDW Std Deviation 50.3 H (36.4-46.3) fL RDW Coeff of Sasha 15.3 H (11.5-14.5) % Plt Count 182 (130-400) K/uL MPV 10.5 (9.4-12.4) fL Immature Gran % (Auto) 0.1 % Neut % (Auto) 55.4 % Lymph % (Auto) 34.3 % Ellsworth % (Auto) 7.6 % Eos % (Auto) 1.4 % Baso % (Auto) 1.2 % Neut # (Auto) 4.03 (1.40-6.50) K/uL Lymph # (Auto) 2.50 (1.20-3.40) K/uL Ellsworth # (Auto) 0.55 (0.11-0.59) K/uL Eos # (Auto) 0.10 (0.00-0.50) K/uL Baso # (Auto) 0.09 (0.00-0.20) K/uL Immature Gran # (Auto) 0.01 (0.01-0.20) K/uL PT 11.4 (9.0-12.0) Seconds INR 1.1 (0.9-1.1) APTT 42 H (21-31) Seconds PTT Ratio 1.6 VBG pH 7.41 (7.36-7.41) VBG pCO2 46 (38-50) mmHg VBG pO2 36 mmHg VBG HCO3 29 mmol/L VBG O2 Saturation 60.2 % VBG Base Excess 3.7 mEq/L Sodium 140 (136-145) mmol/L Potassium 4.0 (3.5-5.1) mmol/L Chloride 104 (98-107) mmol/L Carbon Dioxide 29 (21-32) mmol/L Anion Gap 7 (3-11) BUN 34 H (6-23) mg/dl Creatinine 1.77 H (0.6-1.4) mg/dl Est Cr Clr Drug Dosing 41.1 ml/min eGFR 38.59 BUN/Creatinine Ratio 19.2 (10-20) Glucose 101 H (70-99(Fasting)) mg/dl Calcium 9.7 (8.6-10.3) mg/dl Magnesium 1.8 (1.7-2.4) mg/dl Total Bilirubin 0.9 (0.2-1.0) mg/dl AST 46 H (13-39) U/L ALT 32 (7-52) U/L Alkaline Phosphatase 66 (34-104) U/L Ammonia 30.0 (18-72) umol/L Total Creatine Kinase 821 H (30-223) U/L Troponin I High Sens 11.1 (0-20) pg/ml Total Protein 7.1 (6.0-8.3) gm/dl Albumin 4.4 (3.4-5.0) gm/dl Globulin 2.7 (2.5-4.0) gm/dl Albumin/Globulin Ratio 1.6 (0.9-2) TSH 82.242 H (0.300-4.500) uIu/ml Free T4 < 0.25 L (0.61-1.60) ng/dl Random Cortisol 8.44 mcg/dl Urine Color Urine Appearance (Clear) Urine pH (4.5-7.5) Ur Specific Iaeger (1.000-1.030) Urine Protein (Negative) Urine Glucose (UA) (Negative) Urine Ketones (Negative) Urine Blood (Negative) Urine Nitrite (Negative) Urine Bilirubin (Negative) Urine Urobilinogen (Negative) Ur Leukocyte Esterase (Negative) Urine WBC (Auto) (0-5) /hpf Urine RBC (Auto) (0-2) /hpf U Hyaline Cast (Auto) (0-2) /lpf U Epithel Cells (Auto) (0-2) /hpf Urine Bacteria (Auto) (None Seen) Anaplasma Smear See Comment Babesia Smear See Comment Lyme Disease Screen Negative (Negative) 04/10/24 Range/Units 16:42 WBC (4.8-10.8) K/ul RBC (4.70-6.10) M/uL Hgb (14.0-18.0) g/dl Hct (42.0-52.0) % MCV (80.0-100.0) fL MCH (25.0-34.0) pg MCHC (32.0-36.0) g/dL RDW Std Deviation (36.4-46.3) fL RDW Coeff of Sasha (11.5-14.5) % Plt Count (130-400) K/uL MPV (9.4-12.4) fL Immature Gran % (Auto) % Neut % (Auto) % Lymph % (Auto) % Ellsworth % (Auto) % Eos % (Auto) % Baso % (Auto) % Neut # (Auto) (1.40-6.50) K/uL Lymph # (Auto) (1.20-3.40) K/uL Ellsworth # (Auto) (0.11-0.59) K/uL Eos # (Auto) (0.00-0.50) K/uL Baso # (Auto) (0.00-0.20) K/uL Immature Gran # (Auto) (0.01-0.20) K/uL PT (9.0-12.0) Seconds INR (0.9-1.1) APTT (21-31) Seconds PTT Ratio VBG pH (7.36-7.41) VBG pCO2 (38-50) mmHg VBG pO2 mmHg VBG HCO3 mmol/L VBG O2 Saturation % VBG Base Excess mEq/L Sodium (136-145) mmol/L Potassium (3.5-5.1) mmol/L Chloride (98-107) mmol/L Carbon Dioxide (21-32) mmol/L Anion Gap (3-11) BUN (6-23) mg/dl Creatinine (0.6-1.4) mg/dl Est Cr Clr Drug Dosing ml/min eGFR BUN/Creatinine Ratio (10-20) Glucose (70-99(Fasting)) mg/dl Calcium (8.6-10.3) mg/dl Magnesium (1.7-2.4) mg/dl Total Bilirubin (0.2-1.0) mg/dl AST (13-39) U/L ALT (7-52) U/L Alkaline Phosphatase (34-104) U/L Ammonia (18-72) umol/L Total Creatine Kinase (30-223) U/L Troponin I High Sens (0-20) pg/ml Total Protein (6.0-8.3) gm/dl Albumin (3.4-5.0) gm/dl Globulin (2.5-4.0) gm/dl Albumin/Globulin Ratio (0.9-2) TSH (0.300-4.500) uIu/ml Free T4 (0.61-1.60) ng/dl Random Cortisol mcg/dl Urine Color Yellow Urine Appearance Clear (Clear) Urine pH 6.0 (4.5-7.5) Ur Specific Iaeger 1.028 (1.000-1.030) Urine Protein 2+ H (Negative) Urine Glucose (UA) Negative (Negative) Urine Ketones Trace H (Negative) Urine Blood Negative (Negative) Urine Nitrite Negative (Negative) Urine Bilirubin Negative (Negative) Urine Urobilinogen Negative (Negative) Ur Leukocyte Esterase Trace H (Negative) Urine WBC (Auto) 0-5 (0-5) /hpf Urine RBC (Auto) 0-2 (0-2) /hpf U Hyaline Cast (Auto) 3-5 H (0-2) /lpf U Epithel Cells (Auto) 0-2 (0-2) /hpf Urine Bacteria (Auto) None Seen (None Seen) Anaplasma Smear Babesia Smear Lyme Disease Screen (Negative) Administered Medications Heparin Sodium (Porcine) (Heparin Sod 5,000 Unit/0.5 Ml Vial) 5,000 units SQ Q8 DEO Stop: 05/10/24 21:59 Last Admin: 04/10/24 22:04 Dose: 5,000 units Documented By: REGLA Lactated Ringer's (Lr) 1,000 mls @ 125 mls/hr IV .Q8H DEO Stop: 04/11/24 11:14 Last Admin: 04/10/24 19:30 Dose: 125 mls/hr Documented By: RICK Prednisolone Acetate (Prednisolone Acetate 1% Op Susp 5 Ml Btl) 1 drops OP BID DEO Stop: 05/10/24 21:38 Last Admin: 04/10/24 22:04 Dose: Not Given Documented By: EFK Discontinued Medications Sodium Chloride (Nss) 500 mls @ 999 mls/hr IV .Q31M ONE Stop: 04/10/24 16:21 Last Infusion: 04/10/24 16:33 Dose: Infused Documented By: Admin: 04/10/24 15:57 Dose: 999 mls/hr Documented By: RICK Levothyroxine Sodium 200 mcg/ (Syringe) 10 mls @ 2 mls/min IV ONE STA; Protocol Stop: 04/10/24 18:09 Last Admin: 04/10/24 18:41 Dose: 2 mls/min Documented By: RICK Imaging Data Radiologist's Impression: Chest X-Ray 04/10/24 14:00 SINGLE VIEW CHEST CLINICAL HISTORY: Generalized weakness FINDINGS: An AP, portable, upright chest radiograph is compared to study dated 12/15/2023 and correlated with chest CT dated 05/21/2023. A right internal jugular central venous infusion port is unchanged in position. The heart is enlarged noting atherosclerotic calcification of the thoracic ureter. There is pulmonary vascular congestion. Emphysema and chronic interstitial thickening is similar to previous. There is postsurgical change and volume loss from left upper lobe resection. Airspace opacities are present at both lung bases. No large pleural effusion or pneumothorax is seen. The skeletal structures are osteopenic. The bony thorax is grossly intact. IMPRESSION: 1. Cardiomegaly with pulmonary vascular congestion. 2. Emphysema noting postsurgical change from left upper lobe resection. 3. Dependent airspace opacities are seen bilaterally, and could represent atelectasis versus a mild pneumonitis. Correlate clinically. ACT 112: Negative or not required by law. Electronically signed by: Jordan Reich M.D. 04/10/2024 2:[address] 04/10/24 14:01 CT head/brain wo con CLINICAL HISTORY: 78 years-old Male with AMS. Acutely altered mental status TECHNIQUE: Multiple axial CT images of the head were obtained without contrast. A dose lowering technique was utilized adhering to the principles of ALARA. CT DOSE: 703.85 mGy.cm COMPARISON: 11/30/2022 FINDINGS: No acute intracranial hemorrhage, midline shift, intracranial mass, hydrocephalus, territorial ischemia or acute extra-axial collection. Involutional changes with chronic microvascular ischemic disease. Calcifications of the falx cerebri. Unchanged asymmetric prominence of the extra-axial space along the right cerebrum. The calvarium is intact. Right-sided lens repair. The paranasal sinuses, mastoid air cells, and middle ear cavities are clear. IMPRESSION: No acute intracranial abnormality. ACT 112: Negative or not required by law. The above report was generated using voice recognition software. It may contain grammatical, syntax or spelling errors. Electronically signed by: Colby Morris M.D. 04/10/2024 2:20 PM Discharge Plan Visit Data Chief Complaint: Lethargic Stated Complaint: LETHARGIC, TICK BITE, SPEECH SLURRED,POSSIBLE LYME ED Provider: Mick Hobson Discharge Problem: Myxedema coma Patient Disposition: Admitted As Inpatient Discharge Instructions Interventions: ED Discharge Assessment Last Done: 04/10/24 21:17
[2024-04-10 14:51] LABS: Base Excess VBG 3.7 mEq/L; HCO3 VBG 29 mmol/L; Oxygen Saturation VBG 60.2 %; PCO2 VBG 46 mmHg (38-50); PO2 VBG 36 mmHg; pH VBG 7.41 (7.36-7.41)
--- NOTE | 2024-04-10 14:53 | XRay Report ---
SINGLE VIEW CHEST CLINICAL HISTORY: Generalized weakness FINDINGS: An AP, portable, upright chest radiograph is compared to study dated 12/15/2023 and correlat ed with chest CT dated 05/21/2023. A right internal jugular central venous infusion port is unchanged in position. The heart is enlarged noting atherosclerotic calcification of the thoracic ureter. There is pulmonary vascular congestion. Emphysema and chronic interstitial thickening is similar to previo us. There is postsurgical change and volume loss from left upper lobe resection. Airspace opacities a re present at both lung bases. No large pleural effusion or pneumothorax is seen. The skeletal struct ures are osteopenic. The bony thorax is grossly intact. IMPRESSION: 1. Cardiomegaly with pulmonary vascular congestion. 2. Emphysema noting postsurgical change from left upper lobe resection. 3. Dependent airspace opacities are seen bilaterally, and could represent atelectasis versus a mild p neumonitis. Correlate clinically. ACT 112: Negative or not required by law. Electronically signed by: Jordan Reich M.D. 04/10/2024 2:52 PM
[2024-04-10 15:06] LABS: Basophils # (auto) 0.09 K/uL (0.00-0.20); Basophils % (auto) 1.2 %; Eosinophils % (auto) 1.4 %; Hematocrit (blood only) 42.3 % (42.0-52.0); Hemoglobin 14.2 g/dl (14.0-18.0); Immature Granulocytes # (auto) 0.01 K/uL (0.01-0.20); Immature Granulocytes % (auto) 0.1 %; Lymphocytes % (auto) 34.3 %; Mean Corpuscular Hemoglobin 30.3 pg (25.0-34.0); Mean Corpuscular Hgb Conc 33.6 g/dL (32.0-36.0); Mean Corpuscular Volume 90.4 fL (80.0-100.0); Mean Platelet Volume 10.5 fL (9.4-12.4); Monocytes # (auto) 0.55 K/uL (0.11-0.59); Monocytes % (auto) 7.6 %; Neutrophils # (auto) 4.03 K/uL (1.40-6.50); Neutrophils % (auto) 55.4 %; Platelet Count 182 K/uL (130-400); RDW Coefficient of Variation 15.3 % (11.5-14.5); RDW Standard Deviation 50.3 fL (36.4-46.3); Red Blood Count 4.68 M/uL (4.70-6.10); White Blood Count 7.28 K/ul (4.8-10.8)
[2024-04-10 15:32] LABS: Alanine Aminotransferase 32 U/L (7-52); Albumin Globulin Ratio 1.6 (0.9-2); Albumin Level 4.4 gm/dl (3.4-5.0); Alkaline Phosphatase 66 U/L (34-104); Anion Gap 7 (3-11); Aspartate Aminotransferase 46 U/L (13-39); BUN Creatinine Ratio 19.2 (10-20); Bilirubin,Total 0.9 mg/dl (0.2-1.0); Blood Urea Nitrogen 34 mg/dl (6-23); Calcium 9.7 mg/dl (8.6-10.3); Carbon Dioxide 29 mmol/L (21-32); Chloride 104 mmol/L (98-107); Creatine Kinase 821 U/L (30-223); Creatinine Clr Calc Pharmacy 41.1 ml/min; Globulin 2.7 gm/dl (2.5-4.0); Glucose 101 mg/dl (70-99(Fasting)); Magnesium 1.8 mg/dl (1.7-2.4); Sodium 140 mmol/L (136-145); Total Protein 7.1 gm/dl (6.0-8.3)
[2024-04-10 15:38] LABS: Troponin I High Sensitivity 11.1 pg/ml (0-20)
[2024-04-10 15:50] LABS: INR 1.1 (0.9-1.1); Partial Thromboplastin Ratio 1.6; Partial Thromboplastin Time 42 Seconds (21-31); Prothrombin Time 11.4 Seconds (9.0-12.0)
[2024-04-10] MEDS: SODIUM CHLORIDE 0.9% 500 ML IV ONE (15:57)
[2024-04-10 16:20] LABS: Thyroid Stimulating Hormone 82.242 uIu/ml (0.300-4.500)
[2024-04-10 17:00] LABS: T4 Free Thyroxine < 0.25 ng/dl (0.61-1.60)
[2024-04-10 17:05] LABS: Appearance Urine Clear (Clear); Bacteria Urine Automated None Seen (None Seen); Bilirubin Urine Negative (Negative); Blood Urine Negative (Negative); Color Urine Yellow; Epithelial Cell Urine Auto 0-2 /hpf (0-2); Glucose Urine UA Negative (Negative); Ketones Urine Trace (Negative); Leukocyte Esterase Urine Trace (Negative); Nitrite Urine Negative (Negative); Protein Urine 2+ (Negative); RBC Urine Automated 0-2 /hpf (0-2); Specific Gravity Urine 1.028 (1.000-1.030); Urobilinogen Urine Negative (Negative); WBC Urine Automated 0-5 /hpf (0-5)
--- NOTE | 2024-04-10 18:22 | History & Physical Report ---
Date of Service April 10, 2024 Assessment & Plan (1) Myxedema coma: Plan: Soft diagnosis although he is having significant lethargy, apnea at night and pulmonary edema on CXR, HR 50-60 - score 35 therefore supportive of diagnosis of myxedema coma Cortisol level pending although no hypotension to warrant hydrocortisone Start levothyroxine 200 mcg IV now then 100 mcg PO daily Follow up with endocrinology as outpatient (2) Rhabdomyolysis: Plan: Mild rise in CK If ongoing despite treatment for myxedema coma as above consider pause in his statin use Plan Hyperlipidemia - continue atorvastatin Non-small cell lung cancer (adenocarcinoma) - s/p chemotherapy and surgery (adjuvant chemotherapy held in November due to cholecystitis) Diffuse large B-cell lymphoma presenting as a left renal mass - s/p nephrectomy and chemotherapy VTE Prophylaxis - heparin 5000 units SQ q8h Diet - regular Disposition - observation to med/tele Admission and Anticipated Discharge Date Admission Date: April 10, 2024 History of Present Illness Chief Complaint: Generalized weakness and fatigue Primary Care Provider: [facility] Renato Mace is a 78 year old male who presents to the ER with bilateral leg weakness and fatigue. He notes rapidly progressive symptoms over the last 2 weeks. Associated bilateral numbness around his mouth, bilateral leg weakness, witnessed apnea, slurring of speech, trouble forming thoughts, mild expressive dysphasia. He has never had a problem with his thyroid previously but did have parathyroid surgery 2 years previously. TSH was normal in August. He has a notable recent history of non-small cell lung cancer (adenocarcinoma) on chemotherapy until November when his treatment was interrupted due to cholecystitis. In the ER he was noted to have a TSH 82 with undetectable free T4. He denies feeling cold, no shortness of breath, chest pain, presyncope, decreased appetite, abdominal pain or constipation. No known precipitating infection event although he feels his symptoms started shortly after his recent cataract surgery. Allergies Allergy/AdvReac Type Severity Reaction Status Date / Time No Known Allergies Allergy Verified 04/10/24 18:03 Home Medications Medication Instructions Recorded Confirmed Type pantoprazole 20 mg tablet,delayed 20 mg PO QPM PRN Heartburn 07/09/22 04/10/24 History release (Protonix) docusate sodium 100 mg tablet 100 mg PO QAM 07/22/22 04/10/24 History (Stool Softener) atorvastatin 40 mg tablet (Lipitor) 40 mg PO QAM #30 tabs 03/11/23 04/10/24 Rx latanoprost 0.005 % eye drops 1 drp ophthalmic (eye) DAILY 04/10/24 04/10/24 History prednisolone acetate 1 % eye 1 drp ophthalmic (eye) BID 04/10/24 04/10/24 History drops,suspension Past Med/Surg History Problem List (Updated 04/11/24 @ 06:23 by Simon Lilly MD) Rhabdomyolysis Myxedema coma (Acute) Nausea & vomiting (Acute) Acute upper abdominal pain (Acute) Acute cholecystitis (Acute) Acute cholecystitis Lung nodule, solitary Fever (Acute) Hyponatremia Pancytopenia Elevated troponin Generalized weakness Pericardial effusion Port-A-Cath in place (06/24/22) Insertion Access Port with Fluoroscopy(right internal jugular vein) - Trever Lomeli, DO, FACS Encounter for insertion of venous access port Large B-cell lymphoma Renal Mass Following w/ Dr Phelan at [facility] CAD (coronary artery disease) Per 12/2021 PCP note- followed with cardio/last cardio work up 6-8 years ago- currently asymptomatic Stage 3 chronic kidney disease History of colon polyps HTN (hypertension) Osteopenia Hyperparathyroidism Arthritis Former smoker Hx of transient ischemic attack (TIA) patient states that doctors felt he may have had a mini stroke in his 60s. pts denies this Impaired fasting glucose Hgb A1C 12/2021 = 6.0 Hyperlipidemia Benign hypertension AAA (abdominal aortic aneurysm) S/p AAA repair 2018. 03/2022 abdomen/pelvis CT shows s/p aortobiliac stent graft repair- stent graft is patent. Residual aneurysm sac measures 6.3 x 5.0 cm Medical History Osteopenia Stage 3 chronic kidney disease History of hypertension s/p AAA repair in 2018, was treated with medication for about 2 years. no recent issues Hyperlipidemia CAD (coronary artery disease) Hx of colonic polyps History of abdominal aortic aneurysm (AAA) S/p AAA repair 2018. 03/2022 abdomen/pelvis CT shows s/p aortobiliac stent graft repair- stent graft is patent. Residual aneurysm sac measures 6.3 x 5.0 cm Hx of hyperparathyroidism Hx; s/p parathyroid surgery. 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 03/2022 abdomen/pelvis CT shows s/p aortobiliac stent graft repair- stent graft is patent. Residual aneurysm sac measures 6.3 x 5.0 cm Large B-cell lymphoma Non-hodgkin lymphoma -> currently in remission Emphysema lung COPD (chronic obstructive pulmonary disease) Degenerative disc disease History of duodenal ulcer Surgical History Hx of cataract surgery right Hx laparoscopic cholecystectomy (02/15/24) Laparoscopic Cholecystectomy(Not Applicable) - Wayne Luna DO S/P partial lobectomy of lung left upper partial lobectomy H/O insertion of central venous access port (2021) Right chest wall Power-port inserted at [facility]. History of bone marrow biopsy 05/2022 [facility] History of left nephrectomy 05/12/22 [facility] r/t non-hodgkin's lymphoma History of colonoscopy 11/2021 History of parathyroid surgery 01-08-21 Surgical removal of the right upper and left lower parathyroid glands History of umbilical hernia repair 2014 [place], [place] History of wisdom tooth extraction History of abdominal aortic aneurysm (AAA) repair [address] Jimenez Family History Mother Family history of diabetes mellitus Atrial fibrillation Glioblastoma Father Atrial fibrillation Aunt Breast cancer Son Cancer melanoma Other No family history of adverse response to anesthesia Denies family history of Ovarian cancer Prostate cancer Myocardial infarction Colorectal cancer Social History Smoking Status: Former smoker Tobacco Type: Cigarettes Second Hand Exposure: No; Do You Dip or Chew Tobacco: No; Hx Alcohol Use: No Hx Substance Use: No Preferred Language: [place] Communication Ability: Effective Visual Impairment: No Limitations Hearing Ability: Normal Road Worker Required: No Beliefs That Will Affect Care: None marital status: Current Living Situation: Spouse current occupational status: retired How many Children do You have: 2 Other Information That Helps Us Care for You: No Feels Safe at Home: Yes Safety Concerns: Feels Safe At This Time Diet: regular caffeine: Yes during the past year weight has: decreased > 10 lbs Dental Care, Regularly: No Physical Activity Frequency: Daily Seatbelt Use: always Sunscreen Use: Yes Assistive Devices: Cane, Glasses and Hearing Aid - Bilateral Review of Systems Review of Systems: All systems reviewed & are unremarkable except as noted in HPI & below Physical Exam Constitutional: WD/WN, vitals as above Eyes: + anicteric sclerae; normal pupil size ENMT: external ear and nose normal, oropharynx normal Respiratory: normal respiratory effort, lungs clear to auscultation Cardiovascular: Rate/Rhythm: regular rhythm and + bradycardic Heart Sounds: no murmur Extremities: normal capillary refill and + pedal edema (trace b/l equal); no calf tenderness Gastrointestinal (Abdomen): normal bowel sounds, soft, nontender, no hepatosplenomegaly Musculoskeletal: no cyanosis or clubbing, extremities motor strength 5/5 Skin: no rashes, warm and dry Neurologic: moves all extremities and awake; not confused Psychiatric: A+Ox3, euthymic affect Results & Data Results & Data Vital Signs (Past 12 Hours) Vital Signs Temp Pulse Pulse Resp BP BP Pulse Ox 04/10/24 17:00 65 18 152/93 H 98 04/10/24 15:15 65 18 131/90 94 04/10/24 14:48 66 23 96 04/10/24 14:47 131/88 04/10/24 14:00 04/10/24 13:49 04/10/24 13:27 36.6 C 75 18 106/76 96 O2 Del Method 04/10/24 17:00 Room Air 04/10/24 15:15 Room Air 04/10/24 14:48 04/10/24 14:47 04/10/24 14:00 Room Air 04/10/24 13:49 Room Air 04/10/24 13:27 Room Air Laboratory Results Abnormal lab results 04/10/24 04/10/24 04/10/24 Range/Units 14:25 14:40 16:42 RBC 4.68 L (4.70-6.10) M/uL RDW Std Deviation 50.3 H (36.4-46.3) fL RDW Coeff of Sasha 15.3 H (11.5-14.5) % APTT 42 H (21-31) Seconds BUN 34 H (6-23) mg/dl Creatinine 1.77 H (0.6-1.4) mg/dl Glucose 101 H (70-99(Fasting)) mg/dl AST 46 H (13-39) U/L Total Creatine Kinase 821 H (30-223) U/L TSH 82.242 H (0.300-4.500) uIu/ml Free T4 < 0.25 L (0.61-1.60) ng/dl Urine Protein 2+ H (Negative) Urine Ketones Trace H (Negative) Ur Leukocyte Esterase Trace H (Negative) U Hyaline Cast (Auto) 3-5 H (0-2) /lpf Diagnostic Findings CT head/brain wo con CLINICAL HISTORY: 78 years-old Male with AMS. Acutely altered mental status TECHNIQUE: Multiple axial CT images of the head were obtained without contrast. A dose lowering technique was utilized adhering to the principles of ALARA. CT DOSE: 703.85 mGy.cm COMPARISON: FINDINGS: No acute intracranial hemorrhage, midline shift, intracranial mass, hydrocephalus, territorial ischemia or acute extra-axial collection. Involutional changes with chronic microvascular ischemic disease. Calcifications of the falx cerebri. Unchanged asymmetric prominence of the extra-axial space along the right cere mayo. The calvarium is intact. Right-sided lens repair. The paranasal sinuses, mastoid air cells, and middle ear cavities are clear. IMPRESSION: No acute intracranial abnormality. SINGLE VIEW CHEST CLINICAL HISTORY: Generalized weakness FINDINGS: An AP, portable, upright chest radiograph is compared to study dated 12/15/2023 and correlated with chest CT dated 05/21/2023. A right internal jugular central venous infusion port is unchanged in position. The heart is enlarged noting atherosclerotic calcification of the thoracic ureter. There is pulmonary vascular congestion. Emphysema and chronic interstitial thickening is similar to previous. There is postsurgical change and volume loss from left upper lobe resection. Airspace opacities are present at both lung bases. No large pleural effusion or pneumothorax is seen. The skeletal structures are osteopenic. The bony thorax is grossly intact. IMPRESSION: 1. Cardiomegaly with pulmonary vascular congestion. 2. Emphysema noting postsurgical change from left upper lobe resection. 3. Dependent airspace opacities are seen bilaterally, and could represent atelectasis versus a mild pneumonitis. Correlate clinically. Medications Administered ER Medications Given: Normal saline 500ml bolus ECG Rate (beats per minute): 69 Rhythm: normal sinus Findings: + left axis deviation Comparison ECG Date: from (December 15, 2023) Change: the following changes noted (Rate decreased, PACs/PVCs resolved) Code Status & VTE Plan Code Status Full VTE Prophylaxis Plan VTE Prophylaxis will be ordered: No Reason for no VTE drug order: Treatment not indicated PG Care Time/CCT Total # of Minutes Spent Total Time Spent with Patient: Total time spent is greater than 50% in coordination of care (as documented) at patient's floor/unit and/or counseling patient: Coding Level of Care Code 41914 INT INP/OBS CARE 2/55MIN Diagnoses Myxedema coma E03.5 Rhabdomyolysis M62.82
[2024-04-10] MEDS: LEVOTHYROXINE SODIUM 200 MCG in SYRINGE 0 ML IV STA (18:41)
[2024-04-10] MEDS: LACTATED RINGER'S 1,000 ML IV SCH (19:30)
[2024-04-10] MEDS ORDERED: ACETAMINOPHEN 325 MG TAB PO PRN (21:39)
[2024-04-10] MEDS: HEPARIN SOD 5,000 UNIT/0.5 ML VIAL SQ SCH (22:04)
[2024-04-10] MEDS: prednisoLONE acetate 1% OP SUSP 5 ML BTL OP SCH (22:04)
[2024-04-11] MEDS: LEVOTHYROXINE SODIUM 100 MCG TABLET PO SCH (05:58)
--- NOTE | 2024-04-11 06:44 | Hospitalist Progress Note ---
Date of Service April 11, 2024 Assessment & Plan (1) Myxedema coma: (2) Rhabdomyolysis: Plan Myxedema Coma Pt is without classic signs including history of hypothyroidism, hypotension, cold intolerance, and constipation, pt presented wit high TSH and minimal T4. He does have evidence of pulmonary congestion and enlarged heart on CXR, bradycardia along with facial edema and progressive lethargy. EKG showed low voltage. Cortisol returned at normal range of 8.44. Pt was bolused with 200mcg of IV levothyroxine in ED. - Continue 100mcg levothyroxine PO qhs - Order echocardiogram to r/o pericardial effusion - Discontinue IVF in favor of PO fluids to reduce continued capillary leakage while thyroid hormone levels are improving - Consult Hem/onc regarding check point inhibitor as possible cause for sudden onset hypothyroidism - Order thryoid US Rhabdomyolysis Mild rise in CK and Cr, which may be due to myxedema. Treated with IVF. CK has decreased from 821 to 663. Cr has decreased 1.77 to 1.70. Baseline CR appears to be 1.4-1.5 - Encourage PO fluids - If ongoing despite levothyroxine, consider statin as cause - Consider diuretics if hypervolemic state continues Other conditions Hyperlipidemia - continue atorvastatin Non-small cell lung cancer (adenocarcinoma) - s/p chemotherapy and surgery (adjuvant chemotherapy held in November due to cholecystitis) Diffuse large B-cell lymphoma presenting as a left renal mass - s/p nephrectomy and chemotherapy VTE Prophylaxis - heparin 5000 units SQ q8h Diet - regular Disposition - observation to med/tele Admission and Anticipated Discharge Date Admission Date: April 10, 2024 Supervising Physician Co-Signing Physician Notes I personally examined the patient and verified all cruz points of history and exam, discussed case, and agree with decision making with Dr Fernandez feeling better acting more like himself no new issues vitals noted nad heent nc at mmm breathing unlabored no accessory muscles good effort skin no rashes no pallor or icterus neuro no focal deficits severe/symptomatic hypothyroidism - improving. continue synthroid. continue to follow. extensive discussions. thyroid US. ?checkpoint inhibitor related seems possible given fairly abrupt onset of hypothyroidism at 79 is quite atypical pulmonary edema - asymptomatic. hold off on diuretics given possible mild TERI and no symptoms/no O2 requirement - likely relates to above. check echo. mild TERI on CKD3 vs simply within baseline range of CKD3 - follow Cr DVT proph - heparin SQ dispo - anticipate him being able to go home once doing better from hypothyroidism standpoint Subjective Pt is a 78 yo male with PMH small cell lung CA, Large B-cell lymphoma, s/p cholecystitis/etcomy who presented to ED with 2-3 week progressive LE weakness, fatigue, mouth numbness, slurred speech and confusion. Pt was found to have a TSH of 82 with minimal T4. Pt denies hx of thyroid issues. This morning, pt continues with mild slurring speech, resolved confusion, continued weakness. Pt denies cold intolerance, changes in skin/hair, upper or lower extremity edema. Pt's has noticed facial edema at cheeks and eyes. Also noting increased nasal congestion and presence of snoring/apnea when sleeping at night. Pt denies CP, SOB at rest, cough, dysuria, constipation,numbness/tingling at distal UE/LE, new joint pain, fever, chills Review of Systems Review of Systems: As per HPI Physical Exam Constitutional: WD/WN, vitals as above Eyes: + anicteric sclerae; normal pupil size ENMT: external ear and nose normal, oropharynx normal Mouth: + tongue abnormality (mildly enlarged); oral mucous membranes not dry Respiratory: normal respiratory effort and able to speak in complete sentences; no cough Auscultation: + vesicular breath sounds Cardiovascular: Rate/Rhythm: regular rhythm and + bradycardic Heart Sounds: no murmur Extremities: normal capillary refill and + pedal edema (trace b/l equal); no calf tenderness Gastrointestinal (Abdomen): normal bowel sounds, soft, nontender, no hepatosplenomegaly Musculoskeletal: no cyanosis or clubbing, extremities motor strength 5/5 Skin: no rashes, warm and dry Neurologic: moves all extremities and awake; not confused Psychiatric: A+Ox3, euthymic affect Results & Data Results & Data Vital Signs (Past 12 Hours) Vital Signs Temp Pulse Pulse Pulse Resp BP Pulse Ox 04/11/24 03:19 36.4 C L 53 L 20 148/86 H 97 04/10/24 23:00 36.9 C 63 18 122/80 96 04/10/24 22:00 70 04/10/24 21:39 36.5 C 64 20 161/99 H 99 04/10/24 20:41 57 L 18 131/98 96 04/10/24 19:00 58 L 18 148/117 H 98 O2 Del Method 04/11/24 03:19 Room Air 04/10/24 23:00 Room Air 04/10/24 22:00 04/10/24 21:39 Room Air 04/10/24 20:41 Room Air 04/10/24 19:00 Room Air Resident Activity Tracking Resident Involvement: Resident Care Provided Care Provided: Adult Hospital Medicine
[2024-04-11 07:55] LABS: Hematocrit (blood only) 39.9 % (42.0-52.0); Mean Corpuscular Hemoglobin 29.8 pg (25.0-34.0); Mean Corpuscular Hgb Conc 32.6 g/dL (32.0-36.0); Mean Corpuscular Volume 91.5 fL (80.0-100.0); Platelet Count 177 K/uL (130-400); RDW Coefficient of Variation 15.2 % (11.5-14.5); RDW Standard Deviation 50.2 fL (36.4-46.3); Red Blood Count 4.36 M/uL (4.70-6.10); White Blood Count 5.94 K/ul (4.8-10.8)
[2024-04-11 08:08] LABS: BUN Creatinine Ratio 17.1 (10-20); Calcium 8.7 mg/dl (8.6-10.3); Creatinine Clr Calc Pharmacy 40.2 ml/min; Potassium 3.8 mmol/L (3.5-5.1)
[2024-04-11] MEDS: ATORVASTATIN 40 MG TAB PO SCH (08:26)
[2024-04-11] MEDS: DOCUSATE SODIUM 100 MG CAP PO SCH (08:26)
[2024-04-11] MEDS: LATANOPROST 0.005% OP SOLN 2.5 ML BTL OP SCH (08:27)
--- NOTE | 2024-04-11 16:09 | Billing Data ---
Date of Service April 11, 2024 Coding Level of Care Code 66138 SUB INP/OBS CARE
--- NOTE | 2024-04-11 16:37 | Ultrasound Report ---
ULTRASOUND OF THE THYROID GLAND CLINICAL HISTORY: Hypothyroidism. COMPARISON STUDY: Chest CT dated 05/21/2023. TECHNIQUE: Real-time, grayscale, and color flow sonography of the thyroid gland is performed utilizin g a high-frequency linear transducer. Images are reviewed in the transverse and longitudinal planes. FINDINGS: Right lobe: The right lobe of the thyroid gland is normal in size and heterogeneous in echotexture, m easuring 5.0 x 1.6 x 1.7 cm. A hypoechoic nodule in the right lower pole measures 1.7 x 1.2 x 0.8 cm. Left lobe: The left thyroid lobe is not visualized. A hypoechoic nodule or node in the left thyroid b ed measures 0.6 x 0.6 by 0.5 cm. Isthmus: The thyroid isthmus is not well-visualized. IMPRESSION: 1. The thyroid isthmus and left lobe are not well-visualized and may be surgically absent. Correlate with the operative history. 2. The right thyroid lobe is normal in size and heterogeneous in echotexture. 3. A 1.7 cm right hypoechoic nodules in the right lower pole. A one-year follow-up examination is rec ommended for reassessment. 4. A subcentimeter node or nodule is seen in the expected left thyroid bed. ACT 112: Negative or not required by law. Electronically signed by: Jordan Reich M.D. 04/11/2024 4:36 PM
--- NOTE | 2024-04-11 17:39 | XCELERA ---
[id number]
[2024-04-12] MEDS: HEPARIN 100 UNIT/ML 5ML FLUSH FLUSH PRN (06:42)
[2024-04-12 06:52] VITALS: PULSE 54; RESP 14; TEMP 97.3; O2SAT 95
--- NOTE | 2024-04-12 07:05 | Hospitalist Progress Note ---
Date of Service April 12, 2024 Assessment & Plan (1) Myxedema coma: (2) Rhabdomyolysis: Plan Myxedema Coma Pt is without classic signs including history of hypothyroidism, hypotension, cold intolerance, and constipation, pt presented with high TSH and minimal T4. He does have evidence of pulmonary congestion and enlarged heart on CXR, bradycardia along with facial edema and progressive lethargy. EKG showed low voltage. Cortisol returned at normal range of 8.44. Pt gievn 200mcg of IV levothyroxine in ED. - Continue 100mcg levothyroxine PO qhs - Echocardiogram showed good cardiac function with mild effusion. - Thyroid US showed 1 left sided and 2 right sided hypoechoic thyroid nodule. Also noted lack of visualization of left side of thyroid. Pt denies any surgery for partial thyroidectomy - Pending Hem/onc regarding check point inhibitor as possible cause for sudden onset hypothyroidism Rhabdomyolysis Mild rise in CK and Cr, which may be due to myxedema. Treated with IVF. CK has decreased from 821 to 663. Cr is trending down gradually 1.68. Baseline CR appears to be 1.4-1.5 - Encourage PO fluids - If ongoing despite levothyroxine, consider statin as cause Other conditions Hyperlipidemia - continue atorvastatin Non-small cell lung cancer (adenocarcinoma) - s/p chemotherapy and surgery (adjuvant chemotherapy held in November due to cholecystitis) Diffuse large B-cell lymphoma presenting as a left renal mass - s/p nephrectomy and chemotherapy VTE Prophylaxis - heparin 5000 units SQ q8h Diet - regular Disposition - observation to med/tele Admission and Anticipated Discharge Date Admission Date: April 11, 2024 Subjective Pt is a 78 yo male with PMH small cell lung CA, Large B-cell lymphoma, s/p cholecystitis/etcomy who was admitted with symptoms of acute thyroid disfunction. This morning, pt reports feeling "really good". He feels mentally clear, stronger in his legs, and slept great last night. Pt denies CP, SOB at rest, cough, dysuria, constipation,numbness/tingling at distal UE/LE, new joint pain, fever, chills Review of Systems Review of Systems: As per HPI Physical Exam Constitutional: WD/WN, vitals as above Eyes: + anicteric sclerae; normal pupil size ENMT: external ear and nose normal, oropharynx normal Respiratory: normal respiratory effort, lungs clear to auscultation Cardiovascular: Rate/Rhythm: regular rhythm and + bradycardic Heart Sounds: no murmur Extremities: normal capillary refill and + pedal edema (trace b/l equal); no calf tenderness Gastrointestinal (Abdomen): normal bowel sounds, soft, nontender, no hepatosplenomegaly Musculoskeletal: no cyanosis or clubbing, extremities motor strength 5/5 Skin: no rashes, warm and dry Neurologic: moves all extremities and awake; not confused Psychiatric: A+Ox3, euthymic affect Results & Data Results & Data Vital Signs (Past 12 Hours) Vital Signs Temp Pulse Resp BP BP Pulse Ox O2 Del Method 04/12/24 06:51 36.3 C L 54 L 14 131/86 95 Room Air 04/11/24 22:51 36.4 C L 63 16 152/82 H 97 Room Air 04/11/24 21:54 Room Air
[2024-04-12 07:15] LABS: Hematocrit (blood only) 39.3 % (42.0-52.0); Mean Corpuscular Hemoglobin 30.2 pg (25.0-34.0); Mean Corpuscular Hgb Conc 33.1 g/dL (32.0-36.0); Mean Corpuscular Volume 91.4 fL (80.0-100.0); Mean Platelet Volume 10.9 fL (9.4-12.4); Platelet Count 166 K/uL (130-400); RDW Standard Deviation 50.4 fL (36.4-46.3); White Blood Count 5.39 K/ul (4.8-10.8)
[2024-04-12 07:46] LABS: BUN Creatinine Ratio 16.1 (10-20); Creatinine Clr Calc Pharmacy 40.7 ml/min; Potassium 3.9 mmol/L (3.5-5.1)
[2024-04-12 12:25] LABS: Thyroid Stimulating Hormone 72.138 uIu/ml (0.300-4.500)
[2024-04-12 15:35] VITALS: BP 152/82
--- NOTE | 2024-04-12 17:35 | Billing Data ---
Date of Service April 12, 2024 Coding Level of Care Code 92147 IN/OBS DISCH 30 MIN/LESS
--- NOTE | 2024-04-12 17:35 | Discharge Summary ---
Discharge Summary Date of Service April 12, 2024 Principal Dx & Hospital Course #1 = Principal Diagnosis (1) Hypothyroid: Patient presented with symptoms consistent with hypothyroidism, And a TSH of 82. Improved with IV Synthroid followed by p.o. Doing well enough. In addition to feeling weak and mental fog, he has mild edema as well as mild pulmonary edema, and a mild pericardial fusionall of which I anticipate provedbut all of which will require follow-up. Discharging on 125 mcg of Synthroid, repeat TSH in about 4 weeks, titrate dose accordingly. As far as the etiology of his hypothyroidismI wonder if it is immune mediated triggered by his checkpoint inhibitor therapyasked oncology to give consideration of this, but also given that it seems to only affected his thyroid, at this pointI would not suspect that changing therapy would be warranted Pericardial effusionsuspect relates to hypothyroidismrepeat echo in 3-4 months mild elevation in CPKseems to be working hypothyroidism than a true/clinically significant rhabdomyolysistrending downoutpatient follow-up (discussed what to watch for as far as statin related versus simply thyroid related) thyroid nodulesoutpatient follow-up per radiology recs lung cancercontinue current treatment for nowasking oncology to consider that his checkpoint inhibitor may have led to his hypothyroidism, but again that risk-benefit probably favors continuing checkpoint inhibitor at this time Notes For Next Care Provider Medication Changes From Visit synthroid 125mcg - repeat TSH ~4wks Admission HPI Per Admitting Provider Renato Mace is a 78 year old male who presents to the ER with bilateral leg weakness and fatigue. He notes rapidly progressive symptoms over the last 2 weeks. Associated bilateral numbness around his mouth, bilateral leg weakness, witnessed apnea, slurring of speech, trouble forming thoughts, mild expressive dysphasia. He has never had a problem with his thyroid previously but did have parathyroid surgery 2 years previously. TSH was normal in August. He has a notable recent history of non-small cell lung cancer (adenocarcinoma) on chemotherapy until November when his treatment was interrupted due to cholecystitis. In the ER he was noted to have a TSH 82 with undetectable free T4. He denies feeling cold, no shortness of breath, chest pain, presyncope, decreased appetite, abdominal pain or constipation. No known precipitating infection event although he feels his symptoms started shortly after his recent cataract surgery. Discharge Exam General He is awake alert pleasant no distress. HEENT normocephalic atraumatic mucous membranes moist. Breathing unlabored no accessory muscle use good effort. Skin without rashes pallor or icterus. Neuro without focal deficits Updated Medication List Medication Instructions Recorded Confirmed Type pantoprazole 20 mg tablet,delayed 20 mg PO QPM PRN Heartburn 07/09/22 04/10/24 History release (Protonix) docusate sodium 100 mg tablet 100 mg PO QAM 07/22/22 04/10/24 History (Stool Softener) atorvastatin 40 mg tablet (Lipitor) 40 mg PO QAM #30 tabs 03/11/23 04/10/24 Rx latanoprost 0.005 % eye drops 1 drp ophthalmic (eye) DAILY 04/10/24 04/10/24 History prednisolone acetate 1 % eye 1 drp ophthalmic (eye) BID 04/10/24 04/10/24 History drops,suspension levothyroxine 125 mcg capsule 125 mcg PO DAILY #30 caps 04/12/24 Rx Hospital Stay Data Consultations 04/10/24 17:26 ED Decision to Admit Stat 04/11/24 14:17 Consult Oncology Routine Diagnostic Imagining Performed 04/10/24 14:01 CT head/brain wo con Stat 04/11/24 14:13 US thyroid Routine Pending Results Patient Have Any Pending Studies at Discharge: No Discharge Instructions Given to Patient (Per Discharging Provider) You were admitted with acute hypothyroidism. We think that this could be a side effect from one of your cancer medications that you were on prior, luckily this is relativity easy to treat. We started you on thyroid replacement. You should take the levothyroxine every day. You should take first thing in the morning, 30 minutes prior to eating anything. You will need to follow up with your primary care doctor in the next week. They will continue to monitor your thyroid hormone levels and adjust the medication- it will likely need to be repeat in 4 weeks. Other things to discuss with your primary care doctor will be your low heart rate. We've noticed that it has been low throughout your hospitalization, which could be secondary to the hypothyroidism, but it may be reasonable in the future to get an event monitor to see what your heart rate does through out the day. Total Time Total Time Spent Total Time Spent (In Minutes): <30
--- NOTE | 2024-04-13 05:34 | Electrocardiogram Report ---
Test Reason : Blood Pressure : */* mmHG Vent. Rate : 69 BPM Atrial Rate : 69 BPM P-R Int : 190 ms QRS Dur : 84 ms QT Int : 418 ms P-R-T Axes : 47 -41 69 degrees QTcB Int : 447 ms Normal sinus rhythm Left axis deviation Low voltage QRS Inferior infarct Nonspecific T wave abnormality Abnormal ECG When compared with ECG of 15-Dec-2023 04:53, Premature atrial complexes are no longer Present Premature ventricular complexes are no longer Present Confirmed by Kaleb Lacy ([id number]) on 04/13/2024 5:34:05 AM Referred By: REFERRED SELF Confirmed By: Kaleb Lacy
[2024-04-14 17:27] LABS: Babesia microti DNA Not Detected (Not Detected)
== END 2024-04-12 15:52 | disposition home or self-care (01) | DRG 644 ==
LOC: SUATTDRO → 2N 13:26 → ED 13:26 → SUATTDRO 18:15 → 2N 21:17 → 3N 04-11 22:16

== ENCOUNTER 2024-06-11 13:44 | Observation (INO) ==
--- NOTE | 2024-06-11 14:21 | Emergency Department Note ---
Impression & Plan Fever, Generalized weakness, Pancytopenia, Stage 3 chronic kidney disease, Localized swelling of both lower legs ED Provider Note NAME: REMY LARA AGE: 78 SEX: M : 1945 ARRIVES VIA: Walk-In INFORMANT: Patient, ED PROVIDER(S): Mick Hobson MD CHIEF COMPLAINT: Leg swelling, fever MEDICAL DECISION MAKING: Patient presents due to concern for fever lower extremity swelling. IV was established and blood work was obtained. Patient is on chemotherapy so sepsis protocols initiated. IV fluids held initially given the patient's lower extremity edema. Patient's blood work shows leukopenia anemia and thrombocytopenia. Neutrophil count of 1.23 or 1230. Patient with mild TERI with creatinine 1.9. BioFire negative. TSH elevated but free T4 is normal. X-ray was to be fairly clear. Given the patient's increasing leg swelling patient was initially ordered Lasix but after discussion with the hospitalist will hold given the mild TERI. I did speak with the on-call hospitalist after informing the patient the patient's of the recommendations. Patient will be admitted to the medicine service after speaking with Dr. Barrios. Discussion w/ other healthcare providers: Dr. Barrios inpatient medicine service Prior /Outside records reviewed: None Differential diagnosis: Dehydration, UTI, pneumonia, metabolic derangment, electrolyte abnormalities, hypovolemia, anemia, cellulitis among others were considered. Diagnostics, as interpreted by me: ECG: Normal sinus rhythm, rate of 78, normal intervals, normal axis no ST elevations. Cardiac monitoring: An order was placed for continuous cardiac monitoring. The monitor shows a rate of 67 with regular rhythm. Patient was placed on pulse oximetry Medical decision rules: None Imaging studies: I informally interpreted the patient's chest x-ray does not show obvious pneumonia with formal report to follow. HPI: Patient presents due to concern for lower extremity swelling. Patient reports that he noticed this yesterday morning. He has been receiving gemcitabine infusions most recently on June 06. The patient does follow with Dr. Rosales states for known history of non-small cell lung carcinoma. No reported travel. The patient reportedly did have low-grade temperatures of 100.4 yesterday morning did receive some Tylenol. Patient has been afebrile since. They did note some slight lower extremity redness as well. Per review of the patient's medication side effects from the gemcitabine can cause some lower extremity swelling. The patient does not take a diuretic. He has had some decreased p.o. intake and appetite. PAST MEDICAL HISTORY: See Below PAST SURGICAL HISTORY: See Below SOCIAL HISTORY: See Below HOME MEDICATIONS: See Below ALLERGIES: See Below VITALS: See Below PHYSICAL EXAMINATION: GENERAL: NAD, non-toxic. Wearing a mask. EYE EXAM: Normal conjunctiva. PERRL, no anisocoria and EOM's grossly intact w/o pain. OROPHARYNX: Moist mucus membranes, grossly normal dentition. NECK: Trachea midline, no stridor. Supple, no nuchal rigidity, no adenopathy, non-tender. No signs of meningismus. FROM of the neck with good chin to chest and neck extension. Chest: Port noted in the right chest. LUNGS: Clear to auscultation. Normal chest wall mechanics. HEART: NSR, no MRG. ABDOMEN: Abdomen soft, non-tender, no masses, no rebound or guarding. BACK: No CVA TTP. SKIN: No rashes and no bruising. UPPER EXTREMITIES: Upper extremities are grossly normal. LOWER EXTREMITIES: Grossly normal, 2-3+ bilateral lower extremity edema without calf pain. Mild erythema but it blanches and is without any calor. NEURO EXAM: A&O x3, cranial nerves II-XII grossly intact, normal speech, moves all 4 extremities. Past Med/Surg History Problem List (Updated 06/19/24 @ 10:57 by Mick Hobson MD) Localized swelling of both lower legs (Acute) Palliative care by specialist Advanced care planning/counseling discussion Anemia Bilateral edema of lower extremity Adenocarcinoma reoccurance, will restart chemo 05/30/24, following w/ Dr Rosales at [facility] >>>of the left upper lung - surgically removed 10/2023 + treated with chemotherapy and immunotherapy- Neutropenic fever Hypothyroid Nausea & vomiting (Acute) Acute upper abdominal pain (Acute) Acute cholecystitis (Acute) Acute cholecystitis Lung nodule, solitary Fever (Acute) Hyponatremia Pancytopenia (Acute) Elevated troponin Generalized weakness (Acute) Pericardial effusion Port-A-Cath in place (06/24/22) Insertion Access Port with Fluoroscopy(right internal jugular vein) - Trever Lomeli, DO, FACS Encounter for insertion of venous access port Large B-cell lymphoma Renal Mass Following w/ Dr Phelan at [facility] CAD (coronary artery disease) Per 12/2021 PCP note- followed with cardio/last cardio work up 6-8 years ago- currently asymptomatic Stage 3 chronic kidney disease (Acute) History of colon polyps HTN (hypertension) Osteopenia Hyperparathyroidism Arthritis Former smoker Hx of transient ischemic attack (TIA) patient states that doctors felt he may have had a mini stroke in his 60s. pts denies this Impaired fasting glucose Hgb A1C 12/2021 = 6.0 Hyperlipidemia Benign hypertension AAA (abdominal aortic aneurysm) S/p AAA repair 2018. 03/2022 abdomen/pelvis CT shows s/p aortobiliac stent graft repair- stent graft is patent. Residual aneurysm sac measures 6.3 x 5.0 cm Medical History Renal mass follows / [facility] cancer Hypothyroidism Rhabdomyolysis h/o hospitalized at [place] 04/10/24 Myxedema coma h/o hospitalized at [place] 04/10/24 Osteopenia Stage 3 chronic kidney disease History of hypertension s/p AAA repair in 2018, was treated with medication for about 2 years. no recent issues Hyperlipidemia CAD (coronary artery disease) Hx of colonic polyps History of abdominal aortic aneurysm (AAA) S/p AAA repair 2018. 03/2022 abdomen/pelvis CT shows s/p aortobiliac stent graft repair- stent graft is patent. Residual aneurysm sac measures 6.3 x 5.0 cm Hx of hyperparathyroidism Hx; s/p parathyroid surgery. Stable per 12/2021 PCP visit Port-A-Cath in place right chest wall AAA (abdominal aortic aneurysm) S/p AAA repair 2017. 03/2022 abdomen/pelvis CT shows s/p aortobiliac stent graft repair- stent graft is patent. Residual aneurysm sac measures 6.3 x 5.0 cm Large B-cell lymphoma Non-hodgkin lymphoma -> currently in remission Emphysema lung COPD (chronic obstructive pulmonary disease) Degenerative disc disease History of duodenal ulcer Surgical History Hx of cataract surgery right Hx laparoscopic cholecystectomy (02/15/24) Laparoscopic Cholecystectomy(Not Applicable) - Wayne Luna DO S/P partial lobectomy of lung left upper partial lobectomy H/O insertion of central venous access port (2021) Right chest wall Power-port inserted at [facility]. History of bone marrow biopsy 05/2022 [facility] History of left nephrectomy 05/12/22 [facility] r/t non-hodgkin's lymphoma History of colonoscopy 11/2021 History of parathyroid surgery 01-08-21 Surgical removal of the right upper and left lower parathyroid glands History of umbilical hernia repair 2014 [place], [place] History of wisdom tooth extraction History of abdominal aortic aneurysm (AAA) repair [address] Jimenez Family History Mother Family history of diabetes mellitus Atrial fibrillation Glioblastoma Father Atrial fibrillation Aunt Breast cancer Son Cancer melanoma Other No family history of adverse response to anesthesia Denies family history of Ovarian cancer Prostate cancer Myocardial infarction Colorectal cancer Social History Smoking Status: Never smoker Tobacco Type: Cigarettes Second Hand Exposure: No; Do You Dip or Chew Tobacco: No; Hx Alcohol Use: No Hx Substance Use: No Preferred Language: Zimbabwean Communication Ability: Effective Visual Impairment: No Limitations Hearing Ability: Normal Skylights Assembler Required: No Beliefs That Will Affect Care: None marital status: Current Living Situation: Spouse current occupational status: retired How many Children do You have: 2 Feels Safe at Home: Yes Safety Concerns: Feels Safe At This Time Diet: regular caffeine: Yes during the past year weight has: decreased > 10 lbs Dental Care, Regularly: No Physical Activity Frequency: Daily Seatbelt Use: always Sunscreen Use: Yes Assistive Devices: Walker Allergies Allergies Allergy/AdvReac Type Severity Reaction Status Date / Time fentanyl AdvReac Verified 05/22/24 12:04 Home Meds Home Medications Medication Instructions Recorded Confirmed pantoprazole 20 mg tablet,delayed 20 mg PO QPM PRN Heartburn 07/09/22 06/11/24 release (Protonix) docusate sodium 100 mg tablet 100 mg PO QAM 07/22/22 06/11/24 (Stool Softener) latanoprost 0.005 % eye drops 1 drp ophthalmic (eye) DAILY 04/10/24 06/11/24 ondansetron 8 mg disintegrating 8 mg PO Q8H PRN N/V 06/11/24 06/11/24 tablet prochlorperazine maleate 10 mg 10 mg PO Q6H PRN N/V 06/11/24 06/11/24 tablet Previous Rx's Medication Instructions Recorded atorvastatin 40 mg tablet (Lipitor) 40 mg PO QAM #30 tabs 03/11/23 levothyroxine 125 mcg capsule 125 mcg PO DAILY #30 caps 04/12/24 amoxicillin 875 mg-potassium 1 tab PO BID 7 days #14 tabs 06/13/24 clavulanate 125 mg tablet Results & Data (ED) Vital Signs Vital Signs - 24 hr 06/11/24 13:45 06/11/24 14:27 Temperature 36.7 C Temperature Source Temporal Artery Scan Pulse Rate 85 74 Respiratory Rate 20 Respiratory Depth Normal Pulse Oximetry 95 Oxygen Delivery Method Room Air Sepsis Recent Fever Within 48 Hours Yes Sepsis New/Unexplained Change in Mental Status No Sepsis Action Taken by Nursing No Action Required Home Medications Current Medication List: was personally reviewed by me Laboratory Data Attestation: I reviewed the patient's lab results. 06/13/24 07:38 06/13/24 07:38 Lab Results 06/11/24 06/11/24 Range/Units 14:10 14:42 WBC 2.86 L (4.8-10.8) K/ul RBC 3.64 L (4.70-6.10) M/uL Hgb 11.3 L (14.0-18.0) g/dl Hct 32.5 L (42.0-52.0) % MCV 89.3 (80.0-100.0) fL MCH 31.0 (25.0-34.0) pg MCHC 34.8 (32.0-36.0) g/dL RDW Std Deviation 42.2 (36.4-46.3) fL RDW Coeff of Sasha 13.2 (11.5-14.5) % Plt Count 97 L (130-400) K/uL MPV 9.5 (9.4-12.4) fL Immature Gran % (Auto) 0.3 % Neut % (Auto) 43.0 % Lymph % (Auto) 48.3 % [place] % (Auto) 4.2 % Eos % (Auto) 3.5 % Baso % (Auto) 0.7 % Neut # (Auto) 1.23 L (1.40-6.50) K/uL Lymph # (Auto) 1.38 (1.20-3.40) K/uL [place] # (Auto) 0.12 (0.11-0.59) K/uL Eos # (Auto) 0.10 (0.00-0.50) K/uL Baso # (Auto) 0.02 (0.00-0.20) K/uL Immature Gran # (Auto) 0.01 (0.01-0.20) K/uL Sodium 135 L (136-145) mmol/L Potassium 3.8 (3.5-5.1) mmol/L Chloride 102 (98-107) mmol/L Carbon Dioxide 27 (21-32) mmol/L Anion Gap 6 (3-11) BUN 23 (6-23) mg/dl Creatinine 1.90 H (0.6-1.4) mg/dl Est Cr Clr Drug Dosing 38.5 ml/min eGFR 35.44 BUN/Creatinine Ratio 12.1 (10-20) Glucose 103 H (70-99(Fasting)) mg/dl Lactate 1.1 (0.4-2.0) mmol/L Calcium 8.6 (8.6-10.3) mg/dl Magnesium 2.2 (1.7-2.4) mg/dl Total Bilirubin 1.0 (0.2-1.0) mg/dl AST 21 (13-39) U/L ALT 35 (7-52) U/L Alkaline Phosphatase 62 (34-104) U/L B-Natriuretic Peptide 199 H (0-100) pg/ml Total Protein 6.5 (6.0-8.3) gm/dl Albumin 3.4 (3.4-5.0) gm/dl Globulin 3.1 (2.5-4.0) gm/dl Albumin/Globulin Ratio 1.1 (0.9-2) TSH 10.437 H (0.300-4.500) uIu/ml Free T4 1.12 (0.61-1.60) ng/dl Adenovirus (PCR) Not Detected (NotDetected) B. pertussis DNA (PCR) Not Detected (NotDetected) B.parapertussis DNA PCR Not Detected (NotDetected) C. pneumoniae DNA (PCR) Not Detected (NotDetected) Coronavirus OC43 (PCR) Not Detected (NotDetected) Coronavirus HKU1 (PCR) Not Detected (NotDetected) Coronavirus 229E (PCR) Not Detected (NotDetected) SARS-CoV-2 (PCR) Not Detected (NotDetected) Coronavirus NL63 (PCR) Not Detected (NotDetected) Human Metapneumovir PCR Not Detected (NotDetected) Influenza Type A (PCR) Not Detected (NotDetected) Influenza Type B (PCR) Not Detected (NotDetected) M. pneumoniae (PCR) Not Detected (NotDetected) Parainfluenza 1 (PCR) Not Detected (NotDetected) Parainfluenza 2 (PCR) Not Detected (NotDetected) Parainfluenza 3 (PCR) Not Detected (NotDetected) Parainfluenza 4 (PCR) Not Detected (NotDetected) RSV (PCR) Not Detected (NotDetected) Entero/Rhino (PCR) Not Detected (NotDetected) Administered Medications Discontinued Medications Amoxicillin/Clavulanate Potassium (Amoxicillin/Clavulanate 875mg Home Pack) 1 each PO ONE ONE Stop: 06/13/24 15:49 Last Admin: 06/13/24 16:22 Dose: 1 each Documented By: CMV Atorvastatin Calcium (Atorvastatin 40 Mg Tab) 40 mg PO [facility] Stop: 07/12/24 08:59 Last Admin: 06/13/24 08:11 Dose: 40 mg Documented By: Admin: 06/12/24 07:52 Dose: 40 mg Documented By: LIONEL Docusate Sodium (Docusate Sodium 100 Mg Cap) 100 mg PO [facility] Stop: 07/12/24 08:59 Last Admin: 06/13/24 08:12 Dose: Not Given Documented By: Admin: 06/12/24 07:52 Dose: Not Given Documented By: ADKasey Furosemide (Furosemide Inj 20 Mg/2 Ml Vial) 20 mg IV ONE ONE Stop: 06/11/24 15:12 Last Admin: 06/11/24 15:56 Dose: Not Given Documented By: TERRA Heparin Sodium (Porcine) (Heparin 100 Unit/Ml 5ml Flush) 5 ml FLUSH PRN PRN PRN Reason: Flush Stop: 07/12/24 06:18 Last Admin: 06/13/24 12:50 Dose: 5 ml Documented By: Admin: 06/13/24 06:41 Dose: 5 ml Documented By: Admin: 06/13/24 00:21 Dose: 5 ml Documented By: Admin: 06/12/24 18:47 Dose: 5 ml Documented By: Admin: 06/12/24 06:50 Dose: 5 ml Documented By: JAZ Ampicillin Sodium/Sulbactam Sodium (Unasyn) 1,500 mg in 100 mls @ 200 mls/hr IV Q6H DEO Stop: 06/13/24 16:29 Last Infusion: 06/13/24 12:49 Dose: Infused Documented By: Admin: 06/13/24 12:11 Dose: 200 mls/hr Documented By: Infusion: 06/13/24 06:41 Dose: Infused Documented By: Admin: 06/13/24 05:50 Dose: 200 mls/hr Documented By: Infusion: 06/13/24 00:22 Dose: Infused Documented By: Admin: 06/12/24 23:44 Dose: 200 mls/hr Documented By: Infusion: 06/12/24 18:48 Dose: Infused Documented By: Admin: 06/12/24 18:07 Dose: 200 mls/hr Documented By: Infusion: 06/12/24 13:25 Dose: Infused Documented By: Admin: 06/12/24 12:53 Dose: 200 mls/hr Documented By: Infusion: 06/12/24 06:49 Dose: Infused Documented By: Admin: 06/12/24 06:10 Dose: 200 mls/hr Documented By: Infusion: 06/12/24 00:39 Dose: Infused Documented By: Admin: 06/11/24 23:41 Dose: 200 mls/hr Documented By: JAZ Ampicillin Sodium/Sulbactam Sodium (Unasyn) 1,500 mg in 100 mls @ 200 mls/hr IV NOW STA Stop: 06/11/24 17:34 Last Infusion: 06/11/24 18:18 Dose: Infused Documented By: Admin: 06/11/24 17:34 Dose: 200 mls/hr Documented By: TERRA Latanoprost (Latanoprost 0.005% Op Soln 2.5 Ml Btl) 1 drops OP DAILY DEO Stop: 07/11/24 18:54 Last Admin: 06/13/24 08:11 Dose: 1 drops Documented By: Admin: 06/12/24 07:52 Dose: 1 drops Documented By: Admin: 06/11/24 20:19 Dose: 1 drops Documented By: JAZ Levothyroxine Sodium (Levothyroxine Sodium 125 Mcg Tablet) 125 mcg PO DAILYBB [facility] Stop: 07/12/24 06:29 Last Admin: 06/13/24 05:49 Dose: 125 mcg Documented By: Admin: 06/12/24 06:06 Dose: 125 mcg Documented By: JAZ Ondansetron HCl (Ondansetron Inj 2 Mg/Ml 2 Ml Vial) 4 mg IV Q6H PRN PRN Reason: Nausea And Vomiting Stop: 07/11/24 18:54 Last Admin: 06/12/24 04:09 Dose: 4 mg Documented By: BALTAZAR Imaging Data Radiologist's Impression: Chest X-Ray 06/11/24 14:13 EXAM: Radiograph of the Chest 1 View INDICATION: Weakness. TECHNIQUE: Frontal view of the chest. COMPARISON: 04/10/2024 and 11/30/2022 FINDINGS: Lungs and pleural spaces: Stable hyperinflation with persistent but improved reticular nodular interstitial thickening particularly in the right base. No consolidation or pulmonary edema. No pleural effusion or pneumothorax. Heart: Stable large cardiac shadow. Mediastinum: Normal contour. Bones/joints: No fracture, erosion or dislocation. Soft tissues: No abnormality noted. No radiopaque foreign body noted. Tubes, lines and devices: Right internal jugular port catheter tip terminates in the distal SVC. Upper abdomen: No abnormality noted. IMPRESSION: Chronic changes. No acute disease. ACT 112: Negative or not required by law. Electronically signed by Rose Cabrera 06-11-2024 3:22 PM Discharge Plan Visit Data Chief Complaint: Swelling/Edema to Extremity Stated Complaint: EDEMA/REDNESS IN LEGS, FEVER, POSSIBLE CLOTS ED Provider: Mick Hobson Discharge Problem: Fever, Generalized weakness, Pancytopenia, Stage 3 chronic kidney disease, Localized swelling of both lower legs Patient Disposition: Admitted As Inpatient Discharge Instructions Interventions: ED Discharge Assessment Last Done: 06/11/24 18:21 Discharge Problem: Fever Qualifiers: Fever type: unspecified Qualified Code(s): R50.9 - Fever, unspecified Stage 3 chronic kidney disease Qualifiers: Chronic kidney disease stage 3 subtype: unspecified whether 3a or 3b Qualified Code(s): N18.30 - Chronic kidney disease, stage 3 unspecified
[2024-06-11 14:37] LABS: Basophils # (auto) 0.02 K/uL (0.00-0.20); Basophils % (auto) 0.7 %; Eosinophils % (auto) 3.5 %; Hematocrit (blood only) 32.5 % (42.0-52.0); Hemoglobin 11.3 g/dl (14.0-18.0); Immature Granulocytes # (auto) 0.01 K/uL (0.01-0.20); Immature Granulocytes % (auto) 0.3 %; Lymphocytes # (auto) 1.38 K/uL (1.20-3.40); Lymphocytes % (auto) 48.3 %; Mean Corpuscular Hgb Conc 34.8 g/dL (32.0-36.0); Mean Corpuscular Volume 89.3 fL (80.0-100.0); Mean Platelet Volume 9.5 fL (9.4-12.4); Monocytes # (auto) 0.12 K/uL (0.11-0.59); Monocytes % (auto) 4.2 %; Neutrophils # (auto) 1.23 K/uL (1.40-6.50); Platelet Count 97 K/uL (130-400); RDW Coefficient of Variation 13.2 % (11.5-14.5); RDW Standard Deviation 42.2 fL (36.4-46.3); Red Blood Count 3.64 M/uL (4.70-6.10); White Blood Count 2.86 K/ul (4.8-10.8)
[2024-06-11 14:55] LABS: Albumin Globulin Ratio 1.1 (0.9-2); Albumin Level 3.4 gm/dl (3.4-5.0); BUN Creatinine Ratio 12.1 (10-20); Calcium 8.6 mg/dl (8.6-10.3); Creatinine Clr Calc Pharmacy 38.5 ml/min; Globulin 3.1 gm/dl (2.5-4.0); Magnesium 2.2 mg/dl (1.7-2.4); Potassium 3.8 mmol/L (3.5-5.1); Total Protein 6.5 gm/dl (6.0-8.3)
[2024-06-11 15:08] LABS: Thyroid Stimulating Hormone 10.437 uIu/ml (0.300-4.500)
--- NOTE | 2024-06-11 15:22 | XRay Report ---
EXAM: Radiograph of the Chest 1 View INDICATION: Weakness. TECHNIQUE: Frontal view of the chest. COMPARISON: 04/10/2024 and 11/30/2022 FINDINGS: Lungs and pleural spaces: Stable hyperinflation with persistent but improved reticular nodular interstitial thickening particularly in the right base. No consolidation or pulmonary edema. No pleural effusion or pneumothorax. Heart: Stable large cardiac shadow. Mediastinum: Normal contour. Bones/joints: No fracture, erosion or dislocation. Soft tissues: No abnormality noted. No radiopaque foreign body noted. Tubes, lines and devices: Right internal jugular port catheter tip terminates in the distal SVC. Upper abdomen: No abnormality noted. IMPRESSION: Chronic changes. No acute disease. ACT 112: Negative or not required by law. Electronically signed by Rose Cabrera 06-11-2024 3:22 PM
[2024-06-11 15:41] LABS: Adenovirus PCR Not Detected (NotDetected); Bordetella parapertussis PCR Not Detected (NotDetected); Bordetella pertussis PCR Not Detected (NotDetected); Chlamydia pneumoniae PCR Not Detected (NotDetected); Coronavirus 229E PCR Not Detected (NotDetected); Coronavirus CoV-2 (COVID19)PCR Not Detected (NotDetected); Coronavirus HKU1 PCR Not Detected (NotDetected); Coronavirus NL63 PCR Not Detected (NotDetected); Coronavirus OC43PCR Not Detected (NotDetected); Human Metapneumovirus PCR Not Detected (NotDetected); Influenza A PCR Not Detected (NotDetected); Influenza B PCR Not Detected (NotDetected); Mycoplasma pneumoniae PCR Not Detected (NotDetected); Parainfluenza Virus 1 PCR Not Detected (NotDetected); Parainfluenza Virus 2 PCR Not Detected (NotDetected); Parainfluenza Virus 3 PCR Not Detected (NotDetected); Parainfluenza Virus 4 PCR Not Detected (NotDetected); Respiratory Syncytial VirusPCR Not Detected (NotDetected); Rhinovirus/Enterovirus PCR Not Detected (NotDetected)
[2024-06-11 15:45] LABS: T4 Free Thyroxine 1.12 ng/dl (0.61-1.60)
--- NOTE | 2024-06-11 15:45 | History & Physical Report ---
Date of Service June 11, 2024 Assessment & Plan (1) Neutropenic fever: Plan: patient with reported fever of 101 at home Neutrophil count 1.23, criteria is ANC <1; however borderline low undergoing treatment for non-small cell lung cancer/ B-cell lymphoma, adenoc arcinoma VSS, afebrile on admission Undergoing treatment with palliative gemcitabine, tx 05/30 and 06/06 CXR negative BioFire negative lactate negative follow-up blood cultures Start empiric antibiotic treatment with Unasyn, can transition to p.o. Augmentin check temperature frequently Monitor closely for decompensation, currently denying symptoms of infection neutropenic precautions repeat CBC in AM discussion with Dr. Mosqueda below (2) Bilateral edema of lower extremity: Plan: Questionable bilateral cellulitis, likely side effect to gemcitabine promote leg elevation, teds, frequent ambulation Lasix ordered in ED however discontinuing as BNP 199, CXR negative Can discuss with Dr. Rosales in outpatient setting about medication side effects and plan moving forward regarding current medication regimen (3) Stage 3 chronic kidney disease: Plan: renal function mildly worsened, however not meeting criteria for TERI Suspect intrinsic due to therapy above - Cr increased from 1.52 to 1.90 - BUN within normal limits - post void bladder scan 7 mL - nonobstructive UA ordered, urine sodium ordered, urine creatinine ordered BMP trend avoid nephrotoxic agents promote oral hydration (4) Adenocarcinoma: Plan: small cell lung cancer/ B-cell lymphoma undergoing palliative treatment with gemcitabine; Follows with Dr. Rosales associated side effects of lower extremity edema above with associated leukopenia and anemia, stable Plan Chronic stable diagnoses: HLD - continue statin cataracts - continue eye drops hypothyroidism - continue levothyroxine, TSH stable (recent hx of myxedema coma) VTE ppx: Teds, SCDs, ambulation Diet: regular Dispo: [facility] Admission and Anticipated Discharge Date Admission Date: 06/11/24 History of Present Illness Chief Complaint: swelling Primary Care Provider: [facility] Patient is a 78-year-old male with a past medical history of non-small cell lung cancer, non-Hodgkin's lymphoma, hyperlipidemia. He is undergoing palliative gemcitabine with Dr. Rosales, he received treatments on 05/30 and 06/06. He began with bilateral leg swelling and redness about 48 hours ago. The swelling did improve when he elevated his legs over the past few days. He does have pain and numbness of his bilateral lower extremity, but has chemo therapy induced neuropathy. His took his temperature and noted that it was 101. She then gave him Tylenol which brought it down to 98.6. He denies feeling feverish or with chills. He has also had a cough in the morning when he wakes up with clear mucus production. His noted that he had wheezing when she did a lung exam on him. His also noted that he has lost 3 pounds as per his weight this morning. With the set of treatment he has had diarrhea and loose stools. He has had a decreased appetite but has been increasing his p.o. fluid intake. He came in with concern for medication side effect and concern for neutropenic fever. Patient denies chills, headache, dizziness, lightheadedness, sore throat, dyspnea, dyspnea on exertion, chest pain, abdominal pain, nausea, vomiting, diarrhea, constipation, dysuria, hematuria, numbness, tingling. 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 His TSH is stable today at 10.43. [facility] and it was down between 2.0-1.0. Allergies Allergy/AdvReac Type Severity Reaction Status Date / Time fentanyl AdvReac Verified 05/22/24 12:04 Home Medications Medication Instructions Recorded Confirmed Type pantoprazole 20 mg tablet,delayed 20 mg PO QPM PRN Heartburn 07/09/22 06/11/24 History release (Protonix) docusate sodium 100 mg tablet 100 mg PO QAM 07/22/22 06/11/24 History (Stool Softener) atorvastatin 40 mg tablet (Lipitor) 40 mg PO QAM #30 tabs 03/11/23 06/11/24 Rx latanoprost 0.005 % eye drops 1 drp ophthalmic (eye) DAILY 04/10/24 06/11/24 History levothyroxine 125 mcg capsule 125 mcg PO DAILY #30 caps 04/12/24 06/11/24 Rx ondansetron 8 mg disintegrating 8 mg PO Q8H PRN N/V 06/11/24 06/11/24 History tablet prochlorperazine maleate 10 mg 10 mg PO Q6H PRN N/V 06/11/24 06/11/24 History tablet Past Med/Surg History Problem List (Updated 06/11/24 @ 16:44 by Corazon De Los Santos PA-C) Anemia Bilateral edema of lower extremity Adenocarcinoma reoccurance, will restart chemo 05/30/24, following w/ Dr Rosales at [facility] >>>of the left upper lung - surgically removed 10/2023 + treated with chemotherapy and immunotherapy- Neutropenic fever Hypothyroid Nausea & vomiting (Acute) Acute upper abdominal pain (Acute) Acute cholecystitis (Acute) Acute cholecystitis Lung nodule, solitary Fever (Acute) Hyponatremia Pancytopenia Elevated troponin Generalized weakness Pericardial effusion Port-A-Cath in place (06/24/22) Insertion Access Port with Fluoroscopy(right internal jugular vein) - Trever Lomeli, DO, FACS Encounter for insertion of venous access port Large B-cell lymphoma Renal Mass Following w/ Dr Phelan at [facility] CAD (coronary artery disease) Per 12/2021 PCP note- followed with cardio/last cardio work up 6-8 years ago- currently asymptomatic Stage 3 chronic kidney disease History of colon polyps HTN (hypertension) Osteopenia Hyperparathyroidism Arthritis Former smoker Hx of transient ischemic attack (TIA) patient states that doctors felt he may have had a mini stroke in his 60s. pts denies this Impaired fasting glucose Hgb A1C 12/2021 = 6.0 Hyperlipidemia Benign hypertension AAA (abdominal aortic aneurysm) S/p AAA repair 2018. 03/2022 abdomen/pelvis CT shows s/p aortobiliac stent graft repair- stent graft is patent. Residual aneurysm sac measures 6.3 x 5.0 cm Medical History (Updated 06/11/24 @ 16:44 by Corazon De Los Santos PA-C) Renal mass follows w/ [facility] cancer Hypothyroidism Rhabdomyolysis h/o hospitalized at [facility] 04/10/24 Myxedema coma h/o hospitalized at [facility] 04/10/24 Osteopenia Stage 3 chronic kidney disease History of hypertension s/p AAA repair in 2018, was treated with medication for about 2 years. no recent issues Hyperlipidemia CAD (coronary artery disease) Hx of colonic polyps History of abdominal aortic aneurysm (AAA) S/p AAA repair 2018. 03/2022 abdomen/pelvis CT shows s/p aortobiliac stent graft repair- stent graft is patent. Residual aneurysm sac measures 6.3 x 5.0 cm Hx of hyperparathyroidism Hx; s/p parathyroid surgery. Stable per 12/2021 PCP visit Port-A-Cath in place right chest wall AAA (abdominal aortic aneurysm) S/p AAA repair 2018. 03/2022 abdomen/pelvis CT shows s/p aortobiliac stent graft repair- stent graft is patent. Residual aneurysm sac measures 6.3 x 5.0 cm Large B-cell lymphoma Non-hodgkin lymphoma -> currently in remission Emphysema lung COPD (chronic obstructive pulmonary disease) Degenerative disc disease History of duodenal ulcer Surgical History Hx of cataract surgery right Hx laparoscopic cholecystectomy (02/15/24) Laparoscopic Cholecystectomy(Not Applicable) - Wayne Luna, S/P partial lobectomy of lung left upper partial lobectomy H/O insertion of central venous access port (2021) Right chest wall Power-port inserted at [facility]. History of bone marrow biopsy 05/2022 [facility] History of left nephrectomy 05/12/22 [facility] r/t non-hodgkin's lymphoma History of colonoscopy 11/2021 History of parathyroid surgery 01-08-21 Surgical removal of the right upper and left lower parathyroid glands History of umbilical hernia repair 2014 [place], [place] History of wisdom tooth extraction History of abdominal aortic aneurysm (AAA) repair [address] Jimenez Family History Mother Family history of diabetes mellitus Atrial fibrillation Glioblastoma Father Atrial fibrillation Aunt Breast cancer Son Cancer melanoma Other No family history of adverse response to anesthesia Denies family history of Ovarian cancer Prostate cancer Myocardial infarction Colorectal cancer Social History Smoking Status: Former smoker Tobacco Type: Cigarettes Second Hand Exposure: No; Do You Dip or Chew Tobacco: No; Hx Alcohol Use: No Hx Substance Use: No Preferred Language: Barbadian Communication Ability: Effective Visual Impairment: No Limitations Hearing Ability: Normal Rental Counter Clerk Required: No Beliefs That Will Affect Care: None marital status: Current Living Situation: Spouse current occupational status: retired How many Children do You have: 2 Feels Safe at Home: Yes Diet: regular caffeine: Yes during the past year weight has: decreased > 10 lbs Dental Care, Regularly: No Physical Activity Frequency: Daily Seatbelt Use: always Sunscreen Use: Yes Assistive Devices: Cane, Glasses and Hearing Aid - Bilateral Review of Systems Review of Systems: See HPI Physical Exam Physical Exam: The patient is awake, alert and oriented 3, well developed and well nourished, normocephalic and atraumatic, in no acute distress. Non-toxic appearing. HEENT- EOMI, mucous membranes moist. Hearing grossly intact. Heart-normal S1 and S2. No murmurs, rubs or gallops. Lungs-clear bilaterally, no respiratory distress, no accessory muscle use. Abdomen-normal bowel sounds and soft. No ascites noted. Non-tender. Extremities- no clubbing, cyanosis. +3 pitting edema bilateral LE, erythema. Rheumatologic-normal range of motion. Psychiatric-normal affect. Results & Data Results & Data Vital Signs (Past 12 Hours) Vital Signs Temp Pulse Resp BP Pulse Ox O2 Del Method 06/11/24 15:36 69 21 102/66 95 06/11/24 15:03 70 18 109/70 98 06/11/24 14:56 99 Room Air 06/11/24 14:30 74 20 115/72 98 06/11/24 14:27 74 06/11/24 13:45 36.7 C 85 20 95 Room Air Laboratory Results Reviewed CBC, CMP, BioFire Diagnostic Findings reviewed CXR ECG Additional Comments: NSR Code Status & VTE Plan Code Status DNR/DNI VTE Prophylaxis Plan VTE Prophylaxis will be ordered: Yes Supervising Physician Co-Signing Physician Notes Patient seen and examined, chart reviewed, case discussed with Corazon De Los Santos PA-C and I agree with the assessment and plan as above except as otherwise noted Labs and images reviewed 78-year-old male who presents with fever of 101 at home, leg swelling and pain, fatigue, and borderline neutropenia while on gemcitabine treatment for B-cell lymphoma. He is recommended for observation for borderline neutropenic fever. Additionally does have bilateral tender, erythematous, edematous lower extremities since starting his treatments. 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 Agree with venous stasis precautions, empiric coverage with Unasyn while blood cultures and UA are pending and following overnight. Patient was initially ordered Lasix in the ER. This was held. BNP is below his baseline and lungs appear clear. While he has had weight gain this is predominantly in his lower extremities and appears to be more stasis rather than congested therefore recommend mobilization strategies prior to diuresis. Patient is nontoxic-appearing at bedside assessment. G-CSF factors are not indicated at time of admission, but as patient is borderline will keep on neutropenic precautions. Discussed with oncology. Agree with deferring G-CSF at this time and continuing to trend labs and additional recommendations pending infectious workup. Agree with above PG Care Time/CCT Total # of Minutes Spent Total Time Spent with Patient: Total time spent is greater than 50% in coordination of care (as documented) at patient's floor/unit and/or counseling patient: Coding Level of Care Code 18812 INT INP/OBS CARE 3/75MIN Diagnoses Neutropenic fever D70.9; R50.81 Bilateral edema of lower extremity R60.0 Stage 3 chronic kidney disease N18.30 Adenocarcinoma C80.1
[2024-06-11] MEDS: FUROSEMIDE INJ 20 MG/2 ML VIAL IV ONE (15:56)
[2024-06-11 17:25] LABS: Appearance Urine Clear (Clear); Bacteria Urine Automated None Seen (None Seen); Bilirubin Urine Negative (Negative); Blood Urine Negative (Negative); Color Urine Yellow; Epithelial Cell Urine Auto 0-2 /hpf (0-2); Glucose Urine UA Negative (Negative); Ketones Urine Trace (Negative); Leukocyte Esterase Urine Negative (Negative); Nitrite Urine Negative (Negative); Protein Urine 2+ (Negative); RBC Urine Automated 0-2 /hpf (0-2); Specific Gravity Urine 1.023 (1.000-1.030); Urobilinogen Urine Negative (Negative); WBC Urine Automated 0-5 /hpf (0-5); pH Urine 5.5 (4.5-7.5)
[2024-06-11] MEDS: AMPICILLIN/SULBACTAM SOD 1,500 MG/100 ML BAG IV STA (17:34)
[2024-06-11 17:43] LABS: Creatinine Urine Random 237.8 mg/dl
[2024-06-11] MEDS ORDERED: ACETAMINOPHEN 325 MG TAB PO PRN (18:55)
[2024-06-11] MEDS: LATANOPROST 0.005% OP SOLN 2.5 ML BTL OP SCH (20:19)
[2024-06-11] MEDS: AMPICILLIN/SULBACTAM SOD 1,500 MG/100 ML BAG IV SCH (23:41)
[2024-06-12] MEDS: ONDANSETRON INJ 2 MG/ML 2 ML VIAL IV PRN (04:09)
[2024-06-12] MEDS: LEVOTHYROXINE SODIUM 125 MCG TABLET PO SCH (06:06)
[2024-06-12 06:15] LABS: Basophils # (auto) 0.01 K/uL (0.00-0.20); Basophils % (auto) 0.3 %; Eosinophils # (auto) 0.07 K/uL (0.00-0.50); Eosinophils % (auto) 2.3 %; Hematocrit (blood only) 30.1 % (42.0-52.0); Hemoglobin 10.4 g/dl (14.0-18.0); Lymphocytes # (auto) 1.35 K/uL (1.20-3.40); Lymphocytes % (auto) 44.9 %; Mean Corpuscular Hgb Conc 34.6 g/dL (32.0-36.0); Mean Corpuscular Volume 89.6 fL (80.0-100.0); Monocytes # (auto) 0.17 K/uL (0.11-0.59); Monocytes % (auto) 5.6 %; Neutrophils # (auto) 1.41 K/uL (1.40-6.50); Neutrophils % (auto) 46.9 %; Platelet Count 74 K/uL (130-400); RDW Coefficient of Variation 13.3 % (11.5-14.5); RDW Standard Deviation 42.6 fL (36.4-46.3); Red Blood Count 3.36 M/uL (4.70-6.10); White Blood Count 3.01 K/ul (4.8-10.8)
[2024-06-12 06:34] LABS: Calcium 8.2 mg/dl (8.6-10.3); Creatinine Clr Calc Pharmacy 46.1 ml/min; Potassium 3.9 mmol/L (3.5-5.1)
[2024-06-12] MEDS: HEPARIN 100 UNIT/ML 5ML FLUSH FLUSH PRN (06:50)
[2024-06-12] MEDS: ATORVASTATIN 40 MG TAB PO SCH (07:52)
[2024-06-12] MEDS: DOCUSATE SODIUM 100 MG CAP PO SCH (07:52)
--- NOTE | 2024-06-12 11:23 | Hospitalist Progress Note ---
Date of Service June 12, 2024 Assessment & Plan (1) Neutropenic fever: Plan: Patient with reported fever of 101 at home Undergoing treatment with palliative gemcitabine, tx 05/30 and 06/06 Neutrophil count 1.41; mild neutropenia No fevers since time of admission and other VSS Work up unremarkable (e.g. Biofire, Lactate, CXR) Suspect sxs possibly due to viral illness and/or Gemcitabine side effect, however, given immunocompromised state, reasonable to treat with abx Blood cultures pending Stool biofire and Cdiff also ordered due to GI sxs; has not been collected Continue empiric therapy with Unasyn until cultures available; if good coverage, can transition to Augmentin PO Follow am labs (2) Bilateral edema of lower extremity: Plan: Low suspicion for bilateral cellulitis More suspicious this is a Gemcitabine side effect Continue leg elevations, teds, and frequent ambulation (patient uses walker at baseline) (3) Stage 3 chronic kidney disease: Plan: Cr baseline 1.3-1.5 based on previous values Am labs with Cr of 1.58, so close to baseline Suspect intrinsic due to therapy above Encourage PO intake and hydration Monitor am labs (4) Adenocarcinoma: Plan: Small cell lung cancer/ B-cell lymphoma undergoing palliative treatment with gemcitabine; Follows with Dr. Rosales Admitting team discussed with Dr. Heller, who recc treating w/ abx and outpatient f/u with them to address meds Possible cause of leukopenia and anemia Will also consult Palliative care to discuss goals of care, per patient and family preference Plan Chronic stable diagnoses: HLD - continue statin cataracts - continue eye drops hypothyroidism - continue levothyroxine, TSH stable (recent hx of myxedema coma) VTE ppx: Teds, SCDs, ambulation Diet: regular Dispo: Discharge back home once antibiotic therapy coordinated; hold off PT consult as patient is ambulating and is at baseline Admission and Anticipated Discharge Date Admission Date: June 11, 2024 Supervising Physician Co-Signing Physician Notes Attending attestation Pt seen and examined in concert with Dr. Moe Prado. In agreement with the documented findings as noted in the resident documentation with any exceptions or additions as noted here. Chronic bilateral lower extremity neuropathy which is at baseline. Bilateral LE edema which has improved since admission. On examination, S1/S2 nl RRR no MCG. CTAB. Abd NT/ND BS+ve. 1+ pitting edema to the midshin bilaterally Neutropenic fever - discussion w/ hematology/oncology - next chemotherapy 06/20 - BCx pending - continue abx therapy and monitor SCLC, B cell lymphoma - reviewed options for ongoing care based on neutropenic fever and patient interested in d/w palliative care, consultation placed. Else see resident documentation as noted. Subjective Evaluated at bedside and found to be aaox3, afebrile, and in NAD. States that, compared to yesterday, he feels his sxs are slightly better but still feeling nauseous and has URI sxs. No new sxs and denies chest pain, SOB, or any new sxs. Review of Systems Review of Systems: As per HPI. Physical Exam Physical Exam: General - AAOx4, afebrile, NAD, non-toxic HEENT- EOMI, mucous membranes moist. Hearing grossly intact. Heart-normal S1 and S2. No murmurs, rubs or gallops. Lungs-clear bilaterally, no respiratory distress, no accessory muscle use. Abdomen-normal bowel sounds and soft. No ascites noted. Non-tender. Extremities- +1 pitting edema in b/l LE with mild erythema bilateral w/o associated tenderness Psychiatric-normal affect. Results & Data Results & Data Vital Signs (Past 12 Hours) Vital Signs Temp Pulse Resp BP Pulse Ox O2 Del Method 06/12/24 08:33 Room Air 06/12/24 07:11 36.7 C 67 14 106/65 95 Room Air 06/12/24 03:28 36.5 C 66 14 129/69 96 Room Air Resident Activity Tracking Resident Involvement: Resident Care Provided Care Provided: Adult Hospital Medicine
--- NOTE | 2024-06-12 11:25 | Electrocardiogram Report ---
Test Reason : Blood Pressure : */* mmHG Vent. Rate : 78 BPM Atrial Rate : 78 BPM P-R Int : 168 ms QRS Dur : 82 ms QT Int : 372 ms P-R-T Axes : 35 -22 12 degrees QTcB Int : 424 ms Normal sinus rhythm possible Inferior infarct (cited on or before 30-Nov-2022) Abnormal ECG When compared with ECG of 10-Apr-2024 13:58, Minimal criteria for Anterior infarct are no longer Present Nonspecific T wave abnormality no longer evident in Lateral leads Confirmed by Chris Mccarthy ([id number]) on 06/12/2024 11:25:34 AM Referred By: REFERRED SELF Confirmed By: Chris Mccarthy
[2024-06-13 08:21] LABS: BUN Creatinine Ratio 11.2 (10-20); Calcium 8.7 mg/dl (8.6-10.3); Creatinine Clr Calc Pharmacy 40.8 ml/min; Potassium 3.8 mmol/L (3.5-5.1)
[2024-06-13 08:22] LABS: Hematocrit (blood only) 33.8 % (42.0-52.0); Hemoglobin 11.7 g/dl (14.0-18.0); Mean Corpuscular Hgb Conc 34.6 g/dL (32.0-36.0); Mean Corpuscular Volume 89.7 fL (80.0-100.0); Mean Platelet Volume 9.3 fL (9.4-12.4); Platelet Count 87 K/uL (130-400); RDW Coefficient of Variation 13.2 % (11.5-14.5); RDW Standard Deviation 42.7 fL (36.4-46.3); Red Blood Count 3.77 M/uL (4.70-6.10); White Blood Count 3.69 K/ul (4.8-10.8)
[2024-06-13 09:00] LABS: Basophils # (auto) 0.01 K/uL (0.00-0.20); Basophils % (auto) 0.3 %; Eosinophils # (auto) 0.04 K/uL (0.00-0.50); Eosinophils % (auto) 1.1 %; Immature Granulocytes # (auto) 0.02 K/uL (0.01-0.20); Immature Granulocytes % (auto) 0.5 %; Lymphocytes # (auto) 2.15 K/uL (1.20-3.40); Lymphocytes % (auto) 58.3 %; Monocytes # (auto) 0.27 K/uL (0.11-0.59); Monocytes % (auto) 7.3 %; Neutrophils % (auto) 32.5 %
--- NOTE | 2024-06-13 10:45 | Palliative Care Consultation ---
Date of Consultation June 13, 2024 Assessment & Plan (1) Bilateral edema of lower extremity: (2) Adenocarcinoma: (3) Generalized weakness: (4) Advanced care planning/counseling discussion: A 75min face to face ACP meeting was held with pt and at bedside: I met with the Deandre this morning. Renato has felt reasonably well through most of his chemo and feels that for now, he wants to try therapy that will help hi have more time BUT he does not want to spend that "extra time" being sick or in the hospital. He knows this is a fine balance. He feels that if he can have a reasonable QOL while on chemo and have some benefit from chemo, it is worth continuing. He asked about the role of RT and surgery which I advised in the setting of met disease is not likely to be an clear option and I recommended he keep his 06/20 oncology clinic appt to have the follow up labs and, likely, a conversation about dose reduction of gemcitabine. We discussed the worry I have for his progressive renal dysfunction. Onc is likely going to start him on neulasta as well. The Deandre have had a lot of soul-searching discussions, but overall Renato wants to see if he can tolerate another round of Gemcitabine and if he gets sick again, he would not want to stay on it and would at that time prefer a transition to be more about his QOL/comfort. He has been primary caregiver for his , he wants to do all that he can to retain this functional role and worries what will happen to her if he is disabled or not here. I advised them that the [facility] offers a Concurrent Care benefit for veterans with 100% service connection - this gives him coverage for high level in home health support via [facility] hospice and ongoing cancer care - he can have both. They will reach out to their social and political studies professor [facility] the [facility] after [facility]. I will arrange a clinic follow up with me in my cancer clinic in 2 weeks. They have my direct contact info for any urgent needs in the interim. (5) Palliative care by specialist: Introduced Palliative Medicine and explained our role in patient's care. Patient and/or family were receptive to palliative services for goals of care discussions. Reviewed we are different from hospice, a home health nurse visiting service. 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 She is well versed in the distinction between hospice and pall med. We are all in agreement he does not need hospice at this time, see ACP above. Plan As above Thank you for allowing us to participate in the ongoing care of this patient. Please page with any additional concerns. Greyson Ying DNP Director, Palliative Medicine History of Present Illness Reason for Consultation: GOC, pt and family requested Attending Physician: Chris Angulo MD History of Present Illness Renato Mace is a 78yo gentleman known to me through his daughter in law, Jennifer Mace/Lead Atg Developer of community engagement at [employer]. He has B cell lymphoma s/p R-CHOP and also SCLC which is the newer, second primary cancer. For the small cell lung ca he was started on Gemcitabine as palliative second line chemo regimen after a trial of carboplatin/pemetrexed/nivolumab (Checkmate 816 protocol). This was complicated by cholecystitis and GI effects, then ICI was not given due to declining PS following surgery Lung ca dx via robotic left thoracoscopy with MARICEL wedge resection 10/27/2023 at [facility] with Dr Miller His diffuse B Cell lymphoma was dx 05/12/2022 and was Stage IV at dx and treated with 6 cycles of R-CHOP He has a hx of exposure to [place]. He had a renal mass and underwent left total nephrectomy 05/12/[address] Recinos. 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 They both had [place] exposures. Mrs. 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 Allergies Allergy/AdvReac Type Severity Reaction Status Date / Time fentanyl AdvReac Verified 05/22/24 12:04 Home Medications Medication Instructions Recorded Confirmed Type pantoprazole 20 mg tablet,delayed 20 mg PO QPM PRN Heartburn 07/09/22 06/11/24 History release (Protonix) docusate sodium 100 mg tablet 100 mg PO QAM 07/22/22 06/11/24 History (Stool Softener) atorvastatin 40 mg tablet (Lipitor) 40 mg PO QAM #30 tabs 03/11/23 06/11/24 Rx latanoprost 0.005 % eye drops 1 drp ophthalmic (eye) DAILY 04/10/24 06/11/24 History levothyroxine 125 mcg capsule 125 mcg PO DAILY #30 caps 04/12/24 06/11/24 Rx ondansetron 8 mg disintegrating 8 mg PO Q8H PRN N/V 06/11/24 06/11/24 History tablet prochlorperazine maleate 10 mg 10 mg PO Q6H PRN N/V 06/11/24 06/11/24 History tablet amoxicillin 875 mg-potassium 1 tab PO BID 7 days #14 tabs 06/13/24 Rx clavulanate 125 mg tablet Patient History Medical History (Updated 06/13/24 @ 12:37 by Keke Ying DNP) Renal mass follows w/ [facility] Hypothyroidism Rhabdomyolysis h/o hospitalized at [facility] 04/10/24 Myxedema coma h/o hospitalized at [facility] 04/10/24 Osteopenia Stage 3 chronic kidney disease History of hypertension s/p AAA repair in 2018, was treated with medication for about 2 years. no recent issues Hyperlipidemia CAD (coronary artery disease) Hx of colonic polyps History of abdominal aortic aneurysm (AAA) S/p AAA repair 2018. 03/2022 abdomen/pelvis CT shows s/p aortobiliac stent graft repair- stent graft is patent. Residual aneurysm sac measures 6.3 x 5.0 cm Hx of hyperparathyroidism Hx; s/p parathyroid surgery. Stable per 12/2021 PCP visit Port-A-Cath in place right chest wall AAA (abdominal aortic aneurysm) S/p AAA repair 2018. 03/2022 abdomen/pelvis CT shows s/p aortobiliac stent graft repair- stent graft is patent. Residual aneurysm sac measures 6.3 x 5.0 cm Large B-cell lymphoma Non-hodgkin lymphoma -> currently in remission Emphysema lung COPD (chronic obstructive pulmonary disease) Degenerative disc disease History of duodenal ulcer Surgical History Hx of cataract surgery right Hx laparoscopic cholecystectomy (02/15/24) Laparoscopic Cholecystectomy(Not Applicable) - Wayne Luna DO S/P partial lobectomy of lung left upper partial lobectomy H/O insertion of central venous access port (2021) Right chest wall Power-port inserted at [facility]. History of bone marrow biopsy 05/2022 [facility] History of left nephrectomy 05/12/22 [facility] r/t non-hodgkin's lymphoma History of colonoscopy 11/2021 History of parathyroid surgery 01-08-21 Surgical removal of the right upper and left lower parathyroid glands History of umbilical hernia repair 2014 [place], [place] History of wisdom tooth extraction History of abdominal aortic aneurysm (AAA) repair [address] Jimenez Family History Mother Family history of diabetes mellitus Atrial fibrillation Glioblastoma Father Atrial fibrillation Aunt Breast cancer Son Cancer melanoma Other No family history of adverse response to anesthesia Denies family history of Ovarian cancer Prostate cancer Myocardial infarction Colorectal cancer Social History Smoking Status: Never smoker Tobacco Type: Cigarettes Second Hand Exposure: No; Do You Dip or Chew Tobacco: No; Hx Alcohol Use: No Hx Substance Use: No Preferred Language: Telugu Communication Ability: Effective Visual Impairment: No Limitations Hearing Ability: Normal Experience Design Director Required: No Beliefs That Will Affect Care: None marital status: Current Living Situation: Spouse current occupational status: retired How many Children do You have: 2 Feels Safe at Home: Yes Safety Concerns: Feels Safe At This Time Diet: regular caffeine: Yes during the past year weight has: decreased > 10 lbs Dental Care, Regularly: No Physical Activity Frequency: Daily Seatbelt Use: always Sunscreen Use: Yes Assistive Devices: Walker Review of Systems Review of Systems: All systems reviewed & are unremarkable except as noted in Subjective Physical Exam Physical Exam: resting comfortably in bed easily ambulates around room, IADLs AAOx3 no resp distress no acute distress no JVD abd soft, non tender BLE +1 edema with erythema noted around ankles to lower pre tibial region Results & Data Vital Signs (Past 12 Hours) Vital Signs Temp Pulse Resp BP Pulse Ox O2 Del Method 06/13/24 08:47 Room Air 06/13/24 07:31 36.2 C L 68 16 114/77 96 Room Air PG Care Time/CCT Total # of Minutes Spent Total Time Spent with Patient: Total time spent is greater than 50% in coordination of care (as documented) at patient's floor/unit and/or counseling patient: I spent minutes overall addressing this case: 20 min in medical data review/discussion with referring provider(s) and/or preparation for the visit 20 min in direct interaction with the patient/exam 75 min in Advance Care Planning/Goals of Care discussions as detailed above in note (must be >16min) 20 min in subsequent review and synthesis of assessment and plan 20 min communicating with other providers regarding the patient's case: nursing, care mgt, primary team, oncology/dr michaud Advanced Care Planning 71138 Advanced Care Planning 30 Min 45068 Advanced Care Planning Additional 30 [place] [address] IN/OBS CONSULT LVL 5,80M (25 - SIGNIFICANT, SEPARATELY IDENTIFIABLE ) Patient Type New Medical Decision Making High Complexity Diagnoses Bilateral edema of lower extremity R60.0 Adenocarcinoma C80.1 Generalized weakness R53.1 Advanced care planning/counseling discussion Z71.89 Palliative care by specialist Z51.5 Additional Codes Advanced Care Planning - 23092 Advanced Care Planning 30 Min: 04297 Advanced Care Planning 30 Min ([id number]) Advanced Care Planning - 29426 Advanced Care Planning Additional 30 Min: 73129 Advanced Care Planning Additional 30 Min ([id number])
[2024-06-13 15:24] VITALS: BP 92/48; PULSE 65; RESP 18; TEMP 97.9; O2SAT 94
--- NOTE | 2024-06-13 15:46 | Discharge Summary ---
Date of Service June 13, 2024 Admission HPI Per Admitting Provider Patient is a 78-year-old male with a past medical history of non-small cell lung cancer, non-Hodgkin's lymphoma, hyperlipidemia. He is undergoing palliative gemcitabine with Dr. Rosales, he received treatments on 05/30 and 06/06. He began with bilateral leg swelling and redness about 48 hours ago. The swelling did improve when he elevated his legs over the past few days. He does have pain and numbness of his bilateral lower extremity, but has chemo therapy induced neuropathy. His took his temperature and noted that it was 101. She then gave him Tylenol which brought it down to 98.6. He denies feeling feverish or with chills. He has also had a cough in the morning when he wakes up with clear mucus production. His noted that he had wheezing when she did a lung exam on him. His also noted that he has lost 3 pounds as per his weight this morning. With the set of treatment he has had diarrhea and loose stools. He has had a decreased appetite but has been increasing his p.o. fluid intake. He came in with concern for medication side effect and concern for neutropenic fever. Patient denies chills, headache, dizziness, lightheadedness, sore throat, dyspnea, dyspnea on exertion, chest pain, abdominal pain, nausea, vomiting, diarrhea, constipation, dysuria, hematuria, numbness, tingling. 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 His TSH is stable today at 10.43. He [facility] and it was down between 2.0-1.0. Admission Exam Per Admitting Provider The patient is awake, alert and oriented 3, well developed and well nourished, normocephalic and atraumatic, in no acute distress. Non-toxic appearing. HEENT- EOMI, mucous membranes moist. Hearing grossly intact. Heart-normal S1 and S2. No murmurs, rubs or gallops. Lungs-clear bilaterally, no respiratory distress, no accessory muscle use. Abdomen-normal bowel sounds and soft. No ascites noted. Non-tender. Extremities- no clubbing, cyanosis. +3 pitting edema bilateral LE, erythema. Rheumatologic-normal range of motion. Psychiatric-normal affect. Principal Diagnosis Neutropenic fever Discharge Exam General - AAOx4, afebrile, NAD, non-toxic HEENT- EOMI, mucous membranes moist. Hearing grossly intact. Heart-normal S1 and S2. No murmurs, rubs or gallops. Lungs-clear bilaterally, no respiratory distress, no accessory muscle use. Abdomen-normal bowel sounds and soft. No ascites noted. Non-tender. Extremities- +1 pitting edema in b/l LE with mild erythema bilateral w/o associated tenderness improved from previous evaluations Psychiatric-normal affect. Discharge Data Allergies Allergy/AdvReac Type Severity Reaction Status Date / Time fentanyl AdvReac Verified 05/22/24 12:04 Consultations 06/11/24 15:54 ED Decision to Admit Stat 06/12/24 13:34 Consult Palliative Care Routine Hospital Course (1) Neutropenic fever: Patient with reported fever of 101 at home Undergoing treatment with palliative gemcitabine, tx 05/30 and 06/06 Mild neutropenia No fevers since time of admission and other VSS Work up unremarkable (e.g. Biofire, Lactate, CXR) Suspect sxs possibly due to viral illness and/or Gemcitabine side effect, however, given immunocompromised state, reasonable to treat with abx Blood cultures negative for 48 hours Stool biofire and Cdiff also ordered due to GI sxs; never collected Patient immunocompromised, however, given clinical status as well as negative blood cx for 48 hrs, will treat with 8 more days of Augmentin. Home pack given until he is able to get script from pharmacy which is closed for the holidays (2) Bilateral edema of lower extremity: Low suspicion for bilateral cellulitis More suspicious this is a Gemcitabine side effect Continue leg elevations, compression stockings, and frequent ambulation (3) Stage 3 chronic kidney disease: Cr baseline 1.3-1.5 based on previous values Am labs with Cr of 1.78 Suspect pre renal etiology and encouraged patient to increase oral hydration, however, could also be intrinsic due to chemotherapy Follow up with PCP (4) Adenocarcinoma: Small cell lung cancer/ B-cell lymphoma undergoing palliative treatment with gemcitabine; Follows with Dr. Rosales Admitting team discussed with Dr. Heller, who recc treating w/ abx and outpatient f/u with them to address meds Possible cause of leukopenia and anemia Palliative care consulted and goals of care discussed with patient and family (see their note for more details) Plan Chronic stable diagnoses: HLD - continue statin cataracts - continue eye drops hypothyroidism - continue levothyroxine, TSH stable (recent hx of myxedema coma) Will discharge back home with 8 day course of Augmentin as detailed above. Total Time Total Time Spent Total Time Spent (In Minutes): . Discharge Plan Discharge Items Patient Disposition: Home - Self-Care Reason For Visit: NEUTROPENIC FEVER Discharge Diagnosis: Neutropenic fever Activity: Per Instructions section Non-emergency contact: Primary Care Provider and Oncologist Call non-emergency contact if: your symptoms worsen and your temperature is above 101 Follow-up/Referrals: [facility] [Primary Care Provider] - Diet: Regular Addtl Attending Provider Instructions: You were admitted to the hospital due to a fever you experienced at home. Since you were admitted, you have not had recurrence of fevers, nevertheless, since your immune system is weakened due to your history of chemotherapy, we treated you with IV antibiotics and sent for blood cultures to see if any bacteria grew from that. After 48 hours, your cultures remained negative, so we will be discharging you today with Augmentin, which is another antibiotic you should take two times a day for 8 more days starting tomorrow. We recommend you take this antibiotic with food and water since it has the possible side effect of causing GI upset (e.g. abdominal discomfort, nausea, vomiting, diarrhea). With regards to your leg swelling and redness, it is more likely that this was due to a combination between medication side effect from your chemotherapy and venous stasis, a condition in which your veins are not as good as pushing blood back up from your legs and therefore increased pressure in your veins leads to fluid essentially being pushed out. We recommend you elevate your legs above the level of your heart when laying down or sitting down to decrease swelling, and also use compression stockings when walking to try and limit swelling as well. We advise you to follow up with your oncologist after you are discharged to address any questions you may have with regards to your treatment and possible side effects from medications. A discharge summary will be sent to your primary care physician to ensure continuity of care. Please bring this discharge summary with you to your next office appointment so that your provider can review it at that time. Follow-up appointments: Keep all your follow-up appointments as already scheduled. If you cannot make an appointment, notify your provider. Medications: Your medication list has been reviewed and reconciled upon discharge to ensure accuracy and continuity of care. An updated list of all your medications is included with your hospital discharge paperwork. Please review this list closely, and make note of any changes. Take your medications as instructed; do not skip a dose of your medicines. Make sure all of your doctors know every medicine you are taking (including fjil-jxq-mzxdalo medicines, vitamins, and supplements). Call your primary care provider before taking any new medicines (including over- the-counter medicines, vitamins, and supplements), because some of these may interact with your current medications, or may make your symptoms worse. Tell your primary care provider if you cannot afford your medications. CONTACT YOUR PRIMARY CARE PROVIDER if you experience any of the following: Worsening of symptoms Fever, chills, or fatigue Difficulty following your treatment plan, or difficulty taking medications CALL 911 OR GO TO THE EMERGENCY DEPARTMENT if you experience any of the following: Sudden, severe abdominal pain or nausea/vomiting Severe chest pain, or chest pain that radiates (moves) to your jaw or arm Sudden, severe shortness of breath or difficulty breathing Thank you for allowing us to participate in your care. Pending Studies at Discharge: No Stand-Alone Forms: My [facility], Smoking Cessation Medications and DC Order Prescriptions: New amoxicillin-pot clavulanate 875-125 mg tablet 1 tab PO BID 7 Days Qty: 14 0RF Continued atorvastatin [Lipitor] 40 mg tablet 40 mg PO QAM Qty: 30 0RF pantoprazole [Protonix] 20 mg tablet,delayed release (DR/EC) 20 mg PO QPM PRN (Reason: Heartburn) docusate sodium [Stool Softener] 100 mg Tablet 100 mg PO QAM Rx Instructions: otc latanoprost 0.005 % drops 1 drp ophthalmic (eye) DAILY levothyroxine 125 mcg capsule 125 mcg PO DAILY Qty: 30 0RF prochlorperazine maleate 10 mg tablet 10 mg PO Q6H PRN (Reason: N/V) Rx Instructions: Filled 05/30 7 day supply ondansetron 8 mg tablet,disintegrating 8 mg PO Q8H PRN (Reason: N/V) Rx Instructions: filled 05/30 10 day supply Discharge Orders: Discharge Order (Routine); Ordered 06/13/24 Ordered By: Delia Hoskins/Other Patient Handouts: Preventing Deep Vein Thrombosis Admission Data Admit Date/Time: 06/11/24 16:47 Attending Provider: Chris Angulo Admit Provider: Juan Barrios Primary Care Provider: [facility] Other Providers: Juan Barrios; Keke Ying Other Interventions: Discharge Summary Assessment (RN) Last Done: 06/13/24 15:52 Supervising Physician Co-Signing Physician Notes Attending attestation Pt seen and examined in concert with Dr. Moe Prado. In agreement with the documented findings as noted in the resident documentation with any exceptions or additions as noted here. Chronic bilateral lower extremity neuropathy which is at baseline. Bilateral LE edema continues to improve. On examination, S1/S2 nl RRR no MCG. CTAB. Abd NT/ND BS+ve. trace pitting edema to the midshin bilaterally Neutropenic fever - discussion w/ hematology/oncology - next chemotherapy 06/20 - BCx no growth after 48 hours - transition to PO augmentin with precautions for worsening/changing sx and close primary care follow up. SCLC, B cell lymphoma - palliative care consult - see note from this admission for goals of care discussion, will continue present chemotherapy and management regimen with appointment on 06/20. Else see resident documentation as noted. Total attending physician time spent with this patient's care on the day of discharge: 33 minutes. Resident Activity Tracking Resident Involvement: Resident Care Provided Care Provided: Adult Hospital Medicine
[2024-06-13] MEDS: AMOXICILLIN/CLAVULANATE 875MG HOME PACK PO ONE (16:22)
== END 2024-06-13 17:52 | disposition home or self-care (01) ==
LOC: ED 13:44 → INTOOBSV 16:47 → SUATTDRO 16:47 → 3E 16:47

== ENCOUNTER 2025-06-06 12:10 | Inpatient (IN) ==
--- NOTE | 2025-06-06 13:05 | Emergency Department Note ---
Impression & Plan Generalized weakness, Elevated troponin, Ambulatory dysfunction, Fall from standing ED Provider Note HISTORY OF PRESENT ILLNESS: Patient is an 79-year-old male presenting with weakness and after a ground-level fall. Patient is currently undergoing active chemotherapy and last received chemo 7 days ago (On 05/31/25). He reportedly has been having progressively worsening weakness since then. He completed a 3-day course of dexamethasone the day before chemo, the day of chemo and on Wednesday. He reportedly had a fall last night. He normally is ambulatory with a walker at baseline. reports significant difficulties getting him around with his walker last night and states that the patient had to get up to go to the bathroom this morning and was " weight." Patient had a temperature of 99 last night. He reports constant nausea, but states this has been an issue since his chemotherapy has been increased. He denies any abdominal pain. Denies any dysuria or hematuria. He fell and hit his head last night and struck the forehead. He did not lose consciousness. He is not on any anticoagulation or antiplatelet therapies. He is currently complaining of weakness and nausea. ROS: as above PHYSICAL EXAM: Constitutional: Patient appears in no acute distress. HENT: Head: Normocephalic. Abrasion to left frontal forehead. Eyes: EOMI, PERRL Mouth/Throat: Mucous membranes moist. Neck: Trachea midline. Neck supple. Cardiovascular: RRR, No murmurs, rubs or gallops. Intact distal pulses. Pulmonary/Chest: No respiratory distress. Breath sounds clear and equal bilaterally. No wheezes or rales. Abdominal: Abdomen soft, no tenderness, rebound or guarding. Musculoskeletal: No edema, tenderness or deformity noted. Skin: Warm and dry. No rash, erythema, pallor or cyanosis Psychiatric: Appropriate mood and affect for situation. Neurological: Alert and keenly responsive. CN II-XII grossly intact, moving all extremities equally and fully. MDM: - Vitals signs showed hypertension - History obtained via patient. History as above. - Chronic conditions affecting care: CAD; Large B-cell lymphoma; adenocarcinoma of lung; HLD; HTN; hypothyroidism; BPH - Differential diagnoses include, but are not limited to: pneumonia; UTI; CVA; intracranial hemorrhage; bacteremia; tick borne illness; electrolyte abnormality; dehydration - Order placed for continuous cardiac monitoring. At this time, monitor showed rate of 74 bpm with normal sinus rhythm, per my interpretation. - External medical records reviewed. Oncology/hematology report dated 05/31/2025 was reviewed. 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 His cancer is stage IIIa. - EKG image interpreted by myself showed normal sinus rhythm. Rate 77 bpm. QT 396. No acute ischemic changes. - Laboratory workup interpreted by myself showed pancytopenia (WBC 2.92; Hgb 11.3; plt 106); normal lactate; stable electrolytes; elevated total bilirubin (1.4); normal AST/ALT; elevated troponin (24); normal procalcitonin - Negative anaplasmosis/babesia smears and negative Lyme screen - CXR image reviewed interpreted by myself is negative for pneumonia, per my interpretation. - UA negative for infection - CT head wo contrast negative for acute intracranial pathology. - Blood cultures obtained. - Patient complaining of generalized pain. Given 4 mg IV Zofran, 4 mg IV morphine and 1 L normal saline. - Unclear etiology for his weakness at this time. However, concern about the patient's safety going home given his significant weakness. Will discuss case with hospitalist service for further evaluation and management. - Discussion was had with immigration case manager about patient's case and need for admission - Hospitalist consulted for admission - Patient admitted to [facility] hospitalist service for further evaluation and management. ASSESSMENT AND PLAN: Diagnosis: Generalized weakness; ambulatory dysfunction; fall from standing; elevated troponin Plan: admit Past Med/Surg History Problem List (Updated 06/06/25 @ 15:04 by Xuan Lopez MD) Fall from standing (Acute) Ambulatory dysfunction (Acute) Elevated troponin (Acute) Generalized weakness (Acute) BPH w urinary obs/LUTS Localized swelling of both lower legs (Acute) Palliative care by specialist Advanced care planning/counseling discussion Anemia Hypothyroid Nausea & vomiting (Acute) Acute upper abdominal pain (Acute) Acute cholecystitis (Acute) Acute cholecystitis Lung nodule, solitary Fever (Acute) Hyponatremia Pancytopenia (Acute) Elevated troponin Generalized weakness (Acute) Pericardial effusion Port-A-Cath in place (06/24/22) Insertion Access Port with Fluoroscopy(right internal jugular vein) - Trever Lomeli DO, FACS Encounter for insertion of venous access port Large B-cell lymphoma Renal Mass Following w/ Dr Phelan at [facility] CAD (coronary artery disease) Per 12/2021 PCP note- followed with cardio/last cardio work up 6-8 years ago- currently asymptomatic History of colon polyps HTN (hypertension) Osteopenia Hyperparathyroidism Arthritis Former smoker Hx of transient ischemic attack (TIA) patient states that doctors felt he may have had a mini stroke in his 60s. pts denies this Impaired fasting glucose Hgb A1C 12/2021 = 6.0 Hyperlipidemia Benign hypertension AAA (abdominal aortic aneurysm) S/p AAA repair 2018. 03/2022 abdomen/pelvis CT shows s/p aortobiliac stent graft repair- stent graft is patent. Residual aneurysm sac measures 6.3 x 5.0 cm Medical History Bilateral edema of lower extremity Neutropenic fever Adenocarcinoma Stage 3 chronic kidney disease Renal mass Hypothyroidism Rhabdomyolysis Myxedema coma Osteopenia Stage 3 chronic kidney disease History of hypertension Hyperlipidemia CAD (coronary artery disease) Hx of colonic polyps History of abdominal aortic aneurysm (AAA) Hx of hyperparathyroidism Port-A-Cath in place AAA (abdominal aortic aneurysm) Large B-cell lymphoma Emphysema lung COPD (chronic obstructive pulmonary disease) Degenerative disc disease History of duodenal ulcer Surgical History Hx of cataract surgery Hx laparoscopic cholecystectomy (02/15/24) S/P partial lobectomy of lung H/O insertion of central venous access port (2021) History of bone marrow biopsy History of left nephrectomy History of colonoscopy History of parathyroid surgery History of umbilical hernia repair History of wisdom tooth extraction History of abdominal aortic aneurysm (AAA) repair Family History Mother Family history of diabetes mellitus Atrial fibrillation Glioblastoma Father Atrial fibrillation Aunt Breast cancer Son Cancer melanoma Other No family history of adverse response to anesthesia Denies family history of Ovarian cancer Prostate cancer Myocardial infarction Colorectal cancer Social History Smoking Status: Former smoker Tobacco Type: Cigarettes Second Hand Exposure: No; Do You Dip or Chew Tobacco: No; Hx Alcohol Use: No Hx Substance Use: No Preferred Language: Slovak Communication Ability: Effective Visual Impairment: No Limitations Hearing Ability: Normal [employer] Required: No Beliefs That Will Affect Care: None marital status: Current Living Situation: Spouse current occupational status: retired How many Children do You have: 2 Feels Safe at Home: Yes Diet: regular caffeine: Yes during the past year weight has: decreased > 10 lbs Dental Care, Regularly: No Physical Activity Frequency: Daily Seatbelt Use: always Sunscreen Use: Yes Assistive Devices: None Allergies Allergies Allergy/AdvReac Type Severity Reaction Status Date / Time fentanyl AdvReac Verified 06/06/25 14:58 Home Meds Home Medications Medication Instructions Recorded Confirmed pantoprazole 20 mg tablet,delayed 20 mg PO QPM PRN Heartburn 07/09/22 02/07/25 release (Protonix) docusate sodium 100 mg tablet 100 mg PO QAM 07/22/22 02/07/25 (Stool Softener) latanoprost 0.005 % eye drops 1 drp ophthalmic (eye) DAILY 04/10/24 02/07/25 ondansetron 8 mg disintegrating 8 mg PO Q8H PRN N/V 06/11/24 02/07/25 tablet prochlorperazine maleate 10 mg 10 mg PO Q6H PRN N/V 06/11/24 02/07/25 tablet cholecalciferol (vitamin D3) 25 25 mcg PO DAILY 09/11/24 02/07/25 mcg (1,000 unit) capsule gemcitabine 1 gram intravenous See Rx Instructions IV .COMPLEX 09/11/24 02/07/25 solution loratadine 10 mg tablet (Claritin) 10 mg PO DAILY 09/11/24 02/07/25 Previous Rx's Medication Instructions Recorded levothyroxine 125 mcg capsule 125 mcg PO DAILY #30 caps 04/12/24 Results & Data (ED) Vital Signs Vital Signs - 24 hr 06/06/25 12:20 06/06/25 12:21 06/06/25 12:21 Temperature Temperature Source Pulse Rate 83 82 Pulse Rate [Apical] Pulse Rate from SpO2 Sensor 82 Respiratory Rate 17 Respiratory Effort / Characteristics Respiratory Depth Respiratory Pattern Blood Pressure 118/70 Blood Pressure [Left Arm] Blood Pressure Mean 84 Blood Pressure Mean [Left Arm] Blood Pressure Position Blood Pressure Position [Left Arm] Pulse Oximetry 94 Oxygen Delivery Method Sepsis Recent Fever Within 48 Hours Sepsis New/Unexplained Change in Mental Status Sepsis Action Taken by Nursing 06/06/25 12:22 06/06/25 12:22 06/06/25 12:30 Temperature 36.8 C Temperature Source Oral Pulse Rate 82 81 Pulse Rate [Apical] 82 Pulse Rate from SpO2 Sensor 81 Respiratory Rate 20 24 Respiratory Effort / Characteristics Non-Labored Spontaneous Respiratory Depth Normal Respiratory Pattern Regular Blood Pressure 118/70 Blood Pressure [Left Arm] Blood Pressure Mean 86 Blood Pressure Mean [Left Arm] Blood Pressure Position Semi-fowlers Blood Pressure Position [Left Arm] Pulse Oximetry 97 96 Oxygen Delivery Method Room Air Sepsis Recent Fever Within 48 Hours Yes Sepsis New/Unexplained Change in Mental Status No Sepsis Action Taken by Nursing No Action Required 06/06/25 12:30 06/06/25 12:45 06/06/25 13:00 Temperature Temperature Source Pulse Rate 81 Pulse Rate [Apical] Pulse Rate from SpO2 Sensor 81 Respiratory Rate 21 Respiratory Effort / Characteristics Respiratory Depth Respiratory Pattern Blood Pressure 113/71 113/71 Blood Pressure [Left Arm] Blood Pressure Mean 85 90 Blood Pressure Mean [Left Arm] Blood Pressure Position Blood Pressure Position [Left Arm] Pulse Oximetry 95 Oxygen Delivery Method Sepsis Recent Fever Within 48 Hours Sepsis New/Unexplained Change in Mental Status Sepsis Action Taken by Nursing 06/06/25 13:00 06/06/25 13:15 06/06/25 13:26 Temperature Temperature Source Pulse Rate 79 82 Pulse Rate [Apical] Pulse Rate from SpO2 Sensor 79 82 Respiratory Rate 20 12 Respiratory Effort / Characteristics Respiratory Depth Respiratory Pattern Blood Pressure Blood Pressure [Left Arm] Blood Pressure Mean Blood Pressure Mean [Left Arm] Blood Pressure Position Blood Pressure Position [Left Arm] Pulse Oximetry 95 95 97 Oxygen Delivery Method Room Air Sepsis Recent Fever Within 48 Hours Sepsis New/Unexplained Change in Mental Status Sepsis Action Taken by Nursing 06/06/25 13:26 06/06/25 13:30 06/06/25 13:30 Temperature Temperature Source Pulse Rate 80 Pulse Rate [Apical] 77 Pulse Rate from SpO2 Sensor 79 Respiratory Rate 20 21 Respiratory Effort / Characteristics Non-Labored Spontaneous Respiratory Depth Normal Respiratory Pattern Regular Blood Pressure 146/81 H Blood Pressure [Left Arm] 113/71 Blood Pressure Mean 107 Blood Pressure Mean [Left Arm] 85 Blood Pressure Position Blood Pressure Position [Left Arm] Semi-fowlers Pulse Oximetry 95 95 Oxygen Delivery Method Room Air Sepsis Recent Fever Within 48 Hours Sepsis New/Unexplained Change in Mental Status Sepsis Action Taken by Nursing 06/06/25 13:45 06/06/25 13:45 06/06/25 14:00 Temperature Temperature Source Pulse Rate 74 76 Pulse Rate [Apical] Pulse Rate from SpO2 Sensor 75 72 Respiratory Rate 17 18 Respiratory Effort / Characteristics Respiratory Depth Respiratory Pattern Blood Pressure 114/62 Blood Pressure [Left Arm] Blood Pressure Mean 76 Blood Pressure Mean [Left Arm] Blood Pressure Position Blood Pressure Position [Left Arm] Pulse Oximetry 96 94 Oxygen Delivery Method Sepsis Recent Fever Within 48 Hours Sepsis New/Unexplained Change in Mental Status Sepsis Action Taken by Nursing 06/06/25 14:00 06/06/25 14:02 06/06/25 14:34 Temperature 36.5 C Temperature Source Oral Pulse Rate Pulse Rate [Apical] 74 74 Pulse Rate from SpO2 Sensor Respiratory Rate 17 Respiratory Effort / Characteristics Non-Labored Spontaneous Respiratory Depth Normal Respiratory Pattern Regular Blood Pressure 139/73 Blood Pressure [Left Arm] 146/79 H Blood Pressure Mean 100 Blood Pressure Mean [Left Arm] 101 Blood Pressure Position Blood Pressure Position [Left Arm] Semi-fowlers Pulse Oximetry 96 Oxygen Delivery Method Room Air Sepsis Recent Fever Within 48 Hours Sepsis New/Unexplained Change in Mental Status Sepsis Action Taken by Nursing Laboratory Data 06/06/25 12:30 06/06/25 12:30 Lab Results 06/06/25 06/06/25 06/06/25 Range/Units 12:30 13:38 14:32 WBC 2.92 L (4.8-10.8) K/ul RBC 3.83 L (4.70-6.10) M/uL Hgb 11.3 L (14.0-18.0) g/dL Hct 33.7 L (42.0-52.0) % MCV 88.0 (80.0-100.0) fL MCH 29.5 (25.0-34.0) pg MCHC 33.5 (32.0-36.0) g/dL RDW Std Deviation 57.0 H (36.4-46.3) fL RDW Coeff of Sasha 17.7 H (11.5-14.5) % Plt Count 106 L (130-400) K/uL MPV 12.2 (9.4-12.4) fL Immature Gran % (Auto) 0.0 % Neut % (Auto) 57.3 % Lymph % (Auto) 32.5 % Banner % (Auto) 6.8 % Eos % (Auto) 0.7 % Baso % (Auto) 2.7 % Neut # (Auto) 1.67 (1.40-6.50) K/uL Lymph # (Auto) 0.95 L (1.20-3.40) K/uL Banner # (Auto) 0.20 (0.11-0.59) K/uL Eos # (Auto) 0.02 (0.00-0.50) K/uL Baso # (Auto) 0.08 (0.00-0.20) K/uL Immature Gran # (Auto) 0.00 L (0.01-0.20) K/uL Hyposegmented Neuts 2+ Sodium 132 L (136-145) mmol/L Potassium 4.0 (3.5-5.1) mmol/L Chloride 99 (98-107) mmol/L Carbon Dioxide 26 (21-32) mmol/L Anion Gap 7 (3-11) BUN 22 (6-23) mg/dl Creatinine 1.21 (0.6-1.4) mg/dl Est Cr Clr Drug Dosing 58.0 ml/min eGFR 60.53 BUN/Creatinine Ratio 18.2 (10-20) Glucose 101 H (70-99(Fasting)) mg/dl Lactate 1.1 (0.4-2.0) mmol/L Calcium 8.6 (8.6-10.3) mg/dl Magnesium 2.0 (1.7-2.4) mg/dl Total Bilirubin 1.4 H (0.2-1.0) mg/dl Direct Bilirubin 0.3 H (0-0.2) mg/dl AST 14 (13-39) U/L ALT 7 (7-52) U/L Alkaline Phosphatase 81 (34-104) U/L Troponin I High Sens 24.0 H (0-20) pg/ml Total Protein 5.6 L (6.0-8.3) gm/dl Albumin 3.3 L (3.4-5.0) gm/dl Procalcitonin 0.37 (0-0.5) ng/ml Urine Color Dark Yellow Urine Appearance Clear (Clear) Urine pH 7.0 (4.5-7.5) Ur Specific Kimball 1.025 (1.000-1.030) Urine Protein 4+ H (Negative) Urine Glucose (UA) Negative (Negative) Urine Ketones Trace H (Negative) Urine Blood Negative (Negative) Urine Nitrite Negative (Negative) Urine Bilirubin Negative (Negative) Urine Urobilinogen Negative (Negative) Ur Leukocyte Esterase Trace H (Negative) Urine WBC (Auto) 0-5 (0-5) /hpf Urine RBC (Auto) 3-5 H (0-2) /hpf U Hyaline Cast (Auto) 0-2 (0-2) /lpf U Epithel Cells (Auto) 0-2 (0-2) /hpf Urine Bacteria (Auto) None Seen (None Seen) Urine Comment Anaplasma Smear See Comment Babesia Smear See Comment Lyme Disease Screen Negative (Negative) Administered Medications Discontinued Medications Sodium Chloride (Nss) 1,000 mls @ 999 mls/hr IV .Q1H1M ONE Stop: 06/06/25 14:02 Last Admin: 06/06/25 13:42 Dose: 999 mls/hr Documented By: ANN Morphine Sulfate (Morphine Sulfate 4 Mg/Ml 1 Ml Carp\\Vial) 4 mg IV NOW STA Stop: 06/06/25 13:03 Last Admin: 06/06/25 13:32 Dose: 4 mg Documented By: ANN Ondansetron HCl (Ondansetron Inj 2 Mg/Ml 2 Ml Vial) 4 mg IV NOW STA Stop: 06/06/25 13:03 Last Admin: 06/06/25 13:29 Dose: 4 mg Documented By: ANN Imaging Data Radiologist's Impression: Chest X-Ray 06/06/25 13:02 SINGLE VIEW CHEST CLINICAL HISTORY: Sepsis FINDINGS: An AP, portable, upright chest radiograph is compared to study dated 05/11/2025. Correlation is made with PET/CT dated 04/11/[address] dated 05/21/2023. A right internal jugular central venous infusion port is unchanged in position. The heart is enlarged noting atherosclerotic calcification of the thoracic aorta. There is pulmonary vascular congestion. Emphysema and chronic interstitial thickening is similar to previous. Postsurgical change is seen in the left upper lung. There is chronic elevation of the left hemidiaphragm. Airspace consolidation density of the left lung base. Loculated pleural fluid is seen throughout the left hemithorax, similar to recent prior studies.. No pneumothorax is seen. The skeletal structures are osteopenic. The bony thorax is grossly intact. IMPRESSION: 1. Cardiomegaly and emphysema with pulmonary vascular congestion. 2. Consolidation at the left lung base is similar to recent prior studies and may represent atelectasis. Correlate clinically for evidence of pneumonia/aspiration pneumonitis. 3. Loculated pleural fluid in the left hemithorax is similar in appearance to previous.. ACT 112: Negative or not required by law. Electronically signed by: Jordan Reich M.D. 06/06/2025 1:[address] 06/06/25 13:03 CT SCAN OF THE CERVICAL SPINE CLINICAL HISTORY: Fall. Lung cancer. COMPARISON STUDY: PET/CT April 11, 2025. TECHNIQUE: CT scan of the cervical spine is performed from the skull base to the upper thoracic spine. Images are reviewed in the axial, sagittal, and coronal planes. IV contrast was not administered for this examination. A dose lowering technique was utilized adhering to the principles of ALARA. CT DOSE: 1165.3 mGy.cm FINDINGS: Straightening of the cervical lordosis is noted. There are no cervical spine fractures. A 6 mm lytic T1 vertebral body lesion was not clearly identified on prior study. There is moderate degenerative disc disease and severe facet arthrosis within the cervical spine. There is no prevertebral edema. Right internal jugular [id number] is partially imaged. A few small subpleural nodular densities within the right lung apex are similar to PET/CT of April 11, 2025. A loculated left pleural effusion is partially imaged. IMPRESSION: 1. No acute cervical spine fracture or subluxation. 2. Indeterminate 6 mm lytic T1 vertebral body lesion, not clearly identified on prior exams. This can be assessed on follow-up studies. 3. Partially visualize loculated left pleural effusion, as shown on prior PET/CT. ACT 112: Negative or not required by law. Electronically signed by: Martinez Manuel M.D. 06/06/2025 2:[address] 06/06/25 13:03 CT SCAN OF THE BRAIN WITHOUT IV CONTRAST CLINICAL HISTORY: Head trauma, diffuse large B-cell lymphoma COMPARISON STUDY: MRI the brain dated 05/24/2024 TECHNIQUE: Unenhanced axial CT scan of the brain was performed from the vertex to the skull base. A dose lowering technique was utilized adhering to the principles of ALARA. CT DOSE: FINDINGS: No intraventricular extra-axial mass lesions are visualized. There are generalized atrophic changes. There is asymmetric prominence of the subarachnoid space along the right convexity, similar to the prior study. There is no hydrocephalus. There is no acute hemorrhage. There are patchy white matter hypodensities, likely on a small vessel basis. No calvarial fractures are visualized. IMPRESSION: No acute intracranial findings. ACT 112: Negative or not required by law. Electronically signed by: Joel Correa M.D. 06/06/2025 2:35 PM Discharge Plan Visit Data Chief Complaint: Fall Stated Complaint: weakness after chemo ED Provider: Xuan Lopez Discharge Problem: Generalized weakness, Elevated troponin, Ambulatory dysfunction, Fall from standing Patient Disposition: Admitted As Inpatient Condition: Fair Forms Stand Alone Forms: [facility], Important Visit Information Prescriptions Prescriptions: No Action pantoprazole [Protonix] 20 mg tablet,delayed release (DR/EC) 20 mg PO QPM PRN (Reason: Heartburn) cholecalciferol (vitamin D3) 25 mcg (1,000 unit) capsule 25 mcg PO DAILY loratadine [Claritin] 10 mg tablet 10 mg PO DAILY gemcitabine 1 gram recon soln See Rx Instructions IV .COMPLEX Rx Instructions: intravenously per oncology; docusate sodium [Stool Softener] 100 mg Tablet 100 mg PO QAM Rx Instructions: otc latanoprost 0.005 % drops 1 drp ophthalmic (eye) DAILY levothyroxine 125 mcg capsule 125 mcg PO DAILY Qty: 30 0RF prochlorperazine maleate 10 mg tablet 10 mg PO Q6H PRN (Reason: N/V) Rx Instructions: Filled 05/30 7 day supply ondansetron 8 mg tablet,disintegrating 8 mg PO Q8H PRN (Reason: N/V) Rx Instructions: filled 05/30 10 day supply Referrals Referrals: [facility] [Primary Care Provider] -
[2025-06-06 13:23] LABS: Hematocrit (blood only) 33.7 % (42.0-52.0); Hemoglobin 11.3 g/dL (14.0-18.0); Mean Corpuscular Hemoglobin 29.5 pg (25.0-34.0); Mean Corpuscular Volume 88.0 fL (80.0-100.0); Platelet Count 106 K/uL (130-400); RDW Standard Deviation 57.0 fL (36.4-46.3); Red Blood Count 3.83 M/uL (4.70-6.10); White Blood Count 2.92 K/ul (4.8-10.8)
[2025-06-06] MEDS: ONDANSETRON INJ 2 MG/ML 2 ML VIAL IV STA (13:29)
[2025-06-06] MEDS: MoRPHine SULFATE 4 MG/ML 1 ML CARP\\VIAL IV STA (13:32)
--- NOTE | 2025-06-06 13:36 | XRay Report ---
SINGLE VIEW CHEST CLINICAL HISTORY: Sepsis FINDINGS: An AP, portable, upright chest radiograph is compared to study dated 05/11/2025. Correlatio n is made with PET/CT dated 04/11/[address] dated 05/21/2023. A right internal jugular central venous infusion port is unchanged in position. The heart is enlarged noting atherosclerotic calcific ation of the thoracic aorta. There is pulmonary vascular congestion. Emphysema and chronic interstiti al thickening is similar to previous. Postsurgical change is seen in the left upper lung. There is ch ronic elevation of the left hemidiaphragm. Airspace consolidation density of the left lung base. Locu lated pleural fluid is seen throughout the left hemithorax, similar to recent prior studies.. No pneu mothorax is seen. The skeletal structures are osteopenic. The bony thorax is grossly intact. IMPRESSION: 1. Cardiomegaly and emphysema with pulmonary vascular congestion. 2. Consolidation at the left lung base is similar to recent prior studies and may represent atelectas is. Correlate clinically for evidence of pneumonia/aspiration pneumonitis. 3. Loculated pleural fluid in the left hemithorax is similar in appearance to previous.. ACT 112: Negative or not required by law. Electronically signed by: Jordan Reich M.D. 06/06/2025 1:34 PM
[2025-06-06 13:40] LABS: Immature Granulocytes # (auto) 0.00 K/uL (0.01-0.20); Immature Granulocytes % (auto) 0.0 %
[2025-06-06 13:42] LABS: Alanine Aminotransferase 7.0 U/L (7-52); Albumin Level 3.3 gm/dl (3.4-5.0); Alkaline Phosphatase 81.0 U/L (34-104); Anion Gap 7.0 (3-11); Bilirubin,Total 1.4 mg/dl (0.2-1.0); Blood Urea Nitrogen 22.0 mg/dl (6-23); Calcium 8.6 mg/dl (8.6-10.3); Carbon Dioxide 26.0 mmol/L (21-32); Chloride 99.0 mmol/L (98-107); Creatinine Clr Calc Pharmacy 58.0 ml/min; Glucose 101.0 mg/dl (70-99(Fasting)); Magnesium 2.0 mg/dl (1.7-2.4); Potassium 4.0 mmol/L (3.5-5.1); Sodium 132.0 mmol/L (136-145); Total Protein 5.6 gm/dl (6.0-8.3)
[2025-06-06] MEDS: SODIUM CHLORIDE 0.9% 1,000 ML IV ONE (13:42)
[2025-06-06 14:09] LABS: Lyme Screen Rflx Confirmation Negative (Negative); Procalcitonin 0.37 ng/ml (0-0.5)
--- NOTE | 2025-06-06 14:37 | CT Scan Report ---
CT SCAN OF THE BRAIN WITHOUT IV CONTRAST CLINICAL HISTORY: Head trauma, diffuse large B-cell lymphoma COMPARISON STUDY: MRI the brain dated 05/24/2024 TECHNIQUE: Unenhanced axial CT scan of the brain was performed from the vertex to the skull base. A dose lowering technique was utilized adhering to the principles of ALARA. CT DOSE: FINDINGS: No intraventricular extra-axial mass lesions are visualized. There are generalized atrophic changes. There is asymmetric prominence of the subarachnoid space along the right convexity, similar to the pr ior study. There is no hydrocephalus. There is no acute hemorrhage. There are patchy white matter hyp odensities, likely on a small vessel basis. No calvarial fractures are visualized. IMPRESSION: No acute intracranial findings. ACT 112: Negative or not required by law. Electronically signed by: Joel Correa M.D. 06/06/2025 2:35 PM
--- NOTE | 2025-06-06 14:49 | CT Scan Report ---
CT SCAN OF THE CERVICAL SPINE CLINICAL HISTORY: Fall. Lung cancer. COMPARISON STUDY: PET/CT April 11, 2025. TECHNIQUE: CT scan of the cervical spine is performed from the skull base to the upper thoracic spine . Images are reviewed in the axial, sagittal, and coronal planes. IV contrast was not administered fo r this examination. A dose lowering technique was utilized adhering to the principles of ALARA. CT DOSE: 1165.3 mGy.cm FINDINGS: Straightening of the cervical lordosis is noted. There are no cervical spine fractures. A 6 mm lytic T1 vertebral body lesion was not clearly identified on prior study. There is moderate degen erative disc disease and severe facet arthrosis within the cervical spine. There is no prevertebral e abad. Right internal jugular [id number] is partially imaged. A few small subpleural nodular densit ies within the right lung apex are similar to PET/CT of April 11, 2025. A loculated left pleural ef fusion is partially imaged. IMPRESSION: 1. No acute cervical spine fracture or subluxation. 2. Indeterminate 6 mm lytic T1 vertebral body lesion, not clearly identified on prior exams. This can be assessed on follow-up studies. 3. Partially visualize loculated left pleural effusion, as shown on prior PET/CT. ACT 112: Negative or not required by law. Electronically signed by: Martinez Manuel M.D. 06/06/2025 2:47 PM
[2025-06-06 15:01] LABS: Appearance Urine Clear (Clear); Bacteria Urine Automated None Seen (None Seen); Cast Urine Automated 0-2 /lpf (0-2); Epithelial Cell Urine Auto 0-2 /hpf (0-2); Glucose Urine UA Negative (Negative); WBC Urine Automated 0-5 /hpf (0-5)
--- NOTE | 2025-06-06 16:34 | History & Physical Report ---
Date of Service June 06, 2025 Assessment & Plan (1) Generalized weakness: Plan: -2nd to chemotherapy -PT/OT evaluation -likely will require rehab placement (2) Hypothyroid: Plan: -levothyroxine (3) Adenocarcinoma: Plan: -pt receiving chemotherapy with Dr. Vázquez -last treatment 7 days ago History of Present Illness Chief Complaint: weakness, fall Primary Care Provider: [facility] Pt is an 79 y/o male with pmh of large B-cell lymphoma,adenocarcinoma of lung,HLD,HTN; hypothyroidism; BPH who presents with s/p fall. Pt states he slipped and fell today due to feeling progressive generalized weakness. Pt has been receiving chemotherapy with his last round completed 7 days ago. He states he as been on chemo since 2021. His states the last 2 rounds of chemo have made his very weak and he is unable to perform his ADLs as before. In the ER his was noted to be pancytopenic, afebrile, CXR clear with no signs of acute infection. Pt is being admitted for further evaluation by PT for possible rehab placement. Allergies Allergy/AdvReac Type Severity Reaction Status Date / Time fentanyl AdvReac Verified 06/06/25 14:58 Home Medications Medication Instructions Recorded Confirmed Type pantoprazole 20 mg tablet,delayed 20 mg PO QPM PRN Heartburn 07/09/22 06/06/25 History release (Protonix) docusate sodium 100 mg tablet 100 mg PO QAM 07/22/22 06/06/25 History (Stool Softener) latanoprost 0.005 % eye drops 1 drp ophthalmic (eye) HS 04/10/24 06/06/25 History levothyroxine 125 mcg capsule 125 mcg PO DAILY #30 caps 04/12/24 06/06/25 Rx ondansetron 8 mg disintegrating 8 mg PO Q8H PRN N/V 06/11/24 06/06/25 History tablet prochlorperazine maleate 10 mg 10 mg PO Q6H PRN N/V 06/11/24 06/06/25 History tablet cholecalciferol (vitamin D3) 25 0 mcg PO DAILY 09/11/24 06/06/25 History mcg (1,000 unit) capsule gemcitabine 1 gram intravenous 0 g IV UD 09/11/24 06/06/25 History solution loratadine 10 mg tablet (Claritin) 0 mg PO DAILY 09/11/24 06/06/25 History acetaminophen 325 mg tablet 325 mg PO DAILY PRN Pain 06/06/25 06/06/25 History diclofenac sodium 1 % topical gel 4 g topical BID PRN Pain 06/06/25 06/06/25 History lanolin alcohols-mineral 1 applic topical DAILY 06/06/25 06/06/25 History oil-w.petrolatum-ceresin topical cream (Eucerin topical cream) lidocaine 5 % topical patch 1 patch topical DAILY PRN Pain 06/06/25 06/06/25 History triamcinolone acetonide 0.1 % 1 applic topical DAILY PRN 06/06/25 06/06/25 History topical cream DERNATITIS Past Med/Surg History Problem List (Updated 06/06/25 @ 15:04 by Xuan Lopez MD) Fall from standing (Acute) Ambulatory dysfunction (Acute) Elevated troponin (Acute) Generalized weakness (Acute) BPH w urinary obs/LUTS Localized swelling of both lower legs (Acute) Palliative care by specialist Advanced care planning/counseling discussion Anemia Hypothyroid Nausea & vomiting (Acute) Acute upper abdominal pain (Acute) Acute cholecystitis (Acute) Acute cholecystitis Lung nodule, solitary Fever (Acute) Hyponatremia Pancytopenia (Acute) Elevated troponin Generalized weakness (Acute) Pericardial effusion Port-A-Cath in place (06/24/22) Insertion Access Port with Fluoroscopy(right internal jugular vein) - Trever Lomeli, DO, FACS Encounter for insertion of venous access port Large B-cell lymphoma Renal Mass Following w/ Dr Phelan at [facility] CAD (coronary artery disease) Per 12/2021 PCP note- followed with cardio/last cardio work up 6-8 years ago- currently asymptomatic History of colon polyps HTN (hypertension) Osteopenia Hyperparathyroidism Arthritis Former smoker Hx of transient ischemic attack (TIA) patient states that doctors felt he may have had a mini stroke in his 60s. pts denies this Impaired fasting glucose Hgb A1C 12/2021 = 6.0 Hyperlipidemia Benign hypertension AAA (abdominal aortic aneurysm) S/p AAA repair 2018. 03/2022 abdomen/pelvis CT shows s/p aortobiliac stent graft repair- stent graft is patent. Residual aneurysm sac measures 6.3 x 5.0 cm Medical History Bilateral edema of lower extremity Neutropenic fever Adenocarcinoma Stage 3 chronic kidney disease Renal mass Hypothyroidism Rhabdomyolysis Myxedema coma Osteopenia Stage 3 chronic kidney disease History of hypertension Hyperlipidemia CAD (coronary artery disease) Hx of colonic polyps History of abdominal aortic aneurysm (AAA) Hx of hyperparathyroidism Port-A-Cath in place AAA (abdominal aortic aneurysm) Large B-cell lymphoma Emphysema lung COPD (chronic obstructive pulmonary disease) Degenerative disc disease History of duodenal ulcer Surgical History Hx of cataract surgery Hx laparoscopic cholecystectomy (02/15/24) S/P partial lobectomy of lung H/O insertion of central venous access port (2021) History of bone marrow biopsy History of left nephrectomy History of colonoscopy History of parathyroid surgery History of umbilical hernia repair History of wisdom tooth extraction History of abdominal aortic aneurysm (AAA) repair Family History Mother Family history of diabetes mellitus Atrial fibrillation Glioblastoma Father Atrial fibrillation Aunt Breast cancer Son Cancer melanoma Other No family history of adverse response to anesthesia Denies family history of Ovarian cancer Prostate cancer Myocardial infarction Colorectal cancer Social History Smoking Status: Former smoker Tobacco Type: Cigarettes Second Hand Exposure: No; Do You Dip or Chew Tobacco: No; Hx Alcohol Use: No Hx Substance Use: No Preferred Language: Algerian Communication Ability: Effective Visual Impairment: No Limitations Hearing Ability: Normal Gluer And Wedger Required: No Beliefs That Will Affect Care: None marital status: Current Living Situation: Spouse current occupational status: retired How many Children do You have: 2 Feels Safe at Home: Yes Diet: regular caffeine: Yes during the past year weight has: decreased > 10 lbs Dental Care, Regularly: No Physical Activity Frequency: Daily Seatbelt Use: always Sunscreen Use: Yes Assistive Devices: None Review of Systems Review of Systems: CONST: Negative for fever, body aches and chills. HENT: Negative for neck pain/stiffness, headache, congestion, sore throat, swelling. EYES: Negative for discharge/pain or vision changes. RESP: Negative for cough/hemoptysis and shortness of breath. CV: Negative chest pain, difficulty breathing, palpitations. ABD: Negative pain, nausea, vomiting. : Negative increase frequency, dysuria, blood in urine or stool. MUSC: Negative for muscle aches, edema. SKIN: Negative rash, lesions/sores. NEURO: Negative headache, dizziness, weakness. Physical Exam Physical Exam: GENERAL APPEARANCE NAD, activity normal for age, well developed/ well nourished, no cyanosis, pallor, or diaphoresis. EYES lids/conjunctiva normal. EARS/NOSE/THROAT Mucous membranes moist, nares normal, lips/teeth normal uvula midline without oral pharyngeal erythema, exudate or swelling TMs normal bilaterally. No lymphangitis/lymphedema. HEAD/NECK normocephalic atraumatic, no facial trauma, neck is supple. RESPIRATORY respiratory effort normal, speaks in full sentences, no tripod position, no accessory muscle use. Lungs clear to auscultation without rhonchi, wheezes, rales CARDIAC Regular rate and rhythm, no edema. ABDOMINAL Soft, ND/NT. No evidence of fluid wave. No pulsatile masses on exam, rebound tenderness, Moya sign or pain over Mcburney's point. MUSCLES/EXTREMITIES No abnormal range of motion, no swelling. SKIN Warm, pink and dry. No rashes, dermatoses, petechiae or lesions. NEUROLOGICAL Speech is clear and appropriate. Normal level of consciousness. Gait and coordination are normal. 5/5 strength in all extremities. PSYCH Normal mood and affect. Judgement/competence is appropriate Results & Data Results & Data Vital Signs (Past 12 Hours) Vital Signs Temp Pulse Pulse Resp BP BP Pulse Ox 06/06/25 16:00 73 16 134/78 96 06/06/25 15:00 [id number] 06/06/25 15:00 123/65 06/06/25 15:00 123/65 06/06/25 15:00 123/65 06/06/25 15:00 123/65 06/06/25 15:00 73 19 94 06/06/25 14:45 132/72 06/06/25 14:45 132/72 06/06/25 14:45 132/72 06/06/25 14:45 132/72 06/06/25 14:45 132/72 06/06/25 14:45 72 22 95 06/06/25 14:34 36.5 C 74 17 146/79 H 96 06/06/25 14:33 146/79 H 06/06/25 14:33 146/79 H 06/06/25 14:33 146/79 H 06/06/25 14:33 146/79 H 06/06/25 14:33 146/79 H 06/06/25 14:33 96 06/06/25 14:02 74 06/06/25 14:00 139/73 06/06/25 14:00 139/73 06/06/25 14:00 76 18 94 06/06/25 13:45 114/62 06/06/25 13:45 74 17 96 06/06/25 13:30 146/81 H 06/06/25 13:30 80 21 95 06/06/25 13:26 77 20 113/71 95 06/06/25 13:26 97 06/06/25 13:15 82 12 95 06/06/25 13:00 79 20 95 06/06/25 13:00 113/71 06/06/25 12:45 81 21 95 06/06/25 12:30 113/71 06/06/25 12:30 81 24 96 06/06/25 12:22 82 06/06/25 12:22 36.8 C 82 20 118/70 97 06/06/25 12:21 82 17 94 06/06/25 12:21 118/70 06/06/25 12:20 83 O2 Del Method 06/06/25 16:00 06/06/25 15:00 06/06/25 15:00 06/06/25 15:00 06/06/25 15:00 06/06/25 15:00 06/06/25 15:00 06/06/25 14:45 06/06/25 14:45 06/06/25 14:45 06/06/25 14:45 06/06/25 14:45 06/06/25 14:45 06/06/25 14:34 Room Air 06/06/25 14:33 06/06/25 14:33 06/06/25 14:33 06/06/25 14:33 06/06/25 14:33 06/06/25 14:33 06/06/25 14:02 06/06/25 14:00 06/06/25 14:00 06/06/25 14:00 06/06/25 13:45 06/06/25 13:45 06/06/25 13:30 06/06/25 13:30 06/06/25 13:26 Room Air 06/06/25 13:26 Room Air 06/06/25 13:15 06/06/25 13:00 06/06/25 13:00 06/06/25 12:45 06/06/25 12:30 06/06/25 12:30 06/06/25 12:22 06/06/25 12:22 Room Air 06/06/25 12:21 06/06/25 12:21 06/06/25 12:20 PG Care Time/CCT Total # of Minutes Spent Total Time Spent with Patient: Total time spent is greater than 50% in coordination of care (as documented) at patient's floor/unit and/or counseling patient: Coding Level of Care Code 24096 INT INP/OBS CARE 2/55MIN Diagnoses Generalized weakness R53.1 Hypothyroid E03.9 Adenocarcinoma C80.1
[2025-06-06 17:14] LABS: Influenza A virus by PCR Negative (Neg); Influenza B virus by PCR Negative (Neg); SARS CoV2 RNA(COVID-19) Ceph NEGATIVE (Negative)
[2025-06-06] MEDS ORDERED: HYDROCODONE/ACETAMOPHEN 5/325MG TAB PO PRN (18:55)
[2025-06-06 19:44] LABS: Thyroid Stimulating Hormone 5.299 uIu/ml (0.300-4.500)
[2025-06-06 20:24] LABS: T4 Free Thyroxine 1.22 ng/dl (0.61-1.60)
[2025-06-07] MEDS: LEVOTHYROXINE SODIUM 125 MCG TABLET PO SCH (05:58)
[2025-06-07 07:44] LABS: Hematocrit (blood only) 30.9 % (42.0-52.0); Hemoglobin 10.4 g/dL (14.0-18.0); Mean Corpuscular Hemoglobin 30.3 pg (25.0-34.0); Mean Corpuscular Volume 90.1 fL (80.0-100.0); Platelet Count 110 K/uL (130-400); RDW Standard Deviation 57.3 fL (36.4-46.3); Red Blood Count 3.43 M/uL (4.70-6.10); White Blood Count 2.67 K/ul (4.8-10.8)
[2025-06-07 08:22] LABS: Anion Gap 6.0 (3-11); Blood Urea Nitrogen 20.0 mg/dl (6-23); Calcium 8.1 mg/dl (8.6-10.3); Carbon Dioxide 25.0 mmol/L (21-32); Chloride 102.0 mmol/L (98-107); Creatinine Clr Calc Pharmacy 50.2 ml/min; Glucose 97.0 mg/dl (70-99(Fasting)); Potassium 3.8 mmol/L (3.5-5.1); Sodium 133.0 mmol/L (136-145)
--- NOTE | 2025-06-07 09:16 | Hospitalist Progress Note ---
Date of Service June 07, 2025 Assessment & Plan (1) Generalized weakness: Plan: -2nd to chemotherapy -PT/OT evaluation -likely will require rehab placement -dietitian consulted from supplementation (2) Hypothyroid: Plan: -levothyroxine increased from 125mcg to 137mcg -TSH elevated to 5.22 (3) Adenocarcinoma: Plan: -pt receiving chemotherapy with Dr. Rosales -last treatment 7 days ago -consulted Admission and Anticipated Discharge Date Admission Date: June 06, 2025 Subjective Pt still feeling weak and fatigued with decreased appetite. Review of Systems Review of Systems: CONST: Negative for fever, body aches and chills. HENT: Negative for neck pain/stiffness, headache, congestion, sore throat, swelling. EYES: Negative for discharge/pain or vision changes. RESP: Negative for cough/hemoptysis and shortness of breath. CV: Negative chest pain, difficulty breathing, palpitations. ABD: Negative pain, nausea, vomiting. : Negative increase frequency, dysuria, blood in urine or stool. MUSC: Negative for muscle aches, edema. SKIN: Negative rash, lesions/sores. NEURO: Negative headache, dizziness, weakness. Physical Exam Physical Exam: GENERAL APPEARANCE NAD, activity normal for age, well developed/ well nourished, no cyanosis, pallor, or diaphoresis. EYES lids/conjunctiva normal. EARS/NOSE/THROAT Mucous membranes moist, nares normal, lips/teeth normal uvula midline without oral pharyngeal erythema, exudate or swelling TMs normal bilaterally. No lymphangitis/lymphedema. HEAD/NECK normocephalic atraumatic, no facial trauma, neck is supple. RESPIRATORY respiratory effort normal, speaks in full sentences, no tripod position, no accessory muscle use. Lungs clear to auscultation without rhonchi, wheezes, rales CARDIAC Regular rate and rhythm, no edema. ABDOMINAL Soft, ND/NT. No evidence of fluid wave. No pulsatile masses on exam, rebound tenderness, Moya sign or pain over Mcburney's point. MUSCLES/EXTREMITIES No abnormal range of motion, no swelling. SKIN Warm, pink and dry. No rashes, dermatoses, petechiae or lesions. NEUROLOGICAL Speech is clear and appropriate. Normal level of consciousness. Gait and coordination are normal. 5/5 strength in all extremities. PSYCH Normal mood and affect. Judgement/competence is appropriate Results & Data Results & Data Vital Signs (Past 12 Hours) Vital Signs Temp Pulse Resp BP BP Pulse Ox O2 Del Method 06/07/25 07:19 36.7 C 77 18 99/59 L 92 Room Air 06/07/25 00:23 36.6 C 72 20 120/68 95 Room Air PG Care Time/CCT Total # of Minutes Spent Total Time Spent with Patient: Total time spent is greater than 50% in coordination of care (as documented) at patient's floor/unit and/or counseling patient: Coding Level of Care Code 13736 SUB INP/OBS CARE 2/35MIN Diagnoses Generalized weakness R53.1 Hypothyroid E03.9 Adenocarcinoma C80.1
[2025-06-07] MEDS: DOCUSATE SODIUM 100 MG CAP PO SCH (09:32)
[2025-06-07] MEDS: CHOLECALCIFEROL 25 MCG (1000 UNITS) TAB PO SCH (09:32)
[2025-06-07] MEDS: SODIUM CHLORIDE 0.9% 1,000 ML IV SCH (09:37)
[2025-06-07] MEDS: LATANOPROST 0.005% OP SOLN 2.5 ML BTL OP SCH (10:03)
--- NOTE | 2025-06-07 16:33 | Oncology Consultation ---
Date of Consultation June 07, 2025 Assessment & Plan (1) Generalized weakness: Patient has generalized weakness and failure to thrive after the most recent chemotherapy administration which was on 05/31/2025. At this point we will delay or cancer care. The patient will need supportive care and conservative management including IV fluids and if needed broad-spectrum antibiotics. Plan Medical oncology will continue to follow the patient make appropriate recommendations. Thank you for this interesting oncological consult. History of Present Illness Attending Physician: Jimmy Robles MD History of Present Illness Non-small cell lung cancer, adenocarcinoma, left upper lobe with hilar and mediastinal lymphadenopathy Date of diagnosis: 06/23/2023 Stage: IIIA; T1c N2 Procedure history: Robotic VATS, left side with thoracoscopy, date of procedure: 06/23/2023 Treatment: Neoadjuvant chemotherapy plus immunotherapy Carboplatin, pemetrexed, nivolumab per the Checkmate 816 Protocol Carboplatin, pemetrexed, nivolumab, cycle 1 day 1: 07/22/2023 Carboplatin, pemetrexed, nivolumab, cycle 2-day 1: 08/12/2023 Carboplatin, pemetrexed, nivolumab, cycle 3-day 1: 09/02/2023 10/27/2023: Robotic left thoracoscopy with therapeutic upper lobe wedge resection Final pathology: pT2a pNx Visceral pleura invasion identified Margins negative Adjuvant treatment: Carboplatin, pemetrexed nivolumab cycle 1 day 1: 11/30/2023 Adjuvant chemotherapy stopped due to GI effects, he was noted to have cholecystitis Adjuvant immunotherapy not given due declined performance status postsurgery Other medical issues: Hypothyroidism PET CT scan, May 2023: FDG avid left hilar and AP window mediastinal lymphadenopathy, left upper lobe nodule, mildly FDG avid CT chest abdomen pelvis, 05/21/2023: No acute intra-abdominal or intrapelvic abnormality. No pathologically enlarged lymph nodes. Left nephrectomy with stable posttreatment related changes within the operative bed. CT chest revealed no lymphadenopathy. Interval enlargement of left apical pulmonary nodule, 12 mm in size and 3 mm right middle lobe nodule. Stable 5 mm nodule in the prehire left upper lobe. Emphysema is seen PET CT scan, 09/09/2022: Postoperative changes consistent with prior left nephrectomy. FDG avid ill- defined soft tissue at the postoperative site, mildly enlarged and FDG avid retroperitoneal lymph nodes are significantly improved. Findings consistent with positive treatment response. No new sites of FDG avid disease. Left upper lobe FDG avid 1 cm irregular nodule PET CT scan, 11/26/2022: No hypermetabolic lymphadenopathy, left nephrectomy with surgical suture material. Mild inflammatory stranding and low-level FDG activity within the nephrectomy bed. No evidence of new or progressive disease. 1.1 cm mildly hypermetabolic solid nodule of the left posterior apical segment. 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 NOT double hit Date of diagnosis: 05/12/2022 Stage at diagnosis: IV (presumed nodes + extranodal) IPI age > 60, stage IV low-intermediate FAMILY MANAGER high risk b/o renal involvement Treatment: 6 cycles of RCHOP 06/30/2022 - 10/14/2022 Although he presented with bulky disease, 09/29/2022 tumor board review did not feel there was a role for ISRT given upfront surgical debulking NCCN does indicate increased risk for FAMILY MANAGER disease renal involvement. Completed 4 doses Intrathecal methotrexate and declined further doses. CSF cytology negative Some question of possible evolution from a follicular lymphoma based on initial biopsy review, will monitor with every 6 month imaging for now History: Incidentally discovered left renal mass Known background history of exposure to agent orange See full details in previous notes Initial imaging showed large renal mass 05/12/2022 Laparoscopic Hand Assisted Nephrectomy - Left - Chris guaman MD Kidney, left, nephrectomy: - Diffuse large B-cell lymphoma [CD20 moderate positive], germinal center type [18 x 9 x 11 cm on gross, bulk of the mass largely extrinsic to the kidney though it did extensively infiltrate the kidney itself.] . . . Even though no t(14;18) was identified, there are some morphologic features suggestive of transformation to DLBCL from a pre-existing follicular lymphoma. Clinical correlation required. . . . FISH RESULTS: BCL6 rearrangement: Not Detected MYC rearrangement: Not Detected MYC amplification: Present BCL2 rearrangement: Not Detected t(8;14): Not Detected t(14;18): Not Detected Echocardiography showed stable pre and interval treatment LVEF, question of a trace pleural effusion in August, not seen on the TTE done during his November, admission Baseline labs include: Hemoglobin 16 g/dL, absolute neutrophil count 3.71, platelet count 205,000 Creatinine 1.81, calcium was 10.3 on 04/13 but 9.9 currently, LDH 167 Cockcroft-Gault CrCl 40 mL/min (based on adjusted body weight) - 50 mL/min (based on actual body) 06/10/2022 PET/CT scan 1. Interval left nephrectomy. Mild multifocal ill-defined soft tissue within the left nephrectomy bed with moderate FDG uptake. This may reflect residual lymphoma or postoperative change. 2. Moderate FDG uptake within adjacent mildly enlarged left paraaortic lymph nodes likely reflecting lymphoma. 3. No FDG avid lymphadenopathy within the neck or chest. 4. Mild FDG uptake within a 1 cm solid and groundglass left upper lobe nodule. This nodule is indeterminate. A small primary lung malignancy cannot be excluded. 09/03/2022 PET scan interval assessment of response to chemo shows no new sites of active disease, persistent lung nodule 10/27/2023: Robotic left thoracoscopy with therapeutic upper lobe wedge resection Final pathology: pT2a pNx Visceral pleura invasion identified Margins negative 04/26/2024, PET CT scan: IMPRESSION: 1. Status post wedge resection of the previously described hypermetabolic 1.2 cm left upper lobe pulmonary nodule. Along the suture line within the left upper lobe, there is now a 6 cm focus of hypermetabolic consolidation suggestive of malignancy. 2. Hypermetabolic mediastinal lymph nodes are likely metastatic. 3. There are a few hypermetabolic peritoneal nodules within the left lower quadrant suggestive of malignancy. 4. Interval cholecystectomy with hypermetabolic activity within the marge hepatis, favored to be postoperative. Attention at follow-up recommended. 5. Prostamegaly with slightly increased tracer uptake. Correlation with PSA recommended. 6. Additional findings as above. Recurrent non-small cell lung cancer, diagnosed April 26, 2024 Gemcitabine, cycle 1 day 1 05/30/2024 Gemcitabine, cycle 2-day 1 06/27/2024 Gemcitabine, cycle 3-day 1: 07/18/2024 Gemcitabine, cycle 4- day1: 08/08/2024 Gemcitabine, cycle 5-day 1: 08/29/2024 Gemcitabine, cycle 6 day 1: 09/19/2024 Gemcitabine, cycle 7 day 1: 10/10/2024 Gemcitabine, cycle 8 day 1: 10/31/2024 Gemcitabine, cycle 9-day 1: 11/21/2024 Gemcitabine, cycle 10 day 1: 12/12/2024 Gemcitabine, cycle 11 day 1: 01/09/2025 Gemcitabine, stopped 01/30/2025 because of progressive disease PET CT scan, 08/16/2024: IMPRESSION: 1. Prior wedge resection of the left upper lobe with redemonstration of a malignant hypermetabolic lesion along the suture line which has mildly decreased in size and FDG uptake compared to the 04/26/2024 study compatible with partial treatment response. 2. Decreased size and FDG avidity of the previously described pathologic mediastinal lymph nodes and left lower quadrant peritoneal nodules. 3. Prior cholecystectomy with decreased size of the hypermetabolic activity within the marge hepatis, favored to be postoperative. Continued attention at follow-up recommended. 4. Incidental findings as above. PET CT scan, 11/15/2024: IMPRESSION: 1. Prior wedge resection of the left upper lobe with redemonstration of a malignant hypermetabolic lesion along the suture line which continues to mildly decreased in size and FDG uptake compared to the 08/16/2024 study compatible with partial treatment response. 2. Borderline increased tracer uptake within a few mediastinal lymph nodes again seen . There is slightly decreased tracer uptake within the left lower quadrant peritoneal nodules. 3. Prior cholecystectomy with persistent increased tracer uptake within the marge hepatis which may be postoperative. Continued attention at follow-up recommended. 4. Incidental findings as above include a new [id number] left pleural effusion. 5. Increased tracer uptake throughout the skeletal structures, likely on a posttreatment related basis. PET CT scan, 01/24/2025: IMPRESSION: 1. Prior wedge resection of the left upper lobe with redemonstration of a malignant hypermetabolic lesion along the suture line. This has mildly increased in size and hypermetabolic activity compared to the 11/15/2024 study suggestive of disease progression. 2. Mildly increased size and hypermetabolic activity within an anterior mediastinal lymph node also compatible with progressive disease. 3. No significant change of the left lower quadrant hypermetabolic peritoneal nodules. 4. Prior cholecystectomy with persistent increased tracer uptake within the marge hepatis. Continued attention at follow-up recommended. 5. Moderate left pleural effusion with left basilar atelectasis. 6. Increased tracer uptake throughout the skeletal structures again noted, likely on a posttreatment related basis. Thoracentesis; 02/02/2025 Utilizing ultrasound guidance, a 5 Icelandic safety centesis catheter was advanced into the left pleural effusion. Ultrasound images were obtained. A total of 700 mL of edvin-colored pleural fluid was removed and sent to the lab. The catheter was removed and Band-Aid applied. The patient tolerated the procedure well. A chest x-ray will be obtained post procedure. Vital signs will be monitored postprocedure. IMPRESSION: Ultrasound-guided left thoracentesis as above. PET CT scan; 04/12/2025: IMPRESSION: 1. Postsurgical changes of a left upper lobe wedge resection. There is persistent hypermetabolic activity along the suture line. The size of the lesion has decreased slightly when compared the prior study, and the degree of FDG activity has also decreased slightly 2. Persistent anterior mediastinal lymph node which demonstrates slightly diminished FDG activity when compared the prior study. 3. Slight increase in the size and number of the multiple right lung pulmonary nodules, suspicious for disease progression. 4. Slight increase in the FDG activity within a millimeter left lower quadrant peritoneal nodule 5. Diffuse increased FDG activity throughout the skeletal structures likely posttreatment basis. Current treatment: Docetaxel; cycle 1 day 1: 02/15/2025 Docetaxel; cycle 2 day 1: 03/08/2025 Docetaxel; cycle 3 day 1: 03/29/2025 Docetaxel; cycle 4 day 1: 04/19/2025 Docetaxel; cycle 5 day 1:05/10/2025 Docetaxel, cycle 6 day 1: 05/31/2025 the patient comes to the [facility] after receiving 6 cycle of docetaxel with generalized weakness and fatigue. Medical oncology has been consulted to assist in management of this patient with postchemotherapy complications. Allergies Allergy/AdvReac Type Severity Reaction Status Date / Time fentanyl AdvReac Verified 06/06/25 14:58 Home Medications Medication Instructions Recorded Confirmed Type pantoprazole 20 mg tablet,delayed 20 mg PO QPM PRN Heartburn 07/09/22 06/06/25 History release (Protonix) docusate sodium 100 mg tablet 100 mg PO QAM 07/22/22 06/06/25 History (Stool Softener) latanoprost 0.005 % eye drops 1 drp ophthalmic (eye) HS 04/10/24 06/06/25 History levothyroxine 125 mcg capsule 125 mcg PO DAILY #30 caps 04/12/24 06/06/25 Rx ondansetron 8 mg disintegrating 8 mg PO Q8H PRN N/V 06/11/24 06/06/25 History tablet prochlorperazine maleate 10 mg 10 mg PO Q6H PRN N/V 06/11/24 06/06/25 History tablet cholecalciferol (vitamin D3) 25 0 mcg PO DAILY 09/11/24 06/06/25 History mcg (1,000 unit) capsule gemcitabine 1 gram intravenous 0 g IV UD 09/11/24 06/06/25 History solution loratadine 10 mg tablet (Claritin) 0 mg PO DAILY 09/11/24 06/06/25 History acetaminophen 325 mg tablet 325 mg PO DAILY PRN Pain 06/06/25 06/06/25 History diclofenac sodium 1 % topical gel 4 g topical BID PRN Pain 06/06/25 06/06/25 History duloxetine 30 mg capsule,delayed 30 mg PO DAILY 06/06/25 06/06/25 History release hydrocodone 7.5 mg-acetaminophen 1 tab PO PRN Pain 06/06/25 History 325 mg tablet hydrocodone 7.5 mg-acetaminophen 1 tab PO Q4 PRN Pain 06/06/25 06/06/25 History 325 mg tablet lanolin alcohols-mineral 1 applic topical DAILY 06/06/25 06/06/25 History oil-w.petrolatum-ceresin topical cream (Eucerin topical cream) lidocaine 5 % topical patch 1 patch topical DAILY PRN Pain 06/06/25 06/06/25 History triamcinolone acetonide 0.1 % 1 applic topical DAILY PRN 06/06/25 06/06/25 History topical cream DERNATITIS Patient History Medical History Bilateral edema of lower extremity Neutropenic fever Adenocarcinoma Stage 3 chronic kidney disease Renal mass Hypothyroidism Rhabdomyolysis Myxedema coma Osteopenia Stage 3 chronic kidney disease History of hypertension Hyperlipidemia CAD (coronary artery disease) Hx of colonic polyps History of abdominal aortic aneurysm (AAA) Hx of hyperparathyroidism Port-A-Cath in place AAA (abdominal aortic aneurysm) Large B-cell lymphoma Emphysema lung COPD (chronic obstructive pulmonary disease) Degenerative disc disease History of duodenal ulcer Surgical History Hx of cataract surgery Hx laparoscopic cholecystectomy (02/15/24) S/P partial lobectomy of lung H/O insertion of central venous access port (2021) History of bone marrow biopsy History of left nephrectomy History of colonoscopy History of parathyroid surgery History of umbilical hernia repair History of wisdom tooth extraction History of abdominal aortic aneurysm (AAA) repair Family History Mother Family history of diabetes mellitus Atrial fibrillation Glioblastoma Father Atrial fibrillation Aunt Breast cancer Son Cancer melanoma Other No family history of adverse response to anesthesia Denies family history of Ovarian cancer Prostate cancer Myocardial infarction Colorectal cancer Social History Smoking Status: Former smoker Tobacco Type: Cigarettes Second Hand Exposure: No; Do You Dip or Chew Tobacco: No; Hx Alcohol Use: No Hx Substance Use: No Preferred Language: Yi Communication Ability: Effective Communication Ability Comment: good Visual Impairment: No Limitations Hearing Ability: Normal Theater Teacher Required: No Beliefs That Will Affect Care: None marital status: Current Living Situation: Spouse Current Living Situation Comment: okay current occupational status: retired How many Children do You have: 2 Feels Safe at Home: Yes Diet: regular caffeine: Yes during the past year weight has: decreased > 10 lbs Dental Care, Regularly: No Physical Activity Frequency: Daily Seatbelt Use: always Sunscreen Use: Yes Assistive Devices: Cane and Walker Review of Systems Review of Systems: All systems reviewed & are unremarkable except as noted in HPI & below Constitutional: as per Subjective / HPI Eyes: as per Subjective / HPI Ear, Nose, Mouth, Throat: as per Subjective / HPI Respiratory: as per Subjective / HPI Cardiovascular: as per Subjective / HPI Gastrointestinal: as per Subjective / HPI Genitourinary: + as per Subjective / HPI Musculoskeletal: as per Subjective / HPI Integumentary: as per Subjective / HPI Neurologic: as per Subjective / HPI Psychiatric: as per Subjective / HPI Endocrine: as per Subjective / HPI Hematologic / Lymphatic: as per Subjective / HPI Allergy / Immunological: as per Subjective / HPI Physical Exam Constitutional: WD/WN, vitals as above Eyes: PERRL, conjunctivae normal, anicteric sclerae ENMT: external ear and nose normal, oropharynx normal Neck: trachea midline, no thyromegaly Respiratory: normal respiratory effort, lungs clear to auscultation Cardiovascular: RRR, no murmur, no edema Gastrointestinal (Abdomen): normal bowel sounds, soft, nontender, no hepatosplenomegaly Musculoskeletal: no cyanosis or clubbing, extremities motor strength 5/5 Skin: no rashes, warm and dry Neurologic: patellar DTR's 2+ bilat, sensation intact Psychiatric: A+Ox3, euthymic affect Lymphatic: no cervical or axillary lymphadenopathy Results & Data Vital Signs (Past 12 Hours) Vital Signs Temp Pulse Pulse Resp BP BP Pulse Ox 06/07/25 15:39 36.8 C 78 16 129/65 92 06/07/25 13:25 81 131/72 06/07/25 07:19 36.7 C 77 18 99/59 L 92 O2 Del Method 06/07/25 15:39 Room Air 06/07/25 13:25 06/07/25 07:19 Room Air
[2025-06-07] MEDS: LATANOPROST 0.005% OP SOLN 2.5 ML BTL OPB SCH (20:01)
[2025-06-07] MEDS ORDERED: LATANOPROST 0.005% OP SOLN 2.5 ML BTL OP SCH (21:00)
[2025-06-07] MEDS: ACETAMINOPHEN 325 MG TAB PO PRN (22:12)
[2025-06-07] MEDS: ONDANSETRON INJ 2 MG/ML 2 ML VIAL IV PRN (22:17)
[2025-06-08] MEDS: LEVOTHYROXINE SODIUM 137 MCG TABLET PO SCH (06:32)
[2025-06-08 09:54] LABS: Hematocrit (blood only) 34.2 % (42.0-52.0); Hemoglobin 11.5 g/dL (14.0-18.0); Mean Corpuscular Hemoglobin 30.0 pg (25.0-34.0); Mean Corpuscular Volume 89.3 fL (80.0-100.0); Platelet Count 151 K/uL (130-400); RDW Standard Deviation 57.3 fL (36.4-46.3); Red Blood Count 3.83 M/uL (4.70-6.10); White Blood Count 5.09 K/ul (4.8-10.8)
[2025-06-08 10:04] LABS: Anion Gap 7.0 (3-11); Blood Urea Nitrogen 18.0 mg/dl (6-23); Calcium 8.3 mg/dl (8.6-10.3); Carbon Dioxide 23.0 mmol/L (21-32); Chloride 101.0 mmol/L (98-107); Creatinine Clr Calc Pharmacy 47.4 ml/min; Glucose 126.0 mg/dl (70-99(Fasting)); Potassium 3.7 mmol/L (3.5-5.1); Sodium 131.0 mmol/L (136-145)
--- NOTE | 2025-06-08 10:33 | Hospitalist Progress Note ---
Date of Service June 08, 2025 Assessment & Plan (1) Generalized weakness: Plan: -2nd to chemotherapy -PT/OT evaluation -likely will require rehab placement -dietitian consulted from supplementation -found to be orthostatic -started IVF -midodrine 2.5mg TID added (2) Hypothyroid: Plan: -levothyroxine increased from 125mcg to 137mcg -TSH elevated to 5.22 (3) Adenocarcinoma: Plan: -pt receiving chemotherapy with Dr. Rosales -last treatment 7 days ago -consulted Admission and Anticipated Discharge Date Admission Date: June 06, 2025 Subjective Pt had episode of dizziness and was found to be orthostatic yesterday. Review of Systems Review of Systems: CONST: Negative for fever, body aches and chills. HENT: Negative for neck pain/stiffness, headache, congestion, sore throat, swelling. EYES: Negative for discharge/pain or vision changes. RESP: Negative for cough/hemoptysis and shortness of breath. CV: Negative chest pain, difficulty breathing, palpitations. ABD: Negative pain, nausea, vomiting. : Negative increase frequency, dysuria, blood in urine or stool. MUSC: Negative for muscle aches, edema. SKIN: Negative rash, lesions/sores. NEURO: Negative headache, dizziness, weakness. Physical Exam Physical Exam: GENERAL APPEARANCE NAD, activity normal for age, well developed/ well nourished, no cyanosis, pallor, or diaphoresis. EYES lids/conjunctiva normal. EARS/NOSE/THROAT Mucous membranes moist, nares normal, lips/teeth normal uvula midline without oral pharyngeal erythema, exudate or swelling TMs normal bilaterally. No lymphangitis/lymphedema. HEAD/NECK normocephalic atraumatic, no facial trauma, neck is supple. RESPIRATORY respiratory effort normal, speaks in full sentences, no tripod position, no accessory muscle use. Lungs clear to auscultation without rhonchi, wheezes, rales CARDIAC Regular rate and rhythm, no edema. ABDOMINAL Soft, ND/NT. No evidence of fluid wave. No pulsatile masses on exam, rebound tenderness, Moya sign or pain over Mcburney's point. MUSCLES/EXTREMITIES No abnormal range of motion, no swelling. SKIN Warm, pink and dry. No rashes, dermatoses, petechiae or lesions. NEUROLOGICAL Speech is clear and appropriate. Normal level of consciousness. Gait and coordination are normal. 5/5 strength in all extremities. PSYCH Normal mood and affect. Judgement/competence is appropriate Results & Data Results & Data Vital Signs (Past 12 Hours) Vital Signs Temp Pulse Resp BP Pulse Ox O2 Del Method 06/08/25 09:00 36.4 C L 86 20 110/69 95 Room Air 06/07/25 23:21 36.7 C 75 18 129/62 93 Room Air PG Care Time/CCT Total # of Minutes Spent Total Time Spent with Patient: Total time spent is greater than 50% in coordination of care (as documented) at patient's floor/unit and/or counseling patient: Coding Level of Care Code 83877 SUB INP/OBS CARE 2/35MIN Diagnoses Generalized weakness R53.1 Hypothyroid E03.9 Adenocarcinoma C80.1
[2025-06-08] MEDS: MIDODRINE HCL 2.5 MG TAB PO SCH (11:56)
--- NOTE | 2025-06-08 22:42 | Electrocardiogram Report ---
Test Reason : Blood Pressure : */* mmHG Vent. Rate : 77 BPM Atrial Rate : 77 BPM P-R Int : 154 ms QRS Dur : 80 ms QT Int : 396 ms P-R-T Axes : 19 0 34 degrees QTcB Int : 448 ms Normal sinus rhythm Normal ECG When compared with ECG of 11-Jun-2024 14:00, No significant change was found Confirmed by Kaleb Lacy ([id number]) on 06/08/2025 10:42:01 PM Referred By: REFERRED SELF Confirmed By: Kaleb Lacy
[2025-06-09 09:21] LABS: Hematocrit (blood only) 32.3 % (42.0-52.0); Hemoglobin 10.7 g/dL (14.0-18.0); Mean Corpuscular Hemoglobin 29.2 pg (25.0-34.0); Mean Corpuscular Volume 88.3 fL (80.0-100.0); Platelet Count 163 K/uL (130-400); RDW Standard Deviation 56.7 fL (36.4-46.3); Red Blood Count 3.66 M/uL (4.70-6.10); White Blood Count 7.78 K/ul (4.8-10.8)
[2025-06-09 09:38] LABS: Anion Gap 5.0 (3-11); Blood Urea Nitrogen 13.0 mg/dl (6-23); Calcium 8.1 mg/dl (8.6-10.3); Carbon Dioxide 25.0 mmol/L (21-32); Chloride 104.0 mmol/L (98-107); Creatinine Clr Calc Pharmacy 48.8 ml/min; Glucose 129.0 mg/dl (70-99(Fasting)); Potassium 3.7 mmol/L (3.5-5.1); Sodium 134.0 mmol/L (136-145)
--- NOTE | 2025-06-09 09:59 | Hospitalist Progress Note ---
Date of Service June 09, 2025 Assessment & Plan (1) Generalized weakness: Plan: -2nd to chemotherapy -PT/OT evaluation -likely will require rehab placement -dietitian consulted from supplementation -found to be orthostatic -started IVF -midodrine 2.5mg TID added, now increased to 5mg TID (2) Hypothyroid: Plan: -levothyroxine increased from 125mcg to 137mcg -TSH elevated to 5.22 (3) Adenocarcinoma: Plan: -pt receiving chemotherapy with Dr. Rosales -last treatment 7 days ago -consulted Admission and Anticipated Discharge Date Admission Date: June 06, 2025 Subjective -No events overnight. Pt still orthostatic this am. Review of Systems Review of Systems: CONST: Negative for fever, body aches and chills. HENT: Negative for neck pain/stiffness, headache, congestion, sore throat, swelling. EYES: Negative for discharge/pain or vision changes. RESP: Negative for cough/hemoptysis and shortness of breath. CV: Negative chest pain, difficulty breathing, palpitations. ABD: Negative pain, nausea, vomiting. : Negative increase frequency, dysuria, blood in urine or stool. MUSC: Negative for muscle aches, edema. SKIN: Negative rash, lesions/sores. NEURO: Negative headache, dizziness, weakness. Physical Exam Physical Exam: GENERAL APPEARANCE NAD, activity normal for age, well developed/ well nourished, no cyanosis, pallor, or diaphoresis. EYES lids/conjunctiva normal. EARS/NOSE/THROAT Mucous membranes moist, nares normal, lips/teeth normal uvula midline without oral pharyngeal erythema, exudate or swelling TMs normal bilaterally. No lymphangitis/lymphedema. HEAD/NECK normocephalic atraumatic, no facial trauma, neck is supple. RESPIRATORY respiratory effort normal, speaks in full sentences, no tripod position, no accessory muscle use. Lungs clear to auscultation without rhonchi, wheezes, rales CARDIAC Regular rate and rhythm, no edema. ABDOMINAL Soft, ND/NT. No evidence of fluid wave. No pulsatile masses on exam, rebound tenderness, Moya sign or pain over Mcburney's point. MUSCLES/EXTREMITIES No abnormal range of motion, no swelling. SKIN Warm, pink and dry. No rashes, dermatoses, petechiae or lesions. NEUROLOGICAL Speech is clear and appropriate. Normal level of consciousness. Gait and coordination are normal. 5/5 strength in all extremities. PSYCH Normal mood and affect. Judgement/competence is appropriate Results & Data Results & Data Vital Signs (Past 12 Hours) Vital Signs Temp Pulse Resp BP Pulse Ox O2 Del Method 06/09/25 07:56 36.4 C L 69 16 160/78 H 93 Room Air 06/08/25 23:01 36.7 C 77 20 129/68 92 Room Air PG Care Time/CCT Total # of Minutes Spent Total Time Spent with Patient: Total time spent is greater than 50% in coordination of care (as documented) at patient's floor/unit and/or counseling patient: Coding Level of Care Code 00512 SUB INP/OBS CARE 2/35MIN Diagnoses Generalized weakness R53.1 Hypothyroid E03.9 Adenocarcinoma C80.1
[2025-06-09 11:52] LABS: Cdiff Toxin B Gene (2yr or >) Negative Cdiff Gene (Neg)
[2025-06-09] MEDS: MIDODRINE HCL 2.5 MG TAB PO SCH (12:06)
[2025-06-10 10:36] LABS: Hematocrit (blood only) 30.6 % (42.0-52.0); Hemoglobin 10.3 g/dL (14.0-18.0); Mean Corpuscular Hemoglobin 29.9 pg (25.0-34.0); Mean Corpuscular Volume 88.7 fL (80.0-100.0); Platelet Count 179 K/uL (130-400); RDW Standard Deviation 56.2 fL (36.4-46.3); Red Blood Count 3.45 M/uL (4.70-6.10); White Blood Count 12.31 K/ul (4.8-10.8)
[2025-06-10 10:52] LABS: Anion Gap 6.0 (3-11); Blood Urea Nitrogen 10.0 mg/dl (6-23); Calcium 8.4 mg/dl (8.6-10.3); Carbon Dioxide 25.0 mmol/L (21-32); Chloride 104.0 mmol/L (98-107); Creatinine Clr Calc Pharmacy 50.6 ml/min; Glucose 108.0 mg/dl (70-99(Fasting)); Potassium 3.7 mmol/L (3.5-5.1); Sodium 135.0 mmol/L (136-145)
--- NOTE | 2025-06-10 10:53 | Hospitalist Progress Note ---
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 Rosales -last treatment 7 days ago -heme-onc consult appreciated Admission and Anticipated Discharge Date Admission Date: June 06, 2025 Subjective Pt states he did not sleep well last night. Still feeling generalized weakness. Concerned that he may have anaplasmosis. Review of Systems Review of Systems: CONST: Negative for fever, body aches and chills. HENT: Negative for neck pain/stiffness, headache, congestion, sore throat, swelling. EYES: Negative for discharge/pain or vision changes. RESP: Negative for cough/hemoptysis and shortness of breath. CV: Negative chest pain, difficulty breathing, palpitations. ABD: Negative pain, nausea, vomiting. : Negative increase frequency, dysuria, blood in urine or stool. MUSC: Negative for muscle aches, edema. SKIN: Negative rash, lesions/sores. NEURO: Negative headache, dizziness, weakness. Physical Exam Physical Exam: GENERAL APPEARANCE NAD, activity normal for age, well developed/ well nourished, no cyanosis, pallor, or diaphoresis. EYES lids/conjunctiva normal. EARS/NOSE/THROAT Mucous membranes moist, nares normal, lips/teeth normal uvula midline without oral pharyngeal erythema, exudate or swelling TMs normal bilaterally. No lymphangitis/lymphedema. HEAD/NECK normocephalic atraumatic, no facial trauma, neck is supple. RESPIRATORY respiratory effort normal, speaks in full sentences, no tripod position, no accessory muscle use. Lungs clear to auscultation without rhonchi, wheezes, rales CARDIAC Regular rate and rhythm, no edema. ABDOMINAL Soft, ND/NT. No evidence of fluid wave. No pulsatile masses on exam, rebound tenderness, Moya sign or pain over Mcburney's point. MUSCLES/EXTREMITIES No abnormal range of motion, no swelling. SKIN Warm, pink and dry. No rashes, dermatoses, petechiae or lesions. NEUROLOGICAL Speech is clear and appropriate. Normal level of consciousness. Gait and coordination are normal. 5/5 strength in all extremities. PSYCH Normal mood and affect. Judgement/competence is appropriate Results & Data Results & Data Vital Signs (Past 12 Hours) Vital Signs Temp Pulse Resp BP Pulse Ox O2 Del Method 06/10/25 07:17 36.8 C 77 16 148/77 H 96 Room Air PG Care Time/CCT Total # of Minutes Spent Total Time Spent with Patient: Total time spent is greater than 50% in coordination of care (as documented) at patient's floor/unit and/or counseling patient: Coding Level of Care Code 17027 SUB INP/OBS CARE 2/35MIN Diagnoses Generalized weakness R53.1 Hypothyroid E03.9 Adenocarcinoma C80.1
[2025-06-10] MEDS: DOXYCYCLINE HYCLATE 100 MG CAP PO SCH (13:18)
[2025-06-10] MEDS: MELATONIN 3 MG TAB PO PRN (20:02)
[2025-06-10] MEDS: HEPARIN 100 UNIT/ML 5ML FLUSH FLUSH PRN (22:38)
[2025-06-10 23:27] VITALS: RESP 18
[2025-06-11] MEDS: MELATONIN 3 MG TAB PO ONE (02:21)
[2025-06-11 05:01] LABS: Hematocrit (blood only) 32.6 % (42.0-52.0); Hemoglobin 10.7 g/dL (14.0-18.0); Mean Corpuscular Hemoglobin 29.2 pg (25.0-34.0); Mean Corpuscular Volume 88.8 fL (80.0-100.0); Platelet Count 211 K/uL (130-400); RDW Standard Deviation 56.8 fL (36.4-46.3); Red Blood Count 3.67 M/uL (4.70-6.10); White Blood Count 16.01 K/ul (4.8-10.8)
[2025-06-11 05:17] LABS: Anion Gap 7.0 (3-11); Blood Urea Nitrogen 10.0 mg/dl (6-23); Calcium 8.4 mg/dl (8.6-10.3); Carbon Dioxide 26.0 mmol/L (21-32); Chloride 102.0 mmol/L (98-107); Creatinine Clr Calc Pharmacy 48.4 ml/min; Glucose 96.0 mg/dl (70-99(Fasting)); Potassium 3.8 mmol/L (3.5-5.1); Sodium 135.0 mmol/L (136-145)
--- NOTE | 2025-06-11 10:49 | Hospitalist Progress Note ---
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 (2) Hypothyroid: Plan: -levothyroxine increased from 125mcg to 137mcg -TSH elevated to 5.22 (3) Adenocarcinoma: Plan: -pt receiving chemotherapy with Dr. Rosales -last treatment 7 days ago -heme-onc consult appreciated Plan Pt evaluation and possible d/c in Admission and Anticipated Discharge Date Admission Date: June 06, 2025 Subjective Pt states he feels better this am. Review of Systems Review of Systems: CONST: Negative for fever, body aches and chills. HENT: Negative for neck pain/stiffness, headache, congestion, sore throat, swelling. EYES: Negative for discharge/pain or vision changes. RESP: Negative for cough/hemoptysis and shortness of breath. CV: Negative chest pain, difficulty breathing, palpitations. ABD: Negative pain, nausea, vomiting. : Negative increase frequency, dysuria, blood in urine or stool. MUSC: Negative for muscle aches, edema. SKIN: Negative rash, lesions/sores. NEURO: Negative headache, dizziness, weakness. Physical Exam Physical Exam: GENERAL APPEARANCE NAD, activity normal for age, well developed/ well nourished, no cyanosis, pallor, or diaphoresis. EYES lids/conjunctiva normal. EARS/NOSE/THROAT Mucous membranes moist, nares nor mal, lips/teeth normal uvula midline without oral pharyngeal erythema, exudate or swelling TMs normal bilaterally. No lymphangitis/lymphedema. HEAD/NECK normocephalic atraumatic, no facial trauma, neck is supple. RESPIRATORY respiratory effort normal, speaks in full sentences, no tripod position, no accessory muscle use. Lungs clear to auscultation without rhonchi, wheezes, rales CARDIAC Regular rate and rhythm, no edema. ABDOMINAL Soft, ND/NT. No evidence of fluid wave. No pulsatile masses on exam, rebound tenderness, Moya sign or pain over Mcburney's point. MUSCLES/EXTREMITIES No abnormal range of motion, no swelling. SKIN Warm, pink and dry. No rashes, dermatoses, petechiae or lesions. NEUROLOGICAL Speech is clear and appropriate. Normal level of consciousness. Gait and coordination are normal. 5/5 strength in all extremities. PSYCH Normal mood and affect. Judgement/competence is appropriate Results & Data Results & Data Vital Signs (Past 12 Hours) Vital Signs Temp Pulse Resp BP Pulse Ox O2 Del Method 06/11/25 08:03 36.8 C 73 18 157/79 H 98 Room Air 06/11/25 07:37 Room Air 06/10/25 23:26 37.0 C 82 18 127/74 94 Room Air PG Care Time/CCT Total # of Minutes Spent Total Time Spent with Patient: Total time spent is greater than 50% in coordination of care (as documented) at patient's floor/unit and/or counseling patient: Coding Level of Care Code 21398 SUB INP/OBS CARE 2/35MIN Diagnoses Generalized weakness R53.1 Hypothyroid E03.9 Adenocarcinoma C80.1
[2025-06-12 07:51] VITALS: BP 150/78; PULSE 61; TEMP 97.9; O2SAT 95
[2025-06-12 09:11] LABS: Hematocrit (blood only) 33.3 % (42.0-52.0); Hemoglobin 11.3 g/dL (14.0-18.0); Mean Corpuscular Hemoglobin 29.8 pg (25.0-34.0); Mean Corpuscular Volume 87.9 fL (80.0-100.0); Platelet Count 227 K/uL (130-400); RDW Standard Deviation 56.8 fL (36.4-46.3); Red Blood Count 3.79 M/uL (4.70-6.10); White Blood Count 12.76 K/ul (4.8-10.8)
[2025-06-12 09:33] LABS: Anion Gap 8.0 (3-11); Blood Urea Nitrogen 10.0 mg/dl (6-23); Calcium 8.4 mg/dl (8.6-10.3); Carbon Dioxide 25.0 mmol/L (21-32); Chloride 101.0 mmol/L (98-107); Creatinine Clr Calc Pharmacy 46.4 ml/min; Glucose 121.0 mg/dl (70-99(Fasting)); Potassium 3.7 mmol/L (3.5-5.1); Sodium 134.0 mmol/L (136-145)
--- NOTE | 2025-06-12 09:38 | Discharge Summary ---
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 (2) Hypothyroid: -levothyroxine increased from 125mcg to 137mcg -TSH elevated to 5.22 (3) Adenocarcinoma: -pt receiving chemotherapy with Dr. Rosales -last treatment 7 days ago -heme-onc consult appreciated Plan Pt evaluation and possible d/c in Admission HPI Per Admitting Provider Pt is an 79 y/o male with pmh of large B-cell lymphoma,adenocarcinoma of lung,HLD,HTN; hypothyroidism; BPH who presents with s/p fall. Pt states he slipped and fell today due to feeling progressive generalized weakness. Pt has been receiving chemotherapy with his last round completed 7 days ago. He states he as been on chemo since 2021. His states the last 2 rounds of chemo have made his very weak and he is unable to perform his ADLs as before. In the ER his was noted to be pancytopenic, afebrile, CXR clear with no signs of acute infection. Pt is being admitted for further evaluation by PT for possible rehab placement. Discharge Exam GENERAL APPEARANCE NAD, activity normal for age, well developed/ well nourished, no cyanosis, pallor, or diaphoresis. EYES lids/conjunctiva normal. EARS/NOSE/THROAT Mucous membranes moist, nares normal, lips/teeth normal uvula midline without oral pharyngeal erythema, exudate or swelling TMs normal bilaterally. No lymphangitis/lymphedema. HEAD/NECK normocephalic atraumatic, no facial trauma, neck is supple. RESPIRATORY respiratory effort normal, speaks in full sentences, no tripod position, no accessory muscle use. Lungs clear to auscultation without rhonchi, wheezes, rales CARDIAC Regular rate and rhythm, no edema. ABDOMINAL Soft, ND/NT. No evidence of fluid wave. No pulsatile masses on exam, rebound tenderness, Moya sign or pain over Mcburney's point. MUSCLES/EXTREMITIES No abnormal range of motion, no swelling. SKIN Warm, pink and dry. No rashes, dermatoses, petechiae or lesions. NEUROLOGICAL Speech is clear and appropriate. Normal level of consciousness. Gait and coordination are normal. 5/5 strength in all extremities. PSYCH Normal mood and affect. Judgement/competence is appropriate Discharge Plan Discharge Items Patient Disposition: Home - Self-Care Reason For Visit: GENERALIZED WEAKNESS Discharge Diagnosis: Generalized weakness Condition on Discharge: Fair Activity: Resume your previous activity Non-emergency contact: Primary Care Provider Call non-emergency contact if: you have any medication questions Follow-up/Referrals: [facility] [Primary Care Provider] - Diet: Regular Addtl Attending Provider Instructions: Follow up with PMD in 2 weeks Pending Studies at Discharge: No Stand-Alone Forms: [employer], Smoking Cessation Medications and DC Order Prescriptions: New doxycycline hyclate 100 mg Capsule 100 mg PO BID Qty: 20 0RF Continued pantoprazole [Protonix] 20 mg tablet,delayed release (DR/EC) 20 mg PO QPM PRN (Reason: Heartburn) Patient Comments: 06/06- Not on faxed list from [place] unable to verify cholecalciferol (vitamin D3) 25 mcg (1,000 unit) capsule 0 mcg PO DAILY Patient Comments: 06/06- [facility] unable to [facility] loratadine [Claritin] 10 mg tablet 0 mg PO DAILY Patient Comments: 06/06- Not [facility]ed [facility] unable to verify gemcitabine 1 gram recon soln 0 g IV UD Patient Comments: 06/06- Not [facility]ed [facility] unable to verify Rx Instructions: intravenously per oncology; docusate sodium [Stool Softener] 100 mg Tablet 100 mg PO QAM Rx Instructions: otc latanoprost 0.005 % drops 1 drp ophthalmic (eye) HS levothyroxine 125 mcg capsule 125 mcg PO DAILY Qty: 30 0RF acetaminophen 325 mg Tablet 325 mg PO DAILY PRN (Reason: Pain) triamcinolone acetonide 0.1 % Cream 1 applic TOPICAL DAILY PRN (Reason: DERNATITIS) lidocaine 5 % Adhesive Patch,Medicated 1 patch TOPICAL DAILY PRN (Reason: Pain) Rx Instructions: leave on most painful area for up to 12 hrs diclofenac sodium 1 % Gel 4 g TOPICAL BID PRN (Reason: Pain) Rx Instructions: apply to single knee, ankle, foot; for foot includes sole/toes/top of foot Eucerin Cream 1 applic TOPICAL DAILY duloxetine 30 mg capsule,delayed release(DR/EC) 30 mg PO DAILY hydrocodone-acetaminophen 7.5-325 mg tablet 1 tab PO PRN (Reason: Pain) hydrocodone-acetaminophen 7.5-325 mg tablet 1 tab PO Q4 PRN (Reason: Pain) prochlorperazine maleate 10 mg tablet 10 mg PO Q6H PRN (Reason: N/V) Patient Comments: 06/06- Not on faxed list from [place] unable to verify ondansetron 8 mg tablet,disintegrating 8 mg PO Q8H PRN (Reason: N/V) Patient Comments: 06/06- Not [facility] unable to verify Discharge Orders: Discharge Order (Routine); Ordered 06/12/25 Ordered By: Jimmy Robles Admission Data Admit Date/Time: 06/06/25 15:14 Attending Provider: Jimmy Robles Admit Provider: Jimmy Robles Primary Care Provider: [facility] Other Providers: Simon Magdaleno Abhishek; [facility] Hospital Stay Data Consultations 06/06/25 15:05 ED Decision to Admit Stat 06/07/25 09:08 Consult Oncology Routine Diagnostic Imagining Performed 06/06/25 13:03 CT cervical spine wo con Stat CT head/brain wo con Stat Pending Results Patient Have Any Pending Studies at Discharge: No Discharge Instructions Given to Patient (Per Discharging Provider) Follow up with PMD in 2 weeks Total Time Total Time Spent Total Time Spent (In Minutes): 50 Coding Level of Care Code 06221 INP/OBS DISCH >30 MIN Diagnoses Generalized weakness R53.1 Hypothyroid E03.9 Adenocarcinoma C80.1
--- NOTE | 2025-06-13 10:07 | Coding Query ---
CODING QUERY To promote full compliance with coding requirements relating to patient care, provider participation is requested in all cases of manager library uncertainty. Please assist us with the question(s) below: Coding Question(s): Lung cancer patient with ongoing chemo/immunotherapy since 2021 admitted with weakness, pancytopenia. Please document, if known or suspected the etiology of the pancytopenia. Thanks for your help! Ian Vann [facility] Physician's Response(s): Chemotherapy is known etiology of pancytopenia Principal Diagnosis: "that condition established after study, to be chiefly responsible for occasioning the admission of the patient to the hospital for care." Co-Existing Principal Diagnosis: "when two or more diagnoses equally meet the criteria for principal diagnosis as determined by the circumstances of admission, diagnostic work up, and/or therapy provided, and the Alphabetic Index, Tabular List, or another coding guideline does not provide sequencing direction, any one of the diagnoses may be sequenced first." "When the physician has documented what appears to be a current diagnosis in the body of the record, but has not included the diagnosis in the final diagnostic statement, the physician should be asked whether the diagnosis should be added." (Source Coding Clinic 2 QTR90. p3-4) CHARLEEN
== END 2025-06-12 13:41 | disposition home health service (06) | DRG 947 ==
LOC: ED 12:10 → 3W 15:14

== ENCOUNTER 2025-06-18 13:33 | Observation (INO) ==
--- NOTE | 2025-06-18 14:24 | Emergency Department Note ---
Impression & Plan Stroke-like symptoms, Aphasia, HTN (hypertension), Hypomagnesemia ED Provider Note NAME: REMY LARA AGE: 79 SEX: M : 1945 ARRIVES VIA: Walk-In INFORMANT: Patient ED PROVIDER(S): Rocael Tam MD CHIEF COMPLAINT: Stroke-like symptoms, unable to speak PLAN: Disposition: Admit MEDICAL DECISION MAKING: The patient is a pleasant 79-year-old gentleman with a past medical history of large B-cell lymphoma, adenocarcinoma of the lung, hypertension, hyperlipidemia, hypothyroidism, BPH who presents to the emergency department via walk-in accompanied by his for evaluation of acute onset of strokelike symptoms where the patient was unable to speak but was aware of what he wanted to say but only garbled sounds were produced. The patient had 2 episodes lasting a minute each over the course of 10 minutes prior to arrival. Symptoms have subsequently resolved. Patient reports feeling some lightheadedness prior to arrival but did not have symptoms of dizziness when the symptoms occurred. On my evaluation the patient is no acute distress, afebrile with blood pressure initially 80s/60s and triage but improving without intervention upon arriving to his room. Otherwise, vital signs were stable. He appears clinically dry. He exhibits no focal neurologic deficits at this time. EKG without overt acute ischemia. CXR with stable findings and otherwise negative for acute cardiopulmonary process per my personal preliminary review/interpretation. WBC and platelets within normal limits. H/H similar to prior. Chemistry without metabolic acidosis. Creatinine 1.48, similar to prior values. Magnesium 1.6 with IV repletion provided. LFTs unremarkable. High sensitivity troponin 13.2, within normal limits. CT of the head and CTA of the head and neck were completed and were negative for ICH, ischemia or severe narrowing or occlusion large vessels. Patient and agree with plan for admission for further stroke/TIA assessment. Case was discussed with Dr. Celaya, [facility] hospitalist, who will evaluate the patient for admission. Full dose aspirin administered. Further management per admitting team. Triage Nursing notes reviewed and agree them. Prior/external medical records reviewed Vital Signs: reviewed Differential diagnosis: Infection, dehydration, metabolic abnormality, hypo/hyperglycemia, electrolyte disturbance, anemia, hypoxia, cardiac sources, intracerebral event, toxicologic, neurologic, as well as other pathologies. ER treatment provided: See below. Diagnostics interpreted by me: ECG: Sinus rhythm with frequent PVCs, 83 bpm, no overt ST elevation or depression, QTc 458, QRS 86 Cardiac Monitoring: An order for continuous cardiac monitoring was placed and demonstrated sinus rhythm with frequent PVCs, 83 bpm. Laboratory studies: See below Imaging studies: See below Consultation(s): None HPI: Per MDM. ROS: See above HPI for pertinent positives & negatives. A total of 10 systems reviewed and were otherwise negative. VITALS:See Below PHYSICAL EXAMINATION: GENERAL: Awake, alert, in no distress HENT: Normocephalic, atraumatic. Oropharynx with dry mucous membranes and otherwise unremarkable. EYES: Normal conjunctiva. Sclera non-icteric. EOMI. No nystamgus. PEARRL. NECK: Supple. No nuchal rigidity. FROM. No JVD. RESPIRATORY: Clear to auscultation. CARDIAC: Regular rate, normal rhythm. Extremities warm and well perfused. Pulses equal. ABDOMEN: Soft, non-distended. No tenderness to palpation. No rebound or guarding. No masses. MUSCULOSKELETAL: Chest examination reveals no tenderness. The back is symmetrical on inspection without obvious abnormality. There is no CVA tenderness to palpation. No joint edema. LOWER EXTREMITIES: Calves are equal size bilaterally and non-tender. No edema. No discoloration. NEURO: Cranial nerves II-XII grossly intact. 5/5 strength and SILT x 4 extremities. Cerebellar function intact including [id number], alternating palms, [id number]. SKIN: No rash or jaundice noted. Rocael Tam MD Past Med/Surg History Problem List (Updated 06/18/25 @ 23:05 by Rocael Tam MD) Hypomagnesemia (Acute) Orthostatic hypotension Hypomagnesemia Aphasia (Acute) Stroke-like symptoms (Acute) Fall from standing (Acute) Ambulatory dysfunction (Acute) Elevated troponin (Acute) Generalized weakness (Acute) BPH w urinary obs/LUTS Localized swelling of both lower legs (Acute) Palliative care by specialist Advanced care planning/counseling discussion Anemia Hypothyroid Nausea & vomiting (Acute) Acute upper abdominal pain (Acute) Acute cholecystitis (Acute) Acute cholecystitis Lung nodule, solitary Fever (Acute) Hyponatremia Pancytopenia (Acute) Elevated troponin Generalized weakness (Acute) Pericardial effusion Port-A-Cath in place (06/24/22) Insertion Access Port with Fluoroscopy(right internal jugular vein) - Trever Lomeli, DO, FACS Encounter for insertion of venous access port Large B-cell lymphoma Renal Mass Following w/ Dr Phelan at [facility] CAD (coronary artery disease) Per 12/2021 PCP note- followed with cardio/last cardio work up 6-8 years ago- currently asymptomatic History of colon polyps HTN (hypertension) (Acute) Osteopenia Hyperparathyroidism Arthritis Former smoker Hx of transient ischemic attack (TIA) patient states that doctors felt he may have had a mini stroke in his 60s. pts denies this Impaired fasting glucose Hgb A1C 12/2021 = 6.0 Hyperlipidemia Benign hypertension AAA (abdominal aortic aneurysm) S/p AAA repair 2018. 03/2022 abdomen/pelvis CT shows s/p aortobiliac stent graft repair- stent graft is patent. Residual aneurysm sac measures 6.3 x 5.0 cm Medical History Bilateral edema of lower extremity Neutropenic fever Adenocarcinoma reoccurance, will restart chemo 05/30/24, following w/ Dr Rosales at [email or web address]] >>>of the left upper lung - surgically removed 10/2023 + treated with chemotherapy and immunotherapy- Stage 3 chronic kidney disease Renal mass follows w/ [facility] Hypothyroidism Rhabdomyolysis h/o hospitalized at [facility] 04/10/24 Myxedema coma h/o hospitalized at [facility] 04/10/24 Osteopenia Stage 3 chronic kidney disease History of hypertension s/p AAA repair in 2018, was treated with medication for about 2 years. no recent issues Hyperlipidemia CAD (coronary artery disease) Hx of colonic polyps History of abdominal aortic aneurysm (AAA) S/p AAA repair 2017. 03/2022 abdomen/pelvis CT shows s/p aortobiliac stent graft repair- stent graft is patent. Residual aneurysm sac measures 6.3 x 5.0 cm Hx of hyperparathyroidism Hx; s/p parathyroid surgery. Stable per 12/2021 PCP visit Port-A-Cath in place right chest wall AAA (abdominal aortic aneurysm) S/p AAA repair 2017. 03/2022 abdomen/pelvis CT shows s/p aortobiliac stent graft repair- stent graft is patent. Residual aneurysm sac measures 6.3 x 5.0 cm Large B-cell lymphoma Non-hodgkin lymphoma -> currently in remission Emphysema lung COPD (chronic obstructive pulmonary disease) Degenerative disc disease History of duodenal ulcer Surgical History Hx of cataract surgery right Hx laparoscopic cholecystectomy (02/15/24) Laparoscopic Cholecystectomy(Not Applicable) - Wayne Luna DO S/P partial lobectomy of lung left upper partial lobectomy H/O insertion of central venous access port (2021) Right chest wall Power-port inserted at [facility]. History of bone marrow biopsy 05/2022 [facility] History of left nephrectomy 05/12/22 [facility] r/t non-hodgkin's lymphoma History of colonoscopy 11/2021 History of parathyroid surgery 01-08-21 Surgical removal of the right upper and left lower parathyroid glands History of umbilical hernia repair 2014 [place], [place] History of wisdom tooth extraction History of abdominal aortic aneurysm (AAA) repair [address] Jimenez Family History Mother Family history of diabetes mellitus Atrial fibrillation Glioblastoma Father Atrial fibrillation Aunt Breast cancer Son Cancer melanoma Other No family history of adverse response to anesthesia Denies family history of Ovarian cancer Prostate cancer Myocardial infarction Colorectal cancer Social History Smoking Status: Former smoker Tobacco Type: Cigarettes Second Hand Exposure: No; Do You Dip or Chew Tobacco: No; Hx Alcohol Use: No Hx Substance Use: No Preferred Language: Finnish Communication Ability: Effective Communication Ability Comment: good Visual Impairment: No Limitations Hearing Ability: Normal Flatbed Driver Required: No Beliefs That Will Affect Care: None marital status: Current Living Situation: Spouse Current Living Situation Comment: okay current occupational status: retired How many Children do You have: 2 Feels Safe at Home: Yes Diet: regular caffeine: Yes during the past year weight has: decreased > 10 lbs Dental Care, Regularly: No Physical Activity Frequency: Daily Seatbelt Use: always Sunscreen Use: Yes Assistive Devices: Cane and Walker Allergies Allergies Allergy/AdvReac Type Severity Reaction Status Date / Time fentanyl AdvReac Verified 06/18/25 19:06 Home Meds Home Medications Medication Instructions Recorded Confirmed docusate sodium 100 mg tablet 100 mg PO QAM 07/22/22 06/18/25 (Stool Softener) latanoprost 0.005 % eye drops 1 drp OPB HS 04/10/24 06/18/25 ondansetron 8 mg disintegrating 8 mg PO Q8H PRN N/V 06/11/24 06/18/25 tablet cholecalciferol (vitamin D3) 25 1,000 mcg PO DAILY 09/11/24 06/18/25 mcg (1,000 unit) capsule gemcitabine 1 gram intravenous 0 g IV UD 09/11/24 06/18/25 solution acetaminophen 325 mg tablet 325 mg PO DAILY PRN Pain 06/06/25 06/18/25 diclofenac sodium 1 % topical gel 4 g topical BID PRN Pain 06/06/25 06/18/25 hydrocodone 7.5 mg-acetaminophen 1 tab PO Q4 PRN Pain 06/06/25 06/18/25 325 mg tablet lanolin alcohols-mineral 1 applic topical DAILY 06/06/25 06/18/25 oil-w.petrolatum-ceresin topical cream (Eucerin topical cream) lidocaine 5 % topical patch 1 patch topical DAILY PRN Pain 06/06/25 06/18/25 albuterol sulfate 90 mcg/actuation 1 puff inhalation Q4H PRN 06/18/25 06/18/25 aerosol inhaler Shortness Of Breath Or Wheezing Previous Rx's Medication Instructions Recorded levothyroxine 125 mcg capsule 125 mcg PO DAILY #30 caps 04/12/24 doxycycline hyclate 100 mg capsule 100 mg PO BID #20 caps 06/12/25 Results & Data (ED) Vital Signs Vital Signs - 24 hr 06/18/25 13:35 06/18/25 14:01 06/18/25 14:33 Temperature 36.6 C Temperature Source Temporal Artery Scan Pulse Rate 94 H 84 Pulse Rate [Apical] 82 Respiratory Rate 18 18 Respiratory Effort / Characteristics Non-Labored Spontaneous Respiratory Depth Normal Respiratory Pattern Regular Blood Pressure 86/61 L Blood Pressure [Right Arm] 136/85 Blood Pressure Mean 69 Blood Pressure Mean [Right Arm] 102 Pulse Oximetry 97 97 Oxygen Delivery Method Room Air Sepsis Recent Fever Within 48 Hours No Sepsis New/Unexplained Change in Mental Status N/A Sepsis Action Taken by Nursing No Action Required 06/18/25 15:00 06/18/25 15:33 06/18/25 17:01 Temperature Temperature Source Pulse Rate Pulse Rate [Apical] 82 81 84 Respiratory Rate 18 18 21 Respiratory Effort / Characteristics Non-Labored Spontaneous Respiratory Depth Normal Respiratory Pattern Regular Blood Pressure Blood Pressure [Right Arm] 148/91 H 163/94 H 163/94 H Blood Pressure Mean Blood Pressure Mean [Right Arm] 110 117 117 Pulse Oximetry 96 97 Oxygen Delivery Method Room Air Sepsis Recent Fever Within 48 Hours Sepsis New/Unexplained Change in Mental Status Sepsis Action Taken by Nursing 06/18/25 17:30 06/18/25 18:05 Temperature Temperature Source Pulse Rate 80 Pulse Rate [Apical] 78 Respiratory Rate 21 Respiratory Effort / Characteristics Respiratory Depth Respiratory Pattern Blood Pressure Blood Pressure [Right Arm] 149/96 H Blood Pressure Mean Blood Pressure Mean [Right Arm] 113 Pulse Oximetry 95 Oxygen Delivery Method Room Air Sepsis Recent Fever Within 48 Hours Sepsis New/Unexplained Change in Mental Status Sepsis Action Taken by Nursing Laboratory Data Attestation: I reviewed the patient's lab results. 06/18/25 14:33 06/18/25 14:33 Lab Results 06/18/25 06/18/25 Range/Units 14:33 17:06 WBC 9.88 (4.8-10.8) K/ul RBC 3.86 L (4.70-6.10) M/uL Hgb 11.3 L (14.0-18.0) g/dL Hct 34.5 L (42.0-52.0) % MCV 89.4 (80.0-100.0) fL MCH 29.3 (25.0-34.0) pg MCHC 32.8 (32.0-36.0) g/dL RDW Std Deviation 56.8 H (36.4-46.3) fL RDW Coeff of Sasha 17.8 H (11.5-14.5) % Plt Count 213 (130-400) K/uL MPV 10.0 (9.4-12.4) fL Immature Gran % (Auto) 0.4 % Neut % (Auto) 54.9 % Lymph % (Auto) 31.8 % [place] % (Auto) 11.6 % Eos % (Auto) 0.1 % Baso % (Auto) 1.2 % Neut # (Auto) 5.42 (1.40-6.50) K/uL Lymph # (Auto) 3.14 (1.20-3.40) K/uL [place] # (Auto) 1.15 H (0.11-0.59) K/uL Eos # (Auto) 0.01 (0.00-0.50) K/uL Baso # (Auto) 0.12 (0.00-0.20) K/uL Immature Gran # (Auto) 0.04 (0.01-0.20) K/uL PT 12.4 H (9.0-12.0) Seconds INR 1.2 H (0.9-1.1) APTT 39 H (21-31) Seconds PTT Ratio 1.4 Sodium 136 (136-145) mmol/L Potassium 4.0 (3.5-5.1) mmol/L Chloride 103 (98-107) mmol/L Carbon Dioxide 26 (21-32) mmol/L Anion Gap 7 (3-11) BUN 28 H (6-23) mg/dl Creatinine 1.48 H (0.6-1.4) mg/dl Est Cr Clr Drug Dosing 46.8 ml/min eGFR 47.53 BUN/Creatinine Ratio 18.9 (10-20) Glucose 95 (70-99(Fasting)) mg/dl Calcium 8.7 (8.6-10.3) mg/dl Magnesium 1.6 L (1.7-2.4) mg/dl Total Bilirubin 0.8 (0.2-1.0) mg/dl AST 13 (13-39) U/L ALT 7 (7-52) U/L Alkaline Phosphatase 71 (34-104) U/L Troponin I High Sens 13.2 (0-20) pg/ml Total Protein 5.4 L (6.0-8.3) gm/dl Albumin 3.2 L (3.4-5.0) gm/dl Globulin 2.2 L (2.5-4.0) gm/dl Albumin/Globulin Ratio 1.5 (0.9-2) Urine Color Yellow Urine Appearance Clear (Clear) Urine pH 5.5 (4.5-7.5) Ur Specific [place] > 1.045 H (1.000-1.030) Urine Protein 2+ H (Negative) Urine Glucose (UA) Negative (Negative) Urine Ketones Negative (Negative) Urine Blood Negative (Negative) Urine Nitrite Negative (Negative) Urine Bilirubin Negative (Negative) Urine Urobilinogen Negative (Negative) Ur Leukocyte Esterase Negative (Negative) Urine WBC (Auto) 0-5 (0-5) /hpf Urine RBC (Auto) 0-2 (0-2) /hpf U Hyaline Cast (Auto) 3-5 H (0-2) /lpf U Epithel Cells (Auto) 0-2 (0-2) /hpf Urine Bacteria (Auto) None Seen (None Seen) Urine Comment Administered Medications Heparin Sodium (Porcine) (Heparin Sod 5,000 Unit/0.5 Ml Vial) 5,000 units SQ Q12 DEO Stop: 07/18/25 20:59 Last Admin: 06/18/25 22:03 Dose: Not Given Documented By: mara Latanoprost (Latanoprost 0.005% Op Soln 2.5 Ml Btl) 1 drops OPB HS DEO Stop: 07/18/25 20:59 Last Admin: 06/18/25 22:03 Dose: Not Given Documented By: mara Discontinued Medications Aspirin (Aspirin Chew 324 Mg) 324 mg PO NOW STA Stop: 06/18/25 18:45 Last Admin: 06/18/25 18:47 Dose: 324 mg Documented By: LIZ Gadobutrol (Gadobutrol 65ml Vial) 9.8 ml IV ONCE ONE Stop: 06/18/25 20:57 Last Admin: 06/18/25 20:58 Dose: 9.8 ml Documented By: [email or web address] Sodium Chloride (Nss) 1,000 mls @ 999 mls/hr IV .Q1H1M ONE Stop: 06/18/25 15:21 Last Infusion: 06/18/25 16:00 Dose: Infused Documented By: Admin: 06/18/25 14:50 Dose: 999 mls/hr Documented By: LIZ Magnesium Sulfate/Dextrose (Magnesium Sulfate / D5w) 1 gm in 100 mls @ 100 mls/hr IV NOW STA Stop: 06/18/25 17:35 Last Infusion: 06/18/25 18:02 Dose: Infused Documented By: Admin: 06/18/25 17:02 Dose: 100 mls/hr Documented By: MERRILL Lorazepam 1 mg/ Syringe 1 mls @ 2 mls/min IV DAILY PRN PRN Reason: pre-MRI Last Admin: 06/18/25 20:39 Dose: 2 mls/min Documented By: mara Ioversol (Optiray 320 125ml) 117 ml IV ONCE ONE Stop: 06/18/25 16:01 Last Admin: 06/18/25 16:00 Dose: 117 ml Documented By: Imaging Data Radiologist's Impression: Chest X-Ray 06/18/25 14:20 XR chest 1V portable CLINICAL HISTORY: neuro deficit, acute stroke suspected COMPARISON STUDY: 06/06/20[address] x-ray [address] CT of 04/11/2025 FINDINGS: Stable right chest port. Stable cardiomegaly with mild pulmonary vascular congestion. Stable large pleural density at the lateral left mid to upper hemithorax. Stable hazy opacity at the left lung base with partial obscuration of the left hemidiaphragm. No pneumothorax seen. IMPRESSION: Stable exam. ACT 112: Negative or not required by law. Electronically signed by: Trever Le M.D. 06/18/2025 2:[address] 06/18/25 14:20 EXAM: CT Head Without Intravenous Contrast INDICATION: Acute stroke symptoms. TECHNIQUE: Axial computed tomography images of the head/brain without intravenous contrast. Sagittal and/or coronal reformats are provided. Sagittal and coronal reformatted images were created and reviewed. This CT exam was performed using one or more of the following dose reduction techniques: automated exposure control, adjustment of the mA and/or kV according to patient size, and/or use of iterative reconstruction technique. COMPARISON: 06/06/2025 FINDINGS: Limitations: None. Brain and extra-axial spaces: There is age appropriate cortical atrophy and chronic ischemic periventricular white matter hypodensity. No acute infarct, hemorrhage or mass noted. Bones/joints: Stable falcine and territorial ossifications. Soft tissues: No acute abnormality noted. Vasculature: No acute abnormality noted. Sinuses: No layering fluid in the visualized portions of the paranasal sinuses. Mastoid air cells: No mastoid effusion. Orbits: No acute abnormality noted. IMPRESSION: Cerebral atrophy. No acute changes. ACT 112: N/A Electronically signed by Rose Cabrera 06-18-2025 5:03 PM Head CTA 06/18/25 14:20 EXAM: CT Angiography Head and Neck With Intravenous Contrast INDICATION: Neurologic defect.. Ending year TECHNIQUE: [place]/head and neck CT angiography protocol performed with intravenous contrast. Sagittal and coronal reformatted images were created and reviewed. This CT exam was performed using one or more of the following dose reduction techniques: automated exposure control, adjustment of the mA and/or kV according to patient size, and/or use of iterative reconstruction technique. MIP reconstructed images were created and reviewed. CONTRAST: 117 ml of Optiray 320 was administered intravenously. COMPARISON: None. FINDINGS: HEAD: Right anterior cerebral artery: No abnormality noted. No occlusion or significant stenosis. Anterior communicating artery is present. No aneurysm. Right middle cerebral artery: No abnormality noted. No occlusion or significant stenosis. No aneurysm. Right posterior cerebral artery: No abnormality noted. No occlusion or significant stenosis. No aneurysm. Right intracranial internal carotid artery: No abnormality noted. No significant stenosis. No dissection or occlusion. Right intracranial vertebral artery: Mild atherosclerosis. No significant stenosis. No dissection or occlusion. Left anterior cerebral artery: No abnormality noted. No occlusion or significant stenosis. No aneurysm. Left middle cerebral artery: No abnormality noted. No occlusion or significant stenosis. No aneurysm. Left posterior cerebral artery: No abnormality noted. No occlusion or significant stenosis. No aneurysm. Left intracranial internal carotid artery: Mild atherosclerosis. No significant stenosis. No dissection or occlusion. Left intracranial vertebral artery: No abnormality noted. No significant stenosis. No dissection or occlusion. Basilar artery: No abnormality noted. No occlusion or significant stenosis. No aneurysm. Other vasculature: No vascular malformation. NECK: Right common carotid artery: No abnormality noted. No significant stenosis. No dissection or occlusion. Right extracranial internal carotid artery: Moderate calcific plaque with close to 50% stenosis. No dissection or occlusion. Right external carotid artery: No abnormality noted. No occlusion. Right extracranial vertebral artery: No abnormality noted. No significant stenosis. No dissection or occlusion. Left common carotid artery: No abnormality noted. No significant stenosis. No dissection or occlusion. Left extracranial internal carotid artery: Mild calcific plaque. No significant stenosis. No dissection or occlusion. Left external carotid artery: No abnormality noted. No occlusion. Left extracranial vertebral artery: No abnormality noted. No significant stenosis. No dissection or occlusion. Lung apices: No acute abnormality noted. Pleural space: Partially imaged loculated left pleural fluid collection. Imaged portion measures 8.1 x 4.6 x 5.0 cm. Small amount of layering left pleural effusion. There is a partially imaged irregular pulmonary infiltrate to the left of the proximal descending aorta. Mild centrilobular emphysematous changes present. Mild nodular scarring in the right apex. HEAD and NECK: Bones/joints: No significant abnormality. Soft tissues: No abnormality noted. Tubes, lines and devices: Right jugular central venous port followed to the proximal SVC. CAROTID STENOSIS REFERENCE USING NASCET CRITERIA: % ICA stenosis = (1 - narrowest ICA diameter/diameter of distal cervical ICA) x 100. Mild - <50% stenosis. Moderate - 50-69% stenosis. Severe - 70-94% stenosis. Near occlusion - 95-99% stenosis. Occluded - 100% stenosis. IMPRESSION: 1. No large vessel occlusion, aneurysm or dissection in the head or neck. 2. Partially imaged loculated and layering left pleural effusion and left upper lobe infiltrate or mass. ACT 112: N/A Electronically signed by Rose Cabrera 06-18-2025 5:09 PM Neck CTA 06/18/25 14:20 EXAM: CT Angiography Head and Neck With Intravenous Contrast INDICATION: Neurologic defect.. Ending year TECHNIQUE: [place]/head and neck CT angiography protocol performed with intravenous contrast. Sagittal and coronal reformatted images were created and reviewed. This CT exam was performed using one or more of the following dose reduction techniques: automated exposure control, adjustment of the mA and/or kV according to patient size, and/or use of iterative reconstruction technique. MIP reconstructed images were created and reviewed. CONTRAST: 117 ml of Optiray 320 was administered intravenously. COMPARISON: None. FINDINGS: HEAD: Right anterior cerebral artery: No abnormality noted. No occlusion or significant stenosis. Anterior communicating artery is present. No aneurysm. Right middle cerebral artery: No abnormality noted. No occlusion or significant stenosis. No aneurysm. Right posterior cerebral artery: No abnormality noted. No occlusion or significant stenosis. No aneurysm. Right intracranial internal carotid artery: No abnormality noted. No significant stenosis. No dissection or occlusion. Right intracranial vertebral artery: Mild atherosclerosis. No significant stenosis. No dissection or occlusion. Left anterior cerebral artery: No abnormality noted. No occlusion or significant stenosis. No aneurysm. Left middle cerebral artery: No abnormality noted. No occlusion or significant stenosis. No aneurysm. Left posterior cerebral artery: No abnormality noted. No occlusion or significant stenosis. No aneurysm. Left intracranial internal carotid artery: Mild atherosclerosis. No significant stenosis. No dissection or occlusion. Left intracranial vertebral artery: No abnormality noted. No significant stenosis. No dissection or occlusion. Basilar artery: No abnormality noted. No occlusion or significant stenosis. No aneurysm. Other vasculature: No vascular malformation. NECK: Right common carotid artery: No abnormality noted. No significant stenosis. No dissection or occlusion. Right extracranial internal carotid artery: Moderate calcific plaque with close to 50% stenosis. No dissection or occlusion. Right external carotid artery: No abnormality noted. No occlusion. Right extracranial vertebral artery: No abnormality noted. No significant stenosis. No dissection or occlusion. Left common carotid artery: No abnormality noted. No significant stenosis. No dissection or occlusion. Left extracranial internal carotid artery: Mild calcific plaque. No significant stenosis. No dissection or occlusion. Left external carotid artery: No abnormality noted. No occlusion. Left extracranial vertebral artery: No abnormality noted. No significant stenosis. No dissection or occlusion. Lung apices: No acute abnormality noted. Pleural space: Partially imaged loculated left pleural fluid collection. Imaged portion measures 8.1 x 4.6 x 5.0 cm. Small amount of layering left pleural effusion. There is a partially imaged irregular pulmonary infiltrate to the left of the proximal descending aorta. Mild centrilobular emphysematous changes present. Mild nodular scarring in the right apex. HEAD and NECK: Bones/joints: No significant abnormality. Soft tissues: No abnormality noted. Tubes, lines and devices: Right jugular central venous port followed to the proximal SVC. CAROTID STENOSIS REFERENCE USING NASCET CRITERIA: % ICA stenosis = (1 - narrowest ICA diameter/diameter of distal cervical ICA) x 100. Mild - <50% stenosis. Moderate - 50-69% stenosis. Severe - 70-94% stenosis. Near occlusion - 95-99% stenosis. Occluded - 100% stenosis. IMPRESSION: 1. No large vessel occlusion, aneurysm or dissection in the head or neck. 2. Partially imaged loculated and layering left pleural effusion and left upper lobe infiltrate or mass. ACT 112: N/A Electronically signed by Rose Cabrera 06-18-2025 5:09 PM Discharge Plan Visit Data Chief Complaint: TIA Symptoms Stated Complaint: POSSIBLETIA ED Provider: Rocael Tam Discharge Problem: Stroke-like symptoms, Aphasia, HTN (hypertension), Hypomagnesemia Patient Disposition: Being Evaluated by Hospitalist Condition: Good Discharge Instructions Interventions: ED Discharge Assessment Last Done: 06/18/25 20:02 Discharge Problem: HTN (hypertension) Qualifiers: Hypertension type: unspecified Qualified Code(s): I10 - Essential (primary) hypertension
[2025-06-18 14:44] LABS: Hematocrit (blood only) 34.5 % (42.0-52.0); Hemoglobin 11.3 g/dL (14.0-18.0); Immature Granulocytes # (auto) 0.04 K/uL (0.01-0.20); Immature Granulocytes % (auto) 0.4 %; Mean Corpuscular Hemoglobin 29.3 pg (25.0-34.0); Mean Corpuscular Volume 89.4 fL (80.0-100.0); Platelet Count 213 K/uL (130-400); RDW Standard Deviation 56.8 fL (36.4-46.3); Red Blood Count 3.86 M/uL (4.70-6.10); White Blood Count 9.88 K/ul (4.8-10.8)
--- NOTE | 2025-06-18 14:47 | XRay Report ---
XR chest 1V portable CLINICAL HISTORY: neuro deficit, acute stroke suspected COMPARISON STUDY: 06/06/20[address] x-ray [address] CT of 04/11/2025 FINDINGS: Stable right chest port. Stable cardiomegaly with mild pulmonary vascular congestion. Stabl e large pleural density at the lateral left mid to upper hemithorax. Stable hazy opacity at the left lung base with partial obscuration of the left hemidiaphragm. No pneumothorax seen. IMPRESSION: Stable exam. ACT 112: Negative or not required by law. Electronically signed by: Trever Le M.D. 06/18/2025 2:45 PM
[2025-06-18] MEDS: SODIUM CHLORIDE 0.9% 1,000 ML IV ONE (14:50)
[2025-06-18 15:03] LABS: Alanine Aminotransferase 7.0 U/L (7-52); Albumin Globulin Ratio 1.5 (0.9-2); Albumin Level 3.2 gm/dl (3.4-5.0); Alkaline Phosphatase 71.0 U/L (34-104); Anion Gap 7.0 (3-11); Bilirubin,Total 0.8 mg/dl (0.2-1.0); Blood Urea Nitrogen 28.0 mg/dl (6-23); Calcium 8.7 mg/dl (8.6-10.3); Carbon Dioxide 26.0 mmol/L (21-32); Chloride 103.0 mmol/L (98-107); Creatinine Clr Calc Pharmacy 46.8 ml/min; Globulin 2.2 gm/dl (2.5-4.0); Glucose 95.0 mg/dl (70-99(Fasting)); Magnesium 1.6 mg/dl (1.7-2.4); Potassium 4.0 mmol/L (3.5-5.1); Sodium 136.0 mmol/L (136-145); Total Protein 5.4 gm/dl (6.0-8.3)
[2025-06-18 15:20] LABS: INR 1.2 (0.9-1.1); Partial Thromboplastin Time 39 Seconds (21-31); Prothrombin Time 12.4 Seconds (9.0-12.0)
[2025-06-18] MEDS: OPTIRAY 320 125ml IV ONE (16:00)
--- NOTE | 2025-06-18 16:15 | Electrocardiogram Report ---
Test Reason : Blood Pressure : */* mmHG Vent. Rate : 83 BPM Atrial Rate : 83 BPM P-R Int : 152 ms QRS Dur : 86 ms QT Int : 390 ms P-R-T Axes : 52 10 31 degrees QTcB Int : 458 ms Sinus rhythm with frequent Premature ventricular complexes Low voltage QRS Borderline ECG When compared with ECG of 06-Jun-2025 13:24, Premature ventricular complexes are now Present Confirmed by Benjamin Chu ([id number]) on 06/18/2025 4:14:39 PM Referred By: REFERRED SELF Confirmed By: Benjamin Chu
[2025-06-18] MEDS: MAGNESIUM SULFATE / D5W 1 GM/100 ML BAG IV STA (17:02)
--- NOTE | 2025-06-18 17:04 | CT Scan Report ---
EXAM: CT Head Without Intravenous Contrast INDICATION: Acute stroke symptoms. TECHNIQUE: Axial computed tomography images of the head/brain without intravenous contrast. Sagittal and/or coronal reformats are provided. Sagittal and coronal reformatted images were created and reviewed. This CT exam was performed using one or more of the following dose reduction techniques: automated exposure control, adjustment of the mA and/or kV according to patient size, and/or use of iterative reconstruction technique. COMPARISON: 06/06/2025 FINDINGS: Limitations: None. Brain and extra-axial spaces: There is age appropriate cortical atrophy and chronic ischemic periventricular white matter hypodensity. No acute infarct, hemorrhage or mass noted. Bones/joints: Stable falcine and territorial ossifications. Soft tissues: No acute abnormality noted. Vasculature: No acute abnormality noted. Sinuses: No layering fluid in the visualized portions of the paranasal sinuses. Mastoid air cells: No mastoid effusion. Orbits: No acute abnormality noted. IMPRESSION: Cerebral atrophy. No acute changes. ACT 112: N/A Electronically signed by Rose Cabrera 06-18-2025 5:03 PM
--- NOTE | 2025-06-18 17:10 | CT Scan Report ---
EXAM: CT Angiography Head and Neck With Intravenous Contrast INDICATION: Neurologic defect.. Ending year TECHNIQUE: [place]/head and neck CT angiography protocol performed with intravenous contrast. Sagittal and coronal reformatted images were created and reviewed. This CT exam was performed using one or more of the following dose reduction techniques: automated exposure control, adjustment of the mA and/or kV according to patient size, and/or use of iterative reconstruction technique. MIP reconstructed images were created and reviewed. CONTRAST: 117 ml of Optiray 320 was administered intravenously. COMPARISON: None. FINDINGS: HEAD: Right anterior cerebral artery: No abnormality noted. No occlusion or significant stenosis. Anterior communicating artery is present. No aneurysm. Right middle cerebral artery: No abnormality noted. No occlusion or significant stenosis. No aneurysm. Right posterior cerebral artery: No abnormality noted. No occlusion or significant stenosis. No aneurysm. Right intracranial internal carotid artery: No abnormality noted. No significant stenosis. No dissection or occlusion. Right intracranial vertebral artery: Mild atherosclerosis. No significant stenosis. No dissection or occlusion. Left anterior cerebral artery: No abnormality noted. No occlusion or significant stenosis. No aneurysm. Left middle cerebral artery: No abnormality noted. No occlusion or significant stenosis. No aneurysm. Left posterior cerebral artery: No abnormality noted. No occlusion or significant stenosis. No aneurysm. Left intracranial internal carotid artery: Mild atherosclerosis. No significant stenosis. No dissection or occlusion. Left intracranial vertebral artery: No abnormality noted. No significant stenosis. No dissection or occlusion. Basilar artery: No abnormality noted. No occlusion or significant stenosis. No aneurysm. Other vasculature: No vascular malformation. NECK: Right common carotid artery: No abnormality noted. No significant stenosis. No dissection or occlusion. Right extracranial internal carotid artery: Moderate calcific plaque with close to 50% stenosis. No dissection or occlusion. Right external carotid artery: No abnormality noted. No occlusion. Right extracranial vertebral artery: No abnormality noted. No significant stenosis. No dissection or occlusion. Left common carotid artery: No abnormality noted. No significant stenosis. No dissection or occlusion. Left extracranial internal carotid artery: Mild calcific plaque. No significant stenosis. No dissection or occlusion. Left external carotid artery: No abnormality noted. No occlusion. Left extracranial vertebral artery: No abnormality noted. No significant stenosis. No dissection or occlusion. Lung apices: No acute abnormality noted. Pleural space: Partially imaged loculated left pleural fluid collection. Imaged portion measures 8.1 x 4.6 x 5.0 cm. Small amount of layering left pleural effusion. There is a partially imaged irregular pulmonary infiltrate to the left of the proximal descending aorta. Mild centrilobular emphysematous changes present. Mild nodular scarring in the right apex. HEAD and NECK: Bones/joints: No significant abnormality. Soft tissues: No abnormality noted. Tubes, lines and devices: Right jugular central venous port followed to the proximal SVC. CAROTID STENOSIS REFERENCE USING NASCET CRITERIA: % ICA stenosis = (1 - narrowest ICA diameter/diameter of distal cervical ICA) x 100. Mild - <50% stenosis. Moderate - 50-69% stenosis. Severe - 70-94% stenosis. Near occlusion - 95-99% stenosis. Occluded - 100% stenosis. IMPRESSION: 1. No large vessel occlusion, aneurysm or dissection in the head or neck. 2. Partially imaged loculated and layering left pleural effusion and left upper lobe infiltrate or mass. ACT 112: N/A Electronically signed by Rose Cabrera 06-18-2025 5:09 PM
[2025-06-18 17:34] LABS: Appearance Urine Clear (Clear); Bacteria Urine Automated None Seen (None Seen); Epithelial Cell Urine Auto 0-2 /hpf (0-2); Glucose Urine UA Negative (Negative); RBC Urine Automated 0-2 /hpf (0-2); WBC Urine Automated 0-5 /hpf (0-5)
[2025-06-18] MEDS: ASPIRIN CHEW 324 MG PO STA (18:47)
--- NOTE | 2025-06-18 18:57 | History & Physical Report ---
Date of Service June 18, 2025 Assessment & Plan (1) Aphasia: (2) Hypomagnesemia: (3) Orthostatic hypotension: Plan This patient is an 79-year-old male with history of diffuse large B-cell lymphoma, non-small cell lung adenocarcinoma with hilar and mediastinal lymphadenopathy on chemotherapy with docetaxel, HTN no longer on medication, orthostatic hypotension, hypothyroidism, BPH, impaired fasting glucose, AAA s/p repair, CKD stage III, who presents to the ED with 2 episodes of expressive aphasia and dysarthria. Each episode lasted about 1 minute and then resolved on their own about 10 minutes prior to arrival in the ED. He did feel a little bit lightheaded prior to arrival but did not have lightheadedness or dizziness when the symptoms occurred. He had no acute neurological deficits in the ED and a stroke alert was not called. He had a CT of the head, and a CT angiogram of the head/neck which were negative for ICH, ischemia, or large vessel occlusion. He has been dealing with orthostasis at home and was admitted for such and discharged about 1 week prior. His blood pressure at home before this episode was in the 90s over 60s and then was in the 80s over 50s initially in the ED. He denies any heart palpitations or chest pain, no headache. No other weakness, facial droop. He will be admitted for further workup for TIA. #Expressive aphasia/TIA-risk factors for stroke include previous history of smoking, age, PAD/CKD. He has been having issues with orthostatic hypotension and not HTN and is not treated for HTN. No large vessel occlusion or significant carotid artery stenosis on CTA. ABCD 2 score is 3 which is in the low risk category. - Admit to PCU for telemetry monitoring-if no arrhythmia noted here, recommend 30-day cardiac event monitor after discharge - Check echocardiogram-no need for bubble study given advanced age - Start aspirin 81 mg p.o. once daily - Start atorvastatin 40 mg p.o. once daily and check lipid panel in the a.m.- decrease to moderate intensity level if total cholesterol less than 100 - Check HgbA1c in the a.m. - Neurochecks, NIH stroke scale to be followed by nurses - Check brain MRI with and without contrast-assess for stroke and for brain metastases given history of lung cancer - PT/OT/speech therapy consulted #Orthostatic hypotension/HLD/PAD s/p AAA repair-he was recently admitted for falls and was found to be orthostatic. He was placed on midodrine during the hospitalization but patient reports it made him feel weird and it was stopped. Only with mild anemia not enough to make him have orthostasis. - Monitor for orthostasis while in the hospital-PT/OT ordered - Starting aspirin and statin - Start MARIE yan #CKD stage III/hypomagnesemia-creatinine around baseline at 1.48. Magnesium mildly low at 1.6 and given 1 g of IV magnesium sulfate in the ED - Avoid nephrotoxins, renally dose medications when necessary - Follow BMP, magnesium in the a.m. #Non-small cell lung adenocarcinoma/history of diffuse large B-cell lymphoma- currently undergoing chemotherapy for the lung cancer with docetaxel, follows with Dr. Rosales of oncology. He has a chronic loculated pleural effusion seen on chest x-ray which seems similar to previous. He does not follow with pulmonology. He has no respiratory symptoms. -Follow CBC - Follow-up with oncology after discharge - Follow-up imaging of the chest and consider pulmonology referral as outpatient #Hypothyroidism-TSH was 5.2 when checked just a couple of weeks ago and his dose of levothyroxine was increased in the hospital 137 mcg but he was discharged home on his usual 125 mcg - Continue home levothyroxine 105 mcg p.o. once daily - Follow TSH in 4 weeks #BPH-no acute issues, not on any medication -Monitor for urinary retention #Impaired fasting glucose-most recent HgbA1c was 6.0% in 2021 - Checking HgbA1c in the a.m. DVT prophylaxis-heparin SQ, MARIE yan, SCDs Disposition-admit to PCU, likely discharged home on 06/19 after PT/OT evaluations and ensure not orthostatic. I discussed the patient's care with his on the phone at the time of admission. History of Present Illness Chief Complaint: Speech issue Primary Care Provider: [facility] This patient is an 79-year-old male with history of diffuse large B-cell lymphoma, non-small cell lung adenocarcinoma with hilar and mediastinal lymphadenopathy on chemotherapy with docetaxel, HTN no longer on medication, orthostatic hypotension, hypothyroidism, BPH, impaired fasting glucose, AAA s/p repair, CKD stage III, who presents to the ED with 2 episodes of expressive aphasia and dysarthria. Each episode lasted about 1 minute and then resolved on their own about 10 minutes prior to arrival in the ED. He did feel a little bit lightheaded prior to arrival but did not have lightheadedness or dizziness when the symptoms occurred. He had no acute neurological deficits in the ED and a stroke alert was not called. He had a CT of the head, and a CT angiogram of the head/neck which were negative for ICH, ischemia, or large vessel occlusion. He has been dealing with orthostasis at home and was admitted for such and discharged about 1 week prior. His blood pressure at home before this episode was in the 90s over 60s and then was in the 80s over 50s initially in the ED. He denies any heart palpitations or chest pain, no headache. No other weakness, facial droop. He will be admitted for further workup for TIA. Allergies Allergy/AdvReac Type Severity Reaction Status Date / Time fentanyl AdvReac Verified 06/18/25 19:06 Home Medications Medication Instructions Recorded Confirmed Type docusate sodium 100 mg tablet 100 mg PO QAM 07/22/22 06/18/25 History (Stool Softener) latanoprost 0.005 % eye drops 1 drp OPB HS 04/10/24 06/18/25 History levothyroxine 125 mcg capsule 125 mcg PO DAILY #30 caps 04/12/24 06/18/25 Rx ondansetron 8 mg disintegrating 8 mg PO Q8H PRN N/V 06/11/24 06/18/25 History tablet cholecalciferol (vitamin D3) 25 1,000 mcg PO DAILY 09/11/24 06/18/25 History mcg (1,000 unit) capsule gemcitabine 1 gram intravenous 0 g IV UD 09/11/24 06/18/25 History solution acetaminophen 325 mg tablet 325 mg PO DAILY PRN Pain 06/06/25 06/18/25 History diclofenac sodium 1 % topical gel 4 g topical BID PRN Pain 06/06/25 06/18/25 History hydrocodone 7.5 mg-acetaminophen 1 tab PO Q4 PRN Pain 06/06/25 06/18/25 History 325 mg tablet lanolin alcohols-mineral 1 applic topical DAILY 06/06/25 06/18/25 History oil-w.petrolatum-ceresin topical cream (Eucerin topical cream) lidocaine 5 % topical patch 1 patch topical DAILY PRN Pain 06/06/25 06/18/25 History doxycycline hyclate 100 mg capsule 100 mg PO BID #20 caps 06/12/25 06/18/25 Rx albuterol sulfate 90 mcg/actuation 1 puff inhalation Q4H PRN 06/18/25 06/18/25 History aerosol inhaler Shortness Of Breath Or Wheezing Past Med/Surg History Problem List (Updated 06/18/25 @ 20:55 by Fidelia Celaya MD) Orthostatic hypotension Hypomagnesemia Aphasia (Acute) Stroke-like symptoms (Acute) Fall from standing (Acute) Ambulatory dysfunction (Acute) Elevated troponin (Acute) Generalized weakness (Acute) BPH w urinary obs/LUTS Localized swelling of both lower legs (Acute) Palliative care by specialist Advanced care planning/counseling discussion Anemia Hypothyroid Nausea & vomiting (Acute) Acute upper abdominal pain (Acute) Acute cholecystitis (Acute) Acute cholecystitis Lung nodule, solitary Fever (Acute) Hyponatremia Pancytopenia (Acute) Elevated troponin Generalized weakness (Acute) Pericardial effusion Port-A-Cath in place (06/24/22) Insertion Access Port with Fluoroscopy(right internal jugular vein) - Trever Lomeli, DO, FACS Encounter for insertion of venous access port Large B-cell lymphoma Renal Mass Following w/ Dr Phelan at [facility] CAD (coronary artery disease) Per 12/2021 PCP note- followed with cardio/last cardio work up 6-8 years ago- currently asymptomatic History of colon polyps HTN (hypertension) Osteopenia Hyperparathyroidism Arthritis Former smoker Hx of transient ischemic attack (TIA) patient states that doctors felt he may have had a mini stroke in his 60s. pts denies this Impaired fasting glucose Hgb A1C 12/2021 = 6.0 Hyperlipidemia Benign hypertension AAA (abdominal aortic aneurysm) S/p AAA repair 2018. 03/2022 abdomen/pelvis CT shows s/p aortobiliac stent graft repair- stent graft is patent. Residual aneurysm sac measures 6.3 x 5.0 cm Medical History Bilateral edema of lower extremity Neutropenic fever Adenocarcinoma reoccurance, will restart chemo 05/30/24, following w/ Dr Rosales at [facility] >>>of the left upper lung - surgically removed 10/2023 + treated with chemotherapy and immunotherapy- Stage 3 chronic kidney disease Renal mass follows w/ [facility] Hypothyroidism Rhabdomyolysis h/o hospitalized at [facility] 04/10/24 Myxedema coma h/o hospitalized at [facility] 04/10/24 Osteopenia Stage 3 chronic kidney disease History of hypertension s/p AAA repair in 2018, was treated with medication for about 2 years. no recent issues Hyperlipidemia CAD (coronary artery disease) Hx of colonic polyps History of abdominal aortic aneurysm (AAA) S/p AAA repair 2018. 03/2022 abdomen/pelvis CT shows s/p aortobiliac stent graft repair- stent graft is patent. Residual aneurysm sac measures 6.3 x 5.0 cm Hx of hyperparathyroidism Hx; s/p parathyroid surgery. Stable per 12/2021 PCP visit Port-A-Cath in place right chest wall AAA (abdominal aortic aneurysm) S/p AAA repair 2018. 03/2022 abdomen/pelvis CT shows s/p aortobiliac stent graft repair- stent graft is patent. Residual aneurysm sac measures 6.3 x 5.0 cm Large B-cell lymphoma Non-hodgkin lymphoma -> currently in remission Emphysema lung COPD (chronic obstructive pulmonary disease) Degenerative disc disease History of duodenal ulcer Surgical History Hx of cataract surgery right Hx laparoscopic cholecystectomy (02/15/24) Laparoscopic Cholecystectomy(Not Applicable) - Wayne Luna, S/P partial lobectomy of lung left upper partial lobectomy H/O insertion of central venous access port (2021) Right chest wall Power-port inserted at [facility]. History of bone marrow biopsy 05/[address] [facility] History of left nephrectomy 05/12/22 [facility] r/t non-hodgkin's lymphoma History of colonoscopy 11/2021 History of parathyroid surgery 01-08-21 Surgical removal of the right upper and left lower parathyroid glands History of umbilical hernia repair 2014 [place], [place] History of wisdom tooth extraction History of abdominal aortic aneurysm (AAA) repair [address] Jimenez Family History Mother Family history of diabetes mellitus Atrial fibrillation Glioblastoma Father Atrial fibrillation Aunt Breast cancer Son Cancer melanoma Other No family history of adverse response to anesthesia Denies family history of Ovarian cancer Prostate cancer Myocardial infarction Colorectal cancer Social History Smoking Status: Former smoker Tobacco Type: Cigarettes Second Hand Exposure: No; Do You Dip or Chew Tobacco: No; Hx Alcohol Use: No Hx Substance Use: No Preferred Language: British Communication Ability: Effective Communication Ability Comment: good Visual Impairment: No Limitations Hearing Ability: Normal Slat Grader Required: No Beliefs That Will Affect Care: None marital status: Current Living Situation: Spouse Current Living Situation Comment: okay current occupational status: retired How many Children do You have: 2 Feels Safe at Home: Yes Diet: regular caffeine: Yes during the past year weight has: decreased > 10 lbs Dental Care, Regularly: No Physical Activity Frequency: Daily Seatbelt Use: always Sunscreen Use: Yes Assistive Devices: Cane and Walker Review of Systems Review of Systems: All systems reviewed & are unremarkable except as noted in HPI & below Physical Exam Constitutional: WD/WN, vitals as above Eyes: PERRL, conjunctivae normal, anicteric sclerae ENMT: external ear and nose normal, oropharynx normal Neck: trachea midline, no thyromegaly Respiratory: normal respiratory effort; no cough Auscultation: + diminished lung sounds (At left middle and upper lung payne); no crackles, no rhonchi and no wheezes Cardiovascular: RRR, no murmur, no edema Chest (Breasts): Chest: normal inspection of chest Gastrointestinal (Abdomen): normal bowel sounds, soft, nontender, no hepatosplenomegaly Musculoskeletal: Extremities: extremities normal to inspection; no cyanosis and no clubbing Skin: no rashes, warm and dry Neurologic: PERRL, EOMI, accommodation nl, no face palsy, no dysarthria CN's II-XI intact bilaterally, moves all extremities and awake; no focal motor deficits Speech / Cognition: normal speech Motor/Sensory: no tremor and no pronator drift Coordination: normal lytubw-ts-oehi test, normal wtco-vd-nmeg test and normal rapid alternating movements Psychiatric: A+Ox3, euthymic affect Lymphatic: no lymphedema Results & Data Results & Data Vital Signs (Past 12 Hours) Vital Signs Temp Pulse Pulse Resp BP BP Pulse Ox 06/18/25 18:05 80 06/18/25 17:30 78 21 149/96 H 95 06/18/25 17:01 84 21 163/94 H 97 06/18/25 15:33 81 18 163/94 H 06/18/25 15:00 82 18 148/91 H 96 06/18/25 14:33 82 18 136/85 97 06/18/25 14:01 84 06/18/25 13:35 36.6 C 94 H 18 86/61 L 97 O2 Del Method 06/18/25 18:05 06/18/25 17:30 Room Air 06/18/25 17:01 Room Air 06/18/25 15:33 06/18/25 15:00 06/18/25 14:33 06/18/25 14:01 06/18/25 13:35 Room Air Laboratory Results CBC, CMP, PT/PTT/INR, magnesium, troponin, UA reviewed Diagnostic Findings CT head, CT angiogram head neck, CXR reviewed Chest X-Ray 06/18/25 14:20 XR chest 1V portable CLINICAL HISTORY: neuro deficit, acute stroke suspected COMPARISON STUDY: 06/06/20[address] x-ray [address] CT of 04/11/2025 FINDINGS: Stable right chest port. Stable cardiomegaly with mild pulmonary vascular congestion. Stable large pleural density at the lateral left mid to upper hemithorax. Stable hazy opacity at the left lung base with partial obscuration of the left hemidiaphragm. No pneumothorax seen. IMPRESSION: Stable exam. ACT 112: Negative or not required by law. Electronically signed by: Trever Le M.D. 06/18/2025 2:[address] 06/18/25 14:20 EXAM: CT Head Without Intravenous Contrast INDICATION: Acute stroke symptoms. TECHNIQUE: Axial computed tomography images of the head/brain without intravenous contrast. Sagittal and/or coronal reformats are provided. Sagittal and coronal reformatted images were created and reviewed. This CT exam was performed using one or more of the following dose reduction techniques: automated exposure control, adjustment of the mA and/or kV according to patient size, and/or use of iterative reconstruction technique. COMPARISON: 06/06/2025 FINDINGS: Limitations: None. Brain and extra-axial spaces: There is age appropriate cortical atrophy and chronic ischemic periventricular white matter hypodensity. No acute infarct, hemorrhage or mass noted. Bones/joints: Stable falcine and territorial ossifications. Soft tissues: No acute abnormality noted. Vasculature: No acute abnormality noted. Sinuses: No layering fluid in the visualized portions of the paranasal sinuses. Mastoid air cells: No mastoid effusion. Orbits: No acute abnormality noted. IMPRESSION: Cerebral atrophy. No acute changes. ACT 112: N/A Electronically signed by Rose Cabrera 06-18-2025 5:03 PM Head CTA 06/18/25 14:20 EXAM: CT Angiography Head and Neck With Intravenous Contrast INDICATION: Neurologic defect.. Ending year TECHNIQUE: [place]/head and neck CT angiography protocol performed with intravenous contrast. Sagittal and coronal reformatted images were created and reviewed. This CT exam was performed using one or more of the following dose reduction techniques: automated exposure control, adjustment of the mA and/or kV according to patient size, and/or use of iterative reconstruction technique. MIP reconstructed images were created and reviewed. CONTRAST: 117 ml of Optiray 320 was administered intravenously. COMPARISON: None. FINDINGS: HEAD: Right anterior cerebral artery: No abnormality noted. No occlusion or significant stenosis. Anterior communicating artery is present. No aneurysm. Right middle cerebral artery: No abnormality noted. No occlusion or significant stenosis. No aneurysm. Right posterior cerebral artery: No abnormality noted. No occlusion or significant stenosis. No aneurysm. Right intracranial internal carotid artery: No abnormality noted. No significant stenosis. No dissection or occlusion. Right intracranial vertebral artery: Mild atherosclerosis. No significant stenosis. No dissection or occlusion. Left anterior cerebral artery: No abnormality noted. No occlusion or significant stenosis. No aneurysm. Left middle cerebral artery: No abnormality noted. No occlusion or significant stenosis. No aneurysm. Left posterior cerebral artery: No abnormality noted. No occlusion or significant stenosis. No aneurysm. Left intracranial internal carotid artery: Mild atherosclerosis. No significant stenosis. No dissection or occlusion. Left intracranial vertebral artery: No abnormality noted. No significant stenosis. No dissection or occlusion. Basilar artery: No abnormality noted. No occlusion or significant stenosis. No aneurysm. Other vasculature: No vascular malformation. NECK: Right common carotid artery: No abnormality noted. No significant stenosis. No dissection or occlusion. Right extracranial internal carotid artery: Moderate calcific plaque with close to 50% stenosis. No dissection or occlusion. Right external carotid artery: No abnormality noted. No occlusion. Right extracranial vertebral artery: No abnormality noted. No significant stenosis. No dissection or occlusion. Left common carotid artery: No abnormality noted. No significant stenosis. No dissection or occlusion. Left extracranial internal carotid artery: Mild calcific plaque. No significant stenosis. No dissection or occlusion. Left external carotid artery: No abnormality noted. No occlusion. Left extracranial vertebral artery: No abnormality noted. No significant stenosis. No dissection or occlusion. Lung apices: No acute abnormality noted. Pleural space: Partially imaged loculated left pleural fluid collection. Imaged portion measures 8.1 x 4.6 x 5.0 cm. Small amount of layering left pleural effusion. There is a partially imaged irregular pulmonary infiltrate to the left of the proximal descending aorta. Mild centrilobular emphysematous changes present. Mild nodular scarring in the right apex. HEAD and NECK: Bones/joints: No significant abnormality. Soft tissues: No abnormality noted. Tubes, lines and devices: Right jugular central venous port followed to the proximal SVC. CAROTID STENOSIS REFERENCE USING NASCET CRITERIA: % ICA stenosis = (1 - narrowest ICA diameter/diameter of distal cervical ICA) x 100. Mild - <50% stenosis. Moderate - 50-69% stenosis. Severe - 70-94% stenosis. Near occlusion - 95-99% stenosis. Occluded - 100% stenosis. IMPRESSION: 1. No large vessel occlusion, aneurysm or dissection in the head or neck. 2. Partially imaged loculated and layering left pleural effusion and left upper lobe infiltrate or mass. ACT 112: N/A Electronically signed by Rose Cabrera 06-18-2025 5:09 PM Neck CTA 06/18/25 14:20 EXAM: CT Angiography Head and Neck With Intravenous Contrast INDICATION: Neurologic defect.. Ending year TECHNIQUE: [place]/head and neck CT angiography protocol performed with intravenous contrast. Sagittal and coronal reformatted images were created and reviewed. This CT exam was performed using one or more of the following dose reduction techniques: automated exposure control, adjustment of the mA and/or kV according to patient size, and/or use of iterative reconstruction technique. MIP reconstructed images were created and reviewed. CONTRAST: 117 ml of Optiray 320 was administered intravenously. COMPARISON: None. FINDINGS: HEAD: Right anterior cerebral artery: No abnormality noted. No occlusion or significant stenosis. Anterior communicating artery is present. No aneurysm. Right middle cerebral artery: No abnormality noted. No occlusion or significant stenosis. No aneurysm. Right posterior cerebral artery: No abnormality noted. No occlusion or significant stenosis. No aneurysm. Right intracranial internal carotid artery: No abnormality noted. No significant stenosis. No dissection or occlusion. Right intracranial vertebral artery: Mild atherosclerosis. No significant stenosis. No dissection or occlusion. Left anterior cerebral artery: No abnormality noted. No occlusion or significant stenosis. No aneurysm. Left middle cerebral artery: No abnormality noted. No occlusion or significant stenosis. No aneurysm. Left posterior cerebral artery: No abnormality noted. No occlusion or significant stenosis. No aneurysm. Left intracranial internal carotid artery: Mild atherosclerosis. No significant stenosis. No dissection or occlusion. Left intracranial vertebral artery: No abnormality noted. No significant stenosis. No dissection or occlusion. Basilar artery: No abnormality noted. No occlusion or significant stenosis. No aneurysm. Other vasculature: No vascular malformation. NECK: Right common carotid artery: No abnormality noted. No significant stenosis. No dissection or occlusion. Right extracranial internal carotid artery: Moderate calcific plaque with close to 50% stenosis. No dissection or occlusion. Right external carotid artery: No abnormality noted. No occlusion. Right extracranial vertebral artery: No abnormality noted. No significant stenosis. No dissection or occlusion. Left common carotid artery: No abnormality noted. No significant stenosis. No dissection or occlusion. Left extracranial internal carotid artery: Mild calcific plaque. No significant stenosis. No dissection or occlusion. Left external carotid artery: No abnormality noted. No occlusion. Left extracranial vertebral artery: No abnormality noted. No significant stenosis. No dissection or occlusion. Lung apices: No acute abnormality noted. Pleural space: Partially imaged loculated left pleural fluid collection. Imaged portion measures 8.1 x 4.6 x 5.0 cm. Small amount of layering left pleural effusion. There is a partially imaged irregular pulmonary infiltrate to the left of the proximal descending aorta. Mild centrilobular emphysematous changes present. Mild nodular scarring in the right apex. HEAD and NECK: Bones/joints: No significant abnormality. Soft tissues: No abnormality noted. Tubes, lines and devices: Right jugular central venous port followed to the proximal SVC. CAROTID STENOSIS REFERENCE USING NASCET CRITERIA: % ICA stenosis = (1 - narrowest ICA diameter/diameter of distal cervical ICA) x 100. Mild - <50% stenosis. Moderate - 50-69% stenosis. Severe - 70-94% stenosis. Near occlusion - 95-99% stenosis. Occluded - 100% stenosis. IMPRESSION: 1. No large vessel occlusion, aneurysm or dissection in the head or neck. 2. Partially imaged loculated and layering left pleural effusion and left upper lobe infiltrate or mass. ACT 112: N/A at 1404 with sinus rhythm with PVCs, rate 83, no acute ischemic changes Code Status & VTE Plan Code Status Full code VTE Prophylaxis Plan VTE Prophylaxis will be ordered: Yes PG Care Time/CCT Total # of Minutes Spent Total Time Spent with Patient: Total time spent is greater than 50% in coordination of care (as documented) at patient's floor/unit and/or counseling patient: Coding Level of Care Code 96826 INT INP/OBS CARE 3/75MIN Diagnoses Aphasia R47.01 Hypomagnesemia E83.42 Orthostatic hypotension I95.1
[2025-06-18] MEDS ORDERED: ALBUTEROL HFA 8 GM INHALER INH PRN (20:10)
[2025-06-18] MEDS ORDERED: ACETAMINOPHEN 325 MG TAB PO PRN (20:10)
[2025-06-18] MEDS ORDERED: HYDROCODONE/ACETAMINOPHEN 7.5/325MG TAB PO PRN (20:10)
[2025-06-18] MEDS ORDERED: PHARMACIST DISCHARGE MED REC CONSULT PRN (20:10)
[2025-06-18] MEDS ORDERED: ONDANSETRON INJ 2 MG/ML 2 ML VIAL IV PRN (20:10)
[2025-06-18] MEDS ORDERED: POLYETHYLENE (MIRALAX) 17 GM PACK PO PRN (20:10)
[2025-06-18] MEDS: LORazepam Inj 1 MG in SYRINGE 0.5 ML IV PRN (20:39)
[2025-06-18] MEDS: GADOBUTROL 65ML VIAL IV ONE (20:58)
[2025-06-18] MEDS: LATANOPROST 0.005% OP SOLN 2.5 ML BTL OPB SCH (22:03)
[2025-06-18] MEDS: HEPARIN SOD 5,000 UNIT/0.5 ML VIAL SQ SCH (22:03)
[2025-06-19 00:50] VITALS: RESP 18
[2025-06-19] MEDS: LEVOTHYROXINE SODIUM 125 MCG TABLET PO SCH (06:52)
[2025-06-19 07:42] VITALS: O2SAT 95
[2025-06-19 08:03] LABS: Hematocrit (blood only) 32.6 % (42.0-52.0); Hemoglobin 10.6 g/dL (14.0-18.0); Immature Granulocytes # (auto) 0.02 K/uL (0.01-0.20); Immature Granulocytes % (auto) 0.3 %; Mean Corpuscular Hemoglobin 29.1 pg (25.0-34.0); Mean Corpuscular Volume 89.6 fL (80.0-100.0); Platelet Count 210 K/uL (130-400); RDW Standard Deviation 57.2 fL (36.4-46.3); Red Blood Count 3.64 M/uL (4.70-6.10); White Blood Count 6.13 K/ul (4.8-10.8)
[2025-06-19 08:30] LABS: Anion Gap 7.0 (3-11); Blood Urea Nitrogen 25.0 mg/dl (6-23); Calcium 8.2 mg/dl (8.6-10.3); Carbon Dioxide 26.0 mmol/L (21-32); Chloride 104.0 mmol/L (98-107); Cholesterol 139.0 mg/dl (0-200); Creatinine Clr Calc Pharmacy 48.6 ml/min; Glucose 91.0 mg/dl (70-99(Fasting)); HDL Cholesterol 31.0 mg/dl; Magnesium 1.8 mg/dl (1.7-2.4); Potassium 3.9 mmol/L (3.5-5.1); Sodium 137.0 mmol/L (136-145); Triglycerides 122.0 mg/dl (0-150)
[2025-06-19] MEDS: EUCERIN CR 120 GM JAR TOP SCH (08:31)
[2025-06-19] MEDS: ASPIRIN 81 MG ECTAB PO SCH (08:31)
[2025-06-19] MEDS: DOCUSATE SODIUM 100 MG CAP PO SCH (08:31)
[2025-06-19] MEDS: ATORVASTATIN 40 MG TAB PO SCH (08:31)
[2025-06-19] MEDS: CHOLECALCIFEROL 25 MCG (1000 UNITS) TAB PO SCH (08:31)
[2025-06-19 08:34] LABS: Hemoglobin A1C 5.3 % (4.5-5.6)
[2025-06-19] MEDS ORDERED: EUCERIN CR 120 GM JAR TOP SCH (09:00)
[2025-06-19] MEDS: HEPARIN 100 UNIT/ML 5ML FLUSH FLUSH PRN (09:30)
--- NOTE | 2025-06-19 11:09 | XCELERA ---
[id number] \\[id number]
[2025-06-19 11:14] VITALS: BP 105/58; PULSE 79; TEMP 98.1
--- NOTE | 2025-06-19 11:34 | Magnetic Resonance Report ---
Exam(s): MRI HEAD W/WO Contrast IV Amt: 9.8 mL Gadavist EXAM: MR Head Without and With Intravenous Contrast CLINICAL HISTORY: Images Study Description: MR brain wo/w con Body Part: HEAD OTHER: Other Notes: TIA, pt has hx of lung CA, assessing for CVA vs mets PtGiven 9.8 mL gadavist, unremarkably. JCS TECHNIQUE: Magnetic resonance images of the head/brain without and with intravenous contrast in multiple planes. Moderate motion/artifact. CONTRAST: Patient received 9.8 mL Gadavist of IV contrast COMPARISON: Head CT 06/18/2025 and MRI brain 05/24/2024. FINDINGS: Brain: No abnormal enhancement, mass, edema, mass effect or acute infarct. No acute hemorrhage. Mild atrophy and chronic, nonspecific white matter disease, stable. No significant interval change. Ventricles: No hydrocephalus or midline shift. Bones/joints: No acute finding. Soft tissues: No scalp hematoma. Visualized Sinuses: Clear. Mastoid air cells: No mastoid effusion. IMPRESSION: 1. Stable age-related findings. 2. No abnormal enhancement, mass, acute infarct, bleed, acute intracranial abnormality, or interval change. Electronically signed by: Casi Thapa M.D. 06/18/25 22:19 PM
[2025-06-19] MEDS: STROKE PATIENT DISCHARGE STA (12:33)
--- NOTE | 2025-06-19 12:45 | Pharmacy Report ---
- Date of Service June 19, 2025 - Pharmacy CVA/TIA Medication Review Medications to Prevent Stroke handout has been added to the patients discharge packet. Antiplatelet(s) * Aspirin 81 mg PO daily Cholesterol * High intensity statin: atorvastatin 40 mg daily DVT Prophylaxis * SCD knee * Heparin 5000 units SC every 12 hours Therapeutic Anticoagulation * No history of Afib/Aflutter noted Type 2 Diabetes * Patient does not have T2DM
--- NOTE | 2025-06-19 13:33 | Discharge Summary ---
Discharge Summary Date of Service June 19, 2025 Principal Dx & Hospital Course #1 = Principal Diagnosis (1) Aphasia: RESOLVED completely with regards to expressive aphasia in less than 24 hours after onset of expressive aphasia. Patient reports that he had NO receptive aphasia at all. I surmise that this patient sustained an acute transient ischemic attack. MRI brain with/without IV contrast (06/18/2025, 7:36pm) revealed: 1. Stable age-related findings. 2. No abnormal enhancement, mass, acute infarct, bleed, acute intracranial abnormality, or interval change. I surmise that this patient sustained an acute transient ischemic attack. Patient subsequently received ASA 324mg PO x 1 dose (06/18/2025, 6:47pm), ASA 81mg PO qam (06/19/2025, 8:31am), and atorvastatin 40mg PO qam (06/19/2025, 8:31am) while in [facility]. Patient will continue with ASA 81mg PO qam and atorvastatin 40mg PO qam on hospital discharge back to his home on 06/19/2025. To this end, patient's pharmacy, [facility], [address] [place] [address], received electronic prescriptions on 06/19/2025 for the following two medications: 1. ASA 81mg PO daily, #30 tablets, no refills. 2. Atorvastatin 40mg PO qam, #30 tablets, no refills. Patient also underwent TTE (06/19/2025, 6:56am), which revealed: 1. Normal LVEF 55-60%. Mild concentric LVH. No regional wall motion abn ormalities. 2. RV normal size and function. 3. Borderline LA enlargement. Borderline RA enlargement. No interatrial shunt. 4. No . No AR. 5. PV not well visualized. 6. No TS. No TR. 7. Normal IVC size and collapsibility with sniff indicates normal RAP of 3 mm Hg. 8. No pericardial effusion. 9. Grade I LV diastolic dysfunction. (as per CARDS Dr. Benjamin Chu). Patient also underwent CTA head/neck (05/19/2025, 2:20pm), which revealed: 1. No large vessel occlusion, aneurysm or dissection in the head or neck. 2. Partially imaged loculated and layering left pleural effusion and left upper lobe infiltrate or mass. Patient also underwent fasting lipid panel and HbA1c, which revealed: 1. Total cholesterol 139, HDL 31, LDL 84, triglyeride 122 (06/19/2025, 7:22am). 2. HbA1c 5.3% (06/19/2025, 7:22am). (2) Hypomagnesemia: RESOLVED completely with post-supplement Mg 1.8 mg/dL (06/19/2025, 7:22am) after having received magnesium sulfate 1g IV x 1 dose (06/18/2025, 5:02pm). cf., admission Mg 1.6 mg/dL (06/18/2025, 2:33pm). (3) Orthostatic hypotension: NOT orthostatic during this observation hospital stay. cf., admission BP 86/61, HR 94 (06/18/2025, 1:35pm). cf., sitting BP 136/85, HR 82 (06/18/2025, 2:33pm). cf., sitting BP 148/91, HR 82 (06/18/2025, 3:00pm). Patient was, however, acutely dehydrated as patient concedes to not drinking adequate amounts of water or iced peach tea. Patient subsequently received 1 liter of 0.9% NS @ 999 mL/hr (06/18/2025, 2:50pm). Plan This patient is an 79-year-old male with history of diffuse large B-cell lymphoma, non-small cell lung adenocarcinoma with hilar and mediastinal lymphadenopathy on chemotherapy with docetaxel, HTN no longer on medication, orthostatic hypotension, hypothyroidism, BPH, impaired fasting glucose, AAA s/p repair, CKD stage III, who presents to the ED with 2 episodes of expressive aphasia and dysarthria. Each episode lasted about 1 minute and then resolved on their own about 10 minutes prior to arrival in the ED. He did feel a little bit lightheaded prior to arrival but did not have lightheadedness or dizziness when the symptoms occurred. He had no acute neurological deficits in the ED and a stroke alert was not called. He had a CT of the head, and a CT angiogram of the head/neck which were negative for ICH, ischemia, or large vessel occlusion. He has been dealing with orthostasis at home and was admitted for such and di scharged about 1 week prior. His blood pressure at home before this episode was in the 90s over 60s and then was in the 80s over 50s initially in the ED. He denies any heart palpitations or chest pain, no headache. No other weakness, facial droop. He will be admitted for further workup for TIA. #Expressive aphasia/TIA-risk factors for stroke include previous history of smoking, age, PAD/CKD. He has been having issues with orthostatic hypotension and not HTN and is not treated for HTN. No large vessel occlusion or significant carotid artery stenosis on CTA. ABCD 2 score is 3 which is in the low risk category. - Admit to PCU for telemetry monitoring-if no arrhythmia noted here, recommend 30-day cardiac event monitor after discharge - Check echocardiogram-no need for bubble study given advanced age - Start aspirin 81 mg p.o. once daily - Start atorvastatin 40 mg p.o. once daily and check lipid panel in the a.m.- decrease to moderate intensity level if total cholesterol less than 100 - Check HgbA1c in the a.m. - Neurochecks, NIH stroke scale to be followed by nurses - Check brain MRI with and without contrast-assess for stroke and for brain metastases given history of lung cancer - PT/OT/speech therapy consulted #Orthostatic hypotension/HLD/PAD s/p AAA repair-he was recently admitted for falls and was found to be orthostatic. He was placed on midodrine during the hospitalization but patient reports it made him feel weird and it was stopped. Only with mild anemia not enough to make him have orthostasis. - Monitor for orthostasis while in the hospital-PT/OT ordered - Starting aspirin and statin - Start MARIE yan #CKD stage III/hypomagnesemia-creatinine around baseline at 1.48. Magnesium mildly low at 1.6 and given 1 g of IV magnesium sulfate in the ED - Avoid nephrotoxins, renally dose medications when necessary - Follow BMP, magnesium in the a.m. #Non-small cell lung adenocarcinoma/history of diffuse large B-cell lymphoma- currently undergoing chemotherapy for the lung cancer with docetaxel, follows with Dr. Rosales of oncology. He has a chronic loculated pleural effusion seen on chest x-ray which seems similar to previous. He does not follow with pulmonology. He has no respiratory symptoms. -Follow CBC - Follow-up with oncology after discharge - Follow-up imaging of the chest and consider pulmonology referral as outpatient #Hypothyroidism-TSH was 5.2 when checked just a couple of weeks ago and his dose of levothyroxine was increased in the hospital 137 mcg but he was discharged home on his usual 125 mcg - Continue home levothyroxine 105 mcg p.o. once daily - Follow TSH in 4 weeks #BPH-no acute issues, not on any medication -Monitor for urinary retention #Impaired fasting glucose-most recent HgbA1c was 6.0% in 2021 - Checking HgbA1c in the a.m. DVT prophylaxis-heparin SQ, MARIE yan, SCDs Disposition-admit to PCU, likely discharged home on 06/19 after PT/OT evaluations and ensure not orthostatic. I discussed the patient's care with his on the phone at the time of admission. Admission HPI Per Admitting Provider This patient is an 79-year-old male with history of diffuse large B-cell lymphoma, non-small cell lung adenocarcinoma with hilar and mediastinal lymphadenopathy on chemotherapy with docetaxel, HTN no longer on medication, orthostatic hypotension, hypothyroidism, BPH, impaired fasting glucose, AAA s/p repair, CKD stage III, who presents to the ED with 2 episodes of expressive aphasia and dysarthria. Each episode lasted about 1 minute and then resolved on their own about 10 minutes prior to arrival in the ED. He did feel a little bit lightheaded prior to arrival but did not have lightheadedness or dizziness when the symptoms occurred. He had no acute neurological deficits in the ED and a stroke alert was not called. He had a CT of the head, and a CT angiogram of the head/neck which were negative for ICH, ischemia, or large vessel occlusion. He has been dealing with orthostasis at home and was admitted for such and discharged about 1 week prior. His blood pressure at home before this episode was in the 90s over 60s and then was in the 80s over 50s initially in the ED. He denies any heart palpitations or chest pain, no headache. No other weakness, facial droop. He will be admitted for further workup for TIA. Discharge Exam Constitutional General: comfortable, coherent, cooperative. Wide awake and alert. Not confused, lethargic, or obtunded. Patient speaks in complete, fluent, and articulate sentences without pause, interruption, cough, or wheeze. HEENT: normocephalic, atraumatic. EOMI. PERRL. No nystagmus, gaze paresis, anisocoria, miosis, mydriasis, hyphema, scleral injection, conjunctivitis, or pterygium. No otorrhea. No rhinorrhea. No pharyngeal erythema, edema, or discharge. Neck: supple, no stridor, bruit, goiter, JVD. Jugular venous pressure is estimated to be 3 cm above the sternal angle of Jah, which in turn, is 5 cm above the level of the right atrium; hence, jugular venous pressure is estimated to be 8 cm H2O, which is normal. Lymph: no anterior/posterior cervical, supraclavicular, infraclavicular, axillary, epitrochlear, or inguinal lymphadenopathy. Chest: symmetric rise and falls with respirations. Non-tender to palpation. Heart: RRR, S1 and S2 noted. No S3 or S4 summation gallop. No tripartite friction rub. Grade II/ early systolic murmur @ LLSB without radiation to the carotids, axilla, or back, and which remains invariant in regards to the respiratory cycle. Abdomen: soft, non-tender, non-distended. No rebound, guarding, Moya's sign, or organomegaly. Bowel sounds auscultated in all 4 quadrants. Extremity: no clubbing, cyanosis, or edema. 2+ pedal pulses bilaterally. Skin: no decubitus ulcer, exanthem, or enanthem. Neuro: alert and oriented in regards to person, place, time, and situation. DTR+. 5/5 motor strength in all 4 extremities, both proximally and distally. Psychiatric: no flat affect. Smiles appropriately. Discharge Plan Discharge Items Patient Disposition: Home - Self-Care Reason For Visit: TIA Discharge Diagnosis: TIA Condition on Discharge: Good Activity: Resume your previous activity Lifting: Gradually increase as tolerated Bathing: No limitations Sexual Activity: When tolerated Exercise/Sports: Gradually increase as tolerated Driving/Machine Use: No limitations Weightbearing: Full weightbearing Non-emergency contact: Primary Care Provider Call non-emergency contact if: you have any medication questions Follow-up/Referrals: [facility] [Primary Care Provider] - Diet: Heart Healthy Fluids: 2000ml (8 cups) Addtl Attending Provider Instructions: See your PCP @ [facility] within 5-7 days of hospital discharge. Pending Studies at Discharge: No Stand-Alone Forms: My [facility], Smoking Cessation, Medications to Prevent Stroke Medications and DC Order Prescriptions: New aspirin 81 mg Tablet,Delayed Release (Dr/Ec) 81 mg PO QAM Qty: 30 0RF atorvastatin 40 mg Tablet 40 mg PO QAM Qty: 30 0RF Continued cholecalciferol (vitamin D3) 25 mcg (1,000 unit) capsule 1,000 mcg PO DAILY Patient Comments: 06/06- Not on faxed list from [facility] unable to verify gemcitabine 1 gram recon soln 0 g IV UD Patient Comments: 06/06- Not on faxed list from [facility] unable to verify Rx Instructions: intravenously per oncology; docusate sodium [Stool Softener] 100 mg Tablet 100 mg PO QAM latanoprost 0.005 % drops 1 drp OPB HS levothyroxine 125 mcg capsule 125 mcg PO DAILY Qty: 30 0RF acetaminophen 325 mg Tablet 325 mg PO DAILY PRN (Reason: Pain) lidocaine 5 % Adhesive Patch,Medicated 1 patch TOPICAL DAILY PRN (Reason: Pain) Rx Instructions: leave on most painful area for up to 12 hrs diclofenac sodium 1 % Gel 4 g TOPICAL BID PRN (Reason: Pain) Rx Instructions: apply to single knee, ankle, foot; for foot includes sole/toes/top of foot Eucerin Cream 1 applic TOPICAL DAILY hydrocodone-acetaminophen 7.5-325 mg tablet 1 tab PO Q4 PRN (Reason: Pain) ondansetron 8 mg tablet,disintegrating 8 mg PO Q8H PRN (Reason: N/V) Patient Comments: 06/06- Not on faxed list from [facility] unable to verify albuterol sulfate 90 mcg/actuation HFA aerosol inhaler 1 puff INHALATION Q4H PRN (Reason: Shortness Of Breath Or Wheezing) Discontinued doxycycline hyclate 100 mg Capsule 100 mg PO BID Qty: 20 0RF Discharge Orders: Discharge Order (Routine); Ordered 06/19/25 Ordered By: Krishna Vega Admission Data Admit Date/Time: 06/18/25 19:36 Attending Provider: Krishna Vega Admit Provider: Fidelia Celaya Primary Care Provider: [facility] Other Providers: Fidelia Celaya Hospital Stay Data Consultations 06/18/25 17:38 ED Decision to Admit Stat Diagnostic Imagining Performed 06/18/25 14:20 CT angio head w con Stat CT angio neck with con Stat CT head/brain wo con Stat 06/18/25 19:36 MR brain wo/w con Stat Pending Results Patient Have Any Pending Studies at Discharge: No Discharge Instructions Given to Patient (Per Discharging Provider) See your PCP @ [facility] within 5-7 days of hospital discharge. Total Time Total Time Spent Total Time Spent (In Minutes): 35 minutes. Of this time period, 19 minutes were spent in coordinating patient's discharge. Coding Level of Care Code 07958 INP/OBS DISCH >30 MIN Diagnoses Aphasia R47.01 Hypomagnesemia E83.42 Orthostatic hypotension I95.1
--- NOTE | 2025-06-20 11:59 | Pharmacy Report ---
Pharmacist Stroke Counseling - Date of Service June 20, 2025 - Scope: Pharmacy has been consulted to provide medication discharge counseling for this patient admitted with transient ischemic attack as per the Pharmacist Discharge Counseling for Stroke Patients Protocol. - Medications on Discharge: Home Medications Medication Instructions Recorded Confirmed docusate sodium 100 mg tablet 100 mg PO QAM 07/22/22 06/18/25 (Stool Softener) latanoprost 0.005 % eye drops 1 drp OPB HS 04/10/24 06/18/25 ondansetron 8 mg disintegrating 8 mg PO Q8H PRN N/V 06/11/24 06/18/25 tablet cholecalciferol (vitamin D3) 25 1,000 mcg PO DAILY 09/11/24 06/18/25 mcg (1,000 unit) capsule gemcitabine 1 gram intravenous 0 g IV UD 09/11/24 06/18/25 solution acetaminophen 325 mg tablet 325 mg PO DAILY PRN Pain 06/06/25 06/18/25 diclofenac sodium 1 % topical gel 4 g topical BID PRN Pain 06/06/25 06/18/25 hydrocodone 7.5 mg-acetaminophen 1 tab PO Q4 PRN Pain 06/06/25 06/18/25 325 mg tablet lanolin alcohols-mineral 1 applic topical DAILY 06/06/25 06/18/25 oil-w.petrolatum-ceresin topical cream (Eucerin topical cream) lidocaine 5 % topical patch 1 patch topical DAILY PRN Pain 06/06/25 06/18/25 albuterol sulfate 90 mcg/actuation 1 puff inhalation Q4H PRN 06/18/25 06/18/25 aerosol inhaler Shortness Of Breath Or Wheezing New Rx's Medication Instructions Recorded levothyroxine 125 mcg capsule 125 mcg PO DAILY #30 caps 04/12/24 aspirin 81 mg tablet,delayed 81 mg PO QAM #30 tabs 06/19/25 release atorvastatin 40 mg tablet 40 mg PO QAM #30 tabs 06/19/25 - Action: The above medications, specifically ones for stroke treatment/prophylaxis, have been reviewed in detail with the patient and/or patient fraud representative(s) via telephone following discharge. This includes indication, common adverse reactions, drug interactions, and medication administration. Medication counseling has been employed using the teach-back method to ensure und erstanding. - Outcome: The patient and/or patient fraud representative(s) have demonstrated understanding of the medications. Additional comments: - spoke with both patient and , Nataliia (HIPAA contact), regarding new medications of Aspirin and Atorvastatin - patient previously on Atorvastatin for "quite some time" and tolerated well - all questions answered Thank you for allowing pharmacy to be involved in the care of this patient. Please call [phone] with any additional questions
== END 2025-06-19 13:55 | disposition home or self-care (01) ==
LOC: SUATTDRO → ED 13:33 → EDINP 13:33 → SUATTDRO 19:36 → 2S 20:02